=== PATIENT | male | born 1940 | race Caucasian/White ===

== ENCOUNTER 2023-07-28 14:23 | Inpatient (IN) | payer MEDICARE, OTHER, SELFPAY ==
[2023-07-28] VITALS (10 sets, daily range): BP systolic 96–152; BP diastolic 57–90
--- NOTE | 2023-07-28 10:11 | ED.GENMED ---
History of Present Illness
General
Chief Complaint: Bowel Problem
Source: patient and ambulance crew
Exam Limitations: clinical condition
Time Seen by Provider: 07/28/23 09:53
Travel History
Have you had any contact with someone who has COVID-19?: No
Do you have any symptoms of coronavirus? Fever > 100 degrees, chills, cough, shortness of breath, sore throat, loss of taste or smell, muscle aches, or headache?: No
History of Present Illness
History of Present Illness:
See MDM
Past History
Past History
ED Past Medical History: Cancer (Bladder CA), CVA, HTN, Hypercholesterolemia and Other (Expressive Aphasia)
ED Past Surgical History: Other (PEG tube)
Social History
Tobacco: Former smoker
Alcohol: None
Drug: None
Personal:
Living: with family
Family History
Family History: Other (reviewed and noncontributory)
Phy Exam
Physical Exam
Physical Exam:
See MDM
Course
Orders/Labs/Results
Orders:
Orders
07/28/23 10:08
0.9% Sodium Chloride 1000 ml [Nss] 1,000 ml IV BOLUS
CR Chest Portable - 1 View Urgent
Comment:
Reason For Exam: SOB, weak
Reason Study Needs to be Portable: Patient Unstable
07/28/23 10:09
Electrocardiogram (*1) Urgent
Reason for Study: Shortness of Breath
CT Abd/pelvis W Iv Cont Urgent
Comment:
Reason For Exam: constipated, poor po intake, abd pain
EKG- Treatment ONCE
07/28/23 10:32
Complete Blood Count/With Diff Urgent
Comprehensive Metabolic Panel Urgent
Lactic Acid Q4H
Comment: CANCEL 2nd LACTIC ACID IF 1st LACTIC ACID IS LESS THAN 2
NT-proBNP Urgent
Troponin I Urgent
07/28/23 10:38
Urinalysis Reflex To Culture Urgent
Date Specimen was Collected: 07/28/23
Time Specimen was Collected: 10:35
Urine Microscopic Reflex Cult Urgent
Urine Culture Urgent
GUILLERMINA Source: U
Specimen Description:
Date Specimen was Collected: 07/28/23
Time Specimen was Collected: 10:35
07/28/23 11:18
Ipratropium/Albuterol Sulfate [Duoneb] 3 ml INH R NOW ONE
07/28/23 13:08
Meropenem [Merrem] 1,000 mg IV NOW STA
07/28/23 13:17
Sterile Water [Sterile Water For Injection] 20 ml .ROUTE .STK-MED
Abnormal Lab Results
07/28/23 07/28/23
10:32 10:38
RBC 3.98 L 10^6/uL
(4.70-6.10)
MCV 98.7 H fL
(80.0-94.0)
MCH 34.4 H pg
(27.0-31.0)
MPV 11.0 H fL
(7.4-10.4)
Absolute Monos (auto) 0.7 H 10^3/uL
(0.1-0.6)
Lymphocytes % 18.7 L %
(20.5-51.1)
Monocytes % 9.6 H %
(1.7-9.3)
Sodium 134 L mmol/L
(135-145)
Troponin I 0.051 H* ng/ml
Urine Ketones 2+ A
(Negative)
Ur Occult Blood Reflex 4+ A
(Negative)
Urine Nitrite (Reflex) Positive A
(Negative)
Leukocyte Esterase Rfl 2+ A
(Negative)
Urine RBC 11-15 A /HPF
(0-2)
Urine WBC (Reflex) 26-30 A /HPF
(0-5)
Urine Bacteria (Reflex) Many A
(Negative)
Urine Albumin (Reflex) 1+ A
(Neg - Trace)
07/28/23 10:32
07/28/23 10:32
Vital Signs
Initial and Last Documented VS:
Initial Vital Signs
BP
98/73
07/28/23 09:57
Last Documented Vital Signs
Temp Pulse Resp BP Pulse Ox
99.8 F 61 20 107/61 96
07/28/23 09:58 07/28/23 13:00 07/28/23 13:00 07/28/23 13:00 07/28/23 13:00
MDM/Problems Addressed
Differential Diagnosis Includes:
HPI and MDM Narrative:
82-year-old male presenting for evaluation of constipation. Per EMS, patient has not had a bowel movement in 3 weeks. Patient has had a prior stroke and is aphasic. He is able to answer most questions nodding his head yes or no. Patient does
acknowledge that he has not had a bowel movement in many days. Patient has audible wheeze. He is denying shortness of breath. He is on supplemental oxygen but is not sure how much oxygen he is on at baseline. On exam, he has a soft and
nonlocalized abdominal exam. Rectal exam performed showing minimal stool in the rectal vault. Brown stool is guaiac negative.
Given his history, will obtain CT to rule out small bowel obstruction versus stercoral colitis. Given his wheezing, will check chest x-ray.
Physical exam
General: weak, fatigued
HEENT: protecting airway. Dry mucous membranes
Neck: appears supple
CV: No evidence of cyanosis
Resp: No accessory muscle use. Scattered rhonchi
Abd: Non-distended. No tenderness elicited
Extremities: No deformities
Neuro: alert. Nonverbal
Psych: Flat affect
Skin: Intact
Problems Addressed including Acute and Chronic Conditions affecting care:
1. Shortness of breath
Acuity: acute
Prognosis: stable
Details: Will obtain chest x-ray and BNP
2. Constipation
Acuity: acute
Prognosis: stable
Details: Given duration of symptoms, will obtain CT abdomen/pelvis to rule out small bowel obstruction versus stercoral colitis. No significant stool palpated in rectal vault
3. UTI
Acuity: acute
Prognosis: stable
Details: Meropenem given based on prior susceptibilities
Updates
11 AM at bedside. She states she tried a fleets enema with no relief. I questioned his shortness of breath and she states this is somewhat chronic
Patient found to have an elevated troponin. Patient denies chest pain. Patient already took his Eliquis this morning. At this time, the wheezing appears to be persistent. Unsure if this is heart strain from his chronic lung issues. Will give
dose of DuoNeb
CT negative for small bowel obstruction or stercoral colitis. There is large stool bolus by rectum. CT also shows evidence of atelectasis which is likely the cause of his shortness of breath. Regardless, will admit given his elevated troponin and
shortness of breath. Given his urinalysis, patient given dose of meropenem
Differential Diagnosis (but not limited to): Small bowel obstruction, dehydration, stercoral colitis
Testing considered: CT head
Drug therapy (if applicable): OTC meds, please see d/c instruction regarding Rx drugs
Amount and/or Complexity of Data Reviewed
Clinical info obtained from: Patient and EMS
External data reviewed: History of stroke with aphasia
Labs I independently reviewed (but not limited to): Elevated troponin
Radiology: X-ray independently reviewed: Chest x-ray without obvious pneumonia or pulmonary edema the
CT scan was personally and independently reviewed. In addition, official CT report reviewed.
Pulse Ox: not hypoxic
EKG independently reviewed: Sinus rhythm, left axis, no STEMI
[place] Operator: Sinus rhythm
Critical Care: N/A
Risk of Complication:
Social Determinants of health: Good social support
Discussed with other providers: Hospitalist
Escalation of Care includes Admit/Obs: Given the elevated troponin with shortness of breath, will admit for further evaluation.
Occasional wrong word or 'sound a like' substitutions may have occurred due to the inherent limitations of voice recognition software. Read the chart carefully and recognize, using context, where substitutions have occurred.
*Critical Care Note
Total Time (30-74mins, 75-104mins- exclusive of procedures): Not Applicable
ED Attending Note
-
Portions of this chart may have been created with voice recognition software.� Occasional wrong word or��sound alike� substitutions may have occurred due to the inherent limitations of voice recognition software.
Discharge Plan
Departure
Patient Disposition: Admit
Date of Disposition: 07/28/23
Time of Disposition: 13:35
Presentation/result/management discussed w/ accepting MD/DO: Hospitalist
Discharge Problem:
Elevated troponin, Acute UTI, Acute atelectasis, Constipation
Prescriptions:
No Action
multivitamin 1 EACH tablet
1 ea feeding tube NOON
baclofen 5 MG tablet
2.5 mg feeding tube BID
cyanocobalamin (vitamin B-12) 1,000 MCG tablet
500 mcg feeding tube DAILY
gabapentin 600 mg Tablet
300 mg feeding tube HS
Patient Comments:
07/28/2023, pt. filled this med. on 09/03/2022 for 90 tablets.
trazodone 50 mg Tablet
25 mg feeding tube HS
polyethylene glycol 3350 [Miralax] 17 gram Powder In Packet
17 g feeding tube HSPRN PRN (Reason: constipation)
hydralazine 25 mg Tablet
25 mg feeding tube TID PRN (Reason: SBP>150)
Patient Comments:
07/28/2023, [facility] records from 03/22/2022.
bisacodyl [Dulcolax (bisacodyl)] 10 mg Suppository
10 mg HI DAILY PRN (Reason: constipation)
chlorhexidine gluconate 0.12 % Mouthwash
15 ml MUCOUS MEMBRANE QID
Lumigan 0.01 % Drops
1 drp BOTH EYES HS
guaifenesin 400 mg tablet
400 mg feeding tube TID
sennosides-docusate sodium
2.5 tab feeding tube BIDPRN PRN (Reason: constipation)
Patient Comments:
07/28/2023, 8.6-50 mg strength.
Eliquis 5 MG tablet
5 mg feeding tube BID Qty: 30 0RF
Hold Instructions: Resume on 11/07/22. holding anticoagulation for 10 days and resume if all bleeding resolved
Zinc Oxide Diaper Cream 1-10 % Cream
1 applic TOPICAL QPM
Patient Comments:
07/28/2023, used when changing diaper.
acetaminophen [Tylenol Extra Strength] 500 mg Tablet
1,000 mg feeding tube TIDPRN PRN (Reason: mild pain)
fluoxetine 20 mg Tablet
20 mg feeding tube DAILY
Fleet Enema 19-7 gram/118 mL Enema
118 ml HI DAILYPRN PRN (Reason: constipation)
dorzolamide-timolol 22.3-6.8 mg/mL Drops
1 drp BOTH EYES BID
atorvastatin 40 MG tablet
40 mg feeding tube HS
Patient Comments:
07/28/2023, [facility] records from 03/22/2022.
fluticasone propionate 50 mcg/actuation spray,suspension
1 spray intranasal HS PRN (Reason: dry nares)
brimonidine 0.2 % Drops
1 drp BOTH EYES BID
ipratropium-albuterol 0.5 mg-3 mg(2.5 mg base)/3 mL Solution For Nebulization
3 ml INHALATION R TID
ipratropium-albuterol 0.5 mg-3 mg(2.5 mg base)/3 mL Solution For Nebulization
3 ml INHALATION R DAILYPRN PRN (Reason: sob/wheezing)
Referrals:
UNKNOWN,NO INTERVIEW [Family Provider] -
Interventions
Interventions:
*Risk Screen - Suicide Last Done: 07/28/23 09:58
*General Assessment Last Done: 07/28/23 09:58
*Neglect/Abuse Screening Last Done: 07/28/23 09:58
ED- Fall Risk Assessment Last Done: 07/28/23 09:58
*ED COVID-19 Vaccine History Last Done: 07/28/23 09:58
EV-Neqvka-Haxxiptbzx Assessment Last Done: 07/28/23 09:58
[2023-07-28] MEDS: NSS 1000 IV (10:37)
[2023-07-28 10:46] LABS: % Basophils 1.1 % (0-2); % Immature Granulocytes 0.3 % (0-0.5); % Lymphocytes 18.7 % (20.5-51.1); % Monocytes 9.6 % (1.7-9.3); % Neutrophils 65.3 % (42.2-75.2); Absolute Basophils 0.1 10^3/uL (0-0.2); Absolute Eosinophils 0.4 10^3/uL (0-0.7); Absolute Lymphocytes 1.3 10^3/uL (1.2-3.4); Absolute Monocytes 0.7 10^3/uL (0.1-0.6); Absolute Neutrophils 4.6 10^3/uL (1.4-6.5); Hematocrit 39.3 % (39.0-52.0); Hemoglobin 13.7 g/dL (13.0-18.0); Mean Corp Hgb Conc. 34.9 g/dL (33.0-37.0); Mean Corpuscular Hgb 34.4 pg (27.0-31.0); Mean Corpuscular Volume 98.7 fL (80.0-94.0); Nucleated Red Blood Cells % 0 % (-); Platelet Count 171 10^3/uL (130-400); Red Blood Cell Count 3.98 10^6/uL (4.70-6.10); Red Cell Dist. Width 13.8 % (11.5-14.5); White Blood Cell Count 7.1 10^3/uL (4.8-10.8)
[2023-07-28 10:46] LABS: Urine Albumin 1+ (Neg - Trace); Urine Bilirubin Negative (Negative); Urine Character Very Cloudy (Clear); Urine Color Yellow; Urine Glucose Negative (Negative); Urine Ketone 2+ (Negative); Urine Leukocyte 2+ (Negative); Urine Nitrite Positive (Negative); Urine Occult Blood 4+ (Negative); Urine Urobilinogen Negative (Neg - 1+)
[2023-07-28 10:56] LABS: Urine Bacteria Many (Negative); Urine White Cell 26-30 /HPF (0-5)
[2023-07-28 11:11] LABS: Lactic Acid 1.3 mmol/L (0.7-2.0)
[2023-07-28 11:12] LABS: NT-proBNP 1530 pg/ml; Troponin I 0.051 ng/ml
[2023-07-28 11:13] LABS: ALT (SGPT) 36 U/L (0-50); AST (SGOT) 36 U/L (17-59); Albumin 3.5 g/dl (3.5-5.0); Alkaline Phosphatase 61 U/L (38-126); Blood Urea Nitrogen 20 mg/dl (9-20); Carbon Dioxide 27 mmol/L (22-30); Chloride 102 mmol/L (98-107); Glucose 98 mg/dl (70-99); Potassium 4.7 mmol/L (3.5-5.1); Sodium 134 mmol/L (135-145); Total Bilirubin 0.7 mg/dl (0.2-1.3); Total Protein 6.5 g/dl (6.3-8.2); eGFR > 60.00
[2023-07-28] MEDS: DUONEB 3 ML INH ×2 (11:23→19:30)
--- NOTE | 2023-07-28 12:27 | PHANOTE ---
Addendum entered by Teto Garcia 07/28/23 12:36:
07/28/2023, med rec tech, spoke to pt.'s spouse to obtain pt.'s med. history.
Original Note:
07/28/2023, med rec tech, spoke to pt.'s family to obtain pt.'s med. history; used pt.'s pharmacy fill data and [facility] records from 03/22/2022 to confirm pt.'s meds. Pt.'s family states that pt. gets their meds. filled at [facility] ([address],
[place] [address]).
[2023-07-28] MEDS: MERREM 1000 MG IV (13:19)
--- NOTE | 2023-07-28 13:53 | HPS.HSE ---
Family Physician
-
Family Physician: NO INTERVIEW UNKNOWN
Chief Complaint
-
Constipation for several days during
History of Present Illness
82 years old male presented to the emergency room with his . History taken from his . Patient is nonverbal after stroke few years ago. Patient is bedbound and on feeding tube with oxygen all the time. reported that she patient has
not had bowel for 7 days. He was starting to have abdominal discomfort. She tried Fleet enema at home but did not go through. In the emergency room. ER doctor tried manual disimpaction but there was no stool in the rectum. Abdomen is soft but
mildly distended. Scan of the abdomen pelvis showed distention of the rectum with no evidence of stercoral colitis.
Patient did not have leukocytosis or fever. Patient has a chronic shortness of breath and did not report worsening shortness of breath or increasing oxygen requirement. Patient has a chronic Chavez and history of recurrent catheter associated
urinary tract infection.
Medical History
Past Medical History
Past Medical History: Reports Other (Recurrent UTI, chronic Chavez, history of bladder cancer, history of stroke with aphasia and PEG tube placement, chronic pain syndrome, COPD, hypertension, chronic constipation, anxiety/insomnia)
Past Surgical History: Reports Other (No recent major surgery)
Social History
Tobacco: Former Smoker
Alcohol: None
Drug: None
Personal:
Living: With Family
Employment: Retired ([employer])
Family History
Family History: Not pertinent
Allergies / Home Medications
Allergies reflects when Allergies were last updated in [email or web address].
Home Medications with original date entered in [email or web address]
Allergy/Medication List:
Allergies
Allergy/AdvReac Type Severity Reaction Status Date / Time
Cephalosporins Allergy Swelling/tolerates Verified 07/28/23 10:02
meropenem
Penicillins Allergy Swelling/tolerates Verified 07/28/23 10:02
meropenem
vancomycin Allergy Rash Verified 07/28/23 10:02
Home Medications
baclofen 5 mg tablet 2.5 mg feeding tube BID Muscle spasms 08/23/20
cyanocobalamin (vitamin B-12) 1,000 mcg tablet 500 mcg feeding tube DAILY Supplement 08/23/20
multivitamin 1 ea feeding tube NOON Supplement 08/23/20
bimatoprost 0.01 % eye drops (Lumigan) 1 drp BOTH EYES HS Eye condition 02/17/22
bisacodyl 10 mg rectal suppository (Dulcolax (bisacodyl)) 10 mg MD DAILY PRN constipation 02/17/22
chlorhexidine gluconate 0.12 % mouthwash 15 ml mucous membrane QID ORAL CARE 02/17/22
gabapentin 600 mg tablet 300 mg feeding tube HS Pain 02/17/22
guaifenesin 400 mg feeding tube TID Cough 02/17/22
hydralazine 25 mg tablet 25 mg feeding tube TID PRN SBP>150 02/17/22
polyethylene glycol 3350 17 gram oral powder packet (Miralax) 17 g feeding tube HSPRN PRN constipation 02/17/22
sennosides-docusate sodium 2.5 tab feeding tube BIDPRN PRN constipation 02/17/22
trazodone 50 mg tablet 25 mg feeding tube HS Sleep 02/17/22
apixaban 5 mg tablet (Eliquis) 5 mg feeding tube BID Blood clot prevention/tx #30 tabs 02/20/22
dimethicone 1 %-zinc oxide 10 %-vit A and D-aloe vera topical cream (Zinc Oxide Diaper Cream) 1 applic topical QPM Skin Issues 02/01/23
acetaminophen 500 mg tablet (Tylenol Extra Strength) 1,000 mg feeding tube TIDPRN PRN mild pain 07/28/23
atorvastatin 40 mg tablet 40 mg feeding tube HS High Cholesterol 07/28/23
brimonidine 0.2 % eye drops 1 drp BOTH EYES BID Eye Condition 07/28/23
dorzolamide 22.3 mg-timolol 6.8 mg/mL eye drops 1 drp BOTH EYES BID Eye Condition 07/28/23
fluoxetine 20 mg tablet 20 mg feeding tube DAILY Mental Health 07/28/23
fluticasone propionate 50 mcg/actuation nasal spray,suspension 1 spray intranasal HS PRN dry nares 07/28/23
ipratropium 0.5 mg-albuterol 3 mg (2.5 mg base)/3 mL nebulization soln 3 ml inhalation R DAILYPRN PRN sob/wheezing 07/28/23
ipratropium 0.5 mg-albuterol 3 mg (2.5 mg base)/3 mL nebulization soln 3 ml inhalation R TID Lung/Breathing Issues 07/28/23
sodium phosphates 19 gram-7 gram/118 mL enema (Fleet Enema) 118 ml MD DAILYPRN PRN constipation 07/28/23
Review of Systems
-
History Source: Patient
Constitutional: Reports Night Sweats; Denies Fever
EENT: Denies Sore Throat
Respiratory: Denies Cough
Cardiac: Denies Chest Pain
Abdomen/GI: Reports Constipated; Denies Abdominal Pain
: Reports Chavez; Denies Bleeding
Musculoskeletal: Denies Joint Swelling
Skin: Denies Rash
Neurological: Denies Headache
Endocrine: Denies Temp Intolerance
Psych: Denies Panic Disorder
Physical Exam
Vital Signs
Vital Signs
Temp Pulse Resp BP Pulse Ox
99.8 F 61 20 107/61 96
07/28/23 09:58 07/28/23 13:00 07/28/23 13:00 07/28/23 13:00 07/28/23 13:00
Physical Exam
General: No Apparent Distress and Appears Chronically Ill
HEENT: Moist mucous membranes
Respiratory: Rhonchi (chronic )
Cardiac: S1/S2
GI: Soft and Distended
Rectal: No Maroon Stools
Genito-urinary: Chavez
Musculoskeletal: No Cyanosis
Skin: No Jaundice
Neuro: Awake and Facial Droop
Psych: Calm
Laboratory Results
-
07/28/23 10:32
07/28/23 10:32
Laboratory Results
Lactic Acid Cancelled 07/28/23 14:15
Total Bilirubin 0.7 mg/dl (0.2-1.3) 07/28/23 10:32
AST 36 U/L (17-59) 07/28/23 10:32
ALT 36 U/L (0-50) 07/28/23 10:32
Alkaline Phosphatase 61 U/L (38-126) 07/28/23 10:32
Troponin I 0.051 ng/ml H* 07/28/23 10:32
Impression/Plan
-
82 years old male presented with constipation
#Acute on chronic constipation
CAT scan does not show free air or bowel obstruction.
ER tried manual disimpaction at bedside with no success
Continue with gentle IV fluid, hold tube feeding except for medications and flushes
Will give lactulose
Continue with Senokot and MiraLAX
# Mildly positive troponin.
Patient denied chest pain, did not report chest pain or worsening shortness of breath at home.
Mildly positive troponin
Repeat troponin
Order echo
Patient follows with cardiology
#History of CAUTI/ HX chronic bladder outlet obstruction
#History multiple drug-resistant UTIs treated in past with meropenem
Hx MSSA bacteremia, Proteus October 2022
Patient does not have leukocytosis or fever. No worsening confusion.
was concerned about UTI specially after given antibiotic in the ER and concerned about stopping given. We can do short course of 3 days of antibiotic
#History of bladder cancer status post TURBT 15 years ago
#Paroxysmal A-fib
Continue with Eliquis. No tachycardia or palpitation
#CVA with residual aphasia and bedbound and muscle spasms
is taking comfort level of care at this point. Will consult case management and hospice for possible outpatient hospice management
-Continue statin, BP control
#Chronic pain syndrome
-Continue gabapentin 300 mg via G-tube at bedtime
-Continue baclofen
#Chronic dysphagia 2/2 to CVa
#Chronic PEG tube
Holding tube feeding until constipation resolves
#
#HTN�benign
hydralazine via peg derrick
2D echo 10/26/2022�EF 55-60% normal LVS LVSF, trace MR
#HLD
#Insomnia
-cont trazodone
#Anxiety
Continue Prozac 40 mg via G-tube a.m.
#Chronic constipation
-Continue bowel regimen
#Former smoker
#History aspiration PNA
-Continue inhaler as needed
#Glaucoma
cont eye drops
DVT prophylaxis
�cont eliquis
CODE STATUS, DNR/DNI, confirmed with patient and
Total time spent to see the patient, examine the patient on the floor, review data and lab results, discuss treatment plan with patient, , ER doctor and nursing staff around 75 minutes
[2023-07-28 15:23] LABS: Troponin I 0.061 ng/ml
--- NOTE | 2023-07-28 16:40 | PTCARENOTE ---
Pt received from ED around 1600. Pt at bedside to answer admission questions. Oral suction setup at pt bedside.
[2023-07-28] MEDS: ROBITUSSIN 400 MG TUBE ×2 (17:28→22:35)
[2023-07-28] MEDS: BALMEX CREAM 1 APPLIC TOPICAL (17:28)
[2023-07-28] MEDS: DUPHALAC/CHRONULAC 20 GRAMS TUBE ×2 (17:28→22:38)
--- NOTE | 2023-07-28 22:00 | PTCARENOTE ---
Pt has a PEG tube but no orders for med administration or flushes. House VALIDATION ARCHITECT Polina King notified, order for q4h and PRN 30 mL normal saline flush added, order for nursing to use PEG tube for med administration placed.
[2023-07-28] MEDS: COLACE LIQUID 50 MG TUBE (22:30)
[2023-07-28] MEDS: DESYREL 25 MG TUBE (22:31)
[2023-07-28] MEDS: LIPITOR 40 MG TUBE (22:33)
[2023-07-28] MEDS: SENNA SYRUP 8.80000000000000071 MG TUBE (22:34)
[2023-07-28] MEDS: NEURONTIN 300 MG TUBE (22:38)
[2023-07-28] MEDS: LIORESAL 2.5 MG TUBE (22:40)
[2023-07-28] MEDS: ELIQUIS 5 MG TUBE (22:40)
[2023-07-28] MEDS: MIRALAX 17 GRAMS TUBE (22:42)
[2023-07-28] MEDS: LUMIGAN 0.01% 1 DROP BOTH EYES (22:43)
[2023-07-28] MEDS: COSOPT EYE DROPS 1 DROP BOTH EYES (22:44)
[2023-07-28] MEDS: ALPHAGAN 0.2% EYE DROPS 1 DROP BOTH EYES (22:44)
[2023-07-29] VITALS (7 sets, daily range): BP systolic 78–176; BP diastolic 61–100; BMI 23.7
[2023-07-29] MEDS: DUPHALAC/CHRONULAC TUBE ×3 (01:09→04:04)
--- NOTE | 2023-07-29 01:30 | PTCARENOTE ---
This RN was flushing pt's PEG tube with normal saline and heard a 'pop' sound. Upon inspection of PEG tube site this RN noticed that PEG tube and balloon had dislodged from the pt's abdomen. PEG tube site cleansed with normal saline and covered
with silicone border foam. [place] MEDIA SPECIALIST Polina King notified, order placed for GI consult in AM. Will continue to monitor.
--- NOTE | 2023-07-29 04:30 | PTCARENOTE ---
Pt placed on 2L O2 tonight and sating at 96%. BED MACHINE OPERATOR Polina King notified, order for oxygen placed. Will continue to monitor.
--- NOTE | 2023-07-29 05:49 | PTCARENOTE ---
Pt with chronic Costa but no order. House GRIDCAP MACHINE OPERATOR Polina King notified, order placed for costa.
--- NOTE | 2023-07-29 06:30 | W.PN.UPDATE ---
Update Note
Progress Note Update
Patient's G tube fell out overnight. GI consult placed for replacement.
[2023-07-29] MEDS: ELIQUIS TUBE (07:58)
[2023-07-29] MEDS: ROBITUSSIN TUBE (07:59)
[2023-07-29] MEDS: PROZAC TUBE (07:59)
[2023-07-29] MEDS: LIORESAL TUBE (07:59)
[2023-07-29] MEDS: DUONEB INH (08:20)
[2023-07-29] MEDS: APRESOLINE 5 MG IV ×2 (08:35→12:54)
[2023-07-29] MEDS: COSOPT EYE DROPS 1 DROP BOTH EYES ×2 (09:01→21:01)
[2023-07-29] MEDS: ALPHAGAN 0.2% EYE DROPS 1 DROP BOTH EYES ×2 (09:01→21:01)
[2023-07-29] MEDS: D5/0.9% SODIUM CHLORIDE 1000 IV (09:02)
--- NOTE | 2023-07-29 09:03 | W.PN.HOSP.TC ---
Today's Communication/Plan
-
.
Assessment / Plan
Assessment / Plan
Physical Exam
General: No Apparent Distress and Appears Chronically Ill
HEENT: Moist mucous membranes
Respiratory: Rhonchi (chronic )
Cardiac: S1/S2
GI: Soft and not distended.
Rectal: No Maroon Stools
Genito-urinary: Chavez
Musculoskeletal: No Cyanosis
Skin: No Jaundice
Neuro: Awake and Facial Droop
Psych: Calm
82 years old male presented with constipation
# Peg tube dislodgment
Unable to give medications now or feeding
Appreciate GI help
#Acute on chronic constipation
CAT scan does not show free air or bowel obstruction.�
ER tried manual disimpaction at bedside with no success
Continue with gentle IV fluid, held tube feeding except for medications and flushes
to do lactulose
Continue with Senokot and MiraLAX
# Mildly positive troponin. 0.051-0.061
Patient denied chest pain, did not report chest pain or worsening shortness of breath at home.
No chest pain this morning
Order echo
Appreciate cardiology input
# Hyponatremia
mild
Order IVF
#History of CAUTI/ HX chronic bladder outlet obstruction
#History multiple drug-resistant UTIs treated in past with meropenem
Hx MSSA bacteremia, Proteus October 2022
Patient does not have leukocytosis or fever.� No worsening confusion.
was concerned about UTI specially after given antibiotic in the ER and concerned about stopping given.� We can do short course of 3 days of antibiotic
#History of bladder cancer status post TURBT 15 years ago
#Paroxysmal A-fib
Continue with Eliquis.� No tachycardia or palpitation
#CVA with residual aphasia and bedbound and muscle spasms
is taking comfort level of care at this point.� Will consult case management and hospice for possible outpatient hospice management
-Continue statin, BP control
#Chronic pain syndrome
-Continue gabapentin 300 mg via G-tube at bedtime
-Continue baclofen
#Chronic dysphagia 2/2 to CVa
#Chronic PEG tube
Holding tube feeding until constipation resolves
#
#HTN�benign. Uncontrolled this morning
hydralazine via peg derrick, change to IV until peg tube placed back again.
2D echo 10/26/2022�EF 55-60% normal LVS LVSF, trace MR
#HLD
#Insomnia
-cont trazodone
#Anxiety
Continue Prozac 40 mg via G-tube a.m.
#Chronic constipation
-Continue bowel regimen
#Former smoker
#History aspiration PNA
-Continue inhaler as needed
#Glaucoma
cont eye drops
DVT prophylaxis
�cont eliquis
CODE STATUS, DNR/DNI, confirmed with patient and
Total time spent to see the patient, examine the patient on the floor, review data and lab results, discuss treatment plan with patient, , and nursing staff around 57 minutes
Anticipated Discharge: 24 - 48 hours
Subjective/Interval History
-
Date of Service: July 29, 2023
No chest pain
No abd pain
No bowel movements over night
Peg tube is not working.
Objective Data
-
Labs:
Laboratory Results
07/29/23
07:49
Sodium Pending
Potassium Pending
Chloride Pending
Carbon Dioxide Pending
BUN Pending
Creatinine Pending
Glucose Pending
Calcium Pending
Vital Signs:
Vital Signs
Temp Pulse Resp BP Pulse Ox
97.9 F 80 24 156/100 97
07/29/23 07:30 07/29/23 07:30 07/29/23 07:30 07/29/23 07:30 07/29/23 07:30
I&O
07/28/23 07/29/23 07/30/23
06:59 06:59 06:59
Intake Total 60 / 60
Output Total 550 / 550
Balance -490 / -490
--- NOTE | 2023-07-29 10:37 | CON.CAR ---
Addendum entered and electronically signed by Haider Alvarado MD 07/29/23 16:29:
82-year-old man with history of cardioembolic stroke, PEG tube, aphasia admitted with stercoral colitis, found to have troponin of 0.051 and 0.061. Patient offers no cardiac complaints. at bedside. Had previously been on metoprolol in the
past. Last saw Dr. Jonas years ago, remains on [facility], hospital course notable for dislodgment of PEG tube, which has subsequently been replaced
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
PSH: PEG tube
FH: Noncontributory
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
ROS: Not obtainable
144/87, pulse 68, resp rate 20, afebrile, saturations 96%
Head neck exam poor dentition, expressive aphasia on neuro exam with hemiparesis on left, lungs are relatively clear, regular rate and rhythm, no murmur, JVD okay, abdomen with replaced PEG tube, extremities without much edema, distal pulses still
palpable
BUN and creatinine 25 and 0.7, follow-up troponin 0.034, peak was 0.61
Chest x-ray with cardiomegaly atherosclerotic change of the aorta
EKG sinus rhythm, normal ECG
Impression:
Minimally elevated/detectable troponin
Stercoral colitis
History of cardioembolic stroke, with aphasia and left hemiparesis
Paroxysmal atrial fibrillation
Chronic Chavez catheter with recurrent UTIs
Hyperlipidemia
Hypertension
Dislodged PEG tube/replaced
COPD
Bladder cancer
Plan:
He has no acute EKG changes, had a satisfactory echocardiogram about a year ago, is anticoagulated and has no cardiac symptoms.
Is minimally elevated troponin is a non-WI troponin elevation, possibly related to physiologic stress of possible UTI/stercoral colitis
Would not investigate further at this time.
He is relatively bradycardic but a low-dose of carvedilol may be worthwhile, will start metoprolol ER 12.5 mg daily
His proBNP is mildly elevated but there is no evidence of heart failure. Diuretics or other interventions not required. SGLT2 antagonist contraindicated given UTIs
From cardiac standpoint, could be discharged.
Ideally he would be seen in our office in follow-up, and we would be happy to see him, but given his functional status if this is logistically difficult for okay to continue to receive outpatient care as prior.
We will follow telemetry but otherwise sign off. Please call if questions
Original Note:
Consultation
Consultation Request
Date/Time Consultation Requested: 07/28/2023
Date/Time Consultation Performed: 07/29/2023 at 0930
Requesting Provider: Dr. Alvarez
Performing Provider: Dr. DAIJA Alvarado
Reason for Consultation: Elevated troponin
Medical History
-
History of Present Illness:
HPI: Johnnie is an 82-year-old male with past medical history of paroxysmal atrial fibrillation, embolic CVA with residual aphasia, PEG tube, and Chavez catheter, hypertension, hyperlipidemia, recurrent UTIs, and COPD who presents to ER for
evaluation of ongoing constipation. He has chronic constipation, however on arrival he had not had bowel movement for approximately 7 days. In ER, he was noted to have evidence of possible UTI on UA. CT scan of abdomen showed distention of the
rectum with no evidence of stercoral colitis. Manual disimpaction was attempted, however there was no stool in the rectum. He was admitted for further workup and evaluation. Troponin was checked in the ER and was mildly elevated at 0.051 and
trended to 0.061. Cardiology consulted. Patient denies any chest pain or shortness of breath.
PMH:
Paroxysmal atrial fibrillation
Chronic Eliquis anticoagulation
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
w/ residual aphasia, chronic PEG tube, chronic Chavez catheter
Hypertension
Hyperlipidemia
Recurrent UTI
h/o bladder cancer
COPD
Past Medical History
Past Medical History: Other (In HPI)
Social History
Tobacco: Former Smoker
Alcohol: None
Drug: None
Personal:
Living: With Family
Employment: Retired
Family History
Family History: Reviewed & Not Pertinent
Allergies / Home Medications
Allergy/AdvReac Type Severity Reaction Status Date / Time
Cephalosporins Allergy Swelling/tolerates Verified 07/28/23 10:02
meropenem
Penicillins Allergy Swelling/tolerates Verified 07/28/23 10:02
meropenem
vancomycin Allergy Rash Verified 07/28/23 10:02
Medication Instructions Recorded Confirmed Type
baclofen 5 mg tablet 2.5 mg feeding tube BID Muscle 08/23/20 07/28/23 History
spasms
cyanocobalamin (vitamin B-12) 500 mcg feeding tube DAILY 08/23/20 07/28/23 History
1,000 mcg tablet Supplement
multivitamin 1 ea feeding tube NOON Supplement 08/23/20 07/28/23 History
bimatoprost 0.01 % eye drops 1 drp BOTH EYES HS Eye condition 02/17/22 07/28/23 History
(Lumigan)
bisacodyl 10 mg rectal suppository 10 mg [place] DAILY PRN constipation 02/17/22 07/28/23 History
(Dulcolax (bisacodyl))
chlorhexidine gluconate 0.12 % 15 ml mucous membrane QID ORAL CARE 02/17/22 07/28/23 History
mouthwash
gabapentin 600 mg tablet 300 mg feeding tube HS Pain 02/17/22 07/28/23 History
guaifenesin 400 mg feeding tube TID Cough 02/17/22 07/28/23 History
hydralazine 25 mg tablet 25 mg feeding tube TID PRN SBP>150 02/17/22 07/28/23 History
polyethylene glycol 3350 17 gram 17 g feeding tube HSPRN PRN 02/17/22 07/28/23 History
oral powder packet (Miralax) constipation
sennosides-docusate sodium 2.5 tab feeding tube BIDPRN PRN 02/17/22 07/28/23 History
constipation
trazodone 50 mg tablet 25 mg feeding tube HS Sleep 02/17/22 07/28/23 History
apixaban 5 mg tablet (Eliquis) 5 mg feeding tube BID Blood clot 02/20/22 07/28/23 Rx
prevention/tx #30 tabs
dimethicone 1 %-zinc oxide 10 1 applic topical QPM Skin Issues 02/01/23 07/28/23 History
%-vit A and D-aloe vera topical
cream (Zinc Oxide Diaper Cream)
acetaminophen 500 mg tablet 1,000 mg feeding tube TIDPRN PRN 07/28/23 07/28/23 History
(Tylenol Extra Strength) mild pain
atorvastatin 40 mg tablet 40 mg feeding tube HS High 07/28/23 07/28/23 History
Cholesterol
brimonidine 0.2 % eye drops 1 drp BOTH EYES BID Eye Condition 07/28/23 07/28/23 History
dorzolamide 22.3 mg-timolol 6.8 1 drp BOTH EYES BID Eye Condition 07/28/23 07/28/23 History
mg/mL eye drops
fluoxetine 20 mg tablet 20 mg feeding tube DAILY Mental 07/28/23 07/28/23 History
Health
fluticasone propionate 50 1 spray intranasal HS PRN dry nares 07/28/23 07/28/23 History
mcg/actuation nasal
spray,suspension
ipratropium 0.5 mg-albuterol 3 mg 3 ml inhalation R DAILYPRN PRN 07/28/23 07/28/23 History
(2.5 mg base)/3 mL nebulization sob/wheezing
soln
ipratropium 0.5 mg-albuterol 3 mg 3 ml inhalation R TID 07/28/23 07/28/23 History
(2.5 mg base)/3 mL nebulization Lung/Breathing Issues
soln
sodium phosphates 19 gram-7 118 ml W[place] DAILYPRN PRN constipation 07/28/23 07/28/23 History
gram/118 mL enema (Fleet Enema)
Review of Systems
-
History Source: Patient
All other systems: Negative unless noted
Physical Exam
Vital Signs
Temp Pulse Resp BP Pulse Ox
97.9 F 80 24 156/100 97
07/29/23 07:30 07/29/23 07:30 07/29/23 07:30 07/29/23 07:30 07/29/23 07:30
Lab Results
07/28/23 10:32
Troponin I 0.061 ng/ml H* 07/28/23 14:43
Whb-C-Hdzotyidoax Pept 1530 pg/ml 07/28/23 10:32
Physical Exam
General: No Apparent Distress
HEENT: Normocephalic and Moist Mucous Membranes
Respiratory: Clear and Non Labored Respirations
Cardiac: S1/S2 and Regular Rhythm
Musculoskeletal: No Clubbing, No Cyanosis and No Edema
Skin: Warm and Dry
Neuro: AO x 3 and Nonfocal/Grossly Intact
Psych: Calm
Impression / Plan
-
PCP: Jenn Dominguez PA-C
Cardiology: Dr. Jonas, last seen in 03/2021
Impression:
Presented with constipation
Abdominal pain
Elevated troponin
Suspected UTI
PEG tube dislodgment
Paroxysmal atrial fibrillation
Chronic Eliquis anticoagulation
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
w/ residual aphasia, chronic PEG tube, chronic Chavez catheter
Hypertension
Hyperlipidemia
Recurrent UTI
h/o bladder cancer
COPD
Echo 10/26/2022: EF 55 to 60%, posterior MAC, trace MR, trace AR, trace TR, estimated PAP 31 mmHg no evidence of vegetation
Plan:
-Presented with acute on chronic constipation and abdominal pain. Continue management per primary service
-PEG tube dislodged overnight. GI consulted for replacement.
-As PEG tube is dislodged, did not receive any of his a.m. medications. Would resume as able.
-Elevated troponin noted in ER with initial troponin 0.051, trending up to 0.061. Will repeat troponin with blood work this morning. If remains low level/flat, no need to continue trending.
-Suspect non-WI troponin elevation in the setting of UTI. Will continue conservative management.
-Remains in sinus rhythm on review of telemetry. EKG reviewed and reveals sinus rhythm with no acute ischemic changes.
-Echo 10/26/2022 with preserved EF. As patient is asymptomatic, do not know that we need to repeat echo at this time.
-Continue Eliquis 5 mg twice daily for anticoagulation.
-Would consider starting low dose coreg 3.125mg BID. Previously was on lopressor 12.5mg BID, however stopped for unclear reasons.
-Continue Lipitor
HPI: Johnnie is an 82-year-old male with past medical history of paroxysmal atrial fibrillation, embolic CVA with residual aphasia, PEG tube, and Chavez catheter, hypertension, hyperlipidemia, recurrent UTIs, and COPD who presents to ER for
evaluation of ongoing constipation. He has chronic constipation, however on arrival he had not had bowel movement for approximately 7 days. In ER, he was noted to have evidence of possible UTI on UA. CT scan of abdomen showed distention of the
rectum with no evidence of stercoral colitis. Manual disimpaction was attempted, however there was no stool in the rectum. He was admitted for further workup and evaluation. Troponin was checked in the ER and was mildly elevated at 0.051 and
trended to 0.061. Cardiology consulted. Patient denies any chest pain or shortness of breath.
Data Reviewed
-
EKG: Tracing Personally Visualized and interpreted
Radiology: Report Reviewed by me
CT Scan: Report Reviewed by me
Labs: Labs Reviewed by me
Old Records: Reviewed
--- NOTE | 2023-07-29 10:45 | W.PN.UPDATE ---
Update Note
Progress Note Update
Asked to see patient as PEG tube fell out last evening. Patient had original PEG placed in 2019 and was a 20F. He had a 14F balloon PEG replaced by ER in 2021. Area where PEG was is already closing and not amenable to bedside replacement. Consulted
IR for guidewire replacement.Discussed with IR and IM Attending. Please call back if we can be of further assistance.
[2023-07-29 11:10] LABS: Troponin I 0.034 ng/ml
[2023-07-29 11:57] LABS: Blood Urea Nitrogen 25 mg/dl (9-20); Calcium 8.9 mg/dl (8.4-10.2); Carbon Dioxide 26 mmol/L (22-30); Chloride 103 mmol/L (98-107); Glucose 117 mg/dl (70-99); Potassium 4.5 mmol/L (3.5-5.1); Sodium 137 mmol/L (135-145); eGFR > 60.00
[2023-07-29] MEDS: DULCOLAX 10 MG RECTAL (12:55)
[2023-07-29] MEDS: DUONEB 3 ML INH ×2 (13:24→20:30)
[2023-07-29] MEDS: ROBITUSSIN 400 MG TUBE ×2 (16:05→21:02)
[2023-07-29] MEDS: APRESOLINE 25 MG TUBE (16:05)
--- NOTE | 2023-07-29 16:30 | CM ---
visited patient who is non verbal following a stroke in 2019.i spoke with his taqueria who confimred that patient lives at home with and adult son ..there is a ramp in front of house.patient's bedroom is on first level.he is bedbound.
and son care for patient 10/01.patient has [facility] coming into the home once per month to check his costa and peg tube.also montly visits from jimena from [facility].pt is adm with constipation and a dislodged peg tube.peg tube is now
functioning..patient can resume his meds and tube feedings. spouse is asking for a palliative care consult so she can find out some information about the process and see if it helps patient and family.cs placed.patient may discharge as early as
tomorrow.it seems that can use more assistance in the home.
Plan is for patient to discharge home via ambulance
[2023-07-29] MEDS: BALMEX CREAM 1 APPLIC TOPICAL (18:23)
[2023-07-29] MEDS: LUMIGAN 0.01% 1 DROP BOTH EYES (21:01)
[2023-07-29] MEDS: COLACE LIQUID 50 MG TUBE (21:02)
[2023-07-29] MEDS: NEURONTIN 300 MG TUBE (21:03)
[2023-07-29] MEDS: MIRALAX 17 GRAMS TUBE (21:03)
[2023-07-29] MEDS: SENNA SYRUP 8.80000000000000071 MG TUBE (21:04)
[2023-07-29] MEDS: LIPITOR 40 MG TUBE (21:04)
[2023-07-29] MEDS: LIORESAL 2.5 MG TUBE (21:04)
[2023-07-29] MEDS: ELIQUIS 5 MG TUBE (21:05)
[2023-07-29] MEDS: DESYREL 25 MG TUBE (21:05)
[2023-07-29] MEDS: D5/0.9% SODIUM CHLORIDE IV (21:06)
[2023-07-29] MEDS: COREG 3.125 MG TUBE (21:06)
[2023-07-30] MEDS: D5/0.9% SODIUM CHLORIDE 1000 IV (01:43)
[2023-07-30 03:00] VITALS: BP 128/66
[2023-07-30] MEDS: D5/0.9% SODIUM CHLORIDE IV (05:10)
[2023-07-30 07:00] VITALS: BP 125/71
[2023-07-30] MEDS: DUONEB 3 ML INH ×3 (07:33→18:13)
[2023-07-30] MEDS: ROBITUSSIN 400 MG TUBE ×3 (07:37→20:14)
[2023-07-30] MEDS: COREG 3.125 MG TUBE (07:38)
[2023-07-30] MEDS: LIORESAL 2.5 MG TUBE ×2 (07:38→20:16)
[2023-07-30] MEDS: PROZAC 20 MG TUBE (07:38)
[2023-07-30] MEDS: ELIQUIS 5 MG TUBE ×2 (07:38→20:33)
[2023-07-30] MEDS: COSOPT EYE DROPS 1 DROP BOTH EYES ×2 (07:39→20:13)
[2023-07-30] MEDS: ALPHAGAN 0.2% EYE DROPS 1 DROP BOTH EYES ×2 (07:40→20:13)
[2023-07-30] MEDS: DUPHALAC/CHRONULAC 20 GRAMS TUBE ×4 (09:09→20:24)
--- NOTE | 2023-07-30 10:15 | W.PN.HOSP.TC ---
Today's Communication/Plan
-
.
Assessment / Plan
Assessment / Plan
Physical Exam
General: No Apparent Distress and Appears Chronically Ill
HEENT: Moist mucous membranes
Respiratory: Rhonchi (chronic )
Cardiac: S1/S2
GI: Soft and not distended.
Rectal: No Maroon Stools
Genito-urinary: Chavez
Musculoskeletal: No Cyanosis
Skin: No Jaundice
Neuro: Awake and Facial Droop
Psych: Calm
82 years old male presented with constipation
# S/P fluoroscopically guided placement of gastrostomy tube by Ir on 07/29. No complications reported.
d/w IR, ok to resume feeding/ meds.
Appreciate GI & IR help
#Acute on chronic constipation
CAT scan does not show free air or bowel obstruction.�
ER tried manual disimpaction at bedside with no success
s/p IV fluid
Resumed tube feeding. Resume lactulose
Continue with Senokot and MiraLAX
# Non-WI troponin elevation, mildly positive troponin. 0.051-0.061
Patient denied chest pain, did not report chest pain or worsening shortness of breath at home.
per cardiology : no acute EKG changes, had a satisfactory echocardiogram about a year ago, is anticoagulated and has no cardiac symptoms.
No chest pain
No arrhythmias on Tele. Started on Coreg.
Appreciate cardiology input
# Hyponatremia
mild
S/p IVF
#History of CAUTI/ HX chronic bladder outlet obstruction
#History multiple drug-resistant UTIs treated in past with meropenem
Hx MSSA bacteremia, Proteus October 2022
Patient does not have leukocytosis or fever.� No worsening confusion.
was concerned about UTI specially after given antibiotic in the ER and concerned about stopping given.� We can do short course of 3 days of antibiotic
#History of bladder cancer status post TURBT 15 years ago
#Paroxysmal A-fib
Continue with Eliquis.� No tachycardia or palpitation
Starte don low dose Coreg.
#CVA with residual aphasia and bedbound and muscle spasms
is taking comfort level of care at this point.� Will consult case management and hospice for possible outpatient hospice management
-Continue statin, BP control
#Chronic pain syndrome
-Continue gabapentin 300 mg via G-tube at bedtime
-Continue baclofen
#Chronic dysphagia 2/2 to CVa
#Chronic PEG tube
Resumed tube feeding now post NPO > 24 hours and had IVF
#HTN�benign. Uncontrolled this morning
hydralazine via peg derrick, change to IV until peg tube placed back again.
2D echo 10/26/2022�EF 55-60% normal LVS LVSF, trace MR
#HLD
#Insomnia
-cont trazodone
#Anxiety
Continue Prozac 40 mg via G-tube a.m.
#Former smoker
#History aspiration PNA
-Continue inhaler as needed
#Glaucoma
cont eye drops
DVT prophylaxis
�cont eliquis
CODE STATUS, DNR/DNI, confirmed with patient and . was also interested in hospice consult, will d/w business case analyst.
Total time spent to see the patient, examine the patient on the floor, review data and lab results, discuss treatment plan with patient, , and nursing staff around 57 minutes
Anticipated Discharge: Within 24 hours
Subjective/Interval History
-
Date of Service: July 30, 2023
No hypotension
no fevers
tolerating tube feeding
No BM yet
Objective Data
-
Vital Signs:
Vital Signs
Temp Pulse Resp BP Pulse Ox
98.0 F 56 18 125/71 96
07/30/23 07:00 07/30/23 07:36 07/30/23 07:36 07/30/23 07:00 07/30/23 07:40
I&O
07/29/23 07/30/23 07/31/23
06:59 06:59 06:59
Intake Total 60 / 60 1850 / 1850
Output Total 550 / 550 1175 / 1175
Balance -490 / -490 675 / 675
[2023-07-30 11:00] VITALS: BP 117/59
[2023-07-30] MEDS: INVANZ 60 MG IV (12:19)
--- NOTE | 2023-07-30 14:13 | W.PN.CARDCBS ---
Today's Communication / Plan
-
Stable cardiac status, but wheezing and bradycardic on carvedilol
Stop carvedilol
Continue atorvastatin Eliquis and hydralazine
Nurse practitioner continues to see patient at home once a month
We will sign off, please call if questions
Impression / Plan
-
PCP: Jenn Dominguez PA-C
Cardiology: Dr. Jonas, last seen in 03/2021
Impression:
Presented with constipation
Abdominal pain
Elevated troponin
Suspected UTI
PEG tube dislodgment
Paroxysmal atrial fibrillation
Chronic Eliquis anticoagulation
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
w/ residual aphasia, chronic PEG tube, chronic Chavez catheter
Hypertension
Hyperlipidemia
Recurrent UTI
h/o bladder cancer
COPD
Echo 10/26/2022: EF 55 to 60%, posterior MAC, trace MR, trace AR, trace TR, estimated PAP 31 mmHg no evidence of vegetation
Plan:
We had attempted to add carvedilol given detectable troponin and history of paroxysmal A-fib, but he is bradycardic and wheezing. Adverse effects risks of carvedilol outweigh potential benefit, we will stop.
From cardiac standpoint, would continue medical regimen in place at time of admission, atorvastatin, Eliquis, and hydralazine.
Patient is being monitored by nurse practitioner in the home. No need for cardiac follow-up.
We will sign off, please call if questions.
HPI: Johnnie is an 82-year-old male with past medical history of paroxysmal atrial fibrillation, embolic CVA with residual aphasia, PEG tube, and Chavez catheter, hypertension, hyperlipidemia, recurrent UTIs, and COPD who presents to ER for
evaluation of ongoing constipation. He has chronic constipation, however on arrival he had not had bowel movement for approximately 7 days. In ER, he was noted to have evidence of possible UTI on UA. CT scan of abdomen showed distention of the
rectum with no evidence of stercoral colitis. Manual disimpaction was attempted, however there was no stool in the rectum. He was admitted for further workup and evaluation. Troponin was checked in the ER and was mildly elevated at 0.051 and
trended to 0.061. Cardiology consulted. Patient denies any chest pain or shortness of breath.
Progress Note - [employer]
Subjective
Date of Service: July 30, 2023:
Allergies: Cephalosporins, penicillin, Vanco
Meds reviewed
PMH/PSH/SH/FH: Reviewed
Review of systems, unremarkable
No labs
Telemetry bradycardia
Objective
Labs:
07/28/23 10:32
07/29/23 10:35
Labs
Hgb 13.7 g/dL (13.0-18.0) 07/28/23 10:32
Hct 39.3 % (39.0-52.0) 07/28/23 10:32
Plt Count 171 10^3/uL (130-400) 07/28/23 10:32
Sodium 137 mmol/L (135-145) 07/29/23 10:35
Potassium 4.5 mmol/L (3.5-5.1) 07/29/23 10:35
BUN 25 mg/dl (9-20) H 07/29/23 10:35
Creatinine 0.7 mg/dL (0.7-1.3) 07/29/23 10:35
Glucose 117 mg/dl (70-99) H 07/29/23 10:35
Troponins
07/28/23 07/28/23 07/29/23
10:32 14:43 10:35
Troponin I 0.051 H* 0.061 H* 0.034
Vital Signs and I&O:
Vital Signs
Temp Pulse Resp BP Pulse Ox
36.3 C 65 18 117/59 97
07/30/23 11:00 07/30/23 12:59 07/30/23 12:59 07/30/23 11:00 07/30/23 12:39
Vital Signs
Temp Pulse Resp BP Pulse Ox
36.3 C 65 18 117/59 97
07/30/23 11:00 07/30/23 12:59 07/30/23 12:59 07/30/23 11:00 07/30/23 12:39
Intake & Output
07/28/23 07/29/23 07/30/23 07/31/23
07:59 07:59 07:59 07:59
Intake Total 60 / 60 1850 / 1850
Output Total 550 / 550 1175 / 1175
Balance -490 / -490 675 / 675
Physical Exam
Physical Exam
Pleasant, aphasic, at bedside
117/59, pulse 50s, head neck exam, poor dentition, wheezes on lung exam, bradycardic, abdomen PEG tube, extremities without edema, left hemiparesis, aphasia
[2023-07-30 15:00] VITALS: BP 123/71
--- NOTE | 2023-07-30 15:48 | CM ---
Chart reviewed. CM met with at bedside. states that she is not interested in hospice but would like a palliative care referral. Referral placed. confirms plan to return home at discharge. Patient will need BLS transport. CM to follow.
[2023-07-30] MEDS: BALMEX CREAM 1 APPLIC TOPICAL (15:50)
[2023-07-30 19:00] VITALS: BP 127/67
[2023-07-30] MEDS: LUMIGAN 0.01% 1 DROP BOTH EYES (20:13)
[2023-07-30] MEDS: MIRALAX 17 GRAMS TUBE (20:14)
[2023-07-30] MEDS: DESYREL 25 MG TUBE (20:14)
[2023-07-30] MEDS: LIPITOR 40 MG TUBE ×2 (20:16→20:27)
[2023-07-30] MEDS: NEURONTIN 300 MG TUBE (20:20)
[2023-07-30] MEDS: COLACE LIQUID 50 MG TUBE (20:32)
[2023-07-30] MEDS: SENNA SYRUP 17.6000000000000014 MG TUBE (20:33)
[2023-07-30 23:00] VITALS: BP 150/71
[2023-07-31 06:50] LABS: Hematocrit 32.3 % (39.0-52.0); Hemoglobin 11.3 g/dL (13.0-18.0); Mean Corpuscular Hgb 35.4 pg (27.0-31.0); Mean Corpuscular Volume 101.3 fL (80.0-94.0); Mean Platelet Volume 10.8 fL (7.4-10.4); Platelet Count 129 10^3/uL (130-400); Red Blood Cell Count 3.19 10^6/uL (4.70-6.10); White Blood Cell Count 7.1 10^3/uL (4.8-10.8)
[2023-07-31 06:58] LABS: Blood Urea Nitrogen 21 mg/dl (9-20); Calcium 8.4 mg/dl (8.4-10.2); Carbon Dioxide 28 mmol/L (22-30); Chloride 110 mmol/L (98-107); Glucose 109 mg/dl (70-99); Potassium 3.9 mmol/L (3.5-5.1); Sodium 140 mmol/L (135-145); eGFR > 60.00
[2023-07-31 07:00] VITALS: BP 122/65
[2023-07-31] MEDS: DUONEB 3 ML INH ×2 (07:33→12:11)
--- NOTE | 2023-07-31 09:52 | W.PN.HOSP.TC ---
Addendum entered and electronically signed by Livia Alvarez MD 07/31/23 13:20:
Addendum
Patient is looking better. No fever.
I called the , she is ready to take him back home
Discussed with case management, ambulance to to set
Total discharge time spent to see the patient, examine the patient on the floor, review data and lab results, discuss discharge plan with patient, , patient case manager, and nursing staff around 65 minutes.
Original Note:
Today's Communication/Plan
-
dc
Assessment / Plan
Assessment / Plan
Physical Exam
General: No Apparent Distress and Appears Chronically Ill
HEENT: Moist mucous membranes
Respiratory: Rhonchi (chronic )
Cardiac: S1/S2
GI: Soft and not distended.
Rectal: No Maroon Stools
Genito-urinary: Chavez
Musculoskeletal: No Cyanosis
Skin: No Jaundice
Neuro: Awake and Facial Droop
Psych: Calm
82 years old male presented with constipation
# S/P fluoroscopically guided placement of gastrostomy tube by Ir on 07/29. No complications reported.
d/w IR, ok to resume feeding/ meds. He tolerated TF.
Appreciate GI & IR help
#Acute on chronic constipation
Resolved. Per nursing staff: he had multiple large BM, non bloody.
No abd pain. No abdominal distention. Given empiric antibiotics.
CAT scan does not show free air or bowel obstruction.�
ER tried manual disimpaction at bedside with no success
s/p IV fluid
Resumed tube feeding. Given lactulose with Senokot and MiraLAX
# Non-[place] troponin elevation, mildly positive troponin. 0.051-0.061
Patient denied chest pain, did not report chest pain or worsening shortness of breath at home.
per cardiology : no acute EKG changes, had a satisfactory echocardiogram about a year ago, is anticoagulated and has no cardiac symptoms.
No chest pain
No arrhythmias on Tele. Started on Coreg.
Appreciate cardiology input
# Hyponatremia
mild
S/p IVF
#History of CAUTI/ HX chronic bladder outlet obstruction
Urine culture showed MSSA, Proteus mirabilis. Patient has colonization. He did not have fever or leukocytosis. Giving empiric antibiotics to treat his constipation induced colitis. No need for further antibiotics. History multiple drug-resistant
UTIs treated in past with meropenem
Hx MSSA bacteremia, Proteus October 2022
No worsening confusion.
was concerned about UTI specially after given antibiotic in the ER and concerned about stopping given.� We did short course of 3 days of antibiotic
#History of bladder cancer status post TURBT 15 years ago
#Paroxysmal A-fib
Continue with Eliquis.� No tachycardia or palpitation
Started on low dose Coreg. By cardiology
#CVA with residual aphasia and bedbound and muscle spasms
is taking comfort level of care at this point.� Will consult case management and hospice for possible outpatient hospice management
-Continue statin, BP control
#Chronic pain syndrome
-Continue gabapentin 300 mg via G-tube at bedtime
-Continue baclofen
#Chronic dysphagia 2/2 to CVa
#Chronic PEG tube
Resumed tube feeding now post NPO > 24 hours and had IVF
#HTN�benign. Uncontrolled this morning
hydralazine via peg derrick, change to IV until peg tube placed back again.
2D echo 10/26/2022�EF 55-60% normal LVS LVSF, trace MR
#HLD
#Insomnia
-cont trazodone
#Anxiety
Continue Prozac 40 mg via G-tube a.m.
#Former smoker
#History aspiration PNA
-Continue inhaler as needed
#Glaucoma
cont eye drops
DVT prophylaxis
�cont eliquis
CODE STATUS, DNR/DNI, confirmed with patient and . was also interested in hospice consult, will d/w patient case manager.
Total discharge time spent to see the patient, examine the patient on the floor, review data and lab results, discuss discharge plan with patient, , and nursing staff around 67 minutes
Anticipated Discharge: Today
Subjective/Interval History
-
Date of Service: July 31, 2023
Afebrile
no hypotension
Good BM over night
Objective Data
-
Labs:
Laboratory Results
07/31/23
06:08
WBC 7.1
Hgb 11.3 L
Hct 32.3 L
Plt Count 129 L D
Sodium 140
Potassium 3.9
Chloride 110 H
Carbon Dioxide 28
BUN 21 H
Creatinine 0.6 L
Glucose 109 H
Calcium 8.4
Vital Signs:
Vital Signs
Temp Pulse Resp BP Pulse Ox
98.0 F 80 18 122/65 95
07/31/23 07:00 07/31/23 07:00 07/31/23 07:00 07/31/23 07:00 07/31/23 07:00
I&O
07/30/23 07/31/23 08/01/23
06:59 06:59 06:59
Intake Total 1850 / 1850
Output Total 1175 / 1175 500 / 500
Balance 675 / 675 -500 / -500
--- NOTE | 2023-07-31 10:17 | CM ---
Addendum entered by Aliyah Warner 07/31/23 13:05:
Discussed d/c with Talya. Transport at 1530 BLS.
Original Note:
CM following re: d/c planning.
Pt for d/c today. is not interested in hospice at this juncture, but agreed to palliative care.
Ref had been sent to palliative care. CM called palliative care [phone] and left [facility] [place] to reach to discuss services.
for d/c papers.
Pt will need BLS transport home today.
Goal: home with palliative care follow up
[2023-07-31] MEDS: LIORESAL 2.5 MG TUBE (10:18)
[2023-07-31] MEDS: COSOPT EYE DROPS 1 DROP BOTH EYES (10:18)
[2023-07-31] MEDS: ALPHAGAN 0.2% EYE DROPS 1 DROP BOTH EYES (10:18)
[2023-07-31] MEDS: PROZAC 20 MG TUBE (10:18)
[2023-07-31] MEDS: ELIQUIS 5 MG TUBE (10:18)
[2023-07-31] MEDS: ROBITUSSIN 400 MG TUBE (10:19)
[2023-07-31] MEDS: INVANZ 60 MG IV (12:48)
--- NOTE | 2023-07-31 13:02 | W.DCSUMMARY ---
Discharge Summary
Discharge Data
Date of Admission: 07/28/23
Date of Discharge: 07/31/23
-
Pending Results: No
Hospital Course
82 years old male came from home with for constipation. History taken from the . Patient has aphasia secondary to stroke. reported that patient was having abdominal cramps but no significant pain. Patient had not had bowel
movement for several days. Patient used tube feeding through gastrostomy tube. Scan of the abdomen and pelvis did not show acute findings but confirmed constipation. He had distended rectum. Manual examination of rectum did not show stool
impaction. Patient was admitted for bowel regimen. Gastrostomy tube became dislodged. Building Associate was consulted but could not place it back. Interventional radiologist due to fluoroscopic placement of gastrostomy tube. Laxatives were
introduced including MiraLAX, lactulose and Senokot. Patient started to have bowel movement, nonbloody. Abdominal examination remained benign. Patient did not have leukocytosis or fever. Patient had positive troponin. He was seen by
informatics scientist. Recommended to continue current management. expressed her interest in seeking comfort measures/palliative care. She met with case management for palliative care referral. Patient was given empiric antibiotic. He has a chronic
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 Antibiotic thought to help also possibility of stercoral colitis. Patient remained hemodynamically stable but overall poor functional status. Patient was discharged back to home in a
stable condition.
Discharge Plan
-
Patient Disposition: Home with Home Care
Discharge Diagnosis/Procedures: Constipation, resolved, continue bowel regimen at home as shown in medication reconciliation list.
Dislodgment of percutaneous gastrostomy tube status post replacement by interventional radiology.
Empiric treatment of urine tract infection with course of antibiotic, finish the treatment.
Additional Diets: Continue same regimen of home tube feeding
Referrals:
UNKNOWN,NO INTERVIEW [Family Provider] -
Prescriptions:
New
sennosides 8.8 mg/5 mL syrup
17.6 mg PO HS Qty: 236 0RF
Continued
multivitamin 1 EACH tablet
1 ea feeding tube NOON
baclofen 5 MG tablet
2.5 mg feeding tube BID
cyanocobalamin (vitamin B-12) 1,000 MCG tablet
500 mcg feeding tube DAILY
gabapentin 600 mg Tablet
300 mg feeding tube HS
Patient Comments:
07/28/2023, pt. filled this med. on 09/03/2022 for 90 tablets.
trazodone 50 mg Tablet
25 mg feeding tube HS
hydralazine 25 mg Tablet
25 mg feeding tube TID PRN (Reason: SBP>150)
Patient Comments:
07/28/2023, [facility] records from 03/22/2022.
bisacodyl [Dulcolax (bisacodyl)] 10 mg Suppository
10 mg WI DAILY PRN (Reason: constipation)
chlorhexidine gluconate 0.12 % Mouthwash
15 ml MUCOUS MEMBRANE QID
Lumigan 0.01 % Drops
1 drp BOTH EYES HS
guaifenesin 400 mg tablet
400 mg feeding tube TID
Eliquis 5 MG tablet
5 mg feeding tube BID Qty: 30 0RF
Hold Instructions: Resume on 11/07/22. holding anticoagulation for 10 days and resume if all bleeding resolved
Zinc Oxide Diaper Cream 1-10 % Cream
1 applic TOPICAL QPM
Patient Comments:
07/28/2023, used when changing diaper.
acetaminophen [Tylenol Extra Strength] 500 mg Tablet
1,000 mg feeding tube TIDPRN PRN (Reason: mild pain)
fluoxetine 20 mg Tablet
20 mg feeding tube DAILY
Fleet Enema 19-7 gram/118 mL Enema
118 ml WI DAILYPRN PRN (Reason: constipation)
dorzolamide-timolol 22.3-6.8 mg/mL Drops
1 drp BOTH EYES BID
atorvastatin 40 MG tablet
40 mg feeding tube HS
Patient Comments:
07/28/2023, [facility] records from 03/22/2022.
fluticasone propionate 50 mcg/actuation spray,suspension
1 spray intranasal HS PRN (Reason: dry nares)
brimonidine 0.2 % Drops
1 drp BOTH EYES BID
ipratropium-albuterol 0.5 mg-3 mg(2.5 mg base)/3 mL Solution For Nebulization
3 ml INHALATION R TID
ipratropium-albuterol 0.5 mg-3 mg(2.5 mg base)/3 mL Solution For Nebulization
3 ml INHALATION R DAILYPRN PRN (Reason: sob/wheezing)
Changed
polyethylene glycol 3350 [Miralax] 17 gram Powder In Packet
17 g feeding tube HS Qty: 0 0RF
Discontinued
sennosides-docusate sodium
2.5 tab feeding tube BIDPRN PRN (Reason: constipation)
Patient Comments:
07/28/2023, 8.6-50 mg strength.
Discharge Orders:
Discharge Patient (As Directed); Ordered 07/31/23
Ordered By: Livia Alvarez
== END 2023-07-31 17:48 | disposition home health service (06) | DRG 394 ==
LOC: 4 WEST ACU 14:23
PROVIDERS: Physician Assistant; Radiology Vascular & Interventional Radiology; ADMITTING PHYSICIAN Internal Medicine; CONSULT PHYSICIAN Internal Medicine Cardiovascular Disease; EMERGENCY PHYSICIAN Student in an Organized Health Care Education/Training Program
PROC: 0D20XUZ Change Feeding Device in Upper Intestinal Tract, External Approach (ICD-10-PCS; 2023-07-29)
DX: K94.23 Gastrostomy malfunction (principal); E87.1 Hypo-osmolality and hyponatremia; N39.0 Urinary tract infection, site not specified; Z74.01 Bed confinement status; Z87.891 Personal history of nicotine dependence; I69.320 Aphasia following cerebral infarction; G89.4 Chronic pain syndrome; J44.9 Chronic obstructive pulmonary disease, unspecified; I10 Essential (primary) hypertension; K59.09 Other constipation; F41.9 Anxiety disorder, unspecified; Z87.440 Personal history of urinary (tract) infections; Z85.51 Personal history of malignant neoplasm of bladder; I48.0 Paroxysmal atrial fibrillation; Z79.01 Long term (current) use of anticoagulants; Z51.5 Encounter for palliative care; E78.00 Pure hypercholesterolemia, unspecified; H40.9 Unspecified glaucoma
CPT/HCPCS: 49450; 71045; 74177; 80048; 80053; 81003; 81015; 83605; 83880; 84484; 85025; 85027; 87077; 87086; 87147; 87186; 93005; 94640; 96374; 99285; C1769; J1335; J2185; Q9967

== ENCOUNTER 2024-06-17 01:31 | Inpatient (IN) | payer MEDICARE, OTHER, SELFPAY ==
[2024-06-16] VITALS (7 sets, daily range): BP systolic 86–130; BP diastolic 59–80; BMI 26.6
[2024-06-16 19:03] LABS: Urine Albumin 1+ (Neg - Trace); Urine Bilirubin Negative (Negative); Urine Character Very Cloudy (Clear); Urine Color Yellow; Urine Glucose Negative (Negative); Urine Ketone Negative (Negative); Urine Leukocyte 2+ (Negative); Urine Nitrite Positive (Negative); Urine Occult Blood 2+ (Negative); Urine Urobilinogen Negative (Neg - 1+)
[2024-06-16 19:06] LABS: % Basophils 0.3 % (0-2); % Eosinophils 0.4 % (0-6); % Immature Granulocytes 0.4 % (0-0.5); % Monocytes 7.9 % (1.7-9.3); Absolute Lymphocytes 0.6 10^3/uL (1.2-3.4); Absolute Monocytes 0.6 10^3/uL (0.1-0.6); Absolute Neutrophils 6.1 10^3/uL (1.4-6.5); Hematocrit 39.1 % (39.0-52.0); Mean Corp Hgb Conc. 33.2 g/dL (33.0-37.0); Mean Corpuscular Hgb 33.8 pg (27.0-31.0); Mean Corpuscular Volume 101.6 fL (80.0-94.0); Mean Platelet Volume 10.9 fL (7.4-10.4); Nucleated Red Blood Cells % 0 % (-); Platelet Count 132 10^3/uL (130-400); Red Blood Cell Count 3.85 10^6/uL (4.70-6.10); Red Cell Dist. Width 13.4 % (11.5-14.5); White Blood Cell Count 7.4 10^3/uL (4.8-10.8)
[2024-06-16 19:17] LABS: Urine Squamous Cell 0-2 /LPF (Few)
[2024-06-16 19:18] LABS: Urine Bacteria Many (Negative); Urine Triple Phosphate Crystal Present
[2024-06-16 19:31] LABS: ALT (SGPT) 42 U/L (0-50); AST (SGOT) 52 U/L (17-59); Albumin 3.4 g/dl (3.5-5.0); Alkaline Phosphatase 81 U/L (38-126); Blood Urea Nitrogen 21 mg/dl (9-20); Calcium 8.8 mg/dl (8.4-10.2); Carbon Dioxide 27 mmol/L (22-30); Chloride 97 mmol/L (98-107); Estimated Creatinine Clearance 90 ml/min; Glucose 117 mg/dl (70-99); Potassium 4.3 mmol/L (3.5-5.1); Sodium 135 mmol/L (135-145); Total Bilirubin 0.6 mg/dl (0.2-1.3); Total Protein 6.7 g/dl (6.3-8.2); eGFR > 60.00
[2024-06-16] MEDS: ZOFRAN 4 MG IV (19:42)
[2024-06-16] MEDS: NSS 500 IV (19:47)
[2024-06-16 20:55] LABS: Troponin I 0.015 ng/ml
--- NOTE | 2024-06-16 21:12 | ED.GENMED ---
History of Present Illness
General
Chief Complaint: Abdominal Symptoms
Source: patient, family and ambulance crew
Exam Limitations: non verbal-adult
Time Seen by Provider: 06/16/24 18:47
Nursing documentation reviewed up to this point in time: agreed with
History of Present Illness
History of Present Illness:
83-year-old male past medical history of feeding tube, chronic catheter, stroke with expressive aphasia presenting to the emergency department today for concerns of diarrhea over the past week vomiting ongoing today persistently. Seems to be in
distress according to the . On arrival initial vital signs are normal. Does not seem to have discomfort to the abdomen when palpating.
Past History
Past History
ED Past Medical History: Cancer (Bladder CA), CVA, HTN, Hypercholesterolemia and Other (Expressive Aphasia)
ED Past Surgical History: Other (PEG tube)
Social History
Tobacco: Former smoker
Alcohol: None
Drug: None
Personal:
Living: with family
Family History
Family History: Other (reviewed and noncontributory)
Review of Systems
Review of Systems
Allergies reviewed?: Yes
All Other Systems: ROS reviewed and negative except as documented in HPI and ROS
Phy Exam
Physical Exam
Physical Exam:
GENERAL: Alert , actively vomiting during his
EYE: pupils equal and reactive
NECK: Supple, no significant adenopathy.
ENT: o/p clr, mmm.
CARDIAC: Regular rate and rhythm .
LUNGS: Clear breath sounds bilaterally, no acute respiratory distress, no wheezes/rales/rhonchi
ABDOMEN: Soft, without focal tenderness, no r/g, no cvat
NEUROLOGICAL: no focal neuro deficits
SKIN: Warm and dry, skin intact.
MUSCULOSKELETAL: No edema, well perfused.
PSYCH: Nonverbal
Course
Orders/Labs/Results
Orders:
Orders
06/16/24 18:57
Complete Blood Count/With Diff Urgent
Comprehensive Metabolic Panel Urgent
Urinalysis Reflex To Culture Urgent
Date Specimen was Collected: 06/16/24
Time Specimen was Collected: 18:56
Urine Microscopic Reflex Cult Urgent
Urine Culture Urgent
GUILLERMINA Source: U
Specimen Description:
Date Specimen was Collected: 06/16/24
Time Specimen was Collected: 18:56
06/16/24 19:41
Ondansetron Injectable [Zofran] 4 mg IV NOW STA
06/16/24 19:43
0.9% Sodium Chloride 500 ml [Nss] 500 ml IV BOLUS
Chest X-ray Portable [CR Chest Portable - 1 View] Urgent
Comment:
Reason For Exam: vomiting, hx of aspiation
Reason Study Needs to be Portable: Unable to Transport
06/16/24 20:01
Electrocardiogram (*1) Urgent
Reason for Study: Tachycardia
EKG- Treatment ONCE
06/16/24 20:21
CT Abd/Pel (IV only)-DH only Urgent
Comment:
Reason For Exam: abd pain vomiting
06/16/24 20:24
Troponin I Urgent
06/16/24 21:54
Meropenem [Merrem] 1,000 mg IV NOW STA
06/16/24 22:10
Lactic Acid Urgent
Blood Culture Q30M
GUILLERMINA Source: Blood/Venous
Specimen Description:
06/16/24 22:24
Urinalysis Reflex To Culture Urgent
Date Specimen was Collected: 06/16/24
Time Specimen was Collected: 22:12
Comment: repeat after costa was changed
Urine Microscopic Reflex Cult Urgent
Blood Culture Q30M
GUILLERMINA Source: Blood/Venous
Specimen Description:
Urine Culture Urgent
GUILLERMINA Source: U
Specimen Description:
Date Specimen was Collected: 06/16/24
Time Specimen was Collected: 22:12
06/16/24 22:33
Acetaminophen 1000MG/100Ml [Ofirmev] 1,000 mg in 100 ml .ROUTE .STK-MED
06/16/24 22:40
Acetaminophen 1000MG/100Ml [Ofirmev] 1,000 mg IV NOW STA
Abnormal Lab Results
06/16/24 06/16/24
18:57 22:24
RBC 3.85 L 10^6/uL
(4.70-6.10)
MCV 101.6 H fL
(80.0-94.0)
MCH 33.8 H pg
(27.0-31.0)
MPV 10.9 H fL
(7.4-10.4)
Absolute Lymphs (auto) 0.6 L 10^3/uL
(1.2-3.4)
Neutrophils % 83.0 H %
(42.2-75.2)
Lymphocytes % 8.0 L %
(20.5-51.1)
Chloride 97 L mmol/L
(98-107)
BUN 21 H mg/dl
(9-20)
Creatinine 0.6 L mg/dL
(0.7-1.3)
Glucose 117 H mg/dl
(70-99)
Albumin 3.4 L g/dl
(3.5-5.0)
Urine Ketones 1+ A
(Negative)
Ur Occult Blood Reflex 2+ A 3+ A
(Negative) (Negative)
Urine Nitrite (Reflex) Positive A Positive A
(Negative) (Negative)
Leukocyte Esterase Rfl 2+ A 2+ A
(Negative) (Negative)
Urine RBC 3-6 A /HPF
(0-2)
Urine WBC (Reflex) 11-15 A /HPF
(0-5)
Urine Bacteria (Reflex) Many A
(Negative)
Urine Albumin (Reflex) 1+ A
(Neg - Trace)
06/16/24 18:57
06/16/24 18:57
Vital Signs
Initial and Last Documented VS:
Initial Vital Signs
Temp Pulse Resp BP Pulse Ox
99.6 F 83 18 130/80 95
06/16/24 18:46 06/16/24 18:46 06/16/24 18:46 06/16/24 18:46 06/16/24 18:46
Last Documented Vital Signs
Temp Pulse Resp BP Pulse Ox
99.6 F 129 21 101/69 99
06/16/24 18:46 06/16/24 22:30 06/16/24 22:30 06/16/24 22:00 06/16/24 22:30
MDM/Problems Addressed
MDM/Problems Addressed:
83-year-old male presenting to the emergency department today with concerns of diarrhea over the past week vomiting throughout the day today does get tube feeds. Initial vital signs normal however during stay heart rate increasing to the 130s.
Patient was in A-fib. Patient does have a history of intermittent A-fib. Currently not anticoagulated. Here urinalysis appearing consistent with infection. CT scan was obtained concerning the patient did seem to have discomfort to the abdomen.
CT scan showing possible cystitis no other emergent findings. Concerning this patient was started on meropenem due to previous sensitivities as well as allergies. Blood pressure at 1 point dropped to the 80s systolic and was given additional
fluids with improvement to the low 100s. Plan to admit for further assessment pending cultures.
*Critical Care Note
Total Time (30-74mins, 75-104mins- exclusive of procedures): Not Applicable
ED Attending Note
-
Portions of this chart may have been created with voice recognition software.� Occasional wrong word or��sound alike� substitutions may have occurred due to the inherent limitations of voice recognition software.
Discharge Plan
Departure
Patient Disposition: Admit
Date of Disposition: 06/16/24
Time of Disposition: 22:51
Admit to: IMU
Admit to doctor: Jm
Presentation/result/management discussed w/ accepting MD/DO: Hospitalist
Patient with high blood pressure during this ER visit?: No
Condition: Fair
Covid-19: Not Applicable
Discharge Problem:
Acute UTI
Prescriptions:
No Action
multivitamin 1 EACH tablet
1 ea feeding tube NOON
baclofen 5 MG tablet
5 mg feeding tube BID
cyanocobalamin (vitamin B-12) 1,000 MCG tablet
500 mcg feeding tube DAILY
gabapentin 600 mg Tablet
300 mg feeding tube HS
trazodone 50 mg Tablet
25 mg feeding tube HS
hydralazine 25 mg Tablet
25 mg feeding tube TIDPRN PRN (Reason: SBP>150)
bisacodyl [Dulcolax (bisacodyl)] 10 mg Suppository
10 mg [place] DAILYPRN PRN (Reason: constipation)
guaifenesin 400 mg Tablet
400 mg PO BID Qty: 0
chlorhexidine gluconate 0.12 % Mouthwash
15 ml MUCOUS MEMBRANE QID
Lumigan 0.01 % Drops
1 drp BOTH EYES HS
Eliquis 5 MG tablet
5 mg feeding tube BID Qty: 30 0RF
Zinc Oxide Diaper Cream 1-10 % Cream
1 applic TOPICAL QPM
acetaminophen [Tylenol Extra Strength] 500 mg Tablet
1,000 mg feeding tube TIDPRN PRN (Reason: mild pain)
fluoxetine 20 mg Tablet
40 mg feeding tube DAILY
Fleet Enema 19-7 gram/118 mL Enema
118 ml [place] DAILYPRN PRN (Reason: constipation)
dorzolamide-timolol 22.3-6.8 mg/mL Drops
1 drp BOTH EYES BID
atorvastatin 40 MG tablet
40 mg feeding tube HS
fluticasone propionate 50 mcg/actuation spray,suspension
1 spray intranasal HSPRN PRN (Reason: dry nares)
brimonidine 0.2 % Drops
1 drp BOTH EYES BID
ipratropium-albuterol 0.5 mg-3 mg(2.5 mg base)/3 mL Solution For Nebulization
3 ml INHALATION R TID
ipratropium-albuterol 0.5 mg-3 mg(2.5 mg base)/3 mL Solution For Nebulization
3 ml INHALATION R DAILYPRN PRN (Reason: sob/wheezing)
sennosides 8.8 mg/5 mL syrup
17.6 mg PO HS Qty: 236 0RF
polyethylene glycol 3350 [Miralax] 17 gram Powder In Packet
17 g feeding tube HS Qty: 0 0RF
acetaminophen-codeine 300-30 mg Tablet
1 tab feeding tube TIDPRN PRN (Reason: moderate pain)
Referrals:
Jenn Dominguez CRNP [Family Provider] -
Interventions
Interventions:
*Risk Screen - Suicide Last Done: 06/16/24 18:46
*General Assessment Last Done: 06/16/24 18:46
*Neglect/Abuse Screening Last Done: 06/16/24 18:46
*ED COVID-19 Vaccine History Last Done: 06/16/24 18:46
XM-Odpala-Ucxaybgrho Assessment Last Done: 06/16/24 19:00
Discharge Date and Time
Print Language: UKRAINIAN
[2024-06-16] MEDS: MERREM 1000 MG IV (22:24)
[2024-06-16 22:31] LABS: Lactic Acid 1.3 mmol/L (0.7-2.0)
[2024-06-16 22:37] LABS: Urine Albumin Trace (Neg - Trace); Urine Bilirubin Negative (Negative); Urine Character Slightly Cloudy (Clear); Urine Color Yellow; Urine Glucose Negative (Negative); Urine Ketone 1+ (Negative); Urine Leukocyte 2+ (Negative); Urine Nitrite Positive (Negative); Urine Occult Blood 3+ (Negative); Urine Specific Gravity 1.005 (<1.030); Urine Urobilinogen Negative (Neg - 1+)
[2024-06-16] MEDS: OFIRMEV 1000 MG IV (22:43)
[2024-06-16 22:44] LABS: Urine Squamous Cell None seen /LPF (Few)
[2024-06-16 22:51] LABS: Urine Bacteria Many (Negative); Urine Granular Cast 0-2 /LPF (0); Urine Triple Phosphate Crystal Present; Urine White Cell 50-60 /HPF (0-5)
--- NOTE | 2024-06-16 23:26 | HPS.HSE ---
Addendum entered and electronically signed by Jordy Oneal DO 06/17/24 01:02:
Patient seen and examined independently. Agree with findings and plan as set forth by VASU Veliz.
Patient is an 83y M with PMH significant for CVA, expressive aphasia / dysphagia and A-Fib who presents to ED for evaluation of N/V/D. History obtained from at the bedside. Patient has been having frequent loose stools for the past 6 days.
When woke up this AM, patient was covered in emesis. He had several additional episodes of emesis throughout the day. With persistent emesis, they presented to ED for further evaluation.
Ass:
Gastroenteritis - Suspected Norovirus
Suspected Aspiration Pneumonia / Pneumonitis
Possible CAUTI
Sepsis secondary to the above
Chronic Hypoxemic Respiratory Insufficiency
Paroxysmal Atrial Fibrillation with Rapid Ventricular Response
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
Chronic Constipation
Benign Hypertension
Chronic Pain Syndrome
Plan:
Admit for further evaluation and treatment.
Continue IV abx for now to cover for possible aspiration pneumonia +/- CAUTI.
Follow-up culture data.
Aggressive IVF replacement given significant GI losses over the past week.
+/- pressor support if needed to maintain perfusion.
Follow for clinical improvement.
Aspiration precautions. Hold TF acutely.
Contact precautions for GI illness / suspected Norovirus.
Original Note:
Family Physician
-
Family Physician: VASU Paulino
Chief Complaint
-
Diarrhea x 6 days, vomiting x 4 today
History of Present Illness
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
leg tremors. He had history of aspiration pneumonia in 2019 when they used 2 attempt food by mouth which they have not done in years. The states the entire family visited on June 12 and June 13 then her started with watery
brown diarrhea that night 3 times a day for the last 6 days with 1 day more formed stool. She has been giving him MiraLAX and senna despite him having watery brown diarrhea as she was afraid to stop it due to history of constipation. She also
reports today he vomited 4 times green bile. He currently has a wet sounding cough with rhonchi in his right middle right lower lobe on auscultation.. He has a chronic indwelling Chavez with yellow-colored urine. His states color has been
slightly darker but same smell. He denies any fever, diaphoresis, abdominal pain, rash, chest pain. He has history of A-fib was known to be in a rapid rate 138 likely secondary to volume depletion. He is not on any rate control medications
however he is on Eliquis 5 mg twice daily. He did receive his a.m. medications today.
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
status post TURBT 15 years ago, history aspiration pneumonia, HTN, paroxysmal A-fib, chronic constipation, HLD, insomnia, anxiety, former smoker, chronic pain syndrome
Medical History
Past Medical History
Past Medical History: Reports Other
Additional Past Medical History:
Cauti proteus, mssa october 2022
CVA (2019) secondary to A-fib with Residual Aphasia / Dysphagia, bedbound
2 areas right franco, 3 areas scattered
Chronic G-tube
crhonic wheezing with chronic mucus production
Hx aspiration pneumonia
Bladder Cancer
Chronic bladder outlet obstruction/ Chronic Chavez
Paroxysmal Atrial Fibrillation
Hypertension
Glaucoma
GERD
Chronic constipation
Chronic oxygen dependent 2 L
Past Surgical History: Reports Other
Additional Past Surgical History:
PEG
TURBT
Social History
Tobacco: Former Smoker (Quit > 10 years ago.)
Alcohol: None
Drug: None
Personal: ( Talya)
Living: With Family
Employment: Disabled
Family History
Family History: Not pertinent
Allergies / Home Medications
Allergies reflects when Allergies were last updated in [facility].
Home Medications with original date entered in [facility]
Allergy/Medication List:
Allergies
Allergy/AdvReac Type Severity Reaction Status Date / Time
Cephalosporins Allergy Swelling/tolerates Verified 07/28/23 10:02
meropenem
Penicillins Allergy Swelling/tolerates Verified 07/28/23 10:02
meropenem
vancomycin Allergy Rash Verified 07/28/23 10:02
Home Medications
baclofen 5 mg tablet 5 mg feeding tube BID Muscle spasms 08/23/20
multivitamin 1 ea feeding tube NOON Supplement 08/23/20
bimatoprost 0.01 % eye drops (Lumigan) 1 drp BOTH EYES HS Eye condition 02/17/22
bisacodyl 10 mg rectal suppository (Dulcolax (bisacodyl)) 10 mg IN DAILYPRN PRN constipation 02/17/22
chlorhexidine gluconate 0.12 % mouthwash 15 ml mucous membrane QID ORAL CARE 02/17/22
gabapentin 600 mg tablet 300 mg feeding tube HS Pain 02/17/22
guaifenesin 400 mg tablet 400 mg PO BID Cough ##0 02/17/22
hydralazine 25 mg tablet 25 mg feeding tube TIDPRN PRN SBP>150 02/17/22
trazodone 50 mg tablet 25 mg feeding tube HS Sleep 02/17/22
apixaban 5 mg tablet (Eliquis) 5 mg feeding tube BID Blood clot prevention/tx #30 tabs 02/20/22
dimethicone 1 %-zinc oxide 10 %-vit A and D-aloe vera topical cream (Zinc Oxide Diaper Cream) 1 applic topical QPM diaper changes 02/01/23
acetaminophen 500 mg tablet (Tylenol Extra Strength) 1,000 mg feeding tube TIDPRN PRN mild pain 07/28/23
atorvastatin 40 mg tablet 40 mg feeding tube HS High Cholesterol 07/28/23
brimonidine 0.2 % eye drops 1 drp BOTH EYES BID Eye Condition 07/28/23
dorzolamide 22.3 mg-timolol 6.8 mg/mL eye drops 1 drp BOTH EYES BID Eye Condition 07/28/23
fluoxetine 20 mg tablet 40 mg feeding tube DAILY Mental Health 07/28/23
fluticasone propionate 50 mcg/actuation nasal spray,suspension 1 spray intranasal HSPRN PRN dry nares 07/28/23
ipratropium 0.5 mg-albuterol 3 mg (2.5 mg base)/3 mL nebulization soln 3 ml inhalation R DAILYPRN PRN sob/wheezing 07/28/23
ipratropium 0.5 mg-albuterol 3 mg (2.5 mg base)/3 mL nebulization soln 3 ml inhalation R TID Lung/Breathing Issues 07/28/23
sodium phosphates 19 gram-7 gram/118 mL enema (Fleet Enema) 118 ml IN DAILYPRN PRN constipation 07/28/23
polyethylene glycol 3350 17 gram oral powder packet (Miralax) 17 g feeding tube HS #0 ea 07/31/23
sennosides 8.8 mg/5 mL oral syrup 17.6 mg (10 mL) PO HS #236 mL 07/31/23
acetaminophen 300 mg-codeine 30 mg tablet 1 tab feeding tube TIDPRN PRN moderate pain 06/16/24
Review of Systems
-
History Source: Patient and Family ( Talya)
A 12 point ROS was completed and negative except as noted: Yes
Constitutional: Denies Fever
EENT: Denies Sore Throat or Runny Nose
Respiratory: Reports Cough (Wet sounding nonproductive); Denies Trouble Breathing
Cardiac: Reports Other (A-fib with RVR 130 bpm); Denies Chest Pain or Diaphoresis
Abdomen/GI: Reports Nausea, Vomiting (X 4 today) and Diarrhea (Watery brown x 4 daily over the past 6 days); Denies Abdominal Pain or Constipated
: Reports Chavez (Chronic present on admission yellow in color)
Musculoskeletal: Reports Other (Chronic bedbound nonambulatory); Denies Joint Pain or Edema
Skin: Denies Itching or Rash
Neurological: Denies Dizzy, Headache or Weakness
Endocrine: Reports No Symptoms
Hematologic/Lymphatic: Reports No Symptoms
Psych: Reports Calm
Physical Exam
Vital Signs
Vital Signs
Temp Pulse Resp BP Pulse Ox
99.6 F 129 24 103/74 99
06/16/24 18:46 06/16/24 23:00 06/16/24 23:00 06/16/24 23:00 06/16/24 23:00
Physical Exam
General: Comfortable and Other (Patient awake alert tracks with eyes shakes head up and down for yes or no is nonverbal due to prior stroke 2019); No Fever or Chills
HEENT: NormoCephalic, Anicteric, Thrush, PERRLA and Other (Sits upright with mouth open, dry oral mucosa, chronic thrush to tongue)
Respiratory: Rhonchi (Throughout right lung field)
Cardiac: S1/S2 and Irregular Rhythm (A-fib with RVR 130 bpm); No Murmur, Rub, Gallop or Peripheral Edema
Breast: Deferred by me
GI: Soft, Non Tender, Non Distended, Normal Bowel Sounds and Peg Tube
Rectal: Deferred by Provider
Genito-urinary: Chavez (Present on admission scant urine obtained)
Musculoskeletal: No Clubbing, No Cyanosis, No Edema and Other (Patient bedbound does not move lower legs has Multi-Podus boots in place)
Skin: Warm and Dry; No Rash
Neuro: Awake and Alert (Is able to follow commands and shake head yes or no is chronically nonverbal due to CVA); No Facial Droop or Tremors
Psych: Calm
Laboratory Results
-
06/16/24 18:57
06/16/24 18:57
Laboratory Results
Lactic Acid 1.3 mmol/L (0.7-2.0) 06/16/24 22:10
Total Bilirubin 0.6 mg/dl (0.2-1.3) 06/16/24 18:57
AST 52 U/L (17-59) 06/16/24 18:57
ALT 42 U/L (0-50) 06/16/24 18:57
Alkaline Phosphatase 81 U/L (38-126) 06/16/24 18:57
Troponin I 0.015 ng/ml 06/16/24 20:24
Impression/Plan
-
Impression/plan:
Admit to IMU
#Sepsis likely secondary right sided Aspiration pneumonia secondary to vomiting x 4
#History aspiration pneumonia
Vomiting x 4 this a.m. current wet cough
-Patient is G-tube fed Jevity 1.5 351 mL 08, 1330, 1800 with 180 mL flushes 11 AM, 3:30 PM, 9 PM
-Will continue IV Levaquin 500 mg did receive before in January 2023 no issues has history of rash to PCN/cephalosporins unsure if tolerated meropenem in the past
-Consult speech
-Consult dietary for tube feeds when patient stops vomiting
-Given 1 L IV NSS will give additional 1 L NSS to meet sepsis bolus criteria then 80 cc/h maintenance
#Acute gastroenteritis strong concern for norovirus
6 days of watery brown diarrhea 4 times a day, vomiting 4 times today(recent all family members present at their house 6 days ago unsure of sick)
-Will check stool WBC, stool culture, unable to check norovirus secondary to lack of tests
-Would place patient on Contact precautions
-Advised to stop MiraLAX and senna when patient has any kind of diarrhea she has been giving for the past 6 days
, IV Zofran as needed
-IV NSS 80 cc/h
-Follow CBC, CMP
#Acute hypotension secondary to sepsis/volume depletion
BP 86/59> 103/74 post 1 L NSS
-Continue IV NSS 80 cc/h
-May require pressors
#Chronic oxygen dependent 2 L
# A-fib with RVR secondary to volume depletion from gastroenteritis/paroxysmal A-fib
-Continue with Eliquis 5 mg twice daily
-Will give IV fluids for fluid resuscitation monitor heart rate
-Would hold on any rate control meds as he has compensatory elevated heart rate due to acute gastroenteritis
2D echo 10/26/2022 EF 55-60% normal LVS LVSF, trace MR
#History of CAUTI/ HX chronic bladder outlet obstruction
#Hx MSSA bacteremia, Proteus October 2022
#History multiple drug-resistant UTIs treated in past with meropenem
-Follow urine culture
-Tylenol via G-tube every 4 hours as needed fever, pain
#History of bladder cancer status post TURBT 15 years ago
#CVA with residual aphasia and bedbound and muscle spasms
Continue baclofen via G-tube for leg spasms
#Gastrostomy tube Hx secondary to CVA/dysphagia/aphasia
S/P fluoroscopically guided placement of gastrostomy tube by Ir on 07/29. No complications reported.
-Is on tube feeds
-Hold tube feeds, consult dietary when not vomiting
#Chronic constipation
Monitor bowel movements
-Hold senna 10 mL nightly via G-tube, fleets enema as needed, Dulcolax 10 mg per rectum as needed
#Chronic pain syndrome
-Continue gabapentin 300 mg via G-tube at bedtime
-Continue baclofen via G-tube
#HTN�benign. Uncontrolled this morning
hydralazine via peg derrick, change to IV until peg tube placed back again.
#HLD
cont liptior
#Insomnia
-cont trazodone
#Anxiety
-Continue Prozac 40 mg via G-tube a.m.
#Former smoker
#Glaucoma
cont eye drops
# Non-NM troponin elevation hx July 2023
mildly positive troponin. 0.051-0.061
DVT prophylaxis
cont eliquis
CODE STATUS, DNR/DNI
[2024-06-17] VITALS (24 sets, daily range): BP systolic 84–146; BP diastolic 52–98
[2024-06-17] MEDS: NSS 1000 IV ×3 (00:34→11:26)
[2024-06-17] MEDS: XOPENEX 1.25 MG INHALANT SOLUTION INH ×2 (02:07→15:00)
[2024-06-17] MEDS: LEVAQUIN 100 IV (02:58)
[2024-06-17] MEDS: NSS 500 IV (05:00)
[2024-06-17 05:56] LABS: % Basophils 0.2 % (0-2); % Eosinophils 0.1 % (0-6); % Immature Granulocytes 0.6 % (0-0.5); % Monocytes 10.2 % (1.7-9.3); % Neutrophils 82.9 % (42.2-75.2); Absolute Immature Granulocytes 0.1 10^3/uL (0-0.05); Absolute Lymphocytes 0.5 10^3/uL (1.2-3.4); Absolute Monocytes 0.9 10^3/uL (0.1-0.6); Absolute Neutrophils 7.3 10^3/uL (1.4-6.5); Hematocrit 34.3 % (39.0-52.0); Hemoglobin 11.4 g/dL (13.0-18.0); Mean Corp Hgb Conc. 33.2 g/dL (33.0-37.0); Mean Corpuscular Hgb 33.9 pg (27.0-31.0); Mean Corpuscular Volume 102.1 fL (80.0-94.0); Mean Platelet Volume 11.2 fL (7.4-10.4); Nucleated Red Blood Cells % 0 % (-); Platelet Count 115 10^3/uL (130-400); Red Blood Cell Count 3.36 10^6/uL (4.70-6.10); Red Cell Dist. Width 13.4 % (11.5-14.5); White Blood Cell Count 8.8 10^3/uL (4.8-10.8)
[2024-06-17 06:04] LABS: Lactic Acid 1.3 mmol/L (0.7-2.0)
[2024-06-17 06:06] LABS: ALT (SGPT) 30 U/L (0-50); AST (SGOT) 33 U/L (17-59); Albumin 2.6 g/dl (3.5-5.0); Alkaline Phosphatase 65 U/L (38-126); Blood Urea Nitrogen 18 mg/dl (9-20); Calcium 7.6 mg/dl (8.4-10.2); Carbon Dioxide 25 mmol/L (22-30); Chloride 104 mmol/L (98-107); Estimated Creatinine Clearance 90 ml/min; Glucose 111 mg/dl (70-99); Sodium 137 mmol/L (135-145); Total Bilirubin 0.3 mg/dl (0.2-1.3); Total Protein 5.5 g/dl (6.3-8.2); eGFR > 60.00
--- NOTE | 2024-06-17 07:30 | PTCARENOTE ---
report recieved. pt nonverbal but responds appropriately to verbal stimuli. julissa major. nss @ 80cc/hr. call cunningham in reach. will monitor.
[2024-06-17] MEDS: PROZAC 40 MG TUBE (08:36)
[2024-06-17] MEDS: ROBITUSSIN 400 MG PO ×2 (08:37→19:38)
[2024-06-17] MEDS: ELIQUIS 5 MG TUBE ×2 (08:37→19:38)
[2024-06-17] MEDS: LIORESAL 5 MG TUBE ×2 (08:37→19:38)
--- NOTE | 2024-06-17 08:55 | W.PN.HOSP.TC ---
Today's Communication/Plan
-
monitor symptoms today, holding TF
continue IVF
increase dosing of Levaquin
Assessment / Plan
Assessment / Plan
Patient is an 83y M with PMH significant for CVA, expressive aphasia / dysphagia and A-Fib who presents to ED for evaluation of N/V/D. History obtained from at the bedside. Patient has been having frequent loose stools for the past 6 days.
When woke up this AM, patient was covered in emesis. He had several additional episodes of emesis throughout the day. With persistent emesis, they presented to ED for further evaluation.
Abdomen/Pelvis CT
IMPRESSION:
1. Mild L1 compression fracture is new from 07/28/2023 and appears acute/subacute. Moderate to severe L4 compression deformity is new from 07/28/2023 and age indeterminate.
2. Questionable mild proctocolitis.
3. Numerous bladder calculi.
CXR
IMPRESSION:
Right basilar atelectasis or pneumonia.
#Sepsis secondary to Aspiration Pneumonia
Hx Dysphagia
-Patient is G-tube fed Jevity 1.5 351 mL 08, 1330, 1800 with 180 mL flushes 11 AM, 3:30 PM, 9 PM
-will increase Levaquin dosing to 750
-Consult speech
-Consult dietary for tube feeds when patient stops vomiting
-Given 1 L IV NSS will give additional 1 L NSS to meet sepsis bolus criteria then 80 cc/h maintenance
#Acute gastroenteritis strong concern for norovirus
6 days of watery brown diarrhea 4 times a day, vomiting 4 times today(recent all family members present at their house 6 days ago unsure of sick)
-Will check stool WBC, stool culture, unable to check norovirus secondary to lack of tests
-Would place patient on Contact precautions
- hold bowel regimen
, IV Zofran as needed
-IV NSS 80 cc/h
-Follow CBC, CMP
#Acute hypotension secondary to sepsis/volume depletion
BP 86/59> 103/74 post 1 L NSS
-Continue IV NSS 80 cc/h
-May require pressors
#Chronic oxygen dependent 2 L
# A-fib with RVR secondary to volume depletion from gastroenteritis/paroxysmal A-fib
-Continue with Eliquis 5 mg twice daily
-Will give IV fluids for fluid resuscitation monitor heart rate -sinus rhythm in 60's this morning
#History of CAUTI/ HX chronic bladder outlet obstruction
#Hx MSSA bacteremia, Proteus October 2022
#History multiple drug-resistant UTIs treated in past with meropenem
#History of bladder cancer status post TURBT 15 years ago
#CVA with residual aphasia and bedbound and muscle spasms
Continue baclofen via G-tube for leg spasms
#Gastrostomy tube Hx secondary to CVA/dysphagia/aphasia
S/P fluoroscopically guided placement of gastrostomy tube by Ir on 07/29. No complications reported.
-Is on tube feeds
-Hold tube feeds, consult dietary when not vomiting
#Chronic constipation
Monitor bowel movements
-hold bowel regimen
#Chronic pain syndrome
-Continue gabapentin 300 mg via G-tube at bedtime
-Continue baclofen via G-tube
#HTN
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
#HLD
cont liptior
#Insomnia
-cont trazodone
#Anxiety
-Continue Prozac 40 mg via G-tube a.m.
#Former smoker
#Glaucoma
cont eye drops
# Non-NM troponin elevation hx July 2023
mildly positive troponin. 0.051-0.061
DVT prophylaxis
cont eliquis
CODE STATUS, DNR/DNI
Anticipated Discharge: 24 - 48 hours
Subjective/Interval History
-
Date of Service: June 17, 2024
Objective Data
-
Labs:
Laboratory Results
06/17/24
05:21
WBC 8.8
Hgb 11.4 L
Hct 34.3 L
Plt Count 115 L
Sodium 137
Potassium 4.0
Chloride 104
Carbon Dioxide 25
BUN 18
Creatinine 0.6 L
Glucose 111 H
Calcium 7.6 L
Total Bilirubin 0.3
AST 33
ALT 30
Alkaline Phosphatase 65
Vital Signs:
Vital Signs
Temp Pulse Resp BP Pulse Ox
99.6 F 113 24 105/71 97
06/17/24 07:00 06/17/24 06:15 06/17/24 06:15 06/17/24 06:00 06/17/24 06:15
[2024-06-17] MEDS: ALPHAGAN 0.2% EYE DROPS 1 DROP BOTH EYES ×2 (10:11→19:38)
[2024-06-17] MEDS: LEVAQUIN 50 IV (10:11)
[2024-06-17] MEDS: PERIDEX 0.12% ORAL RINSE PO ×3 (10:28→18:17)
[2024-06-17] MEDS: COSOPT EYE DROPS 1 DROP BOTH EYES ×2 (11:35→19:38)
--- NOTE | 2024-06-17 13:09 | CM ---
CM following re: discharge planning.
Reviewed pt's chart, met with pt and pt's spouse Talya at bedside.
pt is an 83 year old male admitted with primary dx of Sepsis secondary to Aspiration Pneumonia.
Pt is well known to this CM from previous admission, lives with spouse and a son in a 2SH, no steps, there is a ramp, has 3 supportive children. Pt is bedbound, has peg tube, [employer] provides feeding supplies. Both pt's spouse and their son provide
24/7 carte to pt at home. Pt is known to [facility]. Per spouse, a plan is for pt to return back home with resumptions of [facility] and 24/7 care at home provide by spouse and son.
PCP: Jenn Dominguez
Pharmacy: [facility]
D/c plan: home with resumptions of [facility] and family support. Ambulance transport at discharge.
CM will follow with discharge plan updates as hospitalization progresses
[2024-06-17] MEDS: TYLENOL 1000 MG TUBE (13:22)
[2024-06-17] MEDS: DESENEX/MITRAZOL/ZEASORB 1 APPLIC TOPICAL (18:16)
[2024-06-17] MEDS: DESITIN MAXIMUM STRENGTH PASTE 1 APPLIC TOPICAL (18:16)
[2024-06-17] MEDS: DESYREL 25 MG TUBE (22:20)
[2024-06-17] MEDS: LIPITOR 40 MG TUBE (22:21)
[2024-06-17] MEDS: NEURONTIN 300 MG TUBE (22:21)
[2024-06-17] MEDS: PERIDEX 0.12% ORAL RINSE 15 ML PO (22:22)
[2024-06-17] MEDS: XALATAN OPHTHALMIC SOLUTION 1 DROP BOTH EYES (22:23)
[2024-06-18] VITALS (15 sets, daily range): BP systolic 122–152; BP diastolic 58–81; BMI 27.0; BMI 27.1
[2024-06-18] MEDS: NSS 1000 IV ×2 (00:26→13:15)
[2024-06-18] MEDS: LEVAQUIN 150 IV (04:37)
[2024-06-18] MEDS: XOPENEX 1.25 MG INHALANT SOLUTION INH ×3 (04:49→20:52)
[2024-06-18 05:21] LABS: % Basophils 0.3 % (0-2); % Eosinophils 0.2 % (0-6); % Immature Granulocytes 0.4 % (0-0.5); % Lymphocytes 10.4 % (20.5-51.1); % Monocytes 8.9 % (1.7-9.3); % Neutrophils 79.8 % (42.2-75.2); Absolute Immature Granulocytes 0.1 10^3/uL (0-0.05); Absolute Lymphocytes 1.2 10^3/uL (1.2-3.4); Absolute Neutrophils 9.2 10^3/uL (1.4-6.5); Hematocrit 30.4 % (39.0-52.0); Hemoglobin 10.2 g/dL (13.0-18.0); Mean Corp Hgb Conc. 33.6 g/dL (33.0-37.0); Mean Corpuscular Hgb 34.5 pg (27.0-31.0); Mean Corpuscular Volume 102.7 fL (80.0-94.0); Mean Platelet Volume 11.5 fL (7.4-10.4); Nucleated Red Blood Cells % 0 % (-); Platelet Count 116 10^3/uL (130-400); Red Blood Cell Count 2.96 10^6/uL (4.70-6.10); Red Cell Dist. Width 13.6 % (11.5-14.5); White Blood Cell Count 11.5 10^3/uL (4.8-10.8)
[2024-06-18 05:44] LABS: ALT (SGPT) 25 U/L (0-50); AST (SGOT) 26 U/L (17-59); Albumin 2.4 g/dl (3.5-5.0); Alkaline Phosphatase 63 U/L (38-126); Blood Urea Nitrogen 24 mg/dl (9-20); Calcium 8.1 mg/dl (8.4-10.2); Carbon Dioxide 25 mmol/L (22-30); Chloride 107 mmol/L (98-107); Estimated Creatinine Clearance 77 ml/min; Glucose 90 mg/dl (70-99); Sodium 138 mmol/L (135-145); Total Bilirubin 0.3 mg/dl (0.2-1.3); Total Protein 5.1 g/dl (6.3-8.2); eGFR > 60.00
--- NOTE | 2024-06-18 08:40 | VNURNOTE ---
Chart reviewed. Patient is current with [facility] nursing, OVERNIGHT CASHIER. Will continue to follow hospital course and DC plans.
[2024-06-18] MEDS: PERIDEX 0.12% ORAL RINSE 15 ML PO ×4 (08:51→22:58)
[2024-06-18] MEDS: COSOPT EYE DROPS 1 DROP BOTH EYES ×2 (08:51→21:03)
[2024-06-18] MEDS: ROBITUSSIN 400 MG PO ×2 (08:51→21:02)
[2024-06-18] MEDS: ELIQUIS 5 MG TUBE ×2 (08:51→21:02)
[2024-06-18] MEDS: PROZAC 40 MG TUBE (08:51)
[2024-06-18] MEDS: LIORESAL 5 MG TUBE ×2 (08:51→21:02)
[2024-06-18] MEDS: ALPHAGAN 0.2% EYE DROPS 1 DROP BOTH EYES ×2 (08:51→21:02)
--- NOTE | 2024-06-18 09:00 | PTCARENOTE ---
Received patient from overnight cashier RN; Responds spontaneously to RN and follows commands; Nonverbal with occasional garbled speech - Able to nod/shake head appropriately to simple questions; VSS; SB on monitor; +1 Radial and DP pulses; Rhonchi and
inspiratory wheeze TO and coarse crackles at right base; SpO2 96-100% on 2L NC; Normoactive BS; PEG Tube flushing appropriately for medications - still no BM at this time; Chavez catheter draining clear, yellow urine; Foam covering ulcer on left
great toe intact; Generalized weakness and unable to turn himself in bed; PIVx1 #20 right wrist intact; Normal saline infusing - see nursing flowsheets for further details; Patient denies any pain at this time; EKG ordered and completed; See nursing
documentation for further details.
--- NOTE | 2024-06-18 12:30 | PTCARENOTE ---
MD Zunigamed at bedside discussing plan of care with spouse; VSS; Patient still with no BM this shift
--- NOTE | 2024-06-18 15:17 | W.PN.HOSP.TC ---
Today's Communication/Plan
-
resume TFs and assess tolerance
continue IV abx
transfer to tele; keep precautions for presumed norovirus
Assessment / Plan
Assessment / Plan
Assessment:
Sepsis - POA (tachycardia, tachypnea, aspiration pneumonia)
Hx of dysphagia given hx of CVA
- s/p sepsis protocol IVF with improvement in hypotension
- continue Levaquin 750mg daily, day 06/26
- ST evaluations
Acute gastroenteritis
- high suspicion for norovirus but unable to test due to shortage
- noted recent visits from family during holiday
- continue empiric contact precautions
- supportive care, prn Zofran
- trial tube feeds per dietary and assess response
Dilutional thrombocytopenia
- monitor CBC
Chronic hypoxemic respiratory failure on 2 L
Parox A.fib with RVR in setting of volume depletion
- HRs improved with fluids
- continue Eliquis
History of CAUTI/ HX chronic bladder outlet obstruction
Hx MSSA bacteremia, Proteus October 2022
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
History of bladder cancer status post TURBT 15 years ago
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
- Continue baclofen via G-tube for leg spasms
Gastrostomy tube Hx secondary to CVA/dysphagia/aphasia
- resume TFs
Chronic constipation
- Monitor bowel movements
- hold bowel regimen
Chronic pain syndrome
- Continue gabapentin 300 mg via G-tube at bedtime
- Continue baclofen via G-tube
Essential HTN
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
HLD
- cont Lipitor
Insomnia
- cont trazodone
Anxiety
- Continue Prozac 40 mg
Former smoker
Glaucoma
- cont eye drops
DVT ppx: Eliquis
Code: DNR/DNI
Anticipated Discharge: > 48 hours
Subjective/Interval History
-
Date of Service: June 18, 2024
no further vomiting/diarrhea per nursing
Objective Data
-
Labs:
Laboratory Results
06/18/24
04:33
WBC 11.5 H
Hgb 10.2 L
Hct 30.4 L
Plt Count 116 L
Sodium 138
Potassium 4.0
Chloride 107
Carbon Dioxide 25
BUN 24 H
Creatinine 0.7
Glucose 90
Calcium 8.1 L
Total Bilirubin 0.3
AST 26
ALT 25
Alkaline Phosphatase 63
Vital Signs:
Vital Signs
Temp Pulse Resp BP Pulse Ox
98.7 F 43 18 144/62 98
06/18/24 11:23 06/18/24 14:00 06/18/24 14:00 06/18/24 14:00 06/18/24 14:00
I&O
06/17/24 06/18/24 06/19/24
06:59 06:59 06:59
Intake Total 2110 / 2110 290 / 290
Output Total 920 / 920 100 / 100
Balance 1190 / 1190 190 / 190
Physical Exam
-
General: No Apparent Distress
HEENT: Normocephalic and Atraumatic
Respiratory: Clear to Auscultation; Negative Wheezes
Cardiac: Regular Rhythm and S1/S2
GI: Soft, Nontender and Peg Tube
Genito-urinary: No Costovertebral Tender
Neuro: Other (lethargic)
Psych: Calm
Data Reviewed
-
Total Time Spent with Patient (in minutes): 44
Labs: Labs Reviewed by me
--- NOTE | 2024-06-18 15:33 | CM ---
Reviewed the chart notes. Patient being transferred to telemetry. CM continues to be available to patient/family and is monitoring medical plan for needs at discharge.
Plan: Discharge to home with resumption [facility] services and caregivers.
--- NOTE | 2024-06-18 15:57 | PTCARENOTE ---
Patient sleeping comfortably in bed at this time; HR 40's while sleeping - SB on monitor; HR has gone down to 39 two times while patient sleeping but BP remains stable and remains SB on monitor - MD Hylton notified and aware; Tube feeding ordered for
patient but unfortunately no kangaroo pumps available at this time - MD Hylton notified and aware; Will start tube feedings when equipment available.
[2024-06-18] MEDS: DESITIN MAXIMUM STRENGTH PASTE 1 APPLIC TOPICAL (17:06)
--- NOTE | 2024-06-18 20:51 | PTCARENOTE ---
PT with Tele orders. Report called to 2 Santana Gaxiola to resume care. All belongings with pt. at bedside.
[2024-06-18] MEDS: NEURONTIN 300 MG TUBE (22:57)
[2024-06-18] MEDS: DESYREL 25 MG TUBE (22:57)
[2024-06-18] MEDS: LIPITOR 40 MG TUBE (22:57)
[2024-06-18] MEDS: XALATAN OPHTHALMIC SOLUTION 1 DROP BOTH EYES (22:58)
--- NOTE | 2024-06-19 | PTCARENOTE ---
Received report from LELA Wright. Received pt into room 2124 around 21:45, pulled over to bed with assist x3. 2L O2. HOB above 30 degrees. Medications administered, see AUG. Mouth care and Chavez care done. Tube feeds initiated @ 20ml/hr. Pt resting
comfortably in bed, no complaints at this time.
[2024-06-19 03:37] VITALS: BP 111/81
[2024-06-19] MEDS: TYLENOL 1000 MG TUBE (04:00)
[2024-06-19] MEDS: LEVAQUIN 150 IV (04:03)
[2024-06-19 05:09] VITALS: BMI 27.6
[2024-06-19] MEDS: NSS 500 IV (06:00)
--- NOTE | 2024-06-19 06:03 | PTCARENOTE ---
Pt HR afib sustaining 110s-120s, occasionally 130-140s. Pt asleep and asymptomatic. BP 112/63, temp 99.9. Tylenol administered. Notified VASU King. Ordered 500ml NSS bolus @ 125ml/hr. Bolus initiated. Tube feeds continued at 20ml/hr. No
residual. Pt with no complaints at this time, resting comfortably in bed.
[2024-06-19 07:44] LABS: % Basophils 0.2 % (0-2); % Eosinophils 0.8 % (0-6); % Immature Granulocytes 0.4 % (0-0.5); % Lymphocytes 11.2 % (20.5-51.1); % Monocytes 11.6 % (1.7-9.3); % Neutrophils 75.8 % (42.2-75.2); Absolute Eosinophils 0.1 10^3/uL (0-0.7); Absolute Lymphocytes 1.1 10^3/uL (1.2-3.4); Absolute Monocytes 1.2 10^3/uL (0.1-0.6); Absolute Neutrophils 7.6 10^3/uL (1.4-6.5); Hematocrit 31.2 % (39.0-52.0); Hemoglobin 10.6 g/dL (13.0-18.0); Mean Corpuscular Hgb 34.4 pg (27.0-31.0); Mean Corpuscular Volume 101.3 fL (80.0-94.0); Mean Platelet Volume 11.1 fL (7.4-10.4); Nucleated Red Blood Cells % 0 % (-); Platelet Count 113 10^3/uL (130-400); Red Blood Cell Count 3.08 10^6/uL (4.70-6.10); Red Cell Dist. Width 13.4 % (11.5-14.5); White Blood Cell Count 10.1 10^3/uL (4.8-10.8)
[2024-06-19 08:32] VITALS: BP 98/66
[2024-06-19] MEDS: ROBITUSSIN 400 MG PO (08:42)
[2024-06-19] MEDS: PROZAC 40 MG TUBE (08:43)
[2024-06-19] MEDS: FLAGYL 500 MG PO (08:43)
[2024-06-19] MEDS: ELIQUIS 5 MG TUBE ×2 (08:43→20:37)
[2024-06-19] MEDS: LIORESAL 5 MG TUBE ×2 (08:43→20:36)
[2024-06-19] MEDS: PERIDEX 0.12% ORAL RINSE 15 ML PO ×4 (08:52→21:48)
[2024-06-19] MEDS: COSOPT EYE DROPS 1 DROP BOTH EYES ×2 (08:53→20:38)
[2024-06-19] MEDS: ALPHAGAN 0.2% EYE DROPS 1 DROP BOTH EYES ×2 (08:54→20:43)
[2024-06-19] MEDS: XOPENEX 1.25 MG INHALANT SOLUTION INH ×3 (09:11→19:26)
[2024-06-19] MEDS: LOPRESSOR 12.5 MG PO (09:49)
--- NOTE | 2024-06-19 10:19 | CM ---
CM reviewed chart, reviewed with Hospitalist, patient being treated for pneumonia and presumed Norovirus, not stable for discharge at this time. Patient current with [facility], and son provide 24/hr care to patient. Patient bedbound, tube feed
supplies provided by [employer]. CM will continue to follow for all discharge planning needs.
Plan; home with [facility], /son (provide 24 hr care) when stable, will require ambulance transport.
--- NOTE | 2024-06-19 10:47 | PN.CDI ---
CDI
- -
CDI:
Physician Documentation Request
Admit Date: 06/17/24 01:31
Dear Doctor Concetta,
Please review the following and provide your response in the progress notes.
Clinical Indicators:
Pt admitted with Sepsis 2/2 aspiration Pneumonia/ Norovirus
Documented throughout the record, ' CVA with residual aphasia and bedbound and muscle spasms Continue baclofen via G-tube for leg spasms Gastrostomy tube Hx secondary to CVA/dysphagia/aphasia...'
Documented per rehab panel , ' Previous functional ability dependent .... Pt is baseline dependent for ADLs, mosty bedbound...Pt will need to be hoyered OOB for transfers...'
Case management note 06/17, ' Pt is bedbound, has peg tube, [employer] provides feeding supplies. Both pt's spouse and their son provide / carte to pt at home....10/01 care at home provide by spouse and son. ...'
Please provide in your notes a diagnosis associated with the the functional status:
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
Weakness only
Other ( please specify)
Use of terms such as suspected, likely, concern for, or probable (associated with a specific diagnosis that is being evaluated, monitored, or treated as if it exists) are acceptable and can be coded in the inpatient setting, when documented at the
time of discharge.
Thank you,
Zuly Parikh RN
CDI Specialist
[facility]
Please use your independent medical judgment in providing your response.
--- NOTE | 2024-06-19 11:28 | W.PN.HOSP.TC ---
Today's Communication/Plan
-
add Lopressor BID for Rapid Afib
continue IV Abx
continue tube feeds
Assessment / Plan
Assessment / Plan
Assessment:
Sepsis - POA (tachycardia, tachypnea, aspiration pneumonia)
Hx of dysphagia given hx of CVA
- s/p sepsis protocol IVF with improvement in hypotension
- continue Levaquin 750mg daily, day 07/27
- add Flagyl day 06/26
- ST evaluations
Acute gastroenteritis
- high suspicion for norovirus but unable to test due to shortage
- noted recent visits from family during holiday
- continue empiric contact precautions
- supportive care, prn Zofran
- continue tube feeds per dietary and assess tolerance
Dilutional thrombocytopenia
- monitor CBC
Chronic hypoxemic respiratory failure on 2 L
Parox A.fib with RVR in setting of volume depletion
- HRs improved with fluids but now back in RVR
- add lopressor BID and follow tele
- continue Eliquis
History of CAUTI/ HX chronic bladder outlet obstruction
Hx MSSA bacteremia, Proteus October 2022
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
History of bladder cancer status post TURBT 15 years ago
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
- Continue baclofen via G-tube for leg spasms
Gastrostomy tube Hx secondary to CVA/dysphagia/aphasia
- resume TFs
Chronic constipation
- Monitor bowel movements
- hold bowel regimen
Chronic pain syndrome
- Continue gabapentin 300 mg via G-tube at bedtime
- Continue baclofen via G-tube
Essential HTN
- hold LEAD REC[employer] Hydralazine
HLD
- cont Lipitor
Insomnia
- cont trazodone
Anxiety
- Continue Prozac 40 mg
Former smoker
Glaucoma
- cont eye drops
DVT ppx: Eliquis
Code: DNR/DNI
Anticipated Discharge: > 48 hours
Subjective/Interval History
-
Date of Service: June 19, 2024
resting comfortably, no complaints
Objective Data
-
Labs:
Laboratory Results
06/19/24 06/19/24
07:31 11:14
WBC 10.1
Hgb 10.6 L
Hct 31.2 L
Plt Count 113 L
Sodium Cancelled Pending
Potassium Cancelled Pending
Chloride Cancelled Pending
Carbon Dioxide Cancelled Pending
BUN Cancelled Pending
Creatinine Cancelled Pending
Glucose Cancelled Pending
Calcium Cancelled Pending
Total Bilirubin Cancelled Pending
AST Cancelled Pending
ALT Cancelled Pending
Alkaline Phosphatase Cancelled Pending
Vital Signs:
Vital Signs
Temp Pulse Resp BP Pulse Ox
98 F 136 18 121/76 95
06/19/24 08:32 06/19/24 09:49 06/19/24 09:13 06/19/24 09:49 06/19/24 08:32
I&O
06/18/24 06/19/24 06/20/24
06:59 06:59 06:59
Intake Total 2110 / 2110 1365 / 1365
Output Total 920 / 920 325 / 325
Balance 1190 / 1190 1040 / 1040
Physical Exam
-
General: No Apparent Distress
HEENT: Normocephalic and Atraumatic
Cardiac: Irregular Rhythm and Tachycardic
GI: Soft and Nontender
Neuro: AO x 3
Hematologic / Lymphatic: No Lymphadenopathy
Psych: Calm
Data Reviewed
-
Total Time Spent with Patient (in minutes): 44
Labs: Labs Reviewed by me
[2024-06-19 11:54] VITALS: BP 110/73
[2024-06-19 12:02] LABS: ALT (SGPT) 20 U/L (0-50); AST (SGOT) 21 U/L (17-59); Albumin 2.5 g/dl (3.5-5.0); Alkaline Phosphatase 61 U/L (38-126); Blood Urea Nitrogen 24 mg/dl (9-20); Calcium 7.9 mg/dl (8.4-10.2); Carbon Dioxide 26 mmol/L (22-30); Chloride 106 mmol/L (98-107); Estimated Creatinine Clearance 77 ml/min; Glucose 107 mg/dl (70-99); Potassium 3.6 mmol/L (3.5-5.1); Sodium 137 mmol/L (135-145); Total Bilirubin 0.5 mg/dl (0.2-1.3); Total Protein 5.3 g/dl (6.3-8.2); eGFR > 60.00
[2024-06-19] MEDS: LOPRESSOR 12.5 MG TUBE (12:20)
[2024-06-19 15:20] VITALS: BP 131/82
--- NOTE | 2024-06-19 16:14 | CON.CAR ---
Addendum entered and electronically signed by Joe Aldrich MD 06/19/24 17:00:
Reviewed telemetry. He has had paroxysmal atrial fibrillation sometimes with modestly rapid heart rate of up to 120, asymptomatic as far as we can tell. No hemodynamic compromise. On telemetry today he had a conversion pause which was
asymptomatic. Sinus rhythm lasted for just a couple of beats and he was back into atrial fibrillation.
He has a known history of paroxysmal atrial fibrillation and has maintained uninterrupted oral anticoagulation.
Reviewed blood work, normal LFTs. We will initiate amiodarone for an attempt to maintain rhythm control. Will initiate amiodarone 200 mg twice daily for 30 days and then reduce to 200 mg once daily. Atrial fibrillation has been paroxysmal and the
goal would be to use amiodarone as a means to maintain sinus rhythm once he self converted back to sinus rhythm. While there may be a conversion pause, I do not expect there to be a significant worsening in the conversion pause and given that he is
bedbound, I do not expect the conversion pause to be significantly symptomatic. Stop metoprolol. Would also continue oral anticoagulation (apixaban).
Original Note:
Consultation
Consultation Request
Date/Time Consultation Requested: 06/19/2024, 1600
Date/Time Consultation Performed: 06/19/2024, 1615
Requesting Provider: Dr. Hylton
Performing Provider: Gladys Pappas PA-C for Dr. Geiger
Reason for Consultation: A-fib with pauses
Medical History
-
Chief Complaint: A-fib
History of Present Illness:
Patient came to [facility] Tuesday with N/V/D and cardiology is now consulted for pauses and rapid Afib. Patient has a history of AF diagnosis back in 2019 at the time of his embolic CVA which is left him with residual aphasia along with chronic PEG
tube and Chavez catheter. Patient used to follow with the other group, but then switched to Dr. Jonas with the last office visit being in 2020. We had the opportunity to see the patient when he was admitted in July of this year with
constipation and cardiology was consulted due to elevated troponin. At that time we attempted to add Coreg, but patient started with bradycardia and wheezing and Coreg was stopped. Patient was in SR at that time. Patient has been maintained on
Eliquis 5 mg twice daily throughout. Patient is coming in now with suspected norovirus and was noted to be in AF from the time of admission. Tube feeds were held initially due to ongoing vomiting, but have been restarted today. Patient was given
a total of Lopressor 25 mg divided between 2 doses all given before 1230 today and then was noted to have a 7-second conversion pause on monitoring specialist at about 1550 today. Patient is nonverbal, with no reported LOC. His is sitting bedside
there have been no complaints of palpitations or dizziness.
Past medical history:
Paroxysmal atrial fibrillation
Chronic Eliquis anticoagulation
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
-Residual aphasia, chronic PEG tube, chronic Chavez catheter
Hypertension
Hyperlipidemia
Recurrent UTIs
Bladder cancer
COPD
Past Medical History
Past Medical History: Other (In HPI)
Past Surgical History: Other (PEg tube)
Social History
Tobacco: Former Smoker
Alcohol: None
Drug: None
Personal:
Living: With Family
Employment: Retired
Family History
Family History: Reviewed & Not Pertinent
Allergies / Home Medications
Allergy/AdvReac Type Severity Reaction Status Date / Time
Cephalosporins Allergy Swelling/tolerates Verified 07/28/23 10:02
meropenem
Penicillins Allergy Swelling/tolerates Verified 07/28/23 10:02
meropenem
vancomycin Allergy Rash Verified 07/28/23 10:02
�Medication �Instructions �Recorded �Confirmed �Type
baclofen 5 mg tablet 5 mg feeding tube BID Muscle spasms 08/23/20 06/16/24 History
multivitamin 1 ea feeding tube NOON Supplement 08/23/20 06/16/24 History
bimatoprost 0.01 % eye drops 1 drp BOTH EYES HS Eye condition 02/17/22 06/16/24 History
(Lumigan)
bisacodyl 10 mg rectal suppository 10 mg MT DAILYPRN PRN constipation 02/17/22 06/16/24 History
(Dulcolax (bisacodyl))
chlorhexidine gluconate 0.12 % 15 ml mucous membrane QID ORAL CARE 02/17/22 06/16/24 History
mouthwash
gabapentin 600 mg tablet 300 mg feeding tube HS Pain 02/17/22 06/16/24 History
guaifenesin 400 mg tablet 400 mg PO BID Cough ##0 02/17/22 06/16/24 History
hydralazine 25 mg tablet 25 mg feeding tube TIDPRN PRN 02/17/22 06/16/24 History
SBP>150
trazodone 50 mg tablet 25 mg feeding tube HS Sleep 02/17/22 06/16/24 History
apixaban 5 mg tablet (Eliquis) 5 mg feeding tube BID Blood clot 02/20/22 06/16/24 Rx
prevention/tx #30 tabs
dimethicone 1 %-zinc oxide 10 1 applic topical QPM diaper changes 02/01/23 06/16/24 History
%-vit A and D-aloe vera topical
cream (Zinc Oxide Diaper Cream)
acetaminophen 500 mg tablet 1,000 mg feeding tube TIDPRN PRN 07/28/23 06/16/24 History
(Tylenol Extra Strength) mild pain
atorvastatin 40 mg tablet 40 mg feeding tube HS High 07/28/23 06/16/24 History
Cholesterol
brimonidine 0.2 % eye drops 1 drp BOTH EYES BID Eye Condition 07/28/23 06/16/24 History
dorzolamide 22.3 mg-timolol 6.8 1 drp BOTH EYES BID Eye Condition 07/28/23 06/16/24 History
mg/mL eye drops
fluoxetine 20 mg tablet 40 mg feeding tube DAILY Mental 07/28/23 06/16/24 History
Health
fluticasone propionate 50 1 spray intranasal HSPRN PRN dry 07/28/23 06/16/24 History
mcg/actuation nasal nares
spray,suspension
ipratropium 0.5 mg-albuterol 3 mg 3 ml inhalation R DAILYPRN PRN 07/28/23 06/16/24 History
(2.5 mg base)/3 mL nebulization sob/wheezing
soln
ipratropium 0.5 mg-albuterol 3 mg 3 ml inhalation R TID 07/28/23 06/16/24 History
(2.5 mg base)/3 mL nebulization Lung/Breathing Issues
soln
sodium phosphates 19 gram-7 118 ml MT DAILYPRN PRN constipation 07/28/23 06/16/24 History
gram/118 mL enema (Fleet Enema)
polyethylene glycol 3350 17 gram 17 g feeding tube HS #0 ea 07/31/23 06/16/24 Rx
oral powder packet (Miralax)
sennosides 8.8 mg/5 mL oral syrup 17.6 mg (10 mL) PO HS #236 mL 07/31/23 06/16/24 Rx
acetaminophen 300 mg-codeine 30 mg 1 tab feeding tube TIDPRN PRN 06/16/24 06/16/24 History
tablet moderate pain
Physical Exam
Vital Signs
Temp Pulse Resp BP Pulse Ox
99.4 F 130 20 131/82 95
06/19/24 15:20 06/19/24 15:20 06/19/24 15:20 06/19/24 15:20 06/19/24 15:20
Lab Results
06/19/24 07:31
06/19/24 11:14
Troponin I 0.015 ng/ml 06/16/24 20:24
Impression / Plan
-
PCP: Jenn Dominguez PA-C
Cardiology: Dr. Jonas,
Impression:
Presented with nausea, vomiting, diarrhea, suspicious for norovirus 06/16/24
Sepsis
Afib with RVR
Pause, possible conversion pause
Paroxysmal Afib
diagnosed at time of acute CVA in 2019
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
w/ residual aphasia, chronic PEG tube, chronic Chavez catheter
Chronic Eliquis anticoagulation
Chronic hypoxemic respiratory failure on O2 2 L
Hypertension
Hyperlipidemia
Recurrent UTI
h/o bladder cancer
COPD
Echo 10/26/2022: EF 55 to 60%, posterior MAC, trace MR, trace AR, trace TR, estimated PAP 31 mmHg no evidence of vegetation
Plan:
-Patient came to [facility] Tuesday with N/V/D and cardiology is now consulted for pauses and rapid Afib. Patient has a history of AF diagnosis back in 2019 at the time of his embolic CVA which is left him with residual aphasia along with chronic PEG
tube and Chavez catheter. Patient used to follow with the other group, but then switched to Dr. Jonas with the last office visit being in 2020. We had the opportunity to see the patient when he was admitted in July of this year with
constipation and cardiology was consulted due to elevated troponin. At that time we attempted to add Coreg, but patient started with bradycardia and wheezing and Coreg was stopped. Patient was in SR at that time. Patient has been maintained on
Eliquis 5 mg twice daily throughout. Patient is coming in now with suspected norovirus and was noted to be in AF from the time of admission. Tube feeds were held initially due to ongoing vomiting, but have been restarted today. Patient was given
a total of Lopressor 25 mg divided between 2 doses all given before 1230 today and then was noted to have a 7-second conversion pause on monitoring specialist at about 1550 today. Patient is nonverbal, with no reported LOC. His is sitting bedside
there have been no complaints of palpitations or dizziness.
-Tele reviewed by me and it appears that patient is having conversion pauses, Afib then pause then SR for a few beats. Currently in Afib with HRs 110-120.
-Will stop Lopressor
-Will try to maintain SR by starting amiodarone 200 mg BID vis tube.
-Follow tele and recheck ECG in AM
-Cont Eliquis 5 mg BID
-Of note, patient had wheezing with Coreg during 07/2023 admission
[2024-06-19] MEDS: ZOFRAN 4 MG IV (17:05)
[2024-06-19] MEDS: FLAGYL 500 MG TUBE ×2 (18:29→23:54)
[2024-06-19] MEDS: DESITIN MAXIMUM STRENGTH PASTE 1 APPLIC TOPICAL (18:32)
[2024-06-19 19:56] VITALS: BP 114/69
[2024-06-19] MEDS: PACERONE 200 MG TUBE (20:35)
[2024-06-19] MEDS: ROBITUSSIN 400 MG TUBE (20:36)
[2024-06-19] MEDS: NEURONTIN 300 MG TUBE (21:48)
[2024-06-19] MEDS: LIPITOR 40 MG TUBE (21:51)
[2024-06-19] MEDS: DESYREL TUBE (21:51)
[2024-06-19] MEDS: XALATAN OPHTHALMIC SOLUTION 1 DROP BOTH EYES (22:53)
[2024-06-19 23:19] VITALS: BP 111/58
[2024-06-20] MEDS: NSS 1000 IV ×2 (00:50→21:35)
[2024-06-20] MEDS: XOPENEX 1.25 MG INHALANT SOLUTION INH ×4 (03:02→19:10)
[2024-06-20 03:54] VITALS: BP 102/49
[2024-06-20] MEDS: LEVAQUIN 150 IV (04:08)
[2024-06-20 05:09] VITALS: BMI 27.1
--- NOTE | 2024-06-20 06:25 | PTCARENOTE ---
EKG results were reported to covering provider.
[2024-06-20 07:20] VITALS: BP 109/59
[2024-06-20 07:42] LABS: % Basophils 0.2 % (0-2); % Eosinophils 1.1 % (0-6); % Immature Granulocytes 0.6 % (0-0.5); % Lymphocytes 12.2 % (20.5-51.1); % Neutrophils 75.9 % (42.2-75.2); Absolute Eosinophils 0.1 10^3/uL (0-0.7); Absolute Immature Granulocytes 0.1 10^3/uL (0-0.05); Absolute Monocytes 0.8 10^3/uL (0.1-0.6); Absolute Neutrophils 6.4 10^3/uL (1.4-6.5); Hematocrit 30.3 % (39.0-52.0); Hemoglobin 10.3 g/dL (13.0-18.0); Mean Platelet Volume 10.8 fL (7.4-10.4); Nucleated Red Blood Cells % 0 % (-); Platelet Count 113 10^3/uL (130-400); Red Blood Cell Count 3.03 10^6/uL (4.70-6.10); Red Cell Dist. Width 13.3 % (11.5-14.5); White Blood Cell Count 8.4 10^3/uL (4.8-10.8)
[2024-06-20 08:04] LABS: ALT (SGPT) 19 U/L (0-50); AST (SGOT) 22 U/L (17-59); Albumin 2.4 g/dl (3.5-5.0); Blood Urea Nitrogen 24 mg/dl (9-20); Carbon Dioxide 24 mmol/L (22-30); Chloride 107 mmol/L (98-107); Estimated Creatinine Clearance 77 ml/min; Glucose 100 mg/dl (70-99); Potassium 3.6 mmol/L (3.5-5.1); Sodium 136 mmol/L (135-145); Total Bilirubin 0.4 mg/dl (0.2-1.3); Total Protein 5.1 g/dl (6.3-8.2); eGFR > 60.00
[2024-06-20] MEDS: PROZAC 40 MG TUBE (08:23)
[2024-06-20] MEDS: COSOPT EYE DROPS 1 DROP BOTH EYES ×2 (08:23→20:17)
[2024-06-20] MEDS: PERIDEX 0.12% ORAL RINSE 15 ML PO ×4 (08:23→21:06)
[2024-06-20] MEDS: PACERONE 200 MG TUBE ×2 (08:24→20:17)
[2024-06-20] MEDS: ELIQUIS 5 MG TUBE ×2 (08:24→20:17)
[2024-06-20] MEDS: ROBITUSSIN 400 MG TUBE ×2 (08:24→20:16)
[2024-06-20] MEDS: LIORESAL 5 MG TUBE ×2 (08:24→20:17)
[2024-06-20] MEDS: FLAGYL 500 MG TUBE ×3 (08:25→23:58)
[2024-06-20 08:35] LABS: Alkaline Phosphatase 66 U/L (38-126)
[2024-06-20] MEDS: ALPHAGAN 0.2% EYE DROPS 1 DROP BOTH EYES ×2 (08:39→20:17)
--- NOTE | 2024-06-20 08:43 | W.PN.HOSP.TC ---
Today's Communication/Plan
-
check CT A/P w PO/IV contrast
continue IVF while TF held
continue Abx
Assessment / Plan
Assessment / Plan
Assessment:
Sepsis - POA (tachycardia, tachypnea, aspiration pneumonia)
Hx of dysphagia given hx of CVA
- s/p sepsis protocol IVF with improvement in hypotension
- continue Levaquin 750mg daily, day 08/24
- continue Flagyl day 07/27
Acute gastroenteritis
- high suspicion for norovirus but unable to test due to shortage
- noted recent visits from family during holiday
- continue empiric contact precautions
- supportive care, prn Zofran
- did not tolerated TF 06/19 with vomiting; TF on hold
- will CT with PO and IV contrast to evaluate
Dilutional thrombocytopenia
- monitor CBC
Chronic hypoxemic respiratory failure on 2 L
Parox A.fib with RVR in setting of volume depletion
- HRs improved with fluids initially but RVR returned 06/19
- appreciate DCA cards; Amiodarone started. patient in NSR
- continue Eliquis
History of CAUTI/ HX chronic bladder outlet obstruction
Hx MSSA bacteremia, Proteus October 2022
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
History of bladder cancer status post TURBT 15 years ago
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
- Continue baclofen via G-tube for leg spasms
Gastrostomy tube Hx secondary to CVA/dysphagia/aphasia
- TF held (see above)
Chronic constipation
- Monitor bowel movements
- hold bowel regimen
Chronic pain syndrome
- Continue gabapentin 300 mg via G-tube at bedtime
- Continue baclofen via G-tube
Essential HTN
- hold [employer] Hydralazine
HLD
- cont Lipitor
Insomnia
- cont trazodone
Anxiety
- Continue Prozac 40 mg
Former smoker
Glaucoma
- cont eye drops
DVT ppx: Eliquis
Code: DNR/DNI
Anticipated Discharge: > 48 hours
Subjective/Interval History
-
Date of Service: June 20, 2024
yesterday afternoon went into bradycardia with pauses; cardiology evaluated and started Amiodarone, stopped BB
Also yesterday afternoon, vomited tube feeds and TF were subsequently held with IVF started
no vomiting this AM, but noted to have diarrhea
Objective Data
-
Labs:
Laboratory Results
06/20/24
07:26
WBC 8.4
Hgb 10.3 L
Hct 30.3 L
Plt Count 113 L
Sodium 136
Potassium 3.6
Chloride 107
Carbon Dioxide 24
BUN 24 H
Creatinine 0.7
Glucose 100 H
Calcium 8.0 L
Total Bilirubin 0.4
AST 22
ALT 19
Alkaline Phosphatase 66
Vital Signs:
Vital Signs
Temp Pulse Resp BP Pulse Ox
98.5 F 58 16 109/59 98
06/20/24 07:20 06/20/24 08:24 06/20/24 07:55 06/20/24 08:24 06/20/24 07:20
I&O
06/19/24 06/20/24 06/21/24
06:59 06:59 06:59
Intake Total 1365 / 1365 1170 / 1170
Output Total 325 / 325 200 / 200
Balance 1040 / 1040 970 / 970
Physical Exam
-
General: No Apparent Distress and Appears Chronically Ill
HEENT: Normocephalic and Atraumatic
Respiratory: Negative Wheezes
Cardiac: Regular Rhythm and S1/S2
GI: Soft, Nontender and Peg Tube
Genito-urinary: No Costovertebral Tender
Musculoskeletal: No Edema
Neuro: AO x 3
Hematologic / Lymphatic: No Lymphadenopathy
Psych: Calm
Data Reviewed
-
Total Time Spent with Patient (in minutes): 45
Labs: Labs Reviewed by me
[2024-06-20] MEDS: OMNIPAQUE 50 ML PO (10:25)
[2024-06-20 11:20] VITALS: BP 139/68
[2024-06-20 15:25] VITALS: BP 138/68
[2024-06-20] MEDS: DESITIN MAXIMUM STRENGTH PASTE 1 APPLIC TOPICAL (17:04)
[2024-06-20 19:29] VITALS: BP 146/74
[2024-06-20] MEDS: NEURONTIN 300 MG TUBE (21:06)
[2024-06-20] MEDS: DESYREL 25 MG TUBE (21:07)
[2024-06-20] MEDS: LIPITOR 40 MG TUBE (21:08)
[2024-06-20] MEDS: XALATAN OPHTHALMIC SOLUTION 1 DROP BOTH EYES (21:09)
[2024-06-20 23:54] VITALS: BP 146/67
[2024-06-21 02:43] VITALS: BP 113/57
[2024-06-21] MEDS: LEVAQUIN 150 IV (03:40)
[2024-06-21] MEDS: XOPENEX 1.25 MG INHALANT SOLUTION INH ×5 (03:55→22:32)
[2024-06-21 05:42] VITALS: BMI 27.3
[2024-06-21 07:01] LABS: % Basophils 0.1 % (0-2); % Eosinophils 1.3 % (0-6); % Immature Granulocytes 0.4 % (0-0.5); % Lymphocytes 12.7 % (20.5-51.1); % Monocytes 9.9 % (1.7-9.3); % Neutrophils 75.6 % (42.2-75.2); Absolute Eosinophils 0.1 10^3/uL (0-0.7); Absolute Monocytes 0.8 10^3/uL (0.1-0.6); Absolute Neutrophils 5.7 10^3/uL (1.4-6.5); Hematocrit 29.3 % (39.0-52.0); Hemoglobin 10.2 g/dL (13.0-18.0); Mean Corp Hgb Conc. 34.8 g/dL (33.0-37.0); Mean Corpuscular Hgb 34.2 pg (27.0-31.0); Mean Corpuscular Volume 98.3 fL (80.0-94.0); Nucleated Red Blood Cells % 0 % (-); Platelet Count 104 10^3/uL (130-400); Red Blood Cell Count 2.98 10^6/uL (4.70-6.10); Red Cell Dist. Width 13.1 % (11.5-14.5); White Blood Cell Count 7.6 10^3/uL (4.8-10.8)
[2024-06-21 07:25] LABS: ALT (SGPT) 15 U/L (0-50); AST (SGOT) 19 U/L (17-59); Albumin 2.2 g/dl (3.5-5.0); Alkaline Phosphatase 63 U/L (38-126); Blood Urea Nitrogen 19 mg/dl (9-20); Calcium 7.8 mg/dl (8.4-10.2); Carbon Dioxide 24 mmol/L (22-30); Chloride 106 mmol/L (98-107); Estimated Creatinine Clearance 90 ml/min; Glucose 90 mg/dl (70-99); Potassium 3.6 mmol/L (3.5-5.1); Sodium 137 mmol/L (135-145); Total Bilirubin 0.5 mg/dl (0.2-1.3); eGFR > 60.00
[2024-06-21 07:33] LABS: Glucose - Point of Care 93 mg/dl (70-99)
[2024-06-21] MEDS: PERIDEX 0.12% ORAL RINSE 15 ML PO ×4 (07:42→22:07)
[2024-06-21] MEDS: LIORESAL 5 MG TUBE ×2 (07:42→20:05)
[2024-06-21] MEDS: ROBITUSSIN 400 MG TUBE ×2 (07:42→20:05)
[2024-06-21] MEDS: PROZAC 40 MG TUBE (07:42)
[2024-06-21] MEDS: PACERONE 200 MG TUBE ×2 (07:43→20:05)
[2024-06-21] MEDS: FLAGYL 500 MG TUBE ×3 (07:43→23:51)
[2024-06-21] MEDS: ELIQUIS 5 MG TUBE ×2 (07:43→20:05)
[2024-06-21] MEDS: COSOPT EYE DROPS 1 DROP BOTH EYES ×2 (07:47→20:05)
[2024-06-21] MEDS: ALPHAGAN 0.2% EYE DROPS 1 DROP BOTH EYES ×2 (07:47→20:05)
[2024-06-21 08:00] VITALS: BP 126/59
--- NOTE | 2024-06-21 08:00 | PTCARENOTE ---
Patient increased to 4L O2 overnight, 90% on 4L this AM, very gurgly, thick white sputum suctioned orally by this RN, lungs sounds coarse with expiratory wheeze. Patient's TF continue to remain on hold. Respiratory made aware to come to bedside for
PRN treatment. made aware of above. Patient maintained on q6hr accuchecks while NPO.
--- NOTE | 2024-06-21 11:18 | W.PN.CARDCBS ---
Today's Communication / Plan
-
Remains in sinus rhythm with no significant bradycardia/pauses
Impression / Plan
-
PCP: Jenn Dominguez PA-C
Cardiology: Dr. Jonas,
Impression:
Presented with nausea, vomiting, diarrhea, suspicious for norovirus 06/16/24
Sepsis
Afib with RVR
Pause, possible conversion pause
Paroxysmal Afib
diagnosed at time of acute CVA in 2019
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
w/ residual aphasia, chronic PEG tube, chronic Chavez catheter
Chronic Eliquis anticoagulation
Chronic hypoxemic respiratory failure on O2 2 L
Hypertension
Hyperlipidemia
Recurrent UTI
h/o bladder cancer
COPD
Echo 10/26/2022: EF 55 to 60%, posterior MAC, trace MR, trace AR, trace TR, estimated PAP 31 mmHg no evidence of vegetation
Plan:
Remains in sinus rhythm with no significant pauses.
Continue amiodarone and Lopressor has been held with conversion pause. Of note, patient had wheezing with Coreg during 07/2023 admission
Cont Eliquis 5 mg BID
PREADMIT DATA
-Patient came to [facility] Tuesday with N/V/D and cardiology is now consulted for pauses and rapid Afib. Patient has a history of AF diagnosis back in 2019 at the time of his embolic CVA which is left him with residual aphasia along with chronic PEG
tube and Chavez catheter. Patient used to follow with the other group, but then switched to Dr. Jonas with the last office visit being in 2020. We had the opportunity to see the patient when he was admitted in July of this year with
constipation and cardiology was consulted due to elevated troponin. At that time we attempted to add Coreg, but patient started with bradycardia and wheezing and Coreg was stopped. Patient was in SR at that time. Patient has been maintained on
Eliquis 5 mg twice daily throughout. Patient is coming in now with suspected norovirus and was noted to be in AF from the time of admission. Tube feeds were held initially due to ongoing vomiting, but have been restarted today. Patient was given
a total of Lopressor 25 mg divided between 2 doses all given before 1230 today and then was noted to have a 7-second conversion pause on marble cleaner at about 1550 today. Patient is nonverbal, with no reported LOC. His is sitting bedside
there have been no complaints of palpitations or dizziness.
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
Subjective
Date of Service: June 21, 2024
No complaints
Objective
Labs:
06/21/24 06:46
06/21/24 06:46
Labs
Hgb 10.2 g/dL (13.0-18.0) L 06/21/24 06:46
Hct 29.3 % (39.0-52.0) L 06/21/24 06:46
Plt Count 104 10^3/uL (130-400) L 06/21/24 06:46
Sodium 137 mmol/L (135-145) 06/21/24 06:46
Potassium 3.6 mmol/L (3.5-5.1) 06/21/24 06:46
BUN 19 mg/dl (9-20) 06/21/24 06:46
Creatinine 0.6 mg/dL (0.7-1.3) L 06/21/24 06:46
Glucose 90 mg/dl (70-99) 06/21/24 06:46
Vital Signs and I&O:
Vital Signs
Temp Pulse Resp BP Pulse Ox
98.6 F 62 20 126/59 93
06/21/24 08:00 06/21/24 08:15 06/21/24 08:15 06/21/24 08:00 06/21/24 08:15
Vital Signs
Temp Pulse Resp BP Pulse Ox
98.6 F 62 20 126/59 93
06/21/24 08:00 06/21/24 08:15 06/21/24 08:15 06/21/24 08:00 06/21/24 08:15
Intake & Output
06/19/24 06/20/24 06/21/24 06/22/24
06:59 06:59 06:59 06:59
Intake Total 1365 / 1365 1170 / 1170 2310 / 2310
Output Total 325 / 325 200 / 200 725 / 725
Balance 1040 / 1040 970 / 970 1585 / 1585
Physical Exam
Physical Exam
General: Sedate
Neck: Supple, no JVD, HJR, carotids +2 B/L, no bruits bilaterally.
Heart: Non displaced PMI, RRR, no murmurs, No S3, S4, no rubs.
Lungs: Poor effort
Extremities: No clubbing, cyanosis or edema bilaterally.
Neuro: Sedate
[2024-06-21 11:30] VITALS: BP 154/73
--- NOTE | 2024-06-21 12:20 | W.PN.HOSP.TC ---
Today's Communication/Plan
-
hospice consult
AXR, tube check to evaluate PEG/constipation as reasons for TF intolerance (aspiration most likely)
RUE US
Assessment / Plan
Assessment / Plan
Assessment:
Sepsis - POA (tachycardia, tachypnea, aspiration pneumonia)
Hx of dysphagia given hx of CVA
- s/p sepsis protocol IVF with improvement in hypotension
- continue Levaquin 750mg daily, day 09/24
- continue Flagyl day 08/24
- repeat CXR 06/20: MODERATE RIGHT UPPER and LOWER LOBE PNEUMONIA which has increased since 06/16/2024. New moderate-sized airspace opacity in the right upper lobe. Moderate-sized right lower lobe and small left lower lobe airspace consolidations
which appear unchanged.
Acute gastroenteritis
- high suspicion for norovirus but unable to test due to shortage
- noted recent visits from family during holiday
- continue empiric contact precautions
- supportive care, prn Zofran
- did not tolerated TF 06/19 with vomiting; TF on hold
- could not tolerate contrast for CT on 06/20
- check tube check xray and Abdominal Xray
Dilutional thrombocytopenia
- monitor CBC
Chronic hypoxemic respiratory failure on 2 L
Parox A.fib with RVR in setting of volume depletion
- HRs improved with fluids initially but RVR returned 06/19
- appreciate DCA cards; Amiodarone continuse. patient in NSR
- continue Eliquis
History of CAUTI/ HX chronic bladder outlet obstruction
Hx MSSA bacteremia, Proteus October 2022
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
History of bladder cancer status post TURBT 15 years ago
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
- Continue baclofen via G-tube for leg spasms
Gastrostomy tube Hx secondary to CVA/dysphagia/aphasia
- TF held (see above)
Chronic constipation
- check AXR
Chronic pain syndrome
- Continue gabapentin 300 mg via G-tube at bedtime
- Continue baclofen via G-tube
Essential HTN
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
HLD
- cont Lipitor
Insomnia
- cont trazodone
Anxiety
- Continue Prozac 40 mg
Former smoker
Glaucoma
- cont eye drops
Right upper arm swelling
- DVT study ordered
DVT ppx: Eliquis
Code: DNR/DNI
Dispo: long discussion with about chronic aspiration, recurrent ER/hospital visits (14 total visits since stroke in 2019), chronic respiratory failure, repeat infections. poor QOL. 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
Anticipated Discharge: > 48 hours
Subjective/Interval History
-
Date of Service: June 21, 2024
did not tolerate contrast yesterday with concern for aspiration and decrease in O2 sats
remains on IVF
Objective Data
-
Labs:
Laboratory Results
06/21/24
06:46
WBC 7.6
Hgb 10.2 L
Hct 29.3 L
Plt Count 104 L
Sodium 137
Potassium 3.6
Chloride 106
Carbon Dioxide 24
BUN 19
Creatinine 0.6 L
Glucose 90
Calcium 7.8 L
Total Bilirubin 0.5
AST 19
ALT 15
Alkaline Phosphatase 63
Vital Signs:
Vital Signs
Temp Pulse Resp BP Pulse Ox
98.6 F 62 20 126/59 93
06/21/24 08:00 06/21/24 08:15 06/21/24 08:15 06/21/24 08:00 06/21/24 08:15
I&O
06/20/24 06/21/24 06/22/24
06:59 06:59 06:59
Intake Total 1170 / 1170 2310 / 2310
Output Total 200 / 200 725 / 725
Balance 970 / 970 1585 / 1585
Physical Exam
-
General: No Apparent Distress
HEENT: Normocephalic and Atraumatic
Respiratory: Rhonchi and Decreased Breath Sounds
Cardiac: Regular Rhythm and S1/S2
GI: Soft and Peg Tube
Musculoskeletal: Edema, Right Upper Extrem and Other
Neuro: Awake and Alert
Hematologic / Lymphatic: No Lymphadenopathy
Psych: Calm
Data Reviewed
-
Total Time Spent with Patient (in minutes): 45
Labs: Labs Reviewed by me
[2024-06-21 12:54] LABS: Glucose - Point of Care 97 mg/dl (70-99)
--- NOTE | 2024-06-21 13:26 | CM ---
Met with patient and Talya at bedside.
tt from hospitalist - cm consult completed for hospice.
hospice preferred - referral entered in [facility].
hospice nurse to speak with patient Talya today.
PLAN: Hospice consult, dispo plan to be determined
[2024-06-21] MEDS: NSS 1000 IV (14:00)
--- NOTE | 2024-06-21 14:01 | HOSPNOTE ---
Addendum entered by Lisa Baumann RN 06/21/24 14:42:
Attempted to call the to discuss hospice while she was at home, voicemail left with return phone call. Awaiting return call. CM and Attending updated.
Original Note:
Hospice referral received. Called and spoke to who reported she was leaving to go home and if could call her back in an hour or so. Called at 2 pm to speak to and left a voicemail. Awaiting her return call. More information to follow.
[2024-06-21 16:43] VITALS: BP 162/77
[2024-06-21] MEDS: DESITIN MAXIMUM STRENGTH PASTE 1 APPLIC TOPICAL (17:11)
[2024-06-21 17:19] LABS: Glucose - Point of Care 90 mg/dl (70-99)
[2024-06-21 19:40] VITALS: BP 118/80
[2024-06-21] MEDS: NEURONTIN 300 MG TUBE (22:06)
[2024-06-21] MEDS: XALATAN OPHTHALMIC SOLUTION 1 DROP BOTH EYES (22:06)
[2024-06-21] MEDS: LIPITOR 40 MG TUBE (22:07)
[2024-06-21] MEDS: DESYREL 25 MG TUBE (22:07)
[2024-06-21 23:20] VITALS: BP 152/72
[2024-06-21 23:57] LABS: Glucose - Point of Care 85 mg/dl (70-99)
[2024-06-22 03:16] VITALS: BP 124/70
[2024-06-22] MEDS: LEVAQUIN 150 IV (03:37)
[2024-06-22] MEDS: TYLENOL 1000 MG TUBE (04:18)
[2024-06-22] MEDS: PULMICORT 0.25 MG INH ×2 (05:58→19:24)
[2024-06-22] MEDS: XOPENEX 1.25 MG INHALANT SOLUTION INH ×3 (05:58→19:23)
[2024-06-22 06:00] VITALS: BMI 27.4
--- NOTE | 2024-06-22 06:25 | PTCARENOTE ---
At 0200 patients heart rate in the 100-110s. Patient was in NSR and AFIB at times, also having some small pauses. Patient had a slight temperature and was dealing with some pain. Administered Tylenol. Patients heart rate now in the 50-60s.
Temperature now 99.5. Messaged [facility]. EKG ordered
[2024-06-22 06:28] LABS: Glucose - Point of Care 87 mg/dl (70-99)
[2024-06-22 07:43] VITALS: BP 123/63
[2024-06-22 07:49] LABS: Hematocrit 29.7 % (39.0-52.0); Hemoglobin 10.3 g/dL (13.0-18.0); Mean Corp Hgb Conc. 34.7 g/dL (33.0-37.0); Mean Corpuscular Hgb 34.1 pg (27.0-31.0); Mean Corpuscular Volume 98.3 fL (80.0-94.0); Mean Platelet Volume 11.1 fL (7.4-10.4); Platelet Count 120 10^3/uL (130-400); Red Blood Cell Count 3.02 10^6/uL (4.70-6.10); Red Cell Dist. Width 13.1 % (11.5-14.5); White Blood Cell Count 7.2 10^3/uL (4.8-10.8)
[2024-06-22] MEDS: PROZAC 40 MG TUBE (08:04)
[2024-06-22] MEDS: FLAGYL 500 MG TUBE ×3 (08:04→23:14)
[2024-06-22] MEDS: LIORESAL 5 MG TUBE ×2 (08:04→20:18)
[2024-06-22] MEDS: PERIDEX 0.12% ORAL RINSE 15 ML PO ×4 (08:04→23:10)
[2024-06-22] MEDS: ELIQUIS 5 MG TUBE ×2 (08:04→20:19)
[2024-06-22] MEDS: ROBITUSSIN 400 MG TUBE ×2 (08:04→20:18)
[2024-06-22] MEDS: ALPHAGAN 0.2% EYE DROPS 1 DROP BOTH EYES ×2 (08:05→20:20)
[2024-06-22] MEDS: COSOPT EYE DROPS 1 DROP BOTH EYES ×2 (08:05→20:20)
[2024-06-22] MEDS: NSS 1000 IV (08:06)
[2024-06-22] MEDS: PACERONE TUBE (08:08)
[2024-06-22 08:35] LABS: Blood Urea Nitrogen 15 mg/dl (9-20); Calcium 7.7 mg/dl (8.4-10.2); Carbon Dioxide 23 mmol/L (22-30); Chloride 105 mmol/L (98-107); Estimated Creatinine Clearance 90 ml/min; Glucose 84 mg/dl (70-99); Potassium 3.3 mmol/L (3.5-5.1); Sodium 136 mmol/L (135-145); eGFR > 60.00
--- NOTE | 2024-06-22 09:09 | W.PN.UPDATE ---
Update Note
Progress Note Update
tele with brief afib, no pauses. cont current meds
will sign off, call with questions
[2024-06-22 11:20] VITALS: BP 147/71
--- NOTE | 2024-06-22 11:24 | HOSPNOTE ---
Called at 9am and left a message regarding a meeting to discuss hospice Stated hospice nurse is available until 1pm to meet with her. did not return phone call. Looking in patient room every 30-60 minutes and has not arrived.
Floor nurse Darlene states she mentioned to yesterday that we are trying to met with her, she stated she knows. Questioning if she is avoiding the hospice discussion.
[2024-06-22 11:28] LABS: Glucose - Point of Care 99 mg/dl (70-99)
--- NOTE | 2024-06-22 11:45 | HOSPNOTE ---
Talya arrived and hospice nurse introduced myself. she stated she was not interested. I offered an explanation of benefits so she would understand hospice services. She agreed to speak to me. Explained services. She stated she did not
think he was ready for hospice but may be in denial. I mentioned the difficulty with tube feedings as an indication that it would be appropriate. She thanked me for information and is not interested in hospice at this time.
--- NOTE | 2024-06-22 13:57 | W.PN.HOSP.TC ---
Today's Communication/Plan
-
resume low rate TFs and monitor for aspiration, respiratory distress
increase Mucinex
continue IV Abx
repeat CXR Tuesday
Assessment / Plan
Assessment / Plan
Assessment:
Sepsis - POA (tachycardia, tachypnea, aspiration pneumonia)
Hx of dysphagia given hx of CVA
- s/p sepsis protocol IVF with improvement in hypotension
- continue Levaquin 750mg daily, day 10/24
- continue Flagyl day 09/24
- repeat CXR 06/20: MODERATE RIGHT UPPER and LOWER LOBE PNEUMONIA which has increased since 06/16/2024. New moderate-sized airspace opacity in the right upper lobe. Moderate-sized right lower lobe and small left lower lobe airspace consolidations
which appear unchanged.
Acute gastroenteritis
- Norovirus negative
- continue empiric contact precautions
- supportive care, prn Zofran
- did not tolerated TF 06/19 with vomiting; TF on hold
- tube check confirms peg in ok position
- AXR without constipation
- resume TFs at low rate today; monitor for aspiration which explained to is high likelihood
Dilutional thrombocytopenia
- monitor CBC
Chronic hypoxemic respiratory failure on 2 L
Parox A.fib with RVR in setting of volume depletion
- HRs improved with fluids initially but RVR returned 06/19
- Amiodarone continue. patient in NSR
- continue Eliquis
- DCA cards signed off
History of CAUTI/ HX chronic bladder outlet obstruction
Hx MSSA bacteremia, Proteus October 2022
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
History of bladder cancer status post TURBT 15 years ago
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
- Continue baclofen via G-tube for leg spasms
Gastrostomy tube Hx secondary to CVA/dysphagia/aphasia
- TF resumed slow rate
Chronic constipation
- AXR without constipation
Chronic pain syndrome
- Continue gabapentin 300 mg via G-tube at bedtime
- Continue baclofen via G-tube
Essential HTN
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
HLD
- cont Lipitor
Insomnia
- cont trazodone
Anxiety
- Continue Prozac 40 mg
Former smoker
Glaucoma
- cont eye drops
Right upper arm swelling
- DVT study ordered
DVT ppx: Eliquis
Code: DNR/DNI
Dispo: long discussion with about chronic aspiration, recurrent ER/hospital visits (14 total visits since stroke in 2019), chronic respiratory failure, repeat infections. poor QOL. 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
Anticipated Discharge: > 48 hours
Subjective/Interval History
-
Date of Service: June 22, 2024
remains on 3L NC
still deciding on hospice, requesting TFs be started back
Objective Data
-
Labs:
Laboratory Results
06/22/24
06:37
WBC 7.2
Hgb 10.3 L
Hct 29.7 L
Plt Count 120 L
Sodium 136
Potassium 3.3 L
Chloride 105
Carbon Dioxide 23
BUN 15
Creatinine 0.6 L
Glucose 84
Calcium 7.7 L
Vital Signs:
Vital Signs
Temp Pulse Resp BP Pulse Ox
98.0 F 45 16 147/71 98
06/22/24 11:20 06/22/24 13:49 06/22/24 13:49 06/22/24 11:20 06/22/24 13:49
I&O
06/21/24 06/22/24 06/23/24
06:59 06:59 06:59
Intake Total 2310 / 2310 720 / 720
Output Total 725 / 725 400 / 400 650 / 650
Balance 1585 / 1585 320 / 320 -650 / -650
Physical Exam
-
General: No Apparent Distress and Appears Chronically Ill
HEENT: Normocephalic and Atraumatic
Respiratory: Rhonchi; Negative Wheezes
Cardiac: Regular Rhythm and S1/S2
GI: Soft and Nontender
Genito-urinary: No Costovertebral Tender
Musculoskeletal: No Edema
Hematologic / Lymphatic: No Lymphadenopathy
Psych: Calm
Data Reviewed
-
Total Time Spent with Patient (in minutes): 41
Labs: Labs Reviewed by me
[2024-06-22] MEDS: KCL ELIXIR 40 MEQ TUBE (14:31)
--- NOTE | 2024-06-22 14:45 | CM ---
Hospice eval completed.
declining hospice at this time.
Patient is current with [facility]
updated [place] [facility] liaison
PLAN: RET[facility], declines hospice. CM to continue to follow
--- NOTE | 2024-06-22 15:30 | PTCARENOTE ---
TF resumed per MD order; Jevity 1.5 at 20 ml/hr with goal rate of 40 ml/hr, 25 ml/hr flush. Patient HOB elevated at 30 degrees, patient with coarse lung sounds, exp wheeze and occasional thick, white/curry oral secretions throughout shift prior to
resuming TF. MD aware, patient orally suctioned PRN. Cont POX applied - patient 98% on 3L. Patient with large loose BM prior to starting TF; patient maintained on enhanced precautions, stool sample negative for norovirus, cdiff antigen positive
toxin negative. MD made aware of loose BM and patient allergy to vancomycin in chart, PO dificid through PEG tube ordered per MD.
[2024-06-22 15:44] VITALS: BP 158/72
[2024-06-22] MEDS: DESITIN MAXIMUM STRENGTH PASTE 1 APPLIC TOPICAL (17:09)
[2024-06-22 18:16] LABS: Glucose - Point of Care 104 mg/dl (70-99)
[2024-06-22 19:30] VITALS: BP 110/79
[2024-06-22] MEDS: PACERONE 200 MG TUBE (20:19)
[2024-06-22] MEDS: DIFICID 200 MG PO (20:20)
[2024-06-22 22:07] LABS: Glucose - Point of Care 134 mg/dl (70-99)
[2024-06-22] MEDS: DESYREL 25 MG TUBE (23:08)
[2024-06-22] MEDS: LIPITOR 40 MG TUBE (23:08)
[2024-06-22] MEDS: NEURONTIN 300 MG TUBE (23:09)
[2024-06-22] MEDS: XALATAN OPHTHALMIC SOLUTION 1 DROP BOTH EYES (23:12)
[2024-06-22 23:24] VITALS: BP 132/69
[2024-06-23] VITALS (7 sets, daily range): BP systolic 122–141; BP diastolic 67–86; BMI 27.9
[2024-06-23 03:09] LABS: Glucose - Point of Care 135 mg/dl (70-99)
[2024-06-23] MEDS: LEVAQUIN 150 IV (03:50)
[2024-06-23] MEDS: FLUSH (NSS) 2 FLUSH IV ×2 (03:51→14:05)
[2024-06-23 06:01] LABS: Glucose - Point of Care 146 mg/dl (70-99)
[2024-06-23] MEDS: XOPENEX 1.25 MG INHALANT SOLUTION INH ×4 (06:05→17:54)
[2024-06-23] MEDS: PULMICORT 0.25 MG INH ×2 (06:06→17:54)
[2024-06-23 07:30] LABS: Hematocrit 30.8 % (39.0-52.0); Hemoglobin 10.6 g/dL (13.0-18.0); Mean Corp Hgb Conc. 34.4 g/dL (33.0-37.0); Mean Corpuscular Hgb 34.1 pg (27.0-31.0); Mean Platelet Volume 10.9 fL (7.4-10.4); Platelet Count 150 10^3/uL (130-400); Red Blood Cell Count 3.11 10^6/uL (4.70-6.10); Red Cell Dist. Width 13.2 % (11.5-14.5); White Blood Cell Count 8.6 10^3/uL (4.8-10.8)
[2024-06-23 07:52] LABS: Blood Urea Nitrogen 15 mg/dl (9-20); Carbon Dioxide 27 mmol/L (22-30); Chloride 104 mmol/L (98-107); Estimated Creatinine Clearance 90 ml/min; Glucose 133 mg/dl (70-99); Potassium 3.6 mmol/L (3.5-5.1); Sodium 138 mmol/L (135-145); eGFR > 60.00
--- NOTE | 2024-06-23 09:30 | PTCARENOTE ---
Came into room this am and pt had vomit on chest and continued to do so. Tube feed stopped. made aware and ordered to stop Tube feed. BS now are coarse with audible wheezes. Pt cleaned up and changed. Robitussen given via peg and pt then
again vomited. No po meds given. Pt siting at 90 degress with resp neb infusing. Will cont to monitor.
[2024-06-23] MEDS: PROZAC 40 MG TUBE (09:35)
[2024-06-23] MEDS: COSOPT EYE DROPS 1 DROP BOTH EYES ×2 (09:35→19:51)
[2024-06-23] MEDS: FLAGYL TUBE ×3 (09:35→16:27)
[2024-06-23] MEDS: LIORESAL TUBE ×2 (09:35→10:36)
[2024-06-23] MEDS: DIFICID PO ×2 (09:35→10:36)
[2024-06-23] MEDS: PERIDEX 0.12% ORAL RINSE 15 ML PO ×3 (09:36→22:54)
[2024-06-23] MEDS: PACERONE TUBE (09:36)
[2024-06-23] MEDS: ROBITUSSIN 400 MG TUBE ×2 (09:36→19:46)
[2024-06-23] MEDS: ELIQUIS TUBE ×2 (09:36→10:36)
[2024-06-23] MEDS: ALPHAGAN 0.2% EYE DROPS 1 DROP BOTH EYES ×2 (09:40→19:51)
--- NOTE | 2024-06-23 11:05 | W.PN.HOSP.TC ---
Today's Communication/Plan
-
continue pneumonia and C. Diff tx with antibiotics
IVF, holding TF
CXR Tuesday
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 Hospice remains appropriate.
Assessment / Plan
Assessment / Plan
Assessment:
Sepsis - POA (tachycardia, tachypnea, aspiration pneumonia)
Hx of dysphagia given hx of CVA
- s/p sepsis protocol IVF with improvement in hypotension
- continue Levaquin 750mg daily, day 11/24
- continue Flagyl day 10/24
- repeat CXR 06/20: MODERATE RIGHT UPPER and LOWER LOBE PNEUMONIA which has increased since 06/16/2024. New moderate-sized airspace opacity in the right upper lobe. Moderate-sized right lower lobe and small left lower lobe airspace consolidations
which appear unchanged.
- repeat CXR Tuesday
Acute gastroenteritis
Possible C. Diff colitis (Ag+)
- Norovirus negative
- continue contact precautions
- continue Fidaxomicin, day 2
Dilutional thrombocytopenia
- monitor CBC
Chronic hypoxemic respiratory failure on 3 L
Parox A.fib with RVR in setting of volume depletion
- HRs improved with fluids initially but RVR returned 06/19
- Amiodarone continue. patient in NSR
- continue Eliquis
- DCA cards signed off
History of CAUTI/ HX chronic bladder outlet obstruction
Hx MSSA bacteremia, Proteus October 2022
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
History of bladder cancer status post TURBT 15 years ago
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
- Continue baclofen via G-tube for leg spasms
Gastrostomy tube Hx secondary to CVA/dysphagia/aphasia
- repetitively vomiting on TFs despite less than goal TF rate; placed on hold
- tube check confirms peg in ok position
- AXR without constipation
Chronic constipation
- AXR without constipation
Chronic pain syndrome
- Continue gabapentin 300 mg via G-tube at bedtime
- Continue baclofen via G-tube
Essential HTN
- hold DERRICK HAND Hydralazine
HLD
- cont Lipitor
Insomnia
- cont trazodone
Anxiety
- Continue Prozac 40 mg
Former smoker
Glaucoma
- cont eye drops
Right upper arm swelling
- DVT study ordered
DVT ppx: Eliquis
Code: DNR/DNI
Dispo: long discussion with about chronic aspiration, recurrent ER/hospital visits (14 total visits since stroke in 2019), chronic respiratory failure, repeat infections. poor QOL. 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
Anticipated Discharge: > 48 hours
Subjective/Interval History
-
Date of Service: June 23, 2024
vomited tube feeds this AM, copious per RN
Objective Data
-
Labs:
Laboratory Results
06/23/24
06:39
WBC 8.6
Hgb 10.6 L
Hct 30.8 L
Plt Count 150 D
Sodium 138
Potassium 3.6
Chloride 104
Carbon Dioxide 27
BUN 15
Creatinine 0.6 L
Glucose 133 H
Calcium 8.0 L
Vital Signs:
Vital Signs
Temp Pulse Resp BP Pulse Ox
98.6 F 59 16 141/68 97
06/23/24 07:20 06/23/24 09:36 06/23/24 07:20 06/23/24 07:20 06/23/24 07:20
I&O
06/22/24 06/23/24 06/24/24
06:59 06:59 06:59
Intake Total 720 / 720 540 / 540
Output Total 400 / 400 1150 / 1150
Balance 320 / 320 -610 / -610
Physical Exam
-
General: Respiratory Distress (mild) and Appears Chronically Ill
HEENT: Normocephalic and Atraumatic
Respiratory: Wheezes, Rhonchi and Crackles
Cardiac: Regular Rhythm and S1/S2
GI: Soft and Peg Tube
Neuro: Awake
Data Reviewed
-
Total Time Spent with Patient (in minutes): 45
Labs: Labs Reviewed by me
[2024-06-23] MEDS: NSS 1000 IV (11:31)
[2024-06-23] MEDS: FLUSH (NSS) 1 FLUSH IV (11:32)
--- NOTE | 2024-06-23 12:05 | PTCARENOTE ---
Pt cont with vomiting curry secretions. Pt sitting 90 degrees. Mouth suctioned. BS are coarse. O2 at 3L. Will cont to monitor
[2024-06-23] MEDS: PERIDEX 0.12% ORAL RINSE PO (12:42)
[2024-06-23] MEDS: ZOFRAN 4 MG IV (14:10)
[2024-06-23] MEDS: DESITIN MAXIMUM STRENGTH PASTE 1 APPLIC TOPICAL (17:03)
[2024-06-23 18:17] LABS: Glucose - Point of Care 117 mg/dl (70-99)
[2024-06-23] MEDS: PREVACID 30 MG TUBE (18:19)
[2024-06-23] MEDS: PACERONE 200 MG TUBE (19:41)
[2024-06-23] MEDS: ELIQUIS 5 MG TUBE (19:41)
[2024-06-23] MEDS: LIORESAL 5 MG TUBE (19:41)
[2024-06-23] MEDS: DIFICID 200 MG PO (19:45)
--- NOTE | 2024-06-23 22:00 | PTCARENOTE ---
2200 Patient had a 3.8 sec pause. He is bradicardic or in afib to the 120s. Advised covering provider. Posted rhythm strip.
[2024-06-23] MEDS: DESYREL 25 MG TUBE (22:47)
[2024-06-23] MEDS: NEURONTIN 300 MG TUBE (22:53)
[2024-06-23] MEDS: LIPITOR 40 MG TUBE (22:53)
[2024-06-23] MEDS: FLAGYL 500 MG TUBE (23:01)
[2024-06-23] MEDS: XALATAN OPHTHALMIC SOLUTION 1 DROP BOTH EYES (23:01)
[2024-06-24] VITALS (7 sets, daily range): BP systolic 111–153; BP diastolic 63–83; BMI 26.8
[2024-06-24 00:15] LABS: Glucose - Point of Care 95 mg/dl (70-99)
[2024-06-24] MEDS: LEVAQUIN 150 IV (03:38)
[2024-06-24 05:59] LABS: Blood Urea Nitrogen 14 mg/dl (9-20); Calcium 7.8 mg/dl (8.4-10.2); Carbon Dioxide 26 mmol/L (22-30); Chloride 106 mmol/L (98-107); Estimated Creatinine Clearance 90 ml/min; Glucose 106 mg/dl (70-99); Potassium 3.5 mmol/L (3.5-5.1); Sodium 136 mmol/L (135-145); eGFR > 60.00
[2024-06-24 06:10] LABS: Hematocrit 28.5 % (39.0-52.0); Hemoglobin 9.9 g/dL (13.0-18.0); Mean Corp Hgb Conc. 34.7 g/dL (33.0-37.0); Mean Corpuscular Volume 97.9 fL (80.0-94.0); Mean Platelet Volume 11.2 fL (7.4-10.4); Platelet Count 150 10^3/uL (130-400); Red Blood Cell Count 2.91 10^6/uL (4.70-6.10); Red Cell Dist. Width 13.2 % (11.5-14.5); White Blood Cell Count 8.6 10^3/uL (4.8-10.8)
[2024-06-24 06:38] LABS: Glucose - Point of Care 96 mg/dl (70-99)
[2024-06-24] MEDS: XOPENEX 1.25 MG INHALANT SOLUTION INH ×3 (08:15→19:42)
[2024-06-24] MEDS: PULMICORT 0.25 MG INH ×2 (08:15→19:42)
[2024-06-24] MEDS: ROBITUSSIN 400 MG TUBE ×2 (08:18→20:59)
[2024-06-24] MEDS: LIORESAL 5 MG TUBE ×2 (08:18→20:59)
[2024-06-24] MEDS: PREVACID 30 MG TUBE (08:18)
[2024-06-24] MEDS: PROZAC 40 MG TUBE (08:18)
[2024-06-24] MEDS: ELIQUIS 5 MG TUBE ×2 (08:18→20:59)
[2024-06-24] MEDS: ALPHAGAN 0.2% EYE DROPS 1 DROP BOTH EYES ×2 (08:18→21:02)
[2024-06-24] MEDS: DIFICID 200 MG PO ×2 (08:18→20:59)
[2024-06-24] MEDS: COSOPT EYE DROPS 1 DROP BOTH EYES ×2 (08:18→21:02)
[2024-06-24] MEDS: PERIDEX 0.12% ORAL RINSE 15 ML PO ×3 (08:19→21:06)
[2024-06-24] MEDS: FLAGYL 500 MG TUBE ×3 (08:19→23:24)
[2024-06-24] MEDS: PACERONE 200 MG TUBE (08:19)
[2024-06-24] MEDS: PERIDEX 0.12% ORAL RINSE PO (11:45)
--- NOTE | 2024-06-24 12:02 | W.PN.HOSP.TC ---
Today's Communication/Plan
-
hold TF, continue PPI
continue IV Abx and give more time
CXR in AM to assess pneumonia
poor overall prognosis and hospice remains appropriate
Assessment / Plan
Assessment / Plan
Assessment:
Sepsis - POA (tachycardia, tachypnea, aspiration pneumonia)
Hx of dysphagia given hx of CVA
- s/p sepsis protocol IVF with improvement in hypotension
- continue Levaquin 750mg daily, day 12/27
- continue Flagyl day 11/27
- repeat CXR 06/20: MODERATE RIGHT UPPER and LOWER LOBE PNEUMONIA which has increased since 06/16/2024. New moderate-sized airspace opacity in the right upper lobe. Moderate-sized right lower lobe and small left lower lobe airspace consolidations
which appear unchanged.
- repeat CXR Tuesday
Acute gastroenteritis
Possible C. Diff colitis (Ag+)
- Norovirus negative
- continue contact precautions
- continue Fidaxomicin, day 08/27
Dilutional thrombocytopenia
- monitor CBC
Chronic hypoxemic respiratory failure on 3 L
Parox A.fib with RVR in setting of volume depletion
- HRs improved with fluids initially but RVR returned 06/19
- Amiodarone continue. patient in NSR
- continue Eliquis
- DCA cards signed off
History of CAUTI/ HX chronic bladder outlet obstruction
Hx MSSA bacteremia, Proteus October 2022
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
History of bladder cancer status post TURBT 15 years ago
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
- Continue baclofen via G-tube for leg spasms
Gastrostomy tube Hx secondary to CVA/dysphagia/aphasia
- repetitively vomiting on TFs despite less than goal TF rate; placed on hold
- tube check confirms peg in ok position
- AXR without constipation
- continue PPI
Chronic constipation
- AXR without constipation
Chronic pain syndrome
- Continue gabapentin 300 mg via G-tube at bedtime
- Continue baclofen via G-tube
Essential HTN
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
HLD
- cont Lipitor
Insomnia
- cont trazodone
Anxiety
- Continue Prozac 40 mg
Former smoker
Glaucoma
- cont eye drops
Right upper arm swelling
- DVT study ordered
DVT ppx: Eliquis
Code: DNR/DNI
Dispo: long discussion with about chronic aspiration, recurrent ER/hospital visits (14 total visits since stroke in 2019), chronic respiratory failure, repeat infections. poor QOL. Hospice consulted as usp prognosis is poor.
Anticipated Discharge: > 48 hours
Subjective/Interval History
-
Date of Service: June 24, 2024
tolerating meds
no overnight events including no vomiting
Objective Data
-
Labs:
Laboratory Results
06/24/24
05:04
WBC 8.6
Hgb 9.9 L
Hct 28.5 L
Plt Count 150
Sodium 136
Potassium 3.5
Chloride 106
Carbon Dioxide 26
BUN 14
Creatinine 0.6 L
Glucose 106 H
Calcium 7.8 L
Vital Signs:
Vital Signs
Temp Pulse Resp BP Pulse Ox
98 F 66 28 111/63 99
06/24/24 07:30 06/24/24 07:30 06/24/24 07:30 06/24/24 07:30 06/24/24 07:30
I&O
06/23/24 06/24/24 06/25/24
06:59 06:59 06:59
Intake Total 540 / 540 830 / 830
Output Total 1150 / 1150 600 / 600
Balance -610 / -610 230 / 230
Physical Exam
-
General: No Apparent Distress
HEENT: Normocephalic and Atraumatic
Respiratory: Negative Wheezes
Cardiac: Regular Rhythm and S1/S2
GI: Soft and Nontender
Musculoskeletal: No Edema
Neuro: AO x 3
Hematologic / Lymphatic: No Lymphadenopathy
Psych: Calm
Data Reviewed
-
Total Time Spent with Patient (in minutes): 45
Labs: Labs Reviewed by me
[2024-06-24] MEDS: NSS 1000 IV (12:48)
[2024-06-24] MEDS: DESITIN MAXIMUM STRENGTH PASTE 1 APPLIC TOPICAL (17:35)
[2024-06-24] MEDS: PACERONE TUBE (21:05)
[2024-06-24] MEDS: LIPITOR 40 MG TUBE (21:06)
[2024-06-24] MEDS: DESYREL 25 MG TUBE (21:06)
[2024-06-24] MEDS: NEURONTIN 300 MG TUBE (21:09)
[2024-06-24] MEDS: XALATAN OPHTHALMIC SOLUTION 1 DROP BOTH EYES (21:10)
[2024-06-25 00:25] LABS: Glucose - Point of Care 72 mg/dl (70-99)
[2024-06-25 03:17] LABS: Glucose - Point of Care 83 mg/dl (70-99)
[2024-06-25 03:40] VITALS: BP 138/64
[2024-06-25] MEDS: LEVAQUIN 150 IV (03:51)
[2024-06-25 06:00] VITALS: BMI 26.9
[2024-06-25 07:11] LABS: Glucose - Point of Care 95 mg/dl (70-99)
[2024-06-25 07:25] LABS: Blood Urea Nitrogen 14 mg/dl (9-20); Calcium 7.7 mg/dl (8.4-10.2); Carbon Dioxide 27 mmol/L (22-30); Chloride 105 mmol/L (98-107); Estimated Creatinine Clearance 90 ml/min; Glucose 93 mg/dl (70-99); Potassium 3.6 mmol/L (3.5-5.1); Sodium 138 mmol/L (135-145); eGFR > 60.00
[2024-06-25 07:26] LABS: Hematocrit 28.7 % (39.0-52.0); Hemoglobin 10.1 g/dL (13.0-18.0); Mean Corp Hgb Conc. 35.2 g/dL (33.0-37.0); Mean Corpuscular Hgb 34.7 pg (27.0-31.0); Mean Corpuscular Volume 98.6 fL (80.0-94.0); Platelet Count 137 10^3/uL (130-400); Red Blood Cell Count 2.91 10^6/uL (4.70-6.10); Red Cell Dist. Width 13.2 % (11.5-14.5); White Blood Cell Count 7.1 10^3/uL (4.8-10.8)
[2024-06-25 07:30] VITALS: BP 127/65
[2024-06-25] MEDS: XOPENEX 1.25 MG INHALANT SOLUTION INH ×3 (07:38→19:50)
[2024-06-25] MEDS: PULMICORT 0.25 MG INH ×2 (07:38→19:50)
[2024-06-25] MEDS: PERIDEX 0.12% ORAL RINSE 15 ML PO ×4 (08:50→21:22)
[2024-06-25] MEDS: ROBITUSSIN 400 MG TUBE ×2 (08:50→21:22)
[2024-06-25] MEDS: LIORESAL 5 MG TUBE ×2 (08:50→21:23)
[2024-06-25] MEDS: PREVACID 30 MG TUBE (08:50)
[2024-06-25] MEDS: DIFICID 200 MG PO ×2 (08:50→21:24)
[2024-06-25] MEDS: ELIQUIS 5 MG TUBE ×2 (08:51→21:29)
[2024-06-25] MEDS: PACERONE 200 MG TUBE (08:51)
[2024-06-25] MEDS: FLAGYL 500 MG TUBE ×2 (08:51→16:43)
[2024-06-25] MEDS: ALPHAGAN 0.2% EYE DROPS 1 DROP BOTH EYES ×2 (08:55→21:25)
[2024-06-25] MEDS: COSOPT EYE DROPS 1 DROP BOTH EYES ×2 (08:55→21:25)
[2024-06-25] MEDS: PROZAC 40 MG TUBE (09:10)
[2024-06-25 10:57] VITALS: BP 145/75
[2024-06-25 11:47] LABS: Glucose - Point of Care 92 mg/dl (70-99)
[2024-06-25] MEDS: NSS 1000 IV (13:00)
--- NOTE | 2024-06-25 14:02 | W.PN.HOSP.TC ---
Today's Communication/Plan
-
TF remain on hold
OBS series
Assessment / Plan
Assessment / Plan
Assessment:
Sepsis - POA (tachycardia, tachypnea, aspiration pneumonia)
Hx of dysphagia given hx of CVA
- s/p sepsis protocol IVF with improvement in hypotension
- continue Levaquin 750mg daily, day 01/27
- continue Flagyl day 12/27
- repeat CXR 06/20: MODERATE RIGHT UPPER and LOWER LOBE PNEUMONIA which has increased since 06/16/2024. New moderate-sized airspace opacity in the right upper lobe. Moderate-sized right lower lobe and small left lower lobe airspace consolidations
which appear unchanged.
- CXR Sunday 06/25: unchanged
Acute gastroenteritis
Possible C. Diff colitis (Ag+)
- Norovirus negative
- continue contact precautions
- continue Fidaxomicin, day 09/27
Dilutional thrombocytopenia
- monitor CBC
Chronic hypoxemic respiratory failure on 3 L
Parox A.fib with RVR in setting of volume depletion
- HRs improved with fluids initially but RVR returned 06/19
- Amiodarone continue. patient in NSR
- continue Eliquis
- DCA cards signed off
History of CAUTI/ HX chronic bladder outlet obstruction
Hx MSSA bacteremia, Proteus October 2022
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
History of bladder cancer status post TURBT 15 years ago
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
- Continue baclofen via G-tube for leg spasms
Gastrostomy tube Hx secondary to CVA/dysphagia/aphasia
- repetitively vomiting on TFs despite less than goal TF rate; placed on hold
- tube check confirms peg in ok position
- AXR without constipation; check OBS series
- continue PPI
Chronic constipation
- AXR without constipation
Chronic pain syndrome
- Continue gabapentin 300 mg via G-tube at bedtime
- Continue baclofen via G-tube
Essential HTN
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
HLD
- cont Lipitor
Insomnia
- cont trazodone
Anxiety
- Continue Prozac 40 mg
Former smoker
Glaucoma
- cont eye drops
Right upper arm swelling
- DVT study ordered
DVT ppx: Eliquis
Code: DNR/DNI
Dispo: long discussion with about chronic aspiration, recurrent ER/hospital visits (14 total visits since stroke in 2019), chronic respiratory failure, repeat infections. poor QOL. Hospice consulted as residential prognosis is poor.
Anticipated Discharge: > 48 hours
Subjective/Interval History
-
Date of Service: June 25, 2024
no overnight events
Objective Data
-
Labs:
Laboratory Results
06/25/24
05:50
WBC 7.1
Hgb 10.1 L
Hct 28.7 L
Plt Count 137
Sodium 138
Potassium 3.6
Chloride 105
Carbon Dioxide 27
BUN 14
Creatinine 0.6 L
Glucose 93
Calcium 7.7 L
Vital Signs:
Vital Signs
Temp Pulse Resp BP Pulse Ox
98.3 F 64 16 145/75 95
06/25/24 10:57 06/25/24 13:30 06/25/24 13:30 06/25/24 10:57 06/25/24 13:35
I&O
06/24/24 06/25/24 06/26/24
06:59 06:59 06:59
Intake Total 830 / 830 480 / 480
Output Total 600 / 600 450 / 450
Balance 230 / 230 30 / 30
Physical Exam
-
General: No Apparent Distress and Appears Chronically Ill
HEENT: Normocephalic and Atraumatic
Respiratory: Rhonchi; Negative Wheezes
Cardiac: Regular Rhythm and S1/S2
GI: Soft and Nontender
Genito-urinary: No Costovertebral Tender
Neuro: Awake
Psych: Calm
Data Reviewed
-
Total Time Spent with Patient (in minutes): 41
Labs: Labs Reviewed by me
[2024-06-25] MEDS: REGLAN 5 MG IV (14:30)
[2024-06-25] MEDS: OMNIPAQUE 50 ML PO (14:36)
--- NOTE | 2024-06-25 15:19 | CM ---
Chart reviewed
tube feeds on hold
CT Abd/pelvis ordered
Hospice previously was discussed with , declined
current with [facility]
PLAN: Discharge when medically stable, home, [facility]
[2024-06-25 15:20] VITALS: BP 144/72
[2024-06-25] MEDS: DESITIN MAXIMUM STRENGTH PASTE 1 APPLIC TOPICAL (16:43)
[2024-06-25 17:08] LABS: Glucose - Point of Care 78 mg/dl (70-99)
[2024-06-25 19:17] VITALS: BP 157/72
[2024-06-25] MEDS: NEURONTIN 300 MG TUBE (21:22)
[2024-06-25] MEDS: DESYREL 25 MG TUBE (21:23)
[2024-06-25] MEDS: PACERONE TUBE (21:24)
[2024-06-25] MEDS: XALATAN OPHTHALMIC SOLUTION 1 DROP BOTH EYES (21:26)
[2024-06-25] MEDS: LIPITOR 40 MG TUBE (21:28)
[2024-06-25 23:21] VITALS: BP 143/69
[2024-06-26 00:24] LABS: Glucose - Point of Care 77 mg/dl (70-99)
[2024-06-26] MEDS: FLAGYL 500 MG TUBE ×3 (01:00→17:26)
[2024-06-26 03:23] VITALS: BP 134/66
[2024-06-26] MEDS: LEVAQUIN 150 IV (05:00)
[2024-06-26 05:33] VITALS: BMI 26.8
[2024-06-26 06:00] VITALS: BMI 26.8
[2024-06-26 06:22] LABS: Glucose - Point of Care 91 mg/dl (70-99)
[2024-06-26] MEDS: ZOFRAN 4 MG IV ×2 (06:25→15:03)
[2024-06-26 07:20] VITALS: BP 144/70
[2024-06-26] MEDS: PULMICORT 0.25 MG INH ×2 (07:32→19:15)
[2024-06-26] MEDS: XOPENEX 1.25 MG INHALANT SOLUTION INH ×3 (07:33→19:15)
[2024-06-26 08:22] LABS: Hematocrit 29.6 % (39.0-52.0); Hemoglobin 10.2 g/dL (13.0-18.0); Mean Corp Hgb Conc. 34.5 g/dL (33.0-37.0); Mean Corpuscular Hgb 33.7 pg (27.0-31.0); Mean Corpuscular Volume 97.7 fL (80.0-94.0); Mean Platelet Volume 10.9 fL (7.4-10.4); Platelet Count 126 10^3/uL (130-400); Red Blood Cell Count 3.03 10^6/uL (4.70-6.10); White Blood Cell Count 7.1 10^3/uL (4.8-10.8)
[2024-06-26 08:40] LABS: Blood Urea Nitrogen 10 mg/dl (9-20); Calcium 7.6 mg/dl (8.4-10.2); Carbon Dioxide 26 mmol/L (22-30); Chloride 101 mmol/L (98-107); Estimated Creatinine Clearance 90 ml/min; Glucose 82 mg/dl (70-99); Potassium 3.3 mmol/L (3.5-5.1); Sodium 134 mmol/L (135-145); eGFR > 60.00
[2024-06-26] MEDS: ROBITUSSIN 400 MG TUBE ×2 (09:21→21:36)
[2024-06-26] MEDS: COSOPT EYE DROPS 1 DROP BOTH EYES ×2 (09:21→21:35)
[2024-06-26] MEDS: ALPHAGAN 0.2% EYE DROPS 1 DROP BOTH EYES ×2 (09:21→21:35)
[2024-06-26] MEDS: DIFICID 200 MG PO ×2 (09:22→21:36)
[2024-06-26] MEDS: PERIDEX 0.12% ORAL RINSE 15 ML PO ×3 (09:22→21:43)
[2024-06-26] MEDS: PROZAC 40 MG TUBE (09:22)
[2024-06-26] MEDS: LIORESAL 5 MG TUBE ×2 (09:22→21:36)
[2024-06-26] MEDS: PACERONE TUBE ×2 (09:26→21:38)
[2024-06-26] MEDS: PREVACID 30 MG TUBE (09:27)
[2024-06-26] MEDS: ELIQUIS 5 MG TUBE ×2 (09:27→21:37)
[2024-06-26 11:20] VITALS: BP 149/68
--- NOTE | 2024-06-26 11:34 | W.PN.HOSP.TC ---
Today's Communication/Plan
-
resume TFs at lowest starting point and slow advancement 10 mL q12h
monitor tolerance
continue Abx for PNA, C. Diff
ongoing GOC discussions for recommended hospice given overall poor QOL
Assessment / Plan
Assessment / Plan
Assessment:
Sepsis - POA (tachycardia, tachypnea, aspiration pneumonia)
Hx of dysphagia given hx of CVA
- s/p sepsis protocol IVF with improvement in hypotension
- continue Levaquin 750mg daily, day 02/27
- continue Flagyl day 01/27
- repeat CXR 06/20: MODERATE RIGHT UPPER and LOWER LOBE PNEUMONIA which has increased since 06/16/2024. New moderate-sized airspace opacity in the right upper lobe. Moderate-sized right lower lobe and small left lower lobe airspace consolidations
which appear unchanged.
- CXR Sunday 06/25: unchanged
Acute gastroenteritis
Possible C. Diff colitis (Ag+)
- Norovirus negative
- continue contact precautions
- continue Fidaxomicin, day 10/27
Dilutional thrombocytopenia
- monitor CBC
Chronic hypoxemic respiratory failure on 3 L
Parox A.fib with RVR in setting of volume depletion
- HRs improved with fluids initially but RVR returned 06/19
- Amiodarone continue. patient in NSR
- continue Eliquis
- DCA cards signed off
History of CAUTI/ HX chronic bladder outlet obstruction
Hx MSSA bacteremia, Proteus October 2022
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
History of bladder cancer status post TURBT 15 years ago
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
- Continue baclofen via G-tube for leg spasms
Gastrostomy tube Hx secondary to CVA/dysphagia/aphasia
- repetitively vomiting on TFs despite goal rate and subsequent goal rate reductions which lead to following diagnostics
- tube check confirms peg in ok position
- AXR without constipation
- CT without obstruction, impaction (contrast reached colon)
- continue PPI
- resume TFs 06/26 and even lower rate of 10 ml/hour and very slow advancement of 10 mL [id number]
Chronic constipation
- AXR without constipation
Chronic pain syndrome
- Continue gabapentin 300 mg via G-tube at bedtime
- Continue baclofen via G-tube
Essential HTN
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
HLD
- cont Lipitor
Insomnia
- cont trazodone
Anxiety
- Continue Prozac 40 mg
Former smoker
Glaucoma
- cont eye drops
Right upper arm swelling
- DVT study ordered
DVT ppx: Eliquis
Code: DNR/DNI
Dispo: long discussion with about chronic aspiration, recurrent ER/hospital visits (14 total visits since stroke in 2019), chronic respiratory failure, repeat infections. poor QOL. Hospice consulted as nursing home prognosis is poor.
Anticipated Discharge: > 48 hours
Subjective/Interval History
-
Date of Service: June 26, 2024
CT without evidence of constipation, obstruction
TF resumed at lower rates and slower advancing rates
Objective Data
-
Labs:
Laboratory Results
06/26/24
06:24
WBC 7.1
Hgb 10.2 L
Hct 29.6 L
Plt Count 126 L
Sodium 134 L
Potassium 3.3 L
Chloride 101
Carbon Dioxide 26
BUN 10
Creatinine 0.6 L
Glucose 82
Calcium 7.6 L
Vital Signs:
Vital Signs
Temp Pulse Resp BP Pulse Ox
98.1 F 56 20 149/68 98
06/26/24 11:20 06/26/24 11:20 06/26/24 11:20 06/26/24 11:20 06/26/24 11:20
I&O
06/25/24 06/26/24 06/27/24
06:59 06:59 06:59
Intake Total 480 / 480 630 / 630
Output Total 450 / 450 1800 / 1800
Balance 30 / 30 -1170 / -1170
Physical Exam
-
General: No Apparent Distress and Appears Chronically Ill
HEENT: Normocephalic and Atraumatic
Respiratory: Rhonchi; Negative Wheezes
Cardiac: Regular Rhythm and S1/S2
GI: Soft
Neuro: AO x 3
Psych: Calm
Data Reviewed
-
Total Time Spent with Patient (in minutes): 42
Labs: Labs Reviewed by me
[2024-06-26 12:11] LABS: Magnesium 1.8 mg/dl (1.6-2.3)
[2024-06-26] MEDS: KCL ELIXIR 40 MEQ TUBE (12:12)
[2024-06-26] MEDS: PERIDEX 0.12% ORAL RINSE PO (12:14)
[2024-06-26 12:15] LABS: Glucose - Point of Care 87 mg/dl (70-99)
[2024-06-26 15:15] VITALS: BP 151/77
--- NOTE | 2024-06-26 16:17 | CM ---
Met with patient .
tube feeds restarted
declines hospice.
PLAN: home with [facility]
[2024-06-26 17:06] LABS: Glucose - Point of Care 88 mg/dl (70-99)
[2024-06-26] MEDS: DESITIN MAXIMUM STRENGTH PASTE 1 APPLIC TOPICAL (18:14)
[2024-06-26 19:19] VITALS: BP 162/79
[2024-06-26] MEDS: PACERONE 200 MG TUBE (21:36)
[2024-06-26] MEDS: LIPITOR 40 MG TUBE (21:38)
[2024-06-26] MEDS: DESYREL 25 MG TUBE (21:40)
[2024-06-26] MEDS: XALATAN OPHTHALMIC SOLUTION 1 DROP BOTH EYES (21:41)
[2024-06-26] MEDS: NEURONTIN 300 MG TUBE (21:44)
[2024-06-26 23:31] VITALS: BP 132/71
[2024-06-27] MEDS: FLAGYL 500 MG TUBE ×2 (00:12→08:25)
[2024-06-27 00:24] LABS: Glucose - Point of Care 92 mg/dl (70-99)
[2024-06-27 03:38] VITALS: BP 135/68
[2024-06-27] MEDS: LEVAQUIN 150 IV (04:30)
[2024-06-27 05:55] VITALS: BMI 26.7
[2024-06-27 06:00] VITALS: BMI 26.5
[2024-06-27 06:52] LABS: Glucose - Point of Care 146 mg/dl (70-99)
[2024-06-27 07:00] VITALS: BP 99/64
[2024-06-27] MEDS: PULMICORT 0.25 MG INH ×2 (07:26→19:15)
[2024-06-27] MEDS: XOPENEX 1.25 MG INHALANT SOLUTION INH ×3 (07:28→19:16)
[2024-06-27] MEDS: PREVACID 30 MG TUBE (08:25)
[2024-06-27] MEDS: DIFICID 200 MG PO ×2 (08:25→21:12)
[2024-06-27] MEDS: COSOPT EYE DROPS 1 DROP BOTH EYES ×2 (08:25→21:13)
[2024-06-27] MEDS: PERIDEX 0.12% ORAL RINSE 15 ML PO ×4 (08:25→21:11)
[2024-06-27] MEDS: PROZAC 40 MG TUBE (08:25)
[2024-06-27] MEDS: LIORESAL 5 MG TUBE ×2 (08:25→21:11)
[2024-06-27] MEDS: ALPHAGAN 0.2% EYE DROPS 1 DROP BOTH EYES ×2 (08:25→21:13)
[2024-06-27] MEDS: ELIQUIS 5 MG TUBE ×2 (08:26→21:12)
[2024-06-27] MEDS: ROBITUSSIN 400 MG TUBE ×2 (08:26→21:11)
[2024-06-27] MEDS: PACERONE TUBE (08:26)
[2024-06-27 08:30] LABS: Platelet Count 154 10^3/uL (130-400)
[2024-06-27 08:31] LABS: Hematocrit 31.4 % (39.0-52.0); Hemoglobin 10.7 g/dL (13.0-18.0); Mean Corp Hgb Conc. 34.1 g/dL (33.0-37.0); Mean Corpuscular Hgb 33.5 pg (27.0-31.0); Mean Corpuscular Volume 98.4 fL (80.0-94.0); Mean Platelet Volume 10.8 fL (7.4-10.4); Red Blood Cell Count 3.19 10^6/uL (4.70-6.10); Red Cell Dist. Width 13.1 % (11.5-14.5); White Blood Cell Count 8.9 10^3/uL (4.8-10.8)
[2024-06-27 08:47] LABS: Blood Urea Nitrogen 8 mg/dl (9-20); Calcium 7.8 mg/dl (8.4-10.2); Carbon Dioxide 25 mmol/L (22-30); Chloride 99 mmol/L (98-107); Estimated Creatinine Clearance 77 ml/min; Glucose 134 mg/dl (70-99); Magnesium 1.8 mg/dl (1.6-2.3); Potassium 3.5 mmol/L (3.5-5.1); Sodium 133 mmol/L (135-145); eGFR > 60.00
--- NOTE | 2024-06-27 09:13 | W.PN.HOSP.TC ---
Addendum entered and electronically signed by Jeromy Sauceda DO 06/27/24 13:46:
Updated on the phone. I informed her that I also recommend hospice given Johnnie's very poor prognosis. She still wants to take him home and give him a chance before enlisting him in hospice. Informed that if he goes home without hospice
is guaranteed he will be back very soon.
She prefers to take him home tomorrow. VN ordered.
Original Note:
Today's Communication/Plan
-
Cardiology reconsult.
Assessment / Plan
Assessment / Plan
Gen-awake, nonverbal, NAD
HEENT-NC, AT, anicteric, clear oral mm
Neck-supple
CV-reg, no M, +S1/S2
Lungs-clear B/L
Abd-soft, NT, ND, PEG
Ext-no edema
Musculoskeletal-no cyanosis, clubbing
Skin-warm and dry
Sepsis - POA (tachycardia, tachypnea, aspiration pneumonia) due to aspiration pneumonia. Aspiration pneumonia felt to be due to aspiration from tube feeds. Has had difficulty tolerating even slow feeds.
Hx of dysphagia given hx of CVA
- s/p sepsis protocol IVF with improvement in hypotension
At this point he has had an adequate trial of antibiotics and can discontinue further antibiotics.
- repeat CXR 06/20: MODERATE RIGHT UPPER and LOWER LOBE PNEUMONIA which has increased since 06/16/2024. New moderate-sized airspace opacity in the right upper lobe. Moderate-sized right lower lobe and small left lower lobe airspace consolidations
which appear unchanged.
- CXR Sunday 06/25: unchanged
Acute gastroenteritis
Possible C. Diff colitis (Ag+)
- Norovirus negative
- continue contact precautions
- continue Fidaxomicin, day 10/27, last day will be July 02.
Dilutional thrombocytopenia -resolved.
Chronic hypoxemic respiratory failure on 3 L
Parox A.fib with RVR in setting of volume depletion
- HRs improved with fluids initially but RVR returned 06/19
- Amiodarone continue. patient in NSR
- continue Eliquis
-Sinus pauses noted on monitor and cardiology to reevaluate today. Not ideal pacemaker candidate given his significant comorbidities.
History of CAUTI/ HX chronic bladder outlet obstruction
Hx MSSA bacteremia, Proteus October 2022
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
History of bladder cancer status post TURBT 15 years ago
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
- Continue baclofen via G-tube for leg spasms
Gastrostomy tube Hx secondary to CVA/dysphagia/aphasia
- repetitively vomiting on TFs despite goal rate and subsequent goal rate reductions which lead to following diagnostics
- tube check confirms peg in ok position
- AXR without constipation
- CT without obstruction, impaction (contrast reached colon)
- continue PPI
- resume TFs 06/26 and even lower rate of 10 ml/hour and very slow advancement of 10 mL [id number]
Hyponatremia -133.
Chronic constipation
- AXR without constipation
Chronic pain syndrome
- Continue gabapentin 300 mg via G-tube at bedtime
- Continue baclofen via G-tube
Essential HTN
- hold GREEN BELT Hydralazine
Hyperlipidemia
- cont Lipitor
Insomnia
- cont trazodone
Anxiety
- Continue Prozac 40 mg
Former smoker
Glaucoma
- cont eye drops
Right upper arm swelling -Doppler study negative for DVT, 06/21/2024.
DVT ppx: Eliquis
Code: DNR/DNI
Dispo: Dr. Hylton had a long discussion with about chronic aspiration, recurrent ER/hospital visits (14 total visits since stroke in 2019), chronic respiratory failure, repeat infections. poor QOL. 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
Anticipated Discharge: > 48 hours
Subjective/Interval History
-
Date of Service: June 27, 2024
Patient seen and examined. Nonverbal. Looks comfortable.
Objective Data
-
Labs:
Laboratory Results
06/27/24
06:57
WBC 8.9
Hgb 10.7 L
Hct 31.4 L
Plt Count 154 D
Sodium 133 L
Potassium 3.5
Chloride 99
Carbon Dioxide 25
BUN 8 L
Creatinine 0.7
Glucose 134 H
Calcium 7.8 L
Vital Signs:
Vital Signs
Temp Pulse Resp BP Pulse Ox
98.4 F 63 18 99/64 95
06/27/24 07:00 06/27/24 07:29 06/27/24 07:29 06/27/24 08:26 06/27/24 07:29
I&O
06/26/24 06/27/24 06/28/24
06:59 06:59 06:59
Intake Total 630 / 630 630 / 630
Output Total 1800 / 1800 2250 / 2250
Balance -1170 / -1170 -1620 / -1620
Review of Systems
-
Unable to obtain full review of systems at this time due to: Acuity and Patient Non-verbal
[2024-06-27 10:58] LABS: Glucose - Point of Care 139 mg/dl (70-99)
[2024-06-27 11:00] VITALS: BP 106/75
--- NOTE | 2024-06-27 11:28 | W.PN.CARDCBS ---
Addendum entered and electronically signed by Carlos Eduardo Ness MD 06/27/24 12:01:
I saw and examined the patient.
The Stereo Operator's note was reviewed and I agree with the note.
Comment: Briefly, 83-year-old man past medical history of atrial fibrillation with prior CVA c/b residual aphasia who was initially admitted with nausea vomiting and diarrhea concerning for norovirus
Has had episodes of atrial fibrillation here and conversion pauses seen on telemetry
We risk to reevaluate the patient for further pauses and atrial fibrillation
By my review of these pauses are around 3 seconds, he seems to be asymptomatic with this shaking his head no when I ask if he has been lightheaded or dizzy
Was previously receiving a higher dose of amiodarone and then this was held, would plan to resume amiodarone at 200 mg daily and continue to monitor on telemetry
No clear indication for pacemaker at this time
If pauses become symptomatic or are longer in duration would need goals of care discussion regarding possible pacemaker as patient is currently on palliative care
Original Note:
Today's Communication / Plan
-
Change amiodarone 200 mg daily to try and maintain SR
Impression / Plan
-
PCP: Jenn Dominguez PA-C
Cardiology: Dr. Jonas,
Impression:
Presented with nausea, vomiting, diarrhea, suspicious for norovirus 06/16/24
Sepsis
Afib with RVR
Pause, possible conversion pause
Paroxysmal Afib
diagnosed at time of acute CVA in 2019
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
w/ residual aphasia, chronic PEG tube, chronic Chavez catheter
Chronic Eliquis anticoagulation
Chronic hypoxemic respiratory failure on O2 2 L
Hypertension
Hyperlipidemia
Recurrent UTI
h/o bladder cancer
COPD
Echo 10/26/2022: EF 55 to 60%, posterior MAC, trace MR, trace AR, trace TR, estimated PAP 31 mmHg no evidence of vegetation
Plan:
-Patient reported to have pauses and cardiology asked to see. Tele reviewed by me and patient with recurrent conversion pauses. Amiodarone has been held for HR less than 65. Will start amiodarone 200 mg daily and hold for HR less than 50. Goal is to
maintain SR and avoid conversion pauses.
-Would BB and CCB as goal is rhythm control.
-No indication for PPM as patient says he is asymptomatic and pauses are 3-4 seconds now, but conversion pause was up to 7 seconds earlier this admission. Will talk with patient's in room 06/27/24 about possibility of PPM. Patient is a DNR and
had palliative care services at home, but cancelled these services because he felt he did not need their care and that it was too many visitors in the home.
-Cont Eliquis 5 mg BID
HPI: [facility] with N/V/D and cardiology is now consulted for pauses and rapid Afib. Patient has a history of AF diagnosis back in 2019 at the time of his embolic CVA which is left him with residual aphasia along with chronic
PEG tube and Chavez catheter. Patient used to follow with the other group, but then switched to Dr. Jonas with the last office visit being in 2020. We had the opportunity to see the patient when he was admitted in July of this year with
constipation and cardiology was consulted due to elevated troponin. At that time we attempted to add Coreg, but patient started with bradycardia and wheezing and Coreg was stopped. Patient was in SR at that time. Patient has been maintained on
Eliquis 5 mg twice daily throughout. Patient is coming in now with suspected norovirus and was noted to be in AF from the time of admission. Tube feeds were held initially due to ongoing vomiting, but have been restarted today. Patient was given
a total of Lopressor 25 mg divided between 2 doses all given before 1230 today and then was noted to have a 7-second conversion pause on monitor tech at about 1550 today. Patient is nonverbal, with no reported LOC. His is sitting bedside
there have been no complaints of palpitations or dizziness.
Progress Note - Angular Developer
Subjective
Date of Service: June 27, 2024
Denies feeling lightheaded or dizzy
Objective
Labs:
06/27/24 06:57
06/27/24 06:57
Labs
Hgb 10.7 g/dL (13.0-18.0) L 06/27/24 06:57
Hct 31.4 % (39.0-52.0) L 06/27/24 06:57
Plt Count 154 10^3/uL (130-400) D 06/27/24 06:57
Sodium 133 mmol/L (135-145) L 06/27/24 06:57
Potassium 3.5 mmol/L (3.5-5.1) 06/27/24 06:57
BUN 8 mg/dl (9-20) L 06/27/24 06:57
Creatinine 0.7 mg/dL (0.7-1.3) 06/27/24 06:57
Glucose 134 mg/dl (70-99) H 06/27/24 06:57
Vital Signs and I&O:
Vital Signs
Temp Pulse Resp BP Pulse Ox
98.4 F 63 18 99/64 95
06/27/24 07:00 06/27/24 07:29 06/27/24 07:29 06/27/24 08:26 06/27/24 07:29
Vital Signs
Temp Pulse Resp BP Pulse Ox
98.4 F 63 18 99/64 95
06/27/24 07:00 06/27/24 07:29 06/27/24 07:29 06/27/24 08:26 06/27/24 07:29
Intake & Output
06/25/24 06/26/24 06/27/24 06/28/24
06:59 06:59 06:59 06:59
Intake Total 480 / 480 630 / 630 630 / 630
Output Total 450 / 450 1800 / 1800 2250 / 2250
Balance 30 / 30 -1170 / -1170 -1620 / -1620
Physical Exam
Physical Exam
GEN: NAD
HEENT: EOMI
LUNGS: 2 L NC. No audible wheeze
CV: Afib on tele.
ABD: ND
EXT: No edema
NEURO: Gross non-focal
SKIN: No rash
[2024-06-27] MEDS: PACERONE 200 MG TUBE (12:00)
--- NOTE | 2024-06-27 13:15 | CM ---
Patient current with [facility]
Patient declined hospice.
PLAN: Discharge when stable, [facility]
[2024-06-27 15:25] VITALS: BP 127/78
[2024-06-27 16:46] LABS: Glucose - Point of Care 147 mg/dl (70-99)
[2024-06-27] MEDS: DESITIN MAXIMUM STRENGTH PASTE 1 APPLIC TOPICAL (17:49)
[2024-06-27 19:25] VITALS: BP 119/60
[2024-06-27] MEDS: DESYREL 25 MG TUBE (21:12)
[2024-06-27] MEDS: LIPITOR 40 MG TUBE (21:12)
[2024-06-27] MEDS: XALATAN OPHTHALMIC SOLUTION 1 DROP BOTH EYES (21:13)
[2024-06-27] MEDS: NEURONTIN 300 MG TUBE (21:14)
[2024-06-27 23:26] VITALS: BP 120/60
[2024-06-28 03:13] VITALS: BP 117/59
--- NOTE | 2024-06-28 03:43 | PTCARENOTE ---
Updated that we would increase pt's tube feedings by 10ml overnight, refused and requested to only increase it by 5ml instead. stated he does not tolerate fast feedings and aspirates. Now running at 35ml/hr.
[2024-06-28 06:00] VITALS: BMI 26.5
[2024-06-28] MEDS: XOPENEX 1.25 MG INHALANT SOLUTION INH (07:21)
[2024-06-28] MEDS: PULMICORT 0.25 MG INH (07:21)
[2024-06-28 07:38] LABS: Glucose - Point of Care 139 mg/dl (70-99)
[2024-06-28 08:23] VITALS: BP 121/61
--- NOTE | 2024-06-28 09:13 | W.PN.HOSP.TC ---
Addendum entered and electronically signed by Jeromy Sauceda DO 06/28/24 13:57:
Septic shock -present on admission. Resolved.
Hypokalemia -resolved.
Original Note:
Today's Communication/Plan
-
Possible discharge
Assessment / Plan
Assessment / Plan
Gen-sedated, nonverbal
HEENT-NC, AT, anicteric, clear oral mm
Neck-supple
CV-reg, no M, +S1/S2
Lungs-clear B/L
Abd-soft, NT, ND, PEG
Ext-no edema
Musculoskeletal-no cyanosis, clubbing
Skin-warm and dry
Sepsis - POA (tachycardia, tachypnea, aspiration pneumonia) due to aspiration pneumonia. Aspiration pneumonia felt to be due to aspiration from tube feeds. Has had difficulty tolerating even slow feeds.
Hx of dysphagia given hx of CVA
- s/p sepsis protocol IVF with improvement in hypotension
At this point he has had an adequate trial of antibiotics and can discontinue further antibiotics.
- repeat CXR 06/20: MODERATE RIGHT UPPER and LOWER LOBE PNEUMONIA which has increased since 06/16/2024. New moderate-sized airspace opacity in the right upper lobe. Moderate-sized right lower lobe and small left lower lobe airspace consolidations
which appear unchanged.
- CXR Sunday 06/25: unchanged
Acute gastroenteritis
Possible C. Diff colitis (Ag+)
- Norovirus negative
- continue contact precautions
- continue Fidaxomicin, day 11/27, last day will be July 02.
Dilutional thrombocytopenia -resolved.
Chronic hypoxemic respiratory failure on 3 L
Parox A.fib with RVR in setting of volume depletion
- HRs improved with fluids initially but RVR returned 06/19
- Amiodarone continue. patient in NSR
- continue Eliquis
-Sinus pauses noted on monitor and cardiology to reevaluate today. Not ideal pacemaker candidate given his significant comorbidities.
History of CAUTI/ HX chronic bladder outlet obstruction
Hx MSSA bacteremia, Proteus October 2022
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
History of bladder cancer status post TURBT 15 years ago
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
- Continue baclofen via G-tube for leg spasms
Gastrostomy tube Hx secondary to CVA/dysphagia/aphasia
- repetitively vomiting on TFs despite goal rate and subsequent goal rate reductions which lead to following diagnostics
- tube check confirms peg in ok position
- AXR without constipation
- CT without obstruction, impaction (contrast reached colon)
- continue PPI
- resume TFs 06/26 and even lower rate of 10 ml/hour and very slow advancement of 10 mL [id number]
Hyponatremia -133.
Chronic constipation
- AXR without constipation
Chronic pain syndrome
- Continue gabapentin 300 mg via G-tube at bedtime
- Continue baclofen via G-tube
Essential HTN
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
Hyperlipidemia
- cont Lipitor
Insomnia
- cont trazodone
Anxiety
- Continue Prozac 40 mg
Former smoker
Glaucoma
- cont eye drops
Right upper arm swelling -Doppler study negative for DVT, 06/21/2024.
DVT ppx: Eliquis
Code: DNR/DNI
Dispo -hospice recommended by multiple physicians but resistance and wants to take him home. I explained to that he is a high risk for readmission if we do not do hospice but she is not interested and would like to take him home with home
care. I called patient's again today and left a voicemail to discuss discharge plans as I believe he is a high risk for readmission.
35 minutes spent in discharge process.
Anticipated Discharge: Today
Subjective/Interval History
-
Date of Service: June 28, 2024
Patient seen and examined. Nonverbal. Sedated.
Objective Data
-
Vital Signs:
Vital Signs
Temp Pulse Resp BP Pulse Ox
98.1 F 62 18 121/61 100
06/28/24 08:23 06/28/24 08:23 06/28/24 08:23 06/28/24 08:23 06/28/24 08:23
I&O
06/27/24 06/28/24 06/29/24
06:59 06:59 06:59
Intake Total 630 / 630
Output Total 2250 / 2250 1175 / 1175
Balance -1620 / -1620 -1175 / -1175
Review of Systems
-
Unable to obtain full review of systems at this time due to: Dementia and Acuity
--- NOTE | 2024-06-28 09:24 | W.DS.TRANS ---
DC Summary - Program Development Specialist
-
Discharge Instructions:
Discharge Diagnosis/Procedures Sepsis, aspiration pneumonia, acute
gastroenteritis, dysphagia
Diet Tube feeding
Activity With assistance
Driving Restrictions No driving
Bathing Restrictions None
Other Services VN
Instructions:
Stand-Alone Forms:
Changes to Home Medications: No
Discharge Medications:
DC Medications w/original date entered in [facility]
baclofen 5 mg tablet 5 mg feeding tube BID Muscle spasms 08/23/20
multivitamin 1 ea feeding tube NOON Supplement 08/23/20
bimatoprost 0.01 % eye drops (Lumigan) 1 drp BOTH EYES HS Eye condition 02/17/22
bisacodyl 10 mg rectal suppository (Dulcolax (bisacodyl)) 10 mg AL DAILYPRN PRN constipation 02/17/22
chlorhexidine gluconate 0.12 % mouthwash 15 ml mucous membrane QID ORAL CARE 02/17/22
gabapentin 600 mg tablet 300 mg feeding tube HS Pain 02/17/22
guaifenesin 400 mg tablet 400 mg PO BID Cough ##0 02/17/22
trazodone 50 mg tablet 25 mg feeding tube HS Sleep 02/17/22
apixaban 5 mg tablet (Eliquis) 5 mg feeding tube BID Blood clot prevention/tx #30 tabs 02/20/22
dimethicone 1 %-zinc oxide 10 %-vit A and D-aloe vera topical cream (Zinc Oxide Diaper Cream) 1 applic topical QPM diaper changes 02/01/23
atorvastatin 40 mg tablet 40 mg feeding tube HS High Cholesterol 07/28/23
brimonidine 0.2 % eye drops 1 drp BOTH EYES BID Eye Condition 07/28/23
dorzolamide 22.3 mg-timolol 6.8 mg/mL eye drops 1 drp BOTH EYES BID Eye Condition 07/28/23
fluoxetine 20 mg tablet 40 mg feeding tube DAILY Mental Health 07/28/23
fluticasone propionate 50 mcg/actuation nasal spray,suspension 1 spray intranasal HSPRN PRN dry nares 07/28/23
ipratropium 0.5 mg-albuterol 3 mg (2.5 mg base)/3 mL nebulization soln 3 ml inhalation R DAILYPRN PRN sob/wheezing 07/28/23
ipratropium 0.5 mg-albuterol 3 mg (2.5 mg base)/3 mL nebulization soln 3 ml inhalation R TID Lung/Breathing Issues 07/28/23
sodium phosphates 19 gram-7 gram/118 mL enema (Fleet Enema) 118 ml AL DAILYPRN PRN constipation 07/28/23
polyethylene glycol 3350 17 gram oral powder packet (Miralax) 17 g feeding tube HS #0 ea 07/31/23
sennosides 8.8 mg/5 mL oral syrup 17.6 mg (10 mL) PO HS #236 mL 07/31/23
acetaminophen 300 mg-codeine 30 mg tablet 1 tab feeding tube TIDPRN PRN moderate pain 06/16/24
lansoprazole 30 mg delayed release,disintegrating tablet 30 mg PO DAILY 06/23/24
amiodarone 200 mg tablet 200 mg feeding tube DAILY #30 tabs 06/28/24
budesonide 0.25 mg/2 mL suspension for nebulization 0.25 mg (2 mL) inhalation R BID #60 mL 06/28/24
fidaxomicin 200 mg tablet (Dificid) 200 mg PO BID #9 tabs 06/28/24
Home Medication Changes
Pending Results: No
[2024-06-28] MEDS: ROBITUSSIN 400 MG TUBE (10:12)
[2024-06-28] MEDS: PROZAC 40 MG TUBE (10:12)
[2024-06-28] MEDS: DIFICID 200 MG PO ×2 (10:13→17:11)
[2024-06-28] MEDS: LIORESAL 5 MG TUBE (10:13)
[2024-06-28] MEDS: ELIQUIS 5 MG TUBE (10:14)
[2024-06-28] MEDS: PREVACID 30 MG TUBE (10:14)
[2024-06-28] MEDS: PERIDEX 0.12% ORAL RINSE 15 ML PO ×2 (10:14→12:26)
[2024-06-28] MEDS: PACERONE 200 MG TUBE (10:14)
[2024-06-28] MEDS: COSOPT EYE DROPS 1 DROP BOTH EYES (10:16)
[2024-06-28] MEDS: ALPHAGAN 0.2% EYE DROPS 1 DROP BOTH EYES (10:16)
--- NOTE | 2024-06-28 10:48 | PN.CDI ---
CDI
- -
CDI:
Physician Documentation Request
Admit Date: 06/17/24 01:31
Dear Doctor Sohail,
Please review the following and provide your response in the progress notes.
Clinical Indicators:
Pt admitted with Sepsis 2/2 aspiration Pneumonia/ gastroenteritis
Potassium levels are as below / Per MAR pt did get 40 MEQ elixir via Tube on 06/22 and 06/26
06/22/24 06/26/24
06:37 06:24
Potassium 3.3 L 3.3 L
Based on the above, could you clarify in the progress notes, the appropriate diagnosis, if significant, that supports the above abnormalities and additional evaluation, monitoring and/or treatment rendered:
Hypokalemia
Abnormal lab value only
Other ( please specify)
Use of terms such as suspected, likely, concern for, or probable (associated with a specific diagnosis that is being evaluated, monitored, or treated as if it exists) are acceptable and can be coded in the inpatient setting, when documented at the
time of discharge.
Thank you,
Zuly Parikh RN
CDI Specialist
[place] [facility]
Please use your independent medical judgment in providing your response.
--- NOTE | 2024-06-28 10:54 | PN.CDI ---
CDI
- -
CDI:
Physician Documentation Request
Admit Date: 06/17/24 01:31
Dear Doctor Sohail ,
Please review the following and provide your response in the progress notes.
Current documentation includes a diagnosis of hypotension.
Clinical Indicators:
Pt admitted with Sepsis 2/2 aspiration Pneumonia/gastroenteritis
Progress notes 06/18- 06/28, ' s/p sepsis protocol IVF with improvement in hypotension...'
Per MAR 7.5 Liters of IVFs
06/16/24
21:44 06/17/24
00:01 06/17/24
00:30
Blood pressure 86/59 84/62 89/61
06/17/24
02:00 06/17/24
04:00 06/27/24
07:00
Blood pressure 86/66 85/63 99/64
Please clarify which of the following is the most likely etiology of the above symptoms and treatment rendered:
Septic shock
Hypotension -Only
Other ( please specify)
Use of terms such as suspected, likely, concern for, or probable (associated with a specific diagnosis that is being evaluated, monitored, or treated as if it exists) are acceptable and can be coded in the inpatient setting, when documented at the
time of discharge.
Thank you,
Zuly Parikh RN
CDI Specialist
[place] [facility]
Please use your independent medical judgment in providing your response.
[2024-06-28 11:22] VITALS: BP 119/60
--- NOTE | 2024-06-28 12:54 | CM ---
Patient and seen at bedside.
Patient for discharge
Called pharmacy & spoke with Eugene at the [facility] (scripts sent to [place])- wants it transferred to [facility] - Eugene will have scripts sent from [place] to [facility]- aware
Dificid and Amiodarone covered/no copay-Dificid will be available tomorrow. aware & will hot die picker tomorrow.
IMM explained & signed by . In chart
[facility] notified of D/C & will do [facility]
PLAN: home, with [facility]
transport forms on chart. Time TBD
--- NOTE | 2024-06-28 12:54 | W.PN.CARDCBS ---
Addendum entered and electronically signed by Haider Alvarado MD 06/28/24 13:56:
Patient sleeping, at bedside, no complaints per .
PMH/PSH/SH/FH: Reviewed
Allergies, outpatient meds reviewed. He is back on Eliquis now at 5 mg twice daily and on amiodarone 200 mg daily. Still on atorvastatin.
119/60, pulse 60, comfortably resting, chin on chest with pillow, examination of lungs limited, no significant murmurs, relatively bradycardic JVD probably okay, abdomen with feeding tube, not much edema, does not respond when examined
No labs today
Telemetry: Still with paroxysmal A-fib. Rate in A-fib is reasonably controlled, slightly rapid, still with postconversion pauses but none are prolonged
Impression:
See below
Plan:
Okay for discharge from cardiac standpoint. We have arranged for follow-up.
Continue apixaban 5 mg twice daily and amiodarone 200 mg daily. Atorvastatin probably not important and could be stopped from my standpoint.
Prognosis remains very limited.
Original Note:
Today's Communication / Plan
-
Cont amiodarone 200 mg daily
Cardiology f/u arranged
Impression / Plan
-
PCP: Jenn Dominguez PA-C
Cardiology: Dr. Jonas
Impression:
Presented with nausea, vomiting, diarrhea, suspicious for norovirus 06/16/24
Sepsis
Afib with RVR
Pause, possible conversion pause
Paroxysmal Afib
diagnosed at time of acute CVA in 2019
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
w/ residual aphasia, chronic PEG tube, chronic Chavez catheter
Chronic Eliquis anticoagulation
Chronic hypoxemic respiratory failure on O2 2 L
Hypertension
Hyperlipidemia
Recurrent UTI
h/o bladder cancer
COPD
Echo 10/26/2022: EF 55 to 60%, posterior MAC, trace MR, trace AR, trace TR, estimated PAP 31 mmHg no evidence of vegetation
Plan:
-Tele reviewed by me and patient with largely SR and no pauses or conversion pauses.
-Cont amiodarone 200 mg daily, goal is to maintain SR and reduce risk of Afib and recurrent conversion pauses.
-Would BB and CCB as goal is rhythm control.
-No indication for PPM as patient says he is asymptomatic and pauses are 3-4 seconds. Conversion pause was up to 7 seconds earlier this admission, but has not recurred since amiodarone was added.
-Cont Eliquis 5 mg BID
-Patient is a DNR and had palliative care services at home, but cancelled these services because he felt he did not need their care and that it was too many visitors in the home.
HPI: Patient came to [facility] Tuesday with N/V/D and cardiology is now consulted for pauses and rapid Afib. Patient has a history of AF diagnosis back in 2019 at the time of his embolic CVA which is left him with residual aphasia along with chronic
PEG tube and Chavez catheter. Patient used to follow with the other group, but then switched to Dr. Jonas with the last office visit being in 2020. We had the opportunity to see the patient when he was admitted in July of this year with
constipation and cardiology was consulted due to elevated troponin. At that time we attempted to add Coreg, but patient started with bradycardia and wheezing and Coreg was stopped. Patient was in SR at that time. Patient has been maintained on
Eliquis 5 mg twice daily throughout. Patient is coming in now with suspected norovirus and was noted to be in AF from the time of admission. Tube feeds were held initially due to ongoing vomiting, but have been restarted today. Patient was given
a total of Lopressor 25 mg divided between 2 doses all given before 1230 today and then was noted to have a 7-second conversion pause on playground monitor at about 1550 today. Patient is nonverbal, with no reported LOC. His is sitting bedside
there have been no complaints of palpitations or dizziness.
Progress Note - Script Worker
Subjective
Date of Service: June 28, 2024
He says he feels well
Objective
Labs:
06/27/24 06:57
06/27/24 06:57
Labs
Hgb 10.7 g/dL (13.0-18.0) L 06/27/24 06:57
Hct 31.4 % (39.0-52.0) L 06/27/24 06:57
Plt Count 154 10^3/uL (130-400) D 06/27/24 06:57
Sodium 133 mmol/L (135-145) L 06/27/24 06:57
Potassium 3.5 mmol/L (3.5-5.1) 06/27/24 06:57
BUN 8 mg/dl (9-20) L 06/27/24 06:57
Creatinine 0.7 mg/dL (0.7-1.3) 06/27/24 06:57
Glucose 134 mg/dl (70-99) H 06/27/24 06:57
Vital Signs and I&O:
Vital Signs
Temp Pulse Resp BP Pulse Ox
97.6 F 60 16 119/60 97
06/28/24 11:22 06/28/24 11:22 06/28/24 11:22 06/28/24 11:22 06/28/24 12:10
Vital Signs
Temp Pulse Resp BP Pulse Ox
97.6 F 60 16 119/60 97
06/28/24 11:22 06/28/24 11:22 06/28/24 11:22 06/28/24 11:22 06/28/24 12:10
Intake & Output
06/26/24 06/27/24 06/28/24 06/29/24
06:59 06:59 06:59 06:59
Intake Total 630 / 630 630 / 630
Output Total 1800 / 1800 2250 / 2250 1175 / 1175
Balance -1170 / -1170 -1620 / -1620 -1175 / -1175
Physical Exam
Physical Exam
GEN: NAD
HEENT: EOMI
LUNGS: 2 L NC. No audible wheeze
CV: SR on tele, no pauses
ABD: ND
EXT: No edema
NEURO: Gross non-focal
SKIN: No rash
[2024-06-28 15:50] VITALS: BP 136/68
--- NOTE | 2024-06-28 18:37 | PTCARENOTE ---
Patient discharged home with VN, transported by [facility]. This RN removed patient's IV and tele pack, vitals taken by tech prior to discharge, patient changed and tube feeds unhooked prior to discharge. One time dose of dificid through PEG
tube administered by this RN. This RN reviewed discharge instructions/medications with patient's at bedside who verbalized understanding.
== END 2024-06-28 18:44 | disposition home health service (06) | DRG 871 ==
LOC: 2 NORTH 01:31
PROVIDERS: Clinical Nurse Specialist Family Health; Internal Medicine; Physician Assistant; ADMITTING PHYSICIAN Hospitalist; ATTENDING PHYSICIAN Hospitalist; CONSULT PHYSICIAN Nuclear Medicine Nuclear Cardiology; EMERGENCY PHYSICIAN Emergency Medicine; FAMILY PHYSICIAN Nurse Practitioner Adult Health
DX: A41.9 Sepsis, unspecified organism (principal); J69.0 Pneumonitis due to inhalation of food and vomit; R53.2 Functional quadriplegia; R65.21 Severe sepsis with septic shock; J96.11 Chronic respiratory failure with hypoxia; E87.1 Hypo-osmolality and hyponatremia; K52.9 Noninfective gastroenteritis and colitis, unspecified; I69.320 Aphasia following cerebral infarction; I48.0 Paroxysmal atrial fibrillation; I10 Essential (primary) hypertension; Z79.01 Long term (current) use of anticoagulants; J44.9 Chronic obstructive pulmonary disease, unspecified
CPT/HCPCS: 49465; 71045; 74018; 74177; 80048; 80053; 81003; 81015; 82962; 83605; 83735; 84484; 85025; 85027; 87040; 87045; 87046; 87077; 87086; 87324; 87427; 87449; 87798; 93005; 93971; 94640; 94667; 94668; 96361; 96365; 96375; 99285; J2185; Q9967

== ENCOUNTER 2024-07-10 09:24 | Inpatient (IN) | payer MEDICARE, OTHER, SELFPAY ==
[2024-07-09] VITALS (7 sets, daily range): BP systolic 98–140; BP diastolic 53–71; BMI 21.9
[2024-07-09 03:18] LABS: % Basophils 0.5 % (0-2); % Eosinophils 3.6 % (0-6); % Immature Granulocytes 0.2 % (0-0.5); % Lymphocytes 18.6 % (20.5-51.1); % Monocytes 14.1 % (1.7-9.3); Absolute Eosinophils 0.2 10^3/uL (0-0.7); Absolute Lymphocytes 1.2 10^3/uL (1.2-3.4); Absolute Monocytes 0.9 10^3/uL (0.1-0.6); Absolute Neutrophils 3.9 10^3/uL (1.4-6.5); Hematocrit 32.4 % (39.0-52.0); Mean Corpuscular Hgb 34.2 pg (27.0-31.0); Mean Corpuscular Volume 100.6 fL (80.0-94.0); Mean Platelet Volume 11.5 fL (7.4-10.4); Nucleated Red Blood Cells % 0 % (-); Platelet Count 150 10^3/uL (130-400); Red Blood Cell Count 3.22 10^6/uL (4.70-6.10); Red Cell Dist. Width 14.3 % (11.5-14.5); White Blood Cell Count 6.2 10^3/uL (4.8-10.8)
[2024-07-09 03:23] LABS: Urine Albumin 3+ (Neg - Trace); Urine Bilirubin Negative (Negative); Urine Character Bloody (Clear); Urine Color Red; Urine Glucose Negative (Negative); Urine Ketone Negative (Negative); Urine Leukocyte 2+ (Negative); Urine Nitrite Negative (Negative); Urine Occult Blood 4+ (Negative); Urine Urobilinogen Negative (Neg - 1+)
[2024-07-09 03:26] LABS: APTT 34.8 Sec (23.4-35.0); INR 1.34; PT 16.8 Sec (11.4-14.6)
[2024-07-09 03:27] LABS: ALT (SGPT) 17 U/L (0-50); AST (SGOT) 23 U/L (17-59); Albumin 2.6 g/dl (3.5-5.0); Alkaline Phosphatase 63 U/L (38-126); Blood Urea Nitrogen 17 mg/dl (9-20); Calcium 8.1 mg/dl (8.4-10.2); Carbon Dioxide 31 mmol/L (22-30); Chloride 101 mmol/L (98-107); Estimated Creatinine Clearance 86 ml/min; Glucose 152 mg/dl (70-99); Potassium 4.2 mmol/L (3.5-5.1); Sodium 135 mmol/L (135-145); Total Bilirubin 0.2 mg/dl (0.2-1.3); Total Protein 5.6 g/dl (6.3-8.2); eGFR > 60.00
[2024-07-09 03:29] LABS: Urine Red Blood Cell >100 /HPF (0-2)
--- NOTE | 2024-07-09 04:27 | ED.GENMED ---
History of Present Illness
General
Chief Complaint: Catheter/Tube Problem
Source: patient and spouse
Exam Limitations: clinical condition (Stroke)
Time Seen by Provider: 07/09/24 02:41
Nursing documentation reviewed up to this point in time: agreed with
History of Present Illness
History of Present Illness:
Pleasant 83-year-old male presents with hematuria. Patient had his chronic Chavez catheter changed by visiting nurse susan at 6 PM. Since then he has had bright red blood. Patient is on Eliquis. He sees Dr. Chapman. History is limited due to
patient's clinical condition having a stroke 4 years ago. He lives at home with his who is his primary caregiver and historian.
Past History
Past History
ED Past Medical History: Cancer (Bladder CA), CVA, HTN, Hypercholesterolemia and Other (Expressive Aphasia)
ED Past Surgical History: Other (PEG tube)
Social History
Tobacco: Former smoker
Alcohol: None
Drug: None
Personal:
Living: with family
Family History
Family History: Other (reviewed and noncontributory)
Review of Systems
Review of Systems
Allergies reviewed?: Yes
Unable to obtain full review of systems at this time due to: due to acuity
Other source history: family
All Other Systems: Not applicable
Psychiatric: Reports anxiety
Phy Exam
General Physical Exam
General Presentation: moderate distress
General age: appears older than age
General Skin: warm and dry
General Habitus: debilitated and frail
General Mental: usual mental status
General Hydration: appears well hydrated
Cardiovascular Exam
Cardiovascular Exam: regular rate/rhythm
Pulmonary Exam
Pulmonary Exam: lungs clear and no respiratory distress
Musculoskeletal Exam
Musculoskeletal Exam: neuro vasc intact
Skin Exam
Skin Exam: normal color and warm/dry
Psychiatric Exam
Psychiatric Exam: labile
Course
Orders/Labs/Results
Orders:
Orders
07/09/24 02:50
Complete Blood Count/With Diff Urgent
Comprehensive Metabolic Panel Urgent
PTT Urgent
Prothrombin Time Urgent
Urinalysis Reflex To Culture Urgent
Date Specimen was Collected: 07/09/24
Time Specimen was Collected: 02:36
Urine Microscopic Reflex Cult Urgent
Urine Culture Urgent
GUILLERMINA Source: U
Specimen Description:
Date Specimen was Collected: 07/09/24
Time Specimen was Collected: 02:36
Abnormal Lab Results
07/09/24
02:50
RBC 3.22 L 10^6/uL
(4.70-6.10)
Hgb 11.0 L g/dL
(13.0-18.0)
Hct 32.4 L %
(39.0-52.0)
MCV 100.6 H fL
(80.0-94.0)
MCH 34.2 H pg
(27.0-31.0)
MPV 11.5 H fL
(7.4-10.4)
Absolute Monos (auto) 0.9 H 10^3/uL
(0.1-0.6)
Lymphocytes % 18.6 L %
(20.5-51.1)
Monocytes % 14.1 H %
(1.7-9.3)
PT 16.8 H Sec
(11.4-14.6)
Carbon Dioxide 31 H mmol/L
(22-30)
Glucose 152 H mg/dl
(70-99)
Calcium 8.1 L mg/dl
(8.4-10.2)
Total Protein 5.6 L g/dl
(6.3-8.2)
Albumin 2.6 L g/dl
(3.5-5.0)
Ur Occult Blood Reflex 4+ A
(Negative)
Leukocyte Esterase Rfl 2+ A
(Negative)
Urine RBC >100 A /HPF
(0-2)
Urine Albumin (Reflex) 3+ A
(Neg - Trace)
07/09/24 02:50
07/09/24 02:50
Vital Signs
Initial and Last Documented VS:
Initial Vital Signs
Temp Pulse Resp BP Pulse Ox
98.2 F 65 20 98/53 98
07/09/24 02:08 07/09/24 02:08 07/09/24 02:08 07/09/24 02:08 07/09/24 02:08
Last Documented Vital Signs
Temp Pulse Resp BP Pulse Ox
98.2 F 62 20 109/54 99
07/09/24 02:08 07/09/24 03:20 07/09/24 03:20 07/09/24 03:20 07/09/24 03:21
*Critical Care Note
Total Time (30-74mins, 75-104mins- exclusive of procedures): Not Applicable
Update Note
Update Note:
Initial flushing of the indwelling Chavez catheter was unsuccessful. At this point a three-way Chavez will be placed. Patient to be brought into the hospital for further evaluation and treatment.
ED Attending Note
-
Portions of this chart may have been created with voice recognition software.� Occasional wrong word or��sound alike� substitutions may have occurred due to the inherent limitations of voice recognition software.
Discharge Plan
Departure
Patient Disposition: Admit
Date of Disposition: 07/09/24
Time of Disposition: 04:31
Admit to: Med/Surg
Presentation/result/management discussed w/ accepting MD/DO: Hospitalist
Discharge Problem:
Hematuria
Prescriptions:
No Action
multivitamin 1 EACH tablet
1 ea feeding tube NOON
baclofen 5 MG tablet
5 mg feeding tube BID
gabapentin 600 mg Tablet
300 mg feeding tube HS
trazodone 50 mg Tablet
25 mg feeding tube HS
bisacodyl [Dulcolax (bisacodyl)] 10 mg Suppository
10 mg WV DAILYPRN PRN (Reason: constipation)
guaifenesin 400 mg Tablet
400 mg PO BID Qty: 0
chlorhexidine gluconate 0.12 % Mouthwash
15 ml MUCOUS MEMBRANE QID
Lumigan 0.01 % Drops
1 drp BOTH EYES HS
Eliquis 5 MG tablet
5 mg feeding tube BID Qty: 30 0RF
Zinc Oxide Diaper Cream 1-10 % Cream
1 applic TOPICAL QPM
fluoxetine 20 mg Tablet
40 mg feeding tube DAILY
Fleet Enema 19-7 gram/118 mL Enema
118 ml WV DAILYPRN PRN (Reason: constipation)
dorzolamide-timolol 22.3-6.8 mg/mL Drops
1 drp BOTH EYES BID
atorvastatin 40 MG tablet
40 mg feeding tube HS
fluticasone propionate 50 mcg/actuation spray,suspension
1 spray intranasal HSPRN PRN (Reason: dry nares)
brimonidine 0.2 % Drops
1 drp BOTH EYES BID
ipratropium-albuterol 0.5 mg-3 mg(2.5 mg base)/3 mL Solution For Nebulization
3 ml INHALATION R TID
ipratropium-albuterol 0.5 mg-3 mg(2.5 mg base)/3 mL Solution For Nebulization
3 ml INHALATION R DAILYPRN PRN (Reason: sob/wheezing)
sennosides 8.8 mg/5 mL syrup
17.6 mg PO HS Qty: 236 0RF
polyethylene glycol 3350 [Miralax] 17 gram Powder In Packet
17 g feeding tube HS Qty: 0 0RF
acetaminophen-codeine 300-30 mg Tablet
1 tab feeding tube TIDPRN PRN (Reason: moderate pain)
lansoprazole 30 mg Tablet,Disintegrat, Delay Rel
30 mg PO DAILY
amiodarone 200 mg Tablet
200 mg feeding tube DAILY Qty: 30 0RF
budesonide 0.25 mg/2 mL Suspension For Nebulization
0.25 mg inhalation R BID Qty: 60 0RF
Dificid 200 mg tablet
200 mg PO Q12H Qty: 20 0RF
Referrals:
Jenn Dominguez CRNP [Family Provider] -
Interventions
Interventions:
*Risk Screen - Suicide Last Done: 07/09/24 02:08
*General Assessment Last Done: 07/09/24 02:08
*Neglect/Abuse Screening Last Done: 07/09/24 02:08
ED- Fall Risk Assessment Last Done: 07/09/24 02:08
*ED COVID-19 Vaccine History Last Done: 07/09/24 02:08
HE-Gcegfz-Inrxwnzleu Assessment Last Done: 07/09/24 04:04
ED-Male Genitourinary Assessment Last Done: 07/09/24 03:21
Discharge Date and Time
Print Language: MONGOLIAN
--- NOTE | 2024-07-09 05:07 | HPS.HSE ---
Family Physician
-
Family Physician: VASU Paulino
Chief Complaint
-
Gross hematuria from urinary cath
History of Present Illness
This a 83-year-old with complex past medical history including paroxysmal atrial fibrillation on anticoagulation, history of multi embolic strokes from atrial fibrillation for which she is bedbound with aphasia, dysphagia status post PEG, history of
bladder cancer status post tar-based, chronic UTIs and urinary retention status post chronic indwelling urinary catheter, hypertension, chronic constipation who was recently admitted here with delayed gastric emptying, vomiting and aspiration
pneumonia as well as possible C. difficile colitis now presents to the emergency department with a 1 day history of hematuria.
History obtained by spouse. She stated that hematuria started after patient had a catheter exchange. Similar episode has happened at least once in the past. The patient did not been having any urinary symptoms prior to that. Has been no fevers
or chills. Has been no abdominal distention. He has been compliant with his medications including the Eliquis.
In the emergency department he was afebrile, blood pressure was 110/50 with a pulse of 62 satting 99% on room air. CBC was unremarkable with hemoglobin of 11, INR was 1.3, electrolytes BUN/creatinine were unremarkable and in the normal range.
Due to ongoing bloody output via urinary catheter, CBI was initiated in the emergency department.
Medical History
Past Medical History
Past Medical History: Reports Arrhythmia (Paroxysmal atrial fibrillation), Cancer (Bladder cancer status post TURBT), CVA (Multiple embolic strokes with aphasia, dysphagia, ambulatory dysfunction and bedbound with flaccid paresis), GERD,
Hypercholesterolemia and Other (Urinary retention status post chronic indwelling catheter)
Past Surgical History: Reports Urological (TURBT) and Other (Status post PEG)
Social History
Tobacco: Non-smoker
Alcohol: None
Drug: None
Personal:
Living: With Family
Employment: Not Employed
Family History
Family History: Not pertinent
Allergies / Home Medications
Allergies reflects when Allergies were last updated in [employer].
Home Medications with original date entered in [employer]
Allergy/Medication List:
Allergies
Allergy/AdvReac Type Severity Reaction Status Date / Time
Cephalosporins Allergy Swelling/tolerates Verified 07/28/23 10:02
meropenem
Penicillins Allergy Swelling/tolerates Verified 07/28/23 10:02
meropenem
vancomycin Allergy Rash Verified 07/28/23 10:02
Home Medications
baclofen 5 mg tablet 5 mg feeding tube BID Muscle spasms 08/23/20
multivitamin 1 ea feeding tube NOON Supplement 08/23/20
bimatoprost 0.01 % eye drops (Lumigan) 1 drp BOTH EYES HS Eye condition 02/17/22
bisacodyl 10 mg rectal suppository (Dulcolax (bisacodyl)) 10 mg [place] DAILYPRN PRN constipation 02/17/22
chlorhexidine gluconate 0.12 % mouthwash 15 ml mucous membrane QID ORAL CARE 02/17/22
gabapentin 600 mg tablet 300 mg feeding tube HS Pain 02/17/22
guaifenesin 400 mg tablet 400 mg PO BID Cough ##0 02/17/22
trazodone 50 mg tablet 25 mg feeding tube HS Sleep 02/17/22
apixaban 5 mg tablet (Eliquis) 5 mg feeding tube BID Blood clot prevention/tx #30 tabs 02/20/22
dimethicone 1 %-zinc oxide 10 %-vit A and D-aloe vera topical cream (Zinc Oxide Diaper Cream) 1 applic topical QPM diaper changes 02/01/23
atorvastatin 40 mg tablet 40 mg feeding tube HS High Cholesterol 07/28/23
brimonidine 0.2 % eye drops 1 drp BOTH EYES BID Eye Condition 07/28/23
dorzolamide 22.3 mg-timolol 6.8 mg/mL eye drops 1 drp BOTH EYES BID Eye Condition 07/28/23
fluoxetine 20 mg tablet 40 mg feeding tube DAILY Mental Health 07/28/23
fluticasone propionate 50 mcg/actuation nasal spray,suspension 1 spray intranasal HSPRN PRN dry nares 07/28/23
ipratropium 0.5 mg-albuterol 3 mg (2.5 mg base)/3 mL nebulization soln 3 ml inhalation R DAILYPRN PRN sob/wheezing 07/28/23
ipratropium 0.5 mg-albuterol 3 mg (2.5 mg base)/3 mL nebulization soln 3 ml inhalation R TID Lung/Breathing Issues 07/28/23
sodium phosphates 19 gram-7 gram/118 mL enema (Fleet Enema) 118 ml [place] DAILYPRN PRN constipation 07/28/23
polyethylene glycol 3350 17 gram oral powder packet (Miralax) 17 g feeding tube HS #0 ea 07/31/23
sennosides 8.8 mg/5 mL oral syrup 17.6 mg (10 mL) PO HS #236 mL 07/31/23
acetaminophen 300 mg-codeine 30 mg tablet 1 tab feeding tube TIDPRN PRN moderate pain 06/16/24
lansoprazole 30 mg delayed release,disintegrating tablet 30 mg PO DAILY 06/23/24
amiodarone 200 mg tablet 200 mg feeding tube DAILY #30 tabs 06/28/24
budesonide 0.25 mg/2 mL suspension for nebulization 0.25 mg (2 mL) inhalation R BID #60 mL 06/28/24
fidaxomicin 200 mg tablet (Dificid) 200 mg PO Q12H #20 tabs 06/28/24
Review of Systems
-
Unable to obtain full review of systems at this time due to: Patient Non-verbal
History Source: Family
Constitutional: Reports No Symptoms
EENT: Reports No Symptoms
Respiratory: Reports No Symptoms
Cardiac: Reports No Symptoms
Abdomen/GI: Reports No Symptoms
: Reports Bleeding and Chavez
Musculoskeletal: Reports No Symptoms
Skin: Reports No Symptoms
Neurological: Reports No Symptoms
Endocrine: Reports No Symptoms
Hematologic/Lymphatic: Reports No Symptoms
Psych: Reports No Symptoms
Physical Exam
Vital Signs
Vital Signs
Temp Pulse Resp BP Pulse Ox
98.2 F 55 14 119/63 99
07/09/24 02:08 07/09/24 04:59 07/09/24 04:59 07/09/24 04:59 07/09/24 04:59
Physical Exam
General: No Apparent Distress and Appears Chronically Ill
HEENT: NormoCephalic, Anicteric, Atraumatic, PERRLA, Bowers Conjunctivae and No Ptosis
Respiratory: Non Labored Respirations and Decreased Breath Sounds
Cardiac: S1/S2 and Regular Rhythm
Breast: Deferred by me
GI: Soft, Non Tender, Non Distended, Normal Bowel Sounds and Peg Tube
Rectal: Deferred by Provider
Genito-urinary: Bloody Urine and Continuous Bladder Irrigation
Musculoskeletal: No Clubbing and No Cyanosis
Skin: Warm and Dry
Neuro: Awake, Cranial Nerves Intact and Other (flaccid paresis of upper and lower extremity)
Hematologic/Lymphatic: No Lymphadenopathy
Psych: Calm
Laboratory Results
-
07/09/24 02:50
07/09/24 02:50
Laboratory Results
PT 16.8 Sec (11.4-14.6) H 07/09/24 02:50
INR 1.34 07/09/24 02:50
APTT 34.8 Sec (23.4-35.0) 07/09/24 02:50
Total Bilirubin 0.2 mg/dl (0.2-1.3) 07/09/24 02:50
AST 23 U/L (17-59) 07/09/24 02:50
ALT 17 U/L (0-50) 07/09/24 02:50
Alkaline Phosphatase 63 U/L (38-126) 07/09/24 02:50
Data Reviewed
-
Lab Data: Labs Reviewed by me
Old Records: Reviewed
Impression/Plan
-
IMPRESSION:
83 y.o wth h/o afib and embolic CVA with residual dysphagia/aphasia, paresis, s/p PEG on anticoagulation with eliquis who has a chronic indwelling catheter presents to ED after catheter exchange with gross hematuria requiring CBI in the ED. Renal
function is stable and without signs of acute retention. Not seeing any clots in the irrigant output. Urine appears clearing within the first few 100 CC of CBI so suspect likely urethral trauma.
PLAN:
1. Gross Hematuria - Suspect 2/2 traumatic catheter exchange in patient on AC. No signs of acute infection and urine clearing rapidly on CBI. Normal renal function and no signs of obstruction.
- admit to med/surg observation
- hold eliquis
- continue CBI
- patient with h/o bladder ca tx by Dr. Chapman, consult urology
2. AFIB
- holding eliquis
- continue amiodarone
3. Feeding/Nutrition/Fluids
- Jevity 1.5, 12 oz TID
- water flushes total of 1800/day, 150 before and after meals then 150 6x through the day
- slow feeding speed per spouse
- continue lansoprazole
DVT PPX - SCDs for now
Code status - DNR
--- NOTE | 2024-07-09 06:59 | CON.MD ---
Consultation - Medical
-
see dictated note
pt [facility] resident- chronc cath
hx of 'bladder cancer'- no know recent cysto's
has been followed by dr luna sporadically
cath dependent- on eliquis
periodic admits for hematuria- UTI
recent admit for aspiration pneumonia
ct scans have shown large volume bladder stone
now admitted with gross hematuria
on cbi- urine pink
eliquis on hold
plan
continue cbi
check ucx
cover with antibx
hold eliquis
will discuss with family their dispo on any intervention
[2024-07-09] MEDS: DUONEB 3 ML INH ×2 (08:08→19:26)
[2024-07-09] MEDS: PULMICORT 0.25 MG INH ×2 (08:09→19:26)
[2024-07-09] MEDS: PACERONE 200 MG TUBE (08:51)
[2024-07-09] MEDS: PROZAC 40 MG TUBE (08:51)
[2024-07-09] MEDS: PREVACID 30 MG TUBE (08:52)
[2024-07-09] MEDS: PERIDEX 0.12% ORAL RINSE 15 ML PO ×3 (08:52→17:32)
[2024-07-09] MEDS: ROBITUSSIN 400 MG PO ×2 (08:52→20:35)
[2024-07-09] MEDS: ALPHAGAN 0.2% EYE DROPS 1 DROP BOTH EYES ×2 (08:53→20:35)
[2024-07-09] MEDS: LEVAQUIN 100 IV (08:53)
[2024-07-09] MEDS: LIORESAL 5 MG TUBE ×2 (08:53→20:35)
[2024-07-09] MEDS: COSOPT EYE DROPS 1 DROP BOTH EYES ×2 (08:53→20:34)
--- NOTE | 2024-07-09 10:23 | W.PN.HOSP.TC ---
Addendum entered and electronically signed by Brad Russo MD 07/09/24 23:19:
Attending Addendum-
I saw and evaluated the patient. I reviewed the resident�s note and agree with findings and plan as documented in the resident�s note. Sub: easily arousable. seems like he understands and follows basic commands. Full 12 point ROS reviewed and
negative except as documented Exam: Vitals reviewed in chart GEN-NAD heart RRR lungs clear abd soft PEG in place LE no edema CBI in place pink urine in bad Neuro aphasia, follows commands minimally and smiles, contracted extremities
Plan:
# Gross Hematuria - Suspect 2/2 traumatic catheter exchange in patient on AC and stones. No signs of acute infection and urine clearing rapidly on CBI. Normal renal function and no signs of obstruction.
- cont med surg
- hold eliquis
- continue CBI
- for stone removal on 07/12
- trend H and H
- would favor switch of abx due to previous sensitivities await cx results
- cont levaquin for now
# AFIB
- holding eliquis
- continue amiodarone
# Dysphagia
- NPO
- cont TF Jevity 1.5, 12 oz TID
- water flushes total of 1800/day, 150 before and after meals then 150 6x through the day
- slow feeding speed per spouse
- continue lansoprazole
# Urinary Retention s/p bladder ca
- cont chronic Chavez
# H/O CVA
- completely bedbound
- poor QOL
- verified DNR
# H/O c diff- hold Dificid
# Depression cont trazodone/fluoxetine
# Muscle contracture- cont baclofen/zabrina
DVT PPX - SCDs for now
Code status - DNR
ACP
Patient unable to consent to discuss, d/w POA/verified, time spent explanation of advance directives, changes in health status, patient�s health care wishes if the patient becomes unable to make health decisions, goals of care, code status, and
prognosis not ready to discuss pall care/hospice- 16 minutes
Time spent coordinating care, review of plan of care with resident, personally reviewed previous records in EMR, med rec, labs, radiology, d/w nursing, family total time documented is exclusive of any additional time listed that was spent in advance
care planning discussion
Original Note:
Today's Communication/Plan
-
Continue CBI
Assessment / Plan
Assessment / Plan
#Gross hematuria
Likely secondary to traumatic catheter exchange
Continue CBI
Continue to hold Eliquis
History of bladder cancer treated by Dr. Chapman
Urology consulted, appreciate input
#Bladder stones
Patient to go to the operating room on for bladder stone removal
N.p.o. Tuesday
Hold Eliquis
Hold DVT prophylaxis Tuesday
#A-fib
Hold Eliquis
Continue amiodarone
#Chronic PEG tube
Currently on Jevity 1.5, 12 ounces 3 times daily
Water flushes 1800/day, 150 before and after meals then 156 times through the day
Slow feeding speed per spouse
Continue lansoprazole
Hold feeds Tuesday night for surgery
DVT prophylaxis�SCDs
CODE STATUS DNR
Anticipated Discharge: > 48 hours
Subjective/Interval History
-
Date of Service: July 09, 2024
Patient is resting comfortably in bed, looks up to name and during conversation, but is unable to communicate. Chavez continues to drain blood tinged fluid.
Objective Data
-
Labs:
Laboratory Results
07/09/24
02:50
WBC 6.2
Hgb 11.0 L
Hct 32.4 L
Plt Count 150
PT 16.8 H
INR 1.34
APTT 34.8
Sodium 135
Potassium 4.2
Chloride 101
Carbon Dioxide 31 H
BUN 17
Creatinine 0.7
Glucose 152 H
Calcium 8.1 L
Total Bilirubin 0.2
AST 23
ALT 17
Alkaline Phosphatase 63
Vital Signs:
Vital Signs
Temp Pulse Resp BP Pulse Ox
98.3 F 95 18 119/67 96
07/09/24 07:00 07/09/24 08:14 07/09/24 08:14 07/09/24 07:00 07/09/24 08:14
I&O
07/08/24 07/09/24 07/10/24
06:59 06:59 06:59
Intake Total 500 / 500
Output Total -1350 / -1350
Balance 1850 / 185
Review of Systems
-
Unable to obtain full review of systems at this time due to: Patient Non-verbal
History Source: Patient
Physical Exam
-
General: Comfortable and Appears Chronically Ill
HEENT: Normocephalic and Atraumatic
Respiratory: Decreased Breath Sounds
Cardiac: S1/S2 and Irregular Rhythm
GI: Soft, Nontender and Nondistended
Musculoskeletal: No Clubbing, No Cyanosis and No Edema
Neuro: Awake
Psych: Calm
Data Reviewed
-
Labs: Labs Reviewed by me and Discussed with Physician
Old Records: Reviewed
[2024-07-09] MEDS: DUONEB INH (15:57)
[2024-07-09] MEDS: XALATAN OPHTHALMIC SOLUTION 1 DROP BOTH EYES (20:34)
[2024-07-09] MEDS: SENNA SYRUP 17.6 MG PO (20:38)
[2024-07-09] MEDS: MIRALAX 17 GRAMS TUBE (20:38)
[2024-07-09] MEDS: DESYREL 25 MG TUBE (20:38)
--- NOTE | 2024-07-09 21:00 | PTCARENOTE ---
After reviewing patients care notes, RD documented TF recommendations to DR. Martinez. No orders were placed for TF and covering DISTRIBUTION COLLECTION OPERATOR Jarod notified. Will report to oncoming RN RD documented TR recommendations.
[2024-07-10] MEDS: NEURONTIN 300 MG TUBE ×2 (00:10→22:17)
[2024-07-10] MEDS: PERIDEX 0.12% ORAL RINSE 15 ML PO ×4 (00:12→22:39)
[2024-07-10] MEDS: DUONEB 3 ML INH ×3 (07:12→20:10)
[2024-07-10] MEDS: PULMICORT 0.25 MG INH ×2 (07:12→20:09)
[2024-07-10 07:17] LABS: % Basophils 0.3 % (0-2); % Eosinophils 3.9 % (0-6); % Immature Granulocytes 0.3 % (0-0.5); % Lymphocytes 19.7 % (20.5-51.1); % Monocytes 12.6 % (1.7-9.3); % Neutrophils 63.2 % (42.2-75.2); Absolute Eosinophils 0.2 10^3/uL (0-0.7); Absolute Lymphocytes 1.2 10^3/uL (1.2-3.4); Absolute Monocytes 0.8 10^3/uL (0.1-0.6); Absolute Neutrophils 3.7 10^3/uL (1.4-6.5); Hematocrit 31.7 % (39.0-52.0); Hemoglobin 10.7 g/dL (13.0-18.0); Mean Corp Hgb Conc. 33.8 g/dL (33.0-37.0); Mean Corpuscular Hgb 33.5 pg (27.0-31.0); Mean Corpuscular Volume 99.4 fL (80.0-94.0); Mean Platelet Volume 10.9 fL (7.4-10.4); Nucleated Red Blood Cells % 0 % (-); Platelet Count 133 10^3/uL (130-400); Red Blood Cell Count 3.19 10^6/uL (4.70-6.10); Red Cell Dist. Width 14.1 % (11.5-14.5); White Blood Cell Count 5.9 10^3/uL (4.8-10.8)
[2024-07-10 07:37] LABS: ALT (SGPT) 15 U/L (0-50); AST (SGOT) 19 U/L (17-59); Albumin 2.6 g/dl (3.5-5.0); Alkaline Phosphatase 69 U/L (38-126); Blood Urea Nitrogen 15 mg/dl (9-20); Calcium 8.4 mg/dl (8.4-10.2); Carbon Dioxide 29 mmol/L (22-30); Chloride 101 mmol/L (98-107); Estimated Creatinine Clearance 83 ml/min; Glucose 89 mg/dl (70-99); Potassium 4.5 mmol/L (3.5-5.1); Sodium 135 mmol/L (135-145); Total Bilirubin 0.3 mg/dl (0.2-1.3); Total Protein 5.5 g/dl (6.3-8.2); eGFR > 60.00
--- NOTE | 2024-07-10 08:01 | W.PN.HOSP.TC ---
Addendum entered and electronically signed by Brad Russo MD 07/10/24 22:29:
Attending Addendum-
I saw and evaluated the patient. I reviewed the resident�s note and agree with findings and plan as documented in the resident�s note. Sub: seems like he understands and follows basic commands. aphasic. appears comfortable. NAEON Full 12 point ROS
reviewed and negative except as documented Exam: Vitals reviewed in chart GEN-NAD heart RRR lungs clear abd soft PEG in place LE no edema CBI in place pink urine in bad Neuro aphasia, follows commands minimally and smiles, contracted extremities
Plan:
# Gross Hematuria - Suspect 2/2 traumatic catheter exchange in patient on AC and stones.
- cont care in med surg
- hold eliquis
- continue CBI
- for stone removal on 07/12
- trend H and H
- urine cx-prelim
- cont levaquin for now
# AFIB
- holding eliquis
- continue amiodarone
# Dysphagia
- NPO
- cont TF Jevity 1.5, 12 oz TID
- water flushes total of 1800/day, 150 before and after meals then 150 6x through the day
- slow feeding speed per spouse
- continue lansoprazole
# Urinary Retention s/p bladder ca
- cont chronic Chavez
# H/O CVA
- completely bedbound
- poor QOL
- verified DNR
# H/O c diff- hold Dificid
# Depression cont trazodone/fluoxetine
# Muscle contracture- cont baclofen/zabrina
DVT PPX - SCDs for now
Code status - DNR
Time spent coordinating care, review of plan of care with resident, personally reviewed records in EMR, med rec, consults, notes, labs, radiology, d/w nursing � 53 mins
Original Note:
Today's Communication/Plan
-
;/
Assessment / Plan
Assessment / Plan
Assessment/Plan
#Gross hematuria Likely secondary to traumatic catheter exchange
-Patient on anticoag and presence of stones.
-Continue CBI
-Continue to hold Eliquis
-History of bladder cancer treated by Dr. Chapman
-Urology following
-Follow H&H
-Continue Abx with Levaquin (D2)
-Urine culture pending
#Bladder stones
-cystoscopy with attempted clearing of bladder stone on 07/12.
-N.p.o. Tuesday
-Hold Eliquis
#A-fib
-Holding Eliquis
-Continue amiodarone for rate control.
#Chronic PEG tube
-Currently on Jevity 1.5, 12 ounces 3 times daily
-Water flushes 1800/day, 150 before and after meals then 150, 6 times through the day
-Slow feeding speed per spouse
-Continue lansoprazole
-Hold feeds Tuesday for surgery
#Urinary Retention s/p bladder ca
- cont chronic Chavez
# H/O CVA
- completely bedbound
#H/O c diff- hold Dificid
#Depression cont trazodone/fluoxetine
#Muscle contracture- cont baclofen/zabrina
DVT prophylaxis�SCDs
CODE STATUS DNR
Anticipated Discharge: > 48 hours
Subjective/Interval History
-
Patient seen and examined at bedside. Non verbal. Resting comfortably. Chavez with yellow urine (non bloody)
Objective Data
-
Labs:
Laboratory Results
07/10/24
06:29
WBC 5.9
Hgb 10.7 L
Hct 31.7 L
Plt Count 133
Sodium 135
Potassium 4.5
Chloride 101
Carbon Dioxide 29
BUN 15
Creatinine 0.7
Glucose 89
Calcium 8.4
Total Bilirubin 0.3
AST 19
ALT 15
Alkaline Phosphatase 69
Vital Signs:
Vital Signs
Temp Pulse Resp BP Pulse Ox
97.7 F 76 16 122/66 93
07/09/24 23:30 07/10/24 07:15 07/10/24 07:15 07/09/24 23:30 07/10/24 07:15
I&O
07/09/24 07/10/24 07/11/24
06:59 06:59 06:59
Intake Total 500 / 500
Output Total -1350 / -1350 5950 / 5950
Balance 1850 / 1850 -5950 / -5950
Review of Systems
-
All other systems: Reviewed and negative (except as documented)
Physical Exam
-
General: No Apparent Distress
Respiratory: Clear to Auscultation
Cardiac: S1/S2
GI: Soft, Nontender, Nondistended and Other (PEG in place)
Genito-urinary: Continuous Bladder Irrigation (yellow urine in bag)
Musculoskeletal: No Edema
Neuro: Awake
[2024-07-10 08:22] VITALS: BP 122/65
--- NOTE | 2024-07-10 08:41 | VNURNOTE ---
Chart reviewed. 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 Will continue to follow hospital course and DC plans.
[2024-07-10] MEDS: PACERONE 200 MG TUBE (09:03)
[2024-07-10] MEDS: LEVAQUIN 100 IV (09:03)
[2024-07-10] MEDS: PROZAC 40 MG TUBE (09:03)
[2024-07-10] MEDS: LIORESAL 5 MG TUBE ×2 (09:03→21:05)
[2024-07-10] MEDS: ALPHAGAN 0.2% EYE DROPS 1 DROP BOTH EYES ×2 (09:03→20:46)
[2024-07-10] MEDS: PREVACID 30 MG TUBE (09:03)
[2024-07-10] MEDS: ROBITUSSIN 400 MG PO ×2 (09:04→21:06)
[2024-07-10] MEDS: COSOPT EYE DROPS 1 DROP BOTH EYES ×2 (09:04→21:01)
[2024-07-10] MEDS: PERIDEX 0.12% ORAL RINSE PO (09:04)
--- NOTE | 2024-07-10 12:10 | CM ---
Initial assessment completed. Admitted for gross hematuria from urinary cath
Pt lives w/ spouse and son in a 2STH- no steps. Ramp access
Pt is bedbound, has peg tube, [employer] provides feeding supplies. Both pt's spouse and their son provide 24/7 care to pt at home. Pt is known to [facility].
PCP: Dr. Dominguez
Pharmacy: [facility]
Pt LOC changed to IP
Will need ambulance transport at d/c
Plan: Home with resumptions of [facility] and family support. Ambulance transport at discharge.
CM will follow with discharge plan updates as hospitalization progresses
--- NOTE | 2024-07-10 12:58 | W.PN.URO.CBU ---
Today's Communication / Plan
-
npo turn off feeding tube wed pm at hs have hospitalui give iv ioreders ty
Assessment / Plan
-
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
cystolitalop[axy on
Diagnosis
-
Date of Service: July 10, 2024
-
Patient Diagnosis:
retntion neurogenic bladder with bladder stones
Post Op Day:
Subjective
-
non verbal
Objective
-
Vital Signs
Temp Pulse Resp BP Pulse Ox
97.9 F 63 20 122/65 97
07/10/24 08:22 07/10/24 08:22 07/10/24 08:22 07/10/24 08:22 07/10/24 08:22
Intake and Output
07/09/24 07/10/24 07/11/24
06:59 06:59 06:59
Intake Total 500 / 500
Output Total -1350 / -1350 5950 / 5950
Balance 1850 / 1850 -5950 / -5950
Intake:
Chavez intermittent irrigation 500 / 500
Output:
Urine, Chavez 1000 / 1000
True Urine Output from CBI -2350 / -2350 5950 / 5950
Laboratory Results
07/10/24 06:29
07/10/24 06:29
Review of Systems
-
Unable to obtain full review of systems at this time due to: Patient Non-verbal
Physical Exam
-
General - well developed, well nourished, no acute distress
Chest - clear bilaterally
Abdomen - soft, non-tender, positive bowel sounds, no CVAT, no incisional pain or distention
Genitalia - normal
Rectal - normal
Skin - warm & dry with no rash
Neuro - AOx3, no motor deficits
Extremities - no clubbing, no cyanosis, no edema
Incision - clean, dry
Dressing - clean, dry, intact
Care Review
Data Reviewed
Discussed with: Hospitalist, Nursing and Family
CT Scan: Image Pers Reviewed
[2024-07-10 16:14] VITALS: BP 137/76
[2024-07-10] MEDS: TRIPLE PASTE 1 APPLIC TOPICAL (17:43)
[2024-07-10] MEDS: DESYREL 25 MG TUBE (22:15)
[2024-07-10] MEDS: XALATAN OPHTHALMIC SOLUTION 1 DROP BOTH EYES (22:18)
[2024-07-10] MEDS: SENNA SYRUP 17.6 MG PO (22:24)
[2024-07-10] MEDS: MIRALAX 17 GRAMS TUBE (22:27)
[2024-07-10 23:00] VITALS: BP 107/65
--- NOTE | 2024-07-11 02:17 | DOWNTIME ---
There was a [employer] Client Finance Manager Downtime on 07/11/2024 from 0100 to 07/11/2023 at 0205 . Downtime documentation of patient's care, including medication administrations, has been reconciled in the electronic record per guidelines. Refer to the
patient's paper chart under the miscellaneous tab to see printed paper medication records and downtime forms.
[2024-07-11 05:20] VITALS: BP 128/69
[2024-07-11] MEDS: PULMICORT 0.25 MG INH ×2 (07:23→19:26)
[2024-07-11] MEDS: DUONEB 3 ML INH ×3 (07:23→19:26)
--- NOTE | 2024-07-11 07:46 | W.PN.HOSP.TC ---
Addendum entered and electronically signed by Brad Russo MD 07/11/24 23:05:
Attending Addendum-
I saw and evaluated the patient. I reviewed the resident�s note and agree with findings and plan as documented in the resident�s note. Sub: follows basic commands. aphasic. appears comfortable and smiles.Seen with present. 'Hes constipated'
NAEON Full 12 point ROS reviewed and negative except as documented Exam: Vitals reviewed in chart GEN-NAD heart RRR lungs clear abd soft PEG in place LE no edema CBI in place pink urine in bag Neuro aphasia, follows commands minimally and
smiles, contracted extremities
Plan:
# Gross Hematuria - Suspect 2/2 traumatic catheter exchange in patient on AC and stones.
- cont care in med surg
- hold eliquis
- continue CBI
- for stone removal on 07/12
- trend H and H
- urine cx-prelim GNB
- cont levaquin for now
# AFIB
- holding eliquis
- continue amiodarone
# Constipation
- bowel regimin
# Dysphagia
- NPO
- HOLD TF Jevity 1.5, 12 oz TID
- water flushes total of 1800/day, 150 before and after meals then 150 6x through the day
- slow feeding speed per spouse
- continue lansoprazole
- start IVF hold TF pMN
# Urinary Retention s/p bladder ca
- cont chronic Chavez
# H/O CVA
- completely bedbound
- poor QOL
- verified DNR with
# H/O c diff- hold Dificid
# Depression cont trazodone/fluoxetine
# Muscle contracture- cont baclofen/zabrina
DVT PPX - SCDs for now
Code status - DNR
Time spent coordinating care, review of plan of care with resident, personally reviewed records in EMR, med rec, consults, notes, labs, radiology, d/w nursing uro and � 51 mins
Original Note:
Today's Communication/Plan
-
NPO at midnight for procedure tomorrow.
Assessment / Plan
Assessment / Plan
Assessment/Plan
#Gross hematuria Likely secondary to traumatic catheter exchange
-Continue CBI
-Continue to hold Eliquis
-History of bladder cancer treated by Dr. Chapman
-Urology following
-Follow H&H
-Continue Abx with Levaquin (D3)
-Urine culture gram negative bacilli, sensitivities pending
#Bladder stones
-cystoscopy with attempted clearing of bladder stone on 07/12.
-N.p.o. tonight
-Hold Eliquis
#A-fib
-Holding Eliquis
-Continue amiodarone for rate control.
#Chronic PEG tube
-Currently on Jevity 1.5, 12 ounces 3 times daily
-Water flushes 1800/day, 150 before and after meals then 150, 6 times through the day
-Slow feeding speed per spouse
-Continue lansoprazole
-Hold feeds Tuesday night for surgery 07/12
#Urinary Retention s/p bladder ca
- cont chronic Chavez
# H/O CVA
- completely bedbound
#H/O c diff- hold Dificid
#Depression cont trazodone/fluoxetine
#Muscle contracture- cont baclofen/zabrina
DVT prophylaxis�SCDs
CODE STATUS DNR
Anticipated Discharge: > 48 hours
Subjective/Interval History
-
Date of Service: July 11, 2024
Objective Data
-
Labs:
Laboratory Results
07/11/24
06:52
WBC Pending
Hgb Pending
Hct Pending
Plt Count Pending
Sodium Pending
Potassium Pending
Chloride Pending
Carbon Dioxide Pending
BUN Pending
Creatinine Pending
Glucose Pending
Calcium Pending
Vital Signs:
Vital Signs
Temp Pulse Resp BP Pulse Ox
97.8 F 80 15 128/69 93
07/10/24 23:00 07/11/24 07:25 07/11/24 07:25 07/11/24 05:20 07/11/24 07:25
I&O
07/10/24 07/11/24 07/12/24
06:59 06:59 06:59
Intake Total 0 / 0
Output Total 5950 / 5950 400 / 400
Balance -5950 / -5950 -400 / -400
Review of Systems
-
All other systems: Reviewed and negative (except as documented)
Physical Exam
-
General: No Apparent Distress
Respiratory: Clear to Auscultation
Cardiac: S1/S2
GI: Soft, Nontender, Nondistended and Other (PEG in place)
Genito-urinary: Continuous Bladder Irrigation (red-tinged urine in bag)
Musculoskeletal: No Edema
Neuro: Awake
[2024-07-11 07:57] VITALS: BP 126/62
[2024-07-11 07:58] LABS: Hemoglobin 10.9 g/dL (13.0-18.0); Mean Corp Hgb Conc. 34.1 g/dL (33.0-37.0); Mean Corpuscular Hgb 33.9 pg (27.0-31.0); Mean Corpuscular Volume 99.4 fL (80.0-94.0); Mean Platelet Volume 11.3 fL (7.4-10.4); Platelet Count 141 10^3/uL (130-400); Red Blood Cell Count 3.22 10^6/uL (4.70-6.10); Red Cell Dist. Width 14.3 % (11.5-14.5)
[2024-07-11 08:16] LABS: Blood Urea Nitrogen 17 mg/dl (9-20); Calcium 8.4 mg/dl (8.4-10.2); Carbon Dioxide 29 mmol/L (22-30); Chloride 99 mmol/L (98-107); Estimated Creatinine Clearance 73 ml/min; Glucose 103 mg/dl (70-99); Potassium 4.2 mmol/L (3.5-5.1); Sodium 133 mmol/L (135-145); eGFR > 60.00
[2024-07-11] MEDS: ALPHAGAN 0.2% EYE DROPS 1 DROP BOTH EYES ×2 (09:19→20:05)
[2024-07-11] MEDS: PREVACID 30 MG TUBE (09:20)
[2024-07-11] MEDS: LIORESAL 5 MG TUBE ×2 (09:20→20:05)
[2024-07-11] MEDS: PERIDEX 0.12% ORAL RINSE 15 ML PO ×4 (09:20→20:06)
[2024-07-11] MEDS: COSOPT EYE DROPS 1 DROP BOTH EYES ×2 (09:20→20:05)
[2024-07-11] MEDS: PROZAC 40 MG TUBE (09:20)
[2024-07-11] MEDS: PACERONE 200 MG TUBE (09:20)
[2024-07-11] MEDS: ROBITUSSIN 400 MG PO ×2 (09:21→20:06)
--- NOTE | 2024-07-11 09:37 | W.PN.URO.CBU ---
Today's Communication / Plan
-
npo at hs ie hold peg ask hospitalist for iv ordersd for tonoght
Assessment / Plan
-
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
cystolitalop[axy on
Diagnosis
-
Date of Service: July 11, 2024
-
Patient Diagnosis:
Post Op Day:
Patient Diagnosis:
retntion neurogenic bladder with bladder stones hematiuria
Post Op Day:
Subjective
-
hematuria painless costa drained
Objective
-
Vital Signs
Temp Pulse Resp BP Pulse Ox
98.2 F 64 20 126/62 100
07/11/24 07:57 07/11/24 07:57 07/11/24 07:57 07/11/24 07:57 07/11/24 07:57
Intake and Output
07/10/24 07/11/24 07/12/24
06:59 06:59 06:59
Intake Total 0 / 0
Output Total 5950 / 5950 400 / 400
Balance -5950 / -5950 -400 / -400
Intake:
Oral fluids 0 / 0
Output:
True Urine Output from CBI 5950 / 5950 400 / 400
Laboratory Results
07/11/24 06:52
07/11/24 06:52
Review of Systems
-
: Difficulty Voiding
Physical Exam
-
General - well developed, well nourished, no acute distress
Chest - clear bilaterally
Abdomen - soft, non-tender, positive bowel sounds, no CVAT, no incisional pain or distention
Genitalia - normal
Rectal - normal
Skin - warm & dry with no rash
Neuro - AOx3, no motor deficits
Extremities - no clubbing, no cyanosis, no edema
Incision - clean, dry
Dressing - clean, dry, intact
Care Review
Data Reviewed
Discussed with: Nursing and Family
[2024-07-11] MEDS: LEVAQUIN 100 IV (10:45)
[2024-07-11] MEDS: DULCOLAX 10 MG RECTAL (13:28)
[2024-07-11 16:08] VITALS: BP 116/60
[2024-07-11] MEDS: TRIPLE PASTE 1 APPLIC TOPICAL (17:28)
[2024-07-11] MEDS: SENNA SYRUP 17.6 MG PO (20:05)
[2024-07-11] MEDS: XALATAN OPHTHALMIC SOLUTION 1 DROP BOTH EYES (20:05)
[2024-07-11] MEDS: NEURONTIN 300 MG TUBE (20:06)
[2024-07-11] MEDS: MIRALAX 17 GRAMS TUBE (20:06)
[2024-07-11] MEDS: DESYREL 25 MG TUBE (22:03)
[2024-07-11] MEDS: NSS 1000 IV (23:48)
[2024-07-11 23:55] VITALS: BP 124/66
[2024-07-12] VITALS (12 sets, daily range): BP systolic 109–150; BP diastolic 57–77
--- NOTE | 2024-07-12 | PTCARENOTE ---
PEG tube feedings held at 0000 per provider order for surgery in AM. IV NSS initiated at 120 ml/hr per hospitalist in R AC. pt CBI draining clear pink urine with occasional small clots passing easily through tubing. VSS. will continue to monitor pt
status closely.
[2024-07-12] MEDS: PULMICORT 0.25 MG INH ×2 (07:19→19:49)
[2024-07-12] MEDS: DUONEB 3 ML INH ×3 (07:19→19:49)
[2024-07-12 08:15] LABS: % Basophils 0.5 % (0-2); % Eosinophils 4.3 % (0-6); % Immature Granulocytes 0.3 % (0-0.5); % Lymphocytes 22.9 % (20.5-51.1); % Monocytes 12.4 % (1.7-9.3); % Neutrophils 59.6 % (42.2-75.2); Absolute Eosinophils 0.3 10^3/uL (0-0.7); Absolute Lymphocytes 1.4 10^3/uL (1.2-3.4); Absolute Monocytes 0.7 10^3/uL (0.1-0.6); Absolute Neutrophils 3.6 10^3/uL (1.4-6.5); Hematocrit 35.7 % (39.0-52.0); Hemoglobin 12.2 g/dL (13.0-18.0); Mean Corp Hgb Conc. 34.2 g/dL (33.0-37.0); Mean Corpuscular Hgb 33.8 pg (27.0-31.0); Mean Corpuscular Volume 98.9 fL (80.0-94.0); Mean Platelet Volume 11.5 fL (7.4-10.4); Nucleated Red Blood Cells % 0 % (-); Platelet Count 131 10^3/uL (130-400); Red Blood Cell Count 3.61 10^6/uL (4.70-6.10); Red Cell Dist. Width 13.8 % (11.5-14.5)
[2024-07-12 08:19] LABS: Glucose - Point of Care 98 mg/dl (70-99)
[2024-07-12 08:23] LABS: Blood Urea Nitrogen 14 mg/dl (9-20); Calcium 8.7 mg/dl (8.4-10.2); Carbon Dioxide 27 mmol/L (22-30); Chloride 102 mmol/L (98-107); Estimated Creatinine Clearance 83 ml/min; Glucose 93 mg/dl (70-99); Potassium 4.2 mmol/L (3.5-5.1); Sodium 135 mmol/L (135-145); eGFR > 60.00
--- NOTE | 2024-07-12 08:32 | W.PN.HOSP.TC ---
Addendum entered and electronically signed by Brad Russo MD 07/12/24 21:50:
Attending Addendum-
I saw and evaluated the patient. I reviewed the resident�s note and agree with findings and plan as documented in the resident�s note. Sub: seen post procedure. Sleepig from anesthesia. baseline aphasic. Seen with present. NAEON Full 12 point
ROS reviewed and negative except as documented- able to nod head. Exam: Vitals reviewed in chart GEN-NAD heart RRR lungs clear abd soft PEG in place LE no edema CBI in place clear urine in bag Neuro aphasia, follows commands minimally and
smiles, contracted extremities
Plan:
# Gross Hematuria
- multifactorial-Suspect 2/2 traumatic catheter exchange,associated with eliquis use, and stones.
- cont care in med surg
- cont to hold eliquis per uro
- DC CBI
- 07/12-Cystoscopy, complex laser cystolitholapaxy with extraction of stones, evacuation of clot with Dr. Chapman
- trend H and H
- urine cx-still not resulted, prelim GNB
- cont levaquin for now
# AFIB
- holding eliquis
- continue amiodarone
# Constipation
- bowel regimin
# Acute Hypoxemic Resp failure
- wean for o2 > 92%
# Dysphagia
- restart TF Jevity 1.5, 12 oz TID
- water flushes total of 1800/day, 150 before and after meals then 150 6x through the day
- slow feeding speed per spouse
- continue lansoprazole
- DC IVF
# Urinary Retention s/p bladder ca
- cont chronic Chavez
# H/O CVA
- functional quadreplegia
- completely bedbound
- poor QOL
- verified DNR with
# H/O c diff- hold Dificid
# Depression cont trazodone/fluoxetine
# Muscle contracture- cont baclofen/zabrina
DVT PPX - SCDs for now
Code status - DNR
Dispo DC home in am
Time spent coordinating care, review of plan of care with resident, personally reviewed records in EMR, med rec, consults, notes, labs, radiology, d/w nursing uro and � 53 mins
Original Note:
Today's Communication/Plan
-
;/
Assessment / Plan
Assessment / Plan
Assessment/Plan
#Gross hematuria Likely secondary to traumatic catheter exchange
-Continue CBI
-Continue to hold Eliquis
-History of bladder cancer treated by Dr. Chapman
-Urology following
-Follow H&H
-Continue Abx with Levaquin (D4)
-Urine culture gram negative bacilli, sensitivities pending
#Bladder stones
-s/p Cystolitholapaxy with clearing of bladder stone 07/12.
-Urology following
#A-fib
-Holding Eliquis
-Continue amiodarone for rate control.
#Chronic PEG tube
-Currently on Jevity 1.5, 12 ounces 3 times daily
-Water flushes 1800/day, 150 before and after meals then 150, 6 times through the day
-Slow feeding speed per spouse
-Continue lansoprazole
#Urinary Retention s/p bladder ca
- cont chronic Chavez
# H/O CVA
#Functional quadriplegia
- completely bedbound
#H/O c diff- hold Dificid
#Depression cont trazodone/fluoxetine
#Muscle contracture- cont baclofen/zabrina
DVT prophylaxis�SCDs
CODE STATUS DNR
Anticipated Discharge: 24 - 48 hours
Subjective/Interval History
-
Date of Service: July 12, 2024
Objective Data
-
Labs:
Laboratory Results
07/12/24
06:58
WBC 6.0
Hgb 12.2 L
Hct 35.7 L
Plt Count 131
Sodium 135
Potassium 4.2
Chloride 102
Carbon Dioxide 27
BUN 14
Creatinine 0.7
Glucose 93
Calcium 8.7
Vital Signs:
Vital Signs
Temp Pulse Resp BP Pulse Ox
97.7 F 56 18 150/70 94
07/12/24 08:18 07/12/24 08:18 07/12/24 08:18 07/12/24 08:18 07/12/24 08:18
I&O
07/11/24 07/12/24 07/13/24
06:59 06:59 06:59
Intake Total 0 / 0 915 / 915
Output Total 400 / 400 3150 / 3150
Balance -400 / -400 -2235 / -2235
Review of Systems
-
All other systems: Reviewed and negative (except as documented)
Physical Exam
-
General: No Apparent Distress
Respiratory: Clear to Auscultation
Cardiac: S1/S2
GI: Soft, Nontender, Nondistended and Other (PEG in place)
Genito-urinary: Continuous Bladder Irrigation (red-tinged urine in bag)
Musculoskeletal: No Edema
Neuro: Awake
--- NOTE | 2024-07-12 08:51 | PN.CDI ---
CDI
- -
CDI:
Physician Documentation Request
Admit Date: 07/10/24 09:24
Dear Doctor,
Please review the following and provide your response in the progress notes.
Clinical Indicators:
- Patient admit for hematuria
- 07/09 H&P 'history of multi embolic strokes from atrial fibrillation for which she is bedbound'
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
- Complete care for all Hygiene, activity, and feeding
Please provide further specificity as noted below:
Functional quadriplegia -complete immobility due to severe physical disability or frailty
Other (please specify)
Use of terms such as suspected, likely, concern for, or probable (associated with a specific diagnosis that is being evaluated, monitored, or treated as if it exists) are acceptable and can be coded in the inpatient setting, when documented at the
time of discharge.
Thank you,
Kolby Du RN
CDI Specialist
Please use your independent medical judgment in providing your response.
--- NOTE | 2024-07-12 09:02 | PN.CDI ---
CDI
- -
CDI:
Physician Documentation Request
Admit Date: 07/10/24 09:24
Dear Doctor,
Please review the following and provide your response in the progress notes.
Clinical Indicators:
- Patient admit for hematuria
- 07/11 PN 'Gross Hematuria - Suspect 2/2 traumatic catheter exchange in patient on AC and stones'
- 'hold eliquis'
Please clarify the relationship between these conditions:
Yes, _hematuria__ is related to/associated with/due to __Eliquis_.
No, _hematuria__ is not related to/associated with/due to _Eliquis__ but it is due to . (Please specify)
Unable to determine
Use of terms such as suspected, likely, concern for, or probable (associated with a specific diagnosis that is being evaluated, monitored, or treated as if it exists) are acceptable and can be coded in the inpatient setting, when documented at the
time of discharge.
Thank you,
Kolby Du RN
CDI Specialist
Please use your independent medical judgment in providing your response.
[2024-07-12] MEDS: LEVAQUIN IV (09:45)
--- NOTE | 2024-07-12 10:11 | W.SUR.POST ---
Surgical Immediate Post Op
Note
Pre Op Diagnosis: neurogencvic bladder with hematuria and bladder stones h/o bladder cancer
Post Op Diagnosis: lg bld]adder stones over 6 cm in aggregate lg clots no tumor
Procedure Performed:
comoplex laser cystolithalopaxy with extraction of stones and evacuatiomn clots
Primary Surgeon: gerardo
Secondary Surgeons:
Anesthesia: geovanna general
Estimated Blood Loss: 2cc
Fluids: nss
Drains/Shunts: 24 fr 3 wau costa
Specimens/Cultures:
stones
Doppler/Duplex/Angio (Y/N):
Complications: 0
Operative Findings: lg stones clots no cancer
[2024-07-12] MEDS: NSS 1000 IV (11:22)
[2024-07-12] MEDS: ROBITUSSIN 400 MG PO ×2 (11:23→19:53)
[2024-07-12] MEDS: PERIDEX 0.12% ORAL RINSE 15 ML PO ×4 (11:23→19:55)
[2024-07-12] MEDS: PREVACID 30 MG TUBE (11:23)
[2024-07-12] MEDS: ALPHAGAN 0.2% EYE DROPS 1 DROP BOTH EYES ×2 (11:27→19:55)
[2024-07-12] MEDS: PROZAC 40 MG TUBE (11:27)
[2024-07-12] MEDS: LIORESAL 5 MG TUBE ×2 (11:28→19:55)
[2024-07-12] MEDS: COSOPT EYE DROPS 1 DROP BOTH EYES ×2 (11:28→19:55)
[2024-07-12 11:49] LABS: Glucose - Point of Care 117 mg/dl (70-99)
--- NOTE | 2024-07-12 13:45 | CM ---
Chart reviewed. Care ongoing.
Post op.
Pt current w/ [facility] and has 24/ support at home from spouse and son
CM will cont to follow hospital course
Plan: Home, RETA w/ [facility] and family support
[2024-07-12] MEDS: PACERONE TUBE (14:26)
[2024-07-12] MEDS: TRIPLE PASTE 1 APPLIC TOPICAL (17:50)
[2024-07-12] MEDS: NEURONTIN 300 MG TUBE (19:52)
[2024-07-12] MEDS: SENNA SYRUP 17.6 MG PO (19:54)
[2024-07-12] MEDS: XALATAN OPHTHALMIC SOLUTION 1 DROP BOTH EYES (19:55)
[2024-07-12] MEDS: MIRALAX 17 GRAMS TUBE (19:55)
[2024-07-12] MEDS: DESYREL 25 MG TUBE (21:43)
[2024-07-13 03:35] VITALS: BP 121/59
[2024-07-13 06:43] LABS: % Basophils 0.1 % (0-2); % Eosinophils 0.1 % (0-6); % Immature Granulocytes 0.3 % (0-0.5); % Lymphocytes 14.5 % (20.5-51.1); % Monocytes 9.2 % (1.7-9.3); % Neutrophils 75.8 % (42.2-75.2); Absolute Monocytes 0.7 10^3/uL (0.1-0.6); Absolute Neutrophils 5.4 10^3/uL (1.4-6.5); Hematocrit 31.5 % (39.0-52.0); Hemoglobin 10.8 g/dL (13.0-18.0); Mean Corp Hgb Conc. 34.3 g/dL (33.0-37.0); Mean Corpuscular Hgb 33.5 pg (27.0-31.0); Mean Corpuscular Volume 97.8 fL (80.0-94.0); Mean Platelet Volume 10.8 fL (7.4-10.4); Nucleated Red Blood Cells % 0 % (-); Platelet Count 149 10^3/uL (130-400); Red Blood Cell Count 3.22 10^6/uL (4.70-6.10); Red Cell Dist. Width 13.6 % (11.5-14.5); White Blood Cell Count 7.1 10^3/uL (4.8-10.8)
[2024-07-13 07:08] LABS: Blood Urea Nitrogen 16 mg/dl (9-20); Calcium 8.4 mg/dl (8.4-10.2); Carbon Dioxide 26 mmol/L (22-30); Chloride 102 mmol/L (98-107); Estimated Creatinine Clearance 83 ml/min; Glucose 133 mg/dl (70-99); Magnesium 2.1 mg/dl (1.6-2.3); Potassium 4.3 mmol/L (3.5-5.1); Sodium 134 mmol/L (135-145); eGFR > 60.00
--- NOTE | 2024-07-13 07:26 | W.PN.HOSP.TC ---
Addendum entered and electronically signed by Brad Russo MD 07/13/24 23:17:
Attending Addendum-
I saw and evaluated the patient. I reviewed the resident�s note and agree with findings and plan as documented in the resident�s note. Sub: back to baseline per 'hes got swelling in his arms but i want to take him home' baseline aphasic. NAEON
Full 12 point ROS reviewed and negative except as documented- able to nod head. Exam: Vitals reviewed in chart GEN-NAD heart RRR lungs clear abd soft PEG in place LE trace edema UE +1 pitting edeam b/l costa with clear urine in bag Neuro
aphasia, follows commands minimally and smiles, contracted extremities
Plan:
# Gross Hematuria
- resolved
- multifactorial-Suspect 2/2 traumatic catheter exchange,associated with eliquis use, and stones.
- restart eliquis per uro
- 07/12-Cystoscopy, complex laser cystolitholapaxy with extraction of stones, evacuation of clot with Dr. Chapman
- urine cx-still not resulted, prelim GNB
- complete levaquin as OP
- asymptomatic
# AFIB
- restart eliquis
- continue amiodarone
# Constipation
- bowel regimin
# Edema
- volume overloaded
- lasix IV x 1
# Chronic Hypoxemic Resp failure
- DC on home o2
# Dysphagia
- cont TF Jevity 1.5, 12 oz TID
- water flushes total of 1800/day, 150 before and after meals then 150 6x through the day
- slow feeding speed per spouse
- continue lansoprazole
# Urinary Retention s/p bladder ca
- cont chronic Costa
# H/O CVA
- functional quadreplegia
- completely bedbound
- poor QOL
- verified DNR with
# H/O c diff- hold Dificid
# Depression cont trazodone/fluoxetine
# Muscle contracture- cont baclofen/zabrina
DVT PPX - SCDs for now
Code status - DNR
Dispo DC home with
Time spent coordinating care, DC planning, review of DC plan of care with resident, transition of care, review of records, med rec/scripts sent electronically, consults, notes, d/w consultants, nursing, family/, and CM� 32 mins
Original Note:
Today's Communication/Plan
-
;/
Assessment / Plan
Assessment / Plan
Assessment/Plan
#Gross hematuria Likely secondary to traumatic catheter exchange vs stones vs Eliquis use
-History of bladder cancer treated by Dr. Chapman in the past
-Urology following
-Follow H&H
-Continue Abx with Levaquin (D5)
-Will d/c home on Levaquin to complete 7 days total use
-07/12-Cystoscopy, complex laser cystolitholapaxy with extraction of stones, evacuation of clot with Dr. Chapman
-Urine culture gram negative bacilli, sensitivities pending
#Bladder stones
-s/p Cystolitholapaxy with clearing of bladder stone 07/12
-Urology following
#A-fib
-Anticoagulation with Eliquis
-Continue amiodarone for rate control.
#Chronic PEG tube
-Currently on Jevity 1.5, 12 ounces 3 times daily
-Water flushes 1800/day, 150 before and after meals then 150, 6 times through the day
-Slow feeding speed per spouse
-Continue lansoprazole
#Urinary Retention s/p bladder ca
- cont chronic Cosat
# H/O CVA
#Functional quadriplegia
- completely bedbound
#H/O c diff- hold Dificid
#Depression cont trazodone/fluoxetine
#Muscle contracture- cont baclofen/zabrina
DVT prophylaxis�SCDs
CODE STATUS DNR
Anticipated Discharge: Today
Subjective/Interval History
-
Date of Service: July 13, 2024
Objective Data
-
Labs:
Laboratory Results
07/13/24
06:23
WBC 7.1
Hgb 10.8 L
Hct 31.5 L
Plt Count 149
Sodium 134 L
Potassium 4.3
Chloride 102
Carbon Dioxide 26
BUN 16
Creatinine 0.7
Glucose 133 H
Calcium 8.4
Vital Signs:
Vital Signs
Temp Pulse Resp BP Pulse Ox
98.3 F 60 18 121/59 95
07/13/24 03:35 07/13/24 03:35 07/13/24 03:35 07/13/24 03:35 07/13/24 03:35
I&O
07/12/24 07/13/24 07/14/24
06:59 06:59 06:59
Intake Total 915 / 915 170 / 170
Output Total 3150 / 3150 700 / 700
Balance -2235 / -2235 -530 / -530
Review of Systems
-
All other systems: Reviewed and negative (except as documented)
Physical Exam
-
General: No Apparent Distress
Respiratory: Clear to Auscultation
Cardiac: S1/S2
GI: Soft, Nontender, Nondistended and Other (PEG in place)
Genito-urinary: Costa (yellow urine in bag)
Musculoskeletal: No Edema
Neuro: Awake
[2024-07-13 08:00] VITALS: BP 119/63
[2024-07-13] MEDS: COSOPT EYE DROPS 1 DROP BOTH EYES (10:01)
[2024-07-13] MEDS: ALPHAGAN 0.2% EYE DROPS 1 DROP BOTH EYES (10:02)
[2024-07-13] MEDS: PROZAC 40 MG TUBE (10:02)
[2024-07-13] MEDS: PERIDEX 0.12% ORAL RINSE 15 ML PO ×2 (10:05→14:33)
[2024-07-13] MEDS: PACERONE TUBE (10:05)
[2024-07-13] MEDS: LIORESAL 5 MG TUBE (10:05)
[2024-07-13] MEDS: PREVACID 30 MG TUBE (10:06)
[2024-07-13] MEDS: ROBITUSSIN 400 MG PO (10:06)
[2024-07-13] MEDS: LEVAQUIN 100 IV (10:08)
--- NOTE | 2024-07-13 13:49 | W.PN.URO.CBU ---
Today's Communication / Plan
-
no gu plan dischargeplanning per hospitalist
Assessment / Plan
-
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
Diagnosis
-
Date of Service: July 13, 2024
-
Patient Diagnosis:
Post Op Day:
Patient Diagnosis:
Post Op Day:
Patient Diagnosis:
retntion neurogenic bladder with bladder stones hematiuria
Post Op Day:
Subjective
-
s/plaser extractoiom bladde stones and remval clots
Objective
-
Vital Signs
Temp Pulse Resp BP Pulse Ox
98.2 F 51 16 119/63 94
07/13/24 08:00 07/13/24 08:00 07/13/24 08:00 07/13/24 08:00 07/13/24 08:00
Intake and Output
07/12/24 07/13/24 07/14/24
06:59 06:59 06:59
Intake Total 915 / 915 170 / 170
Output Total 3150 / 3150 700 / 700
Balance -2235 / -2235 -530 / -530
Intake:
IV fluids (Total) 740 / 740 50 / 50
normosol 50 / 50
Tube feeding 50 / 50 120 / 120
Feeding tube flush amount 125 / 125
Output:
Urine, Chavez 700 / 700
True Urine Output from CBI 3150 / 3150 0 / 0
True urine output from hand 0 / 0
irrigation
Laboratory Results
07/13/24 06:23
07/13/24 06:23
Review of Systems
-
: Difficulty Voiding
Physical Exam
-
General - well developed, well nourished, no acute distress
Chest - clear bilaterally
Abdomen - soft, non-tender, positive bowel sounds, no CVAT, no incisional pain or distention
Genitalia - normal
Rectal - normal
Skin - warm & dry with no rash
Neuro - AOx3, no motor deficits
Extremities - no clubbing, no cyanosis, no edema
Incision - clean, dry
Dressing - clean, dry, intact
Care Review
Data Reviewed
Discussed with: Nursing
--- NOTE | 2024-07-13 14:07 | CM ---
Per physician resident, pt is medically stable for d/c today
CM spoke w/ spouse to inform, agreeable for pt to d/c.
IMM reviewed, copy on chart
Pt will need ambulance transport, forms on chart. Pt spouse will be home to retrieve pt
Pt is current w/ [facility]. TT [facility] liaison to make aware of d/c today
Pt has 24/7 support from family
Plan: Home, RETA w/ [facility] and family support
[2024-07-13] MEDS: LASIX 40 MG IV (14:33)
[2024-07-13 14:42] VITALS: BP 124/64
[2024-07-13 16:29] VITALS: BP 108/59
--- NOTE | 2024-07-13 17:10 | W.DCSUMMARY ---
Addendum entered and electronically signed by Brad Russo MD 07/13/24 23:19:
Read, reviewed, and agree. See same day progress note for additional details. DC with - adamant about taking patient home. Lasix IV x 1 given. Diuresed nicely prior to DC.
Barrett Russo MD
Original Note:
Documented by User: Filiberto Fung MD, Resident 07/13/24 17:34
Discharge Summary
Discharge Data
Date of Admission: 07/10/24
Date of Discharge: 07/13/24
-
Pending Results: Yes
Additional Pending Results:
Bladder Stone analysis
Urine culture sensitivities
Hospital Course
Brief hospital course; This is an 83-year-old man with past medical history of multiple strokes, paroxysmal atrial fibrillation on anticoagulation, dysphagia status post PEG, history of bladder cancer status post tar-based, chronic UTIs, urinary
retention s/p chronic indwelling urinary catheter who presents to ED 07/09/2024 due to 1 day history of hematuria. Patient is already a chronic Chavez catheter for a number of years and is followed Dr. Chapman. Patient and his chronic Chavez
catheter changed by visiting nurse and afterwards he began to have hematuria. On presentation to ED, patient was afebrile with blood pressure was 110/50 with a pulse of 62 satting 99% on room air. CBI was initiated in the emergency department.
His Eliquis was held. Patient was eventually started on antibiotics with Levaquin. His previous CT scan from 06/25/2024 showed a thickened bladder contracted around the urinary catheter with large volume stone disease. Urology was consulted to
evaluate patient. Plan was to get a cystoscopy and complex laser cystolitholapaxy with extraction of stones and evacuation of clot with Dr. Chapman. This procedure was done 07/12 under the guidance of Dr. Chapman. His CBI was discontinued
afterwards. And Eliquis was resumed. Throughout the course of his hospital stay, hemoglobin remained at an appropriate level. He was continued on Levaquin postprocedure and will be discharged home on Levaquin antibiotics for an extra 2 days to
complete a 7-day total course. As at the time of discharge, urine culture had not fully resulted resulted, with preliminary result gram-negative bacilli and sensitivities pending. On the day of discharge, vitals blood pressure 108/59, pulse 50,
respiratory 20, afebrile, O2 sat 98% on 2 L of oxygen. Chavez present with yellow urine in bag.
Immediate postoperative report from urologist Dr. Chapman
OPERATIVE NOTE: The patient had broad-spectrum antibiotics. His
urine was still bloody. He was afebrile. He was taken to the
operating room and administered further antibiotics and given
adequate anesthesia. He was then prepped and draped in a sterile
field after the Chavez catheter from his penis was removed.
Cystoscopy with 30 and 70 degree lenses first showed a large amount
of clots in the bladder such that we could not see any of the
normal urothelial content. With this in mind, I used an Ellik
evacuator and evacuated all visible clots. After this was done
several large stones with an aggregate volume of 7, 8 or 9 cm were
seen in total. There was no evidence of any bladder cancer. There
was no evidence of any bleeding from the prostate. There was
multiple diverticula in the bladder, but no cancer. At this time, I
used a 1000 micron laser fiber using the Quantum 60 laser machine.
I was able to fragment all the stones. Evacuation was with an Ellik
evacuator and periodic review in the bladder with the cystoscope
revealed that he had no evidence of retained chips or injuries to
the bladder. There was no bleeding. A 24-[place] three-way Chavez
catheter was easily inserted into the bladder and was draining
clear urine irrigation at the end the procedure. CBI was kept on
and the patient is being transferred to the recovery room at the
time of this dictation, looking for sepsis. I did speak to the
Talya and explained that the procedure went well, but we have to
keep an eye on him for a possibility of complications including
sepsis, bleeding, etc.
Discharge Plan
-
Patient Disposition: Home with Home Care
Discharge Diagnosis/Procedures: Bladder stones
Gross hematuria likely secondary to traumatic catheter exchange
Atrial fibrillation
Chronic PEG tube
Urinary retention s/p bladder cancer
Condition: Fair
Referrals:
Jenn Dominguez CRNP [Family Provider] - in less than 1 week
Additional Discharge Medication Instructions: Levaquin 500mg for 2 more days to complete 7 days of abx
Prescriptions:
New
levofloxacin 500 mg tablet
500 mg feeding tube DAILY Qty: 2 0RF
Continued
multivitamin 1 EACH tablet
1 ea feeding tube NOON
baclofen 5 MG tablet
5 mg feeding tube BID
gabapentin 600 mg Tablet
300 mg feeding tube HS
trazodone 50 mg Tablet
25 mg feeding tube HS
bisacodyl [Dulcolax (bisacodyl)] 10 mg Suppository
10 mg IN DAILYPRN PRN (Reason: constipation)
guaifenesin 400 mg Tablet
400 mg PO BID Qty: 0
chlorhexidine gluconate 0.12 % Mouthwash
15 ml MUCOUS MEMBRANE QID
Lumigan 0.01 % Drops
1 drp BOTH EYES HS
Eliquis 5 MG tablet
5 mg feeding tube BID Qty: 30 0RF
Zinc Oxide Diaper Cream 1-10 % Cream
1 applic TOPICAL QPM
fluoxetine 20 mg Tablet
40 mg feeding tube DAILY
Fleet Enema 19-7 gram/118 mL Enema
118 ml IN DAILYPRN PRN (Reason: constipation)
dorzolamide-timolol 22.3-6.8 mg/mL Drops
1 drp BOTH EYES BID
atorvastatin 40 MG tablet
40 mg feeding tube HS
fluticasone propionate 50 mcg/actuation spray,suspension
1 spray intranasal HSPRN PRN (Reason: dry nares)
brimonidine 0.2 % Drops
1 drp BOTH EYES BID
ipratropium-albuterol 0.5 mg-3 mg(2.5 mg base)/3 mL Solution For Nebulization
3 ml INHALATION R TID
ipratropium-albuterol 0.5 mg-3 mg(2.5 mg base)/3 mL Solution For Nebulization
3 ml INHALATION R DAILYPRN PRN (Reason: sob/wheezing)
sennosides 8.8 mg/5 mL syrup
17.6 mg PO HS Qty: 236 0RF
polyethylene glycol 3350 [Miralax] 17 gram Powder In Packet
17 g feeding tube HS Qty: 0 0RF
acetaminophen-codeine 300-30 mg Tablet
1 tab feeding tube TIDPRN PRN (Reason: moderate pain)
lansoprazole 30 mg Tablet,Disintegrat, Delay Rel
30 mg PO DAILY
amiodarone 200 mg Tablet
200 mg feeding tube DAILY Qty: 30 0RF
budesonide 0.25 mg/2 mL Suspension For Nebulization
0.25 mg inhalation R BID Qty: 60 0RF
Dificid 200 mg tablet
200 mg PO Q12H Qty: 20 0RF
Discharge Orders:
Discharge Patient (As Directed); Ordered 07/13/24
Ordered By: Filiberto Fung
Discharge Date and Time
Discharge Date/Time: 07/13/24 17:06
Print Language: POLISH

Documented by User: Brad Russo MD 07/13/24 23:11
Discharge Summary
Discharge Data
Date of Admission: 07/10/24
Date of Discharge: 07/13/24
Discharge Plan
-
Patient Disposition: Home with Home Care
Discharge Diagnosis/Procedures: Bladder stones
Gross hematuria likely secondary to traumatic catheter exchange
Atrial fibrillation
Chronic PEG tube
Urinary retention s/p bladder cancer
Condition: Fair
Referrals:
Jenn Dominguez CRNP [Family Provider] - in less than 1 week
Additional Discharge Medication Instructions: Levaquin 500mg for 2 more days to complete 7 days of abx
Prescriptions:
New
levofloxacin 500 mg tablet
500 mg feeding tube DAILY Qty: 2 0RF
Continued
multivitamin 1 EACH tablet
1 ea feeding tube NOON
baclofen 5 MG tablet
5 mg feeding tube BID
gabapentin 600 mg Tablet
300 mg feeding tube HS
trazodone 50 mg Tablet
25 mg feeding tube HS
bisacodyl [Dulcolax (bisacodyl)] 10 mg Suppository
10 mg IN DAILYPRN PRN (Reason: constipation)
guaifenesin 400 mg Tablet
400 mg PO BID Qty: 0
chlorhexidine gluconate 0.12 % Mouthwash
15 ml MUCOUS MEMBRANE QID
Lumigan 0.01 % Drops
1 drp BOTH EYES HS
Eliquis 5 MG tablet
5 mg feeding tube BID Qty: 30 0RF
Zinc Oxide Diaper Cream 1-10 % Cream
1 applic TOPICAL QPM
fluoxetine 20 mg Tablet
40 mg feeding tube DAILY
Fleet Enema 19-7 gram/118 mL Enema
118 ml IN DAILYPRN PRN (Reason: constipation)
dorzolamide-timolol 22.3-6.8 mg/mL Drops
1 drp BOTH EYES BID
atorvastatin 40 MG tablet
40 mg feeding tube HS
fluticasone propionate 50 mcg/actuation spray,suspension
1 spray intranasal HSPRN PRN (Reason: dry nares)
brimonidine 0.2 % Drops
1 drp BOTH EYES BID
ipratropium-albuterol 0.5 mg-3 mg(2.5 mg base)/3 mL Solution For Nebulization
3 ml INHALATION R TID
ipratropium-albuterol 0.5 mg-3 mg(2.5 mg base)/3 mL Solution For Nebulization
3 ml INHALATION R DAILYPRN PRN (Reason: sob/wheezing)
sennosides 8.8 mg/5 mL syrup
17.6 mg PO HS Qty: 236 0RF
polyethylene glycol 3350 [Miralax] 17 gram Powder In Packet
17 g feeding tube HS Qty: 0 0RF
acetaminophen-codeine 300-30 mg Tablet
1 tab feeding tube TIDPRN PRN (Reason: moderate pain)
lansoprazole 30 mg Tablet,Disintegrat, Delay Rel
30 mg PO DAILY
amiodarone 200 mg Tablet
200 mg feeding tube DAILY Qty: 30 0RF
budesonide 0.25 mg/2 mL Suspension For Nebulization
0.25 mg inhalation R BID Qty: 60 0RF
Dificid 200 mg tablet
200 mg PO Q12H Qty: 20 0RF
Discharge Orders:
Discharge Patient (As Directed); Ordered 07/13/24
Ordered By: Filiberto Fung
Discharge Date and Time
Discharge Date/Time: 07/13/24 17:06
Print Language: POLISH
== END 2024-07-13 17:06 | disposition home health service (06) | DRG 693 ==
LOC: 4 EAST ACU 09:24
PROVIDERS: Specialist; Student in an Organized Health Care Education/Training Program; ADMITTING PHYSICIAN Internal Medicine; ATTENDING PHYSICIAN Family Medicine; CONSULT PHYSICIAN Specialist; EMERGENCY PHYSICIAN Student in an Organized Health Care Education/Training Program; FAMILY PHYSICIAN Nurse Practitioner Adult Health
PROC: 0TCB8ZZ Extirpation of Matter from Bladder, Via Natural or Artificial Opening Endoscopic (ICD-10-PCS; 2024-07-12)
DX: N21.0 Calculus in bladder (principal); R53.2 Functional quadriplegia; J96.11 Chronic respiratory failure with hypoxia; D68.32 Hemorrhagic disorder due to extrinsic circulating anticoagulants; R31.0 Gross hematuria; I48.0 Paroxysmal atrial fibrillation; Z93.1 Gastrostomy status; Z85.51 Personal history of malignant neoplasm of bladder; N31.9 Neuromuscular dysfunction of bladder, unspecified; Z66 Do not resuscitate; Z74.01 Bed confinement status; I69.391 Dysphagia following cerebral infarction; N32.3 Diverticulum of bladder; Z79.01 Long term (current) use of anticoagulants; E78.00 Pure hypercholesterolemia, unspecified; I10 Essential (primary) hypertension; Z87.891 Personal history of nicotine dependence; K59.00 Constipation, unspecified; K21.9 Gastro-esophageal reflux disease without esophagitis; Z88.0 Allergy status to penicillin; Z88.1 Allergy status to other antibiotic agents; Z87.440 Personal history of urinary (tract) infections; R60.9 Edema, unspecified; F32.A Depression, unspecified
CPT/HCPCS: 51702; 80048; 80053; 81003; 81015; 82365; 82962; 83735; 85025; 85027; 85610; 85730; 87077; 87086; 87186; 94640; 99285

== ENCOUNTER → 2024-08-01 13:15 | Outpatient (REF) | payer MEDICARE, OTHER, SELFPAY ==
[2024-08-01 13:45] LABS: Urine Albumin 2+ (Neg - Trace); Urine Bilirubin Negative (Negative); Urine Character Slightly Cloudy (Clear); Urine Color Yellow; Urine Glucose Negative (Negative); Urine Ketone Negative (Negative); Urine Leukocyte 3+ (Negative); Urine Nitrite Positive (Negative); Urine Occult Blood 4+ (Negative); Urine Urobilinogen Negative (Neg - 1+)
[2024-08-01 14:05] LABS: Urine Bacteria Few (Negative); Urine Squamous Cell 0-2 /LPF (Few); Urine Triple Phosphate Crystal Present
== END ==
LOC: REG 13:15
PROVIDERS: ATTENDING PHYSICIAN Nurse Practitioner Adult Health
DX: N39.0 Urinary tract infection, site not specified (principal)
CPT/HCPCS: 81003; 81015

== ENCOUNTER 2024-11-15 11:21 | Emergency (ER) | payer MEDICARE, OTHER, SELFPAY ==
[2024-11-15 11:28] VITALS: BP 146/79
[2024-11-15 11:29] VITALS: BMI 26.5
[2024-11-15 11:30] VITALS: BP 146/79
--- NOTE | 2024-11-15 11:43 | ED.GENMED ---
History of Present Illness
General
Chief Complaint: Catheter/Tube Problem
Source: patient
Exam Limitations: none
Time Seen by Provider: 11/15/24 11:26
History of Present Illness
History of Present Illness:
84-year-old male presents from nursing facility. Report from nursing facility states that his G-tube was removed at some point last night. Patient is nonverbal history of stroke.
Past History
Past History
ED Past Medical History: Cancer (Bladder CA), CVA, HTN, Hypercholesterolemia and Other (Expressive Aphasia)
ED Past Surgical History: Other (PEG tube)
Social History
Tobacco: Former smoker
Alcohol: None
Drug: None
Personal:
Living: with family
Family History
Family History: Other (reviewed and noncontributory)
Phy Exam
Physical Exam
Physical Exam:
General: Well-appearing male no acute distress
HEENT normocephalic atraumatic
Abdomen soft gastrostomy site noticed no tube present no surrounding erythema
Course
Orders/Labs/Results
Orders:
Orders
11/15/24 11:42
Tube Check [CR Cont Inj Eval Tube(by Rad)] Urgent
Comment:
Reason For Exam: tube replacement
11/15/24 12:37
Chavez Placement- Treatment ONCE
Reason for insertion: Chronic Chavez on Admit
Vital Signs
Initial and Last Documented VS:
Initial Vital Signs
BP
146/79
11/15/24 11:28
Last Documented Vital Signs
Temp Pulse Resp BP Pulse Ox
98.0 F 52 19 146/79 100
11/15/24 11:30 11/15/24 11:30 11/15/24 11:30 11/15/24 11:30 11/15/24 11:30
MDM/Problems Addressed
Differential Diagnosis Includes:
G-tube was dislodged. Told it was an 18 [place] G-tube. IV placed the dislodged G-tube with a new 18 [place] G-tube. Tube check pending.
*Critical Care Note
Total Time (30-74mins, 75-104mins- exclusive of procedures): Not Applicable
Update Note
Update Note:
Tube check demonstrates tube is in the correct position. Upon reentry into the room the is now in the room. She states he has been leaking around his Chavez catheter for the last 2 days as well. She states he is due for an exchange. Will
exchange it today as it is malfunctioning. He will be stable for discharge back to the facility
ED Attending Note
-
Portions of this chart may have been created with voice recognition software.� Occasional wrong word or��sound alike� substitutions may have occurred due to the inherent limitations of voice recognition software.
Discharge Plan
Departure
Patient Disposition: Home (Routine Discharge)
Date of Disposition: 11/15/24
Time of Disposition: 12:40
Patient with high blood pressure during this ER visit?: No
Discharge Problem:
Dislodged gastrostomy tube
Prescriptions:
No Action
multivitamin 1 EACH tablet
1 ea feeding tube NOON
baclofen 5 MG tablet
5 mg feeding tube BID
gabapentin 600 mg Tablet
300 mg feeding tube HS
trazodone 50 mg Tablet
25 mg feeding tube HS
bisacodyl [Dulcolax (bisacodyl)] 10 mg Suppository
10 mg [place] DAILYPRN PRN (Reason: constipation)
guaifenesin 400 mg Tablet
400 mg PO BID Qty: 0
chlorhexidine gluconate 0.12 % Mouthwash
15 ml MUCOUS MEMBRANE QID
Lumigan 0.01 % Drops
1 drp BOTH EYES HS
Eliquis 5 MG tablet
5 mg feeding tube BID Qty: 30 0RF
Zinc Oxide Diaper Cream 1-10 % Cream
1 applic TOPICAL QPM
fluoxetine 20 mg Tablet
40 mg feeding tube DAILY
Fleet Enema 19-7 gram/118 mL Enema
118 ml [place] DAILYPRN PRN (Reason: constipation)
dorzolamide-timolol 22.3-6.8 mg/mL Drops
1 drp BOTH EYES BID
atorvastatin 40 MG tablet
40 mg feeding tube HS
fluticasone propionate 50 mcg/actuation spray,suspension
1 spray intranasal HSPRN PRN (Reason: dry nares)
brimonidine 0.2 % Drops
1 drp BOTH EYES BID
ipratropium-albuterol 0.5 mg-3 mg(2.5 mg base)/3 mL Solution For Nebulization
3 ml INHALATION R TID
ipratropium-albuterol 0.5 mg-3 mg(2.5 mg base)/3 mL Solution For Nebulization
3 ml INHALATION R DAILYPRN PRN (Reason: sob/wheezing)
sennosides 8.8 mg/5 mL syrup
17.6 mg PO HS Qty: 236 0RF
polyethylene glycol 3350 [Miralax] 17 gram Powder In Packet
17 g feeding tube HS Qty: 0 0RF
acetaminophen-codeine 300-30 mg Tablet
1 tab feeding tube TIDPRN PRN (Reason: moderate pain)
lansoprazole 30 mg Tablet,Disintegrat, Delay Rel
30 mg PO DAILY
amiodarone 200 mg Tablet
200 mg feeding tube DAILY Qty: 30 0RF
budesonide 0.25 mg/2 mL Suspension For Nebulization
0.25 mg inhalation R BID Qty: 60 0RF
Dificid 200 mg tablet
200 mg PO Q12H Qty: 20 0RF
levofloxacin 500 mg tablet
500 mg feeding tube DAILY Qty: 2 0RF
Activity Restrictions/Additional Instructions:
Return if needed
Interventions
Interventions:
*Risk Screen - Suicide Last Done: 11/15/24 11:27
*Neglect/Abuse Screening Last Done: 11/15/24 11:27
RG-[id number]-Yegnhzyjah Assessment Last Done: 11/15/24 12:33
ED-Male Genitourinary Assessment Last Done: 11/15/24 12:33
Discharge Date and Time
Print Language: [place]
[2024-11-15 12:19] VITALS: BP 141/79
[2024-11-15 13:00] VITALS: BP 154/80
== END 2024-11-15 13:49 | disposition home or self-care (01) ==
LOC: EMR 11:21
PROVIDERS: EMERGENCY PHYSICIAN Emergency Medicine; FAMILY PHYSICIAN Nurse Practitioner Adult Health
DX: Z46.59 Encounter for fitting and adjustment of other gastrointestinal appliance and device (principal); I10 Essential (primary) hypertension; E78.00 Pure hypercholesterolemia, unspecified; Z85.51 Personal history of malignant neoplasm of bladder; Z86.73 Personal history of transient ischemic attack (TIA), and cerebral infarction without residual deficits; Z87.891 Personal history of nicotine dependence
CPT/HCPCS: 99283; 43762; 49465

== ENCOUNTER → 2025-01-21 16:00 | Outpatient (REF) | payer MEDICARE, OTHER, SELFPAY ==
[2025-01-21 18:07] LABS: Urine Character Clear (Clear)
[2025-01-21 18:13] LABS: Urine Squamous Cell 0-2 /LPF (Few)
[2025-01-21 18:14] LABS: Urine Red Blood Cell 70-80 /HPF (0-2); Urine White Cell 30-40 /HPF (0-5)
== END ==
LOC: CLAB 16:00
PROVIDERS: ATTENDING PHYSICIAN Nurse Practitioner Adult Health
DX: R33.9 Retention of urine, unspecified (principal); Z87.442 Personal history of urinary calculi; R39.9 Unspecified symptoms and signs involving the genitourinary system
CPT/HCPCS: 81003; 81015; 87077; 87086; 87186

== ENCOUNTER 2025-04-25 06:06 | Inpatient (IN) | payer MEDICARE, OTHER, SELFPAY ==
[2025-04-25] VITALS (15 sets, daily range): BP systolic 107–137; BP diastolic 54–77; BMI 26.3; BMI 24.4
[2025-04-25] MEDS: TYLENOL/FEVERALL 650 MG RECTAL (02:59)
[2025-04-25 03:01] LABS: Hematocrit 38.4 % (39.0-52.0); Hemoglobin 12.8 g/dL (13.0-18.0); Mean Corp Hgb Conc. 33.3 g/dL (33.0-37.0); Mean Corpuscular Volume 101.3 fL (80.0-94.0); Nucleated Red Blood Cells % 0 % (-); Platelet Count 157 10^3/uL (130-400); Red Cell Dist. Width 14.1 % (11.5-14.5)
[2025-04-25] MEDS: NSS 2000 IV (03:07)
[2025-04-25 03:14] LABS: ALT (SGPT) 17 U/L (0-50); AST (SGOT) 19 U/L (17-59); Albumin 3.5 g/dl (3.5-5.0); Alkaline Phosphatase 71 U/L (38-126); Blood Urea Nitrogen 17 mg/dl (9-20); Calcium 8.8 mg/dl (8.4-10.2); Carbon Dioxide 30 mmol/L (22-30); Chloride 96 mmol/L (98-107); Estimated Creatinine Clearance 89 ml/min; Glucose 99 mg/dl (70-99); Potassium 4.4 mmol/L (3.5-5.1); Sodium 129 mmol/L (135-145); Total Protein 7.0 g/dl (6.3-8.2); eGFR > 60.00
[2025-04-25] MEDS: LIDOCAINE URO-JET 2% 1 SYRINGE TOPICAL (03:16)
[2025-04-25] MEDS: DUONEB 3 ML INH ×3 (03:52→19:42)
[2025-04-25 03:53] LABS: Urine Character Cloudy (Clear)
[2025-04-25 04:28] LABS: Urine Red Blood Cell >100 /HPF (0-2)
--- NOTE | 2025-04-25 04:39 | ED.GENMED ---
History of Present Illness
General
Chief Complaint: Male Genito-Urinary Symptoms
Source: patient, spouse and previous hospital records (Previous hospitalization June of this year for similar event, gross hematuria with chronic indwelling Chavez catheter. )
Exam Limitations: clinical condition and dementia
Time Seen by Provider: 04/25/25 02:49
Nursing documentation reviewed up to this point in time: agreed with
History of Present Illness
History of Present Illness:
This is an 84-year-old gentleman with complex past medical history including PAF, chronically maintained on Eliquis, history of multiple embolic strokes, chronically bedbound, aphasia, dysphagia status post PEG, history of bladder cancer, chronic
UTIs and chronic urinary retention with chronic indwelling Chavez catheter. He also has history of hypertension, aspiration pneumonia, COPD, chronically O2 dependent at 2 L nasal cannula..
He resides at home with his . has help with his daily care with their adult son who resides with him as well as home health aides and nursing care.
According to , Chavez catheter was changed yesterday by home health care nurse. Sometime after this he developed hematuria that persisted and worsened tonight. called the home health care nurse who came out this evening and attempted to
flush the catheter without success, remove the catheter and attempted to insert another Chavez catheter without success. As such was sent to the ED for further evaluation.
Upon arrival to the ED patient found to be febrile. was unaware that patient was running a fever.
He does have history of COPD, chronic oxygen dependence at 2 L nasal cannula, chronic 'congestion' which states is stable and unchanged. She has not noticed an increased cough. He has had no vomiting. No complaints of abdominal pain. She
does note somewhat chronic intermittent loose stools. She states he passed 2 small loose stools yesterday. There has been no hematochezia.
Upon review of records, similar episode of hematuria during hospitalization June 2024. He was noted to have neurogenic bladder, stones in the bladder, underwent cystoscopy for clot removal and laser extraction of bladder stones.
Urine culture was positive for procidentia, he was treated with IV antibiotics at that time.
There was reported allergy to cephalosporins as well as penicillin and vancomycin. Reportedly tolerates meropenem without difficulty.
Past History
Past History
ED Past Medical History: Arrthythmia (Atrial fibrillation), Cancer (Bladder CA), CVA (Multiple embolic CVAs. Bedbound, expressive aphasia), HTN, Hypercholesterolemia and Other (Expressive Aphasia, neurogenic bladder-chronic indwelling Chavez
catheter, bladder stones)
ED Past Surgical History: Other (PEG tube)
Social History
Tobacco: Former smoker
Alcohol: None
Drug: None
Personal:
Living: with family
Employment: Disabled
Family History
Family History: Other (reviewed and noncontributory)
Phy Exam
Physical Exam
Physical Exam:
GENERAL: 84-year-old gentleman appears chronically debilitated, bedbound, nasal cannula oxygen in place. He is awake and alert, answers simple yes/no questions appropriately. Overall appears in no acute distress. is accompanying.
EYE: pupils equal and reactive. anicteric
NECK: Supple, nontender, no meningismus, no significant adenopathy.
ENT: posterior pharynx is clear, oral mucosa is mildly dry. No rhinorrhea.
CARDIAC: Regular rate and rhythm. no murmur.
LUNGS: Very mild resting tachypnea, scattered expiratory wheezing bilaterally with mildly decreased breath sounds at bases. No rhonchi nor rales.
ABDOMEN: Soft, nondistended, without focal tenderness, no r/g, no cvat. normoactive BS.
NEUROLOGICAL: Awake and alert, answers simple yes/no questions appropriately otherwise nonverbal, bedbound.
SKIN: Warm and dry, normal color, skin intact. No rash.
MUSCULOSKELETAL: No C/C/E. peripheral pulses are full and equal b/l. No palpable tenderness.
PSYCH: Normal and appropriate interaction.
Sepsis
Sepsis Screening
Sepsis Assessment: Sepsis
Sepsis Screen
Sepsis Screen: Sepsis
Date: 04/25/25
Time: 05:30
Course
Orders/Labs/Results
Orders:
Orders
04/25/25 02:36
Cardiac Monitoring- Treatment ONCE
IV Insert/Care/Rem.- Treatment PRN
O2 Therapy [RESP] Urgent
Titrate/Wean O2 to maintain O2 sat greater than (%): 93
Special Instructions: TO MAINTAIN CONTINUOUS O2 SATS > OR = 93%
04/25/25 02:40
Complete Blood Count/With Diff Urgent
Comprehensive Metabolic Panel Urgent
Lactic Acid Q4H
Comment: ON ICE, CANCEL 2ND ORDER IF FIRST LACTIC ACID LEVEL <2
Blood Culture Q20M
GUILLERMINA Source: Blood/Venous
Specimen Description:
Comment: Urgent from separate sites. If patient screens positive for possible sepsis
04/25/25 02:51
Chavez Placement- Treatment ONCE
Reason for insertion: Chronic Chavez on Admit
0.9% Sodium Chloride 1000 ml [Nss] 2,000 ml IV BOLUS
Acetaminophen [Tylenol/Feverall] 650 mg RECTAL NOW STA
04/25/25 02:53
Lidocaine 2% [Lidocaine Uro-Jet 2%] 1 syringe .ROUTE .[facility] ONE
04/25/25 03:15
Lidocaine 2% [Lidocaine Uro-Jet 2%] 1 syringe TOPICAL NOW STA
04/25/25 03:27
Urinalysis Reflex To Culture Urgent
Date Specimen was Collected: 04/25/25
Time Specimen was Collected: 02:36
Urine Microscopic Reflex Cult Urgent
Blood Culture Q20M
GUILLERMINA Source: Blood/Venous
Specimen Description:
Comment: Urgent from separate sites. If patient screens positive for possible sepsis
Urine Culture Urgent
GUILLERMINA Source: U
Specimen Description:
Date Specimen was Collected: 04/25/25
Time Specimen was Collected: 02:36
04/25/25 03:45
Ipratropium/Albuterol Sulfate [Duoneb] 3 ml INH R NOW STA
CR Chest Portable - 1 View Urgent
Comment:
Reason For Exam: fever, cough
Reason Study Needs to be Portable: Unable to Transport
04/25/25 03:53
COVID-19 Antigen Urgent
Source: Nasal Swab
Influenza A+B Rapid Molecular Urgent
GUILLERMINA Source: Nasal Swab
Specimen Description:
04/25/25 04:55
CT Abd/pelvis W Iv Cont Urgent
Comment:
Reason For Exam: ACUTE HEMATURIA. HX BLADDER STONES, BLADDER CA
04/25/25 05:35
Aztreonam [Azactam] 2,000 mg IV NOW STA
04/25/25 05:58
Admit/Transfer Patient As Directed
Co-Sign Provider:
Level of Care: Inpatient admission
Assign to:: Medical/Surgical
Physician / Group: Jm
Diagnosis: Hematuria, CAUTI
Reason for Hospitalization: Hematuria, CAUTI
Expected length of stay greater than two midnights?: Yes
ELOS- Estimated Length of Stay in days: 3
I certify the patient meets the requirements for IP care: Yes
04/25/25 05:59
PRN Pain Medication Management As Directed
May give lesser potent ordered pain med per pt: Yes
preference::
Protocol:: Medication orders for pain may be administered in a
manner that supports deferring to patient preference
when the pt is:
- Requesting an ordered lesser potent pain medication.
Least to most potent pain medications are defined
as: acetaminophen < NSAID < tramadol < opioids
(morphine, oxycodone, hydromorphone).
- Requesting a lesser dose of the same medication IF
ORDERED.
- Requesting a less intrusive route of administration
if both routes are prescribed by the provider (PO <
IV).
04/25/25 06:00
Code Status As Directed
Resuscitation Status: Do not resuscitate
Reached after discussion with pt or family/Healthcare POA: Yes
DNR Bracelet Application ONCE
Abnormal Lab Results
04/25/25 04/25/25
02:40 03:27
WBC 14.7 H 10^3/uL
(4.8-10.8)
RBC 3.79 L 10^6/uL
(4.70-6.10)
Hgb 12.8 L g/dL
(13.0-18.0)
Hct 38.4 L %
(39.0-52.0)
MCV 101.3 H fL
(80.0-94.0)
MCH 33.8 H pg
(27.0-31.0)
Abs Immat Gran (auto) 0.1 H 10^3/uL
(0-0.05)
Absolute Neuts (auto) 12.3 H 10^3/uL
(1.4-6.5)
Absolute Lymphs (auto) 0.9 L 10^3/uL
(1.2-3.4)
Absolute Monos (auto) 1.2 H 10^3/uL
(0.1-0.6)
Neutrophils % 83.3 H %
(42.2-75.2)
Lymphocytes % 6.2 L %
(20.5-51.1)
Sodium 129 L mmol/L
(135-145)
Chloride 96 L mmol/L
(98-107)
Ur Occult Blood Reflex 4+ A
(Negative)
Leukocyte Esterase Rfl 2+ A
(Negative)
Urine RBC >100 A /HPF
(0-2)
Urine Albumin (Reflex) 3+ A
(Neg - Trace)
04/25/25 02:40
04/25/25 02:40
Vital Signs
Initial and Last Documented VS:
Initial Vital Signs
Temp Pulse Resp BP Pulse Ox
101.1 F H 78 26 126/59 100
04/25/25 02:24 04/25/25 02:24 04/25/25 02:24 04/25/25 02:24 04/25/25 02:24
Last Documented Vital Signs
Temp Pulse Resp BP Pulse Ox
101.1 F H 67 19 123/59 98
04/25/25 02:24 04/25/25 06:45 04/25/25 06:45 04/25/25 04:00 04/25/25 06:45
MDM/Problems Addressed
Differential Diagnosis Includes:
The Differential Diagnosis includes, in no particular order and is not limited to:
1. Urinary tract infection
2. Urethral or bladder trauma
3. Anticoagulation-related bleeding
4. Catheter-associated urinary tract infection
5. Bladder cancer
6. Prostatitis
7. Pyelonephritis
8. Urolithiasis
9. Acute kidney injury
10. Cystitis
MDM/Problems Addressed:
Acute hematuria
Acute febrile illness
Concern for recurrent UTI, sepsis, coagulopathy
Pneumonia is another consideration especially as patient is chronically bedbound, prior history of aspiration pneumonia
COVID-19, influenza are less likely.
Upon review of records, concern for recurrent bladder stones, recurrent bladder cancer are also a consideration.
Chronically maintained on Eliquis, this increases risk of bleeding.
Patient arrived to the ED via EMS. There is no Chavez catheter in place. now states home health nurse removed the catheter and was unable to reinsert a new catheter.
Bladder scan reveals at least 300 mL in the bladder thus Chavez catheter inserted by nursing staff, three-way Chavez catheter inserted in preparation for potential CBI if needed.
Initial output approximately 300 mL darkly bloody urine in catheter continues to drain darkly bloody urine.
Labs are pending as is urinalysis.
Will plan for portable chest x-ray assess for potential pneumonia and due to prior history of bladder stones will check CT abdomen pelvis as well.
Will plan for IV antibiotics for potential UTI and patient will require acute hospitalization for potential sepsis, potential need for CBI. Will hold Eliquis.
Chronic conditions affecting care: HTN, Arrhythmia, Neurological disorder, Cancer and Other (Bladder stones, neurogenic bladder)
*Radiology
Radiology exam reviewed: preliminary read by ED provider (Portable chest x-ray shows clear lung prieto.)
*Pulse Oximetry
SaO2: 100
Nasal Cannula flow liters per minute: 96
Patient hypoxic: no
*Charger Operator Helper Interpretation
Rate: normal
Interpretation: normal
Rhythm: sinus
*Critical Care Note
Total Time (30-74mins, 75-104mins- exclusive of procedures): Not Applicable
Update Note
Update Note:
04:45
Chavez catheter continues to drain grossly bloody urine but no evidence of recurrent obstruction.
Labs remarkable for elevated white blood cell count of 14.7. Trending up from previous normal results in June.
Mild but stable anemia.
Mild hyponatremia is a new, with normal renal function.
Urinalysis shows gross hematuria. Urine culture is pending.
Lactic acid is normal at 1.0.
Patient remains hemodynamically stable.
IV fluids infusing.
[facility] a.m. initiated for coverage of potential complex UTI.
CT abdomen pelvis results are pending but upon my review there is note of thickened bladder wall, calcifications posterior bladder wall which may be chronic bladder stones in nature. No evidence of hydronephrosis. Stool within the rectal vault.
No obstruction.
Will admit to hospitalist service.
ED Attending Note
-
Portions of this chart may have been created with voice recognition software.� Occasional wrong word or��sound alike� substitutions may have occurred due to the inherent limitations of voice recognition software.
Discharge Plan
Departure
Patient Disposition: Admit
Date of Disposition: 04/25/25
Time of Disposition: 05:42
Admit to: Med/Surg
Admit to doctor: Jm
Presentation/result/management discussed w/ accepting MD/DO: Hospitalist
Condition: Serious
Discharge Problem:
acute recurrent hematuria, Chronic indwelling Chavez catheter, PEG (percutaneous endoscopic gastrostomy) status, Aphasia, History of bladder cancer, History of CVA with residual deficit, COPD (chronic obstructive pulmonary disease), Chronic
respiratory failure with hypoxia, Paroxysmal A-fib, Hemorrhagic disorder due to extrinsic circulating anticoagulants, fever r/o sepsis
Interventions
Interventions:
*Risk Screen - Suicide Last Done: 04/25/25 02:33
*General Assessment Last Done: 04/25/25 02:33
*Neglect/Abuse Screening Last Done: 04/25/25 02:33
*ED- Fall Risk Assessment Last Done: 04/25/25 02:33
*ED COVID-19 Vaccine History Last Done: 04/25/25 02:33
*ED Influenza Vaccine History Last Done: 04/25/25 02:33
ED-Male Genitourinary Assessment Last Done: 04/25/25 02:29
[2025-04-25 04:49] LABS: COVID-19 Antigen Negative (Negative)
--- NOTE | 2025-04-25 06:03 | HPS.HSE ---
Family Physician
-
Family Physician: Jenn Dominguez PA-C
Chief Complaint
-
Hematuria
History of Present Illness
Patient is an 84y M with PMH significant for chronic Chavez and PEG-dependence s/p prior CVA who presents to ED for evaluation of gross hematuria following Chavez exchange today. History obtained from at the bedside. Patient had his Chavez
changed on Tuesday. notes that urine seemed 'slow' following the exchange. Later in the evening, urine became grossly bloody with visible clots. called VN around 1 AM and they came and attempted to irrigate the catheter without
success. Patient was brought to the ED for further evaluation.
In the ED catheter was exchanged again and has been draining grossly bloody urine.
Patient is also noted to have temp in the ED of 101.1.
He is on Eliquis for A-Fib / prior stroke. His last dose was this evening.
He is non-verbal at baseline and unable to contribute to this history.
Patient has had similar episodes in the past - most recently in June 2024 when he was treated for bladder stones.
Medical History
Past Medical History
Past Medical History: Reports Other
Additional Past Medical History:
CVA (2019) with Residual Aphasia / Dysphagia
Bladder Cancer
Chronic HAIDER / Chronic Chavez
Paroxysmal Atrial Fibrillation
Hypertension
Glaucoma
GERD
COPD / Chronic Hypoxemia on Home O2
Past Surgical History: Reports Other
Additional Past Surgical History:
PEG
TURBT
Social History
Tobacco: Former Smoker (Quit > 10 years ago.)
Alcohol: None
Drug: None
Living: With Family
Family History
Family History: Not pertinent
Allergies / Home Medications
Allergies reflects when Allergies were last updated in [facility].
Home Medications with original date entered in [facility]
Allergy/Medication List:
Allergies
Allergy/AdvReac Type Severity Reaction Status Date / Time
Cephalosporins Allergy Swelling/tolerates Verified 07/28/23 10:02
meropenem
Penicillins Allergy Swelling/tolerates Verified 07/28/23 10:02
meropenem
vancomycin Allergy Rash Verified 07/28/23 10:02
Home Medications
baclofen 5 mg tablet 5 mg feeding tube BID Muscle spasms 08/23/20
multivitamin 1 ea feeding tube NOON Supplement 08/23/20
bimatoprost 0.01 % eye drops (Lumigan) 1 drp BOTH EYES HS Eye condition 02/17/22
bisacodyl 10 mg rectal suppository (Dulcolax (bisacodyl)) 10 mg NH DAILYPRN PRN constipation 02/17/22
chlorhexidine gluconate 0.12 % mouthwash 15 ml mucous membrane QID ORAL CARE 02/17/22
gabapentin 600 mg tablet 300 mg feeding tube BID Pain 02/17/22
guaifenesin 400 mg tablet 400 mg PO TID Cough ##0 02/17/22
trazodone 50 mg tablet 25 mg feeding tube HS Sleep 02/17/22
apixaban 5 mg tablet (Eliquis) 5 mg feeding tube BID Blood clot prevention/tx #30 tabs 02/20/22
dimethicone 1 %-zinc oxide 10 %-vit A and D-aloe vera topical cream (Zinc Oxide Diaper Cream) 1 applic topical QPM diaper changes 02/01/23
atorvastatin 40 mg tablet 40 mg feeding tube HS High Cholesterol 07/28/23
brimonidine 0.2 % eye drops 1 drp BOTH EYES BID Eye Condition 07/28/23
dorzolamide 22.3 mg-timolol 6.8 mg/mL eye drops 1 drp BOTH EYES BID Eye Condition 07/28/23
fluoxetine 20 mg tablet 40 mg feeding tube DAILY Mental Health 07/28/23
fluticasone propionate 50 mcg/actuation nasal spray,suspension 1 spray intranasal HSPRN PRN dry nares 07/28/23
ipratropium 0.5 mg-albuterol 3 mg (2.5 mg base)/3 mL nebulization soln 3 ml inhalation R TID Lung/Breathing Issues 07/28/23
ipratropium 0.5 mg-albuterol 3 mg (2.5 mg base)/3 mL nebulization soln 3 ml inhalation TID 07/28/23
sodium phosphates 19 gram-7 gram/118 mL enema (Fleet Enema) 118 ml NH DAILYPRN PRN constipation 07/28/23
sennosides 8.8 mg/5 mL oral syrup 17.6 mg (10 mL) PO HS #236 mL 07/31/23
acetaminophen 300 mg-codeine 30 mg tablet 1 tab feeding tube TIDPRN PRN moderate pain 06/16/24
lansoprazole 30 mg delayed release,disintegrating tablet 30 mg PO DAILY GERD, VIA PEG TUBE 06/23/24
amiodarone 200 mg tablet 200 mg feeding tube DAILY #30 tabs 06/28/24
budesonide 0.25 mg/2 mL suspension for nebulization 0.25 mg (2 mL) inhalation R BID #60 mL 06/28/24
cyanocobalamin (vitamin B-12) 1,000 mcg tablet 1,000 mcg PO DAILY VIA PEG 04/25/25
hydralazine 25 mg tablet 25 mg PO TID PRN systolic bp greater than 150via peg 04/25/25
nystatin 100,000 unit/mL oral suspension 5 ml PO QID 04/25/25
polyethylene glycol 3350 17 gram oral powder packet (Miralax) 17 g feeding tube HS PRN constipation 04/25/25
Review of Systems
-
Unable to obtain full review of systems at this time due to: Patient Non-verbal
History Source: Family
Respiratory: Denies Cough or Trouble Breathing
Abdomen/GI: Denies Abdominal Pain, Nausea, Vomiting or Diarrhea
: Reports Bleeding
Physical Exam
Vital Signs
Vital Signs
Temp Pulse Resp BP Pulse Ox
101.1 F H 65 20 123/59 99
04/25/25 02:24 04/25/25 05:00 04/25/25 05:00 04/25/25 04:00 04/25/25 05:00
Physical Exam
General: Other (84y M in no apparent distress. Awake and alert with good eye contact. Non-verbal at baseline.)
HEENT: Other (Dry MM. Neck supple.)
Respiratory: Clear; No Wheezes, Rales or Rhonchi
Cardiac: S1/S2 and Regular Rhythm; No Murmur
GI: Soft, Non Tender, Non Distended, Normal Bowel Sounds and Other (PEG in place without erythema, discharge.)
Genito-urinary: Other (Chavez in place without evident bleeding at meatus at present. Grossly bloody urine in device.)
Musculoskeletal: No Clubbing, No Cyanosis and No Edema
Neuro: Awake and Alert
Laboratory Results
-
04/25/25 02:40
04/25/25 02:40
Laboratory Results
Lactic Acid Cancelled 04/25/25 02:45
Total Bilirubin 0.4 mg/dl (0.2-1.3) 04/25/25 02:40
AST 19 U/L (17-59) 04/25/25 02:40
ALT 17 U/L (0-50) 04/25/25 02:40
Alkaline Phosphatase 71 U/L (38-126) 04/25/25 02:40
Impression/Plan
-
A/P: Patient is an 84y M with PMH significant for expressive aphasia / bed-bound / debilitation s/p CVA who presents to ED for evaluation of gross hematuria following Chavez exchange earlier today.
Gross Hematuria
Fever / Suspected CAUTI
- Admit for further evaluation and treatment.
- Chavez exchanged in the ED. CBI for now until free of clots / draining well.
- Hold Eliquis.
- Empiric abx (meropenem given multiple med allergies / prior sensitivities).
- Follow fever curve. IVFs / supportive care.
- Follow-up culture data and adjust abx as appropriate.
- CT done in the ED shows bladder inflammation with dependent stones again seen.
- Urology evaluation for additional recommendations.
- Underwent cystolitholapaxy June 2024 for similar presentation.
Hyponatremia
- Mild / acute on chronic.
- IVF support as noted above. Follow for changes.
Paroxysmal Atrial Fibrillation
History of CVA
Expressive Aphasia
Bed-Bound
PEG / Chavez Dependent
- Stable. Holding Eliquis acutely as noted above given urethral trauma / bleeding.
- Resume as soon as reasonable to do so for stroke risk reduction.
- Continue amiodarone.
- Continue supportive care, PEG care, repositioning, etc.
- Hold TF acutely pending Urology eval / any potential intervention for hematuria.
COPD
Chronic Hypoxemia on Home O2
- Stable. No noted dyspnea or increased hypoxemia.
- Continue inhaled medications.
- Continue OO2 support.
Depression
- Stable. Continue outpatient med regimen.
Glaucoma
- Stable. Continue outpatient eye gtt regimen.
DVT Prophylaxis: SCDs
Code Status: DNR
[2025-04-25] MEDS: AZACTAM 2000 MG IV (06:08)
--- NOTE | 2025-04-25 08:21 | CONS.URO ---
Consultation
-
Date/Time Consultation Performed: 04/25/25, 6:45AM
Requesting Provider: Jordy Oneal
Performing Provider: Gaviota
Reason for Consultation: hematuria, chronic costa
Medical History
History of Present Illness
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 Followed by Dr. Chapman
History obtained from at the bedside. notes that urine seemed 'slow' following the exchange. Later in the evening, urine became grossly bloody with visible clots. called [facility] around 1 AM and they came and attempted to irrigate the
catheter without success. Patient was brought to the ED for further evaluation.
In the ED catheter was exchanged again to 22 3-way and has been draining grossly bloody urine.
Patient is also noted to have temp in the ED of 101.1.
He is on Eliquis for A-Fib / prior stroke. His last dose was yesterday
He is non-verbal at baseline and unable to contribute to this history.
Patient has had similar episodes in the past - most recently in June 2024 when he was treated for bladder stones, followed by Dr. Chapman. No bladder tumors visible during that cysto.
Past Medical History
Past Medical History: Other (Afib)
Family History
Family History: Reviewed & Not Pertinent
Allergies/Home Medications
Allergies
Allergy/AdvReac Type Severity Reaction Status Date / Time
Cephalosporins Allergy Swelling/tolerates Verified 07/28/23 10:02
meropenem
Penicillins Allergy Swelling/tolerates Verified 07/28/23 10:02
meropenem
vancomycin Allergy Rash Verified 07/28/23 10:02
Home Medications
�Medication �Instructions �Recorded �Confirmed �Type
baclofen 5 mg tablet 7.5 mg feeding tube BID Muscle 08/23/20 04/25/25 History
spasms
bimatoprost 0.01 % eye drops 1 drp BOTH EYES HS Eye condition 02/17/22 04/25/25 History
(Lumigan)
chlorhexidine gluconate 0.12 % 1 ml mucous membrane QID ORAL CARE 02/17/22 04/25/25 History
mouthwash
gabapentin 600 mg tablet 300 mg feeding tube BID 02/17/22 04/25/25 History
Neurological Condition
guaifenesin 400 mg tablet 400 mg PO TID via feeding tube ##0 02/17/22 04/25/25 History
trazodone 50 mg tablet 25 mg feeding tube HS Sleep 02/17/22 04/25/25 History
apixaban 5 mg tablet (Eliquis) 5 mg feeding tube BID Blood clot 02/20/22 04/25/25 Rx
prevention/tx #30 tabs
atorvastatin 40 mg tablet 40 mg feeding tube HS High 07/28/23 04/25/25 History
Cholesterol
brimonidine 0.2 % eye drops 1 drp BOTH EYES BID Eye Condition 07/28/23 04/25/25 History
dorzolamide 22.3 mg-timolol 6.8 1 drp BOTH EYES BID Eye Condition 07/28/23 04/25/25 History
mg/mL eye drops
fluoxetine 20 mg tablet 40 mg feeding tube DAILY Mental 07/28/23 04/25/25 History
Health
fluticasone propionate 50 1 spray intranasal HSPRN PRN dry 07/28/23 04/25/25 History
mcg/actuation nasal nares
spray,suspension
acetaminophen 300 mg-codeine 30 mg 1 tab feeding tube TIDPRN PRN 06/16/24 04/25/25 History
tablet moderate pain
lansoprazole 30 mg delayed 30 mg feeding tube DAILY 06/23/24 04/25/25 History
release,disintegrating tablet Gastrointestinal Issue
albuterol sulfate 2.5 mg/3 mL 2.5 mg inhalation R Q4HPRN PRN sob 04/25/25 04/25/25 History
(0.083 %) solution for nebulization
amiodarone 100 mg tablet 50 mg feeding tube DAILY Heart 04/25/25 04/25/25 History
Disease/Condition
budesonide 0.5 mg/2 mL suspension 0.5 mg inhalation R BID sob 04/25/25 04/25/25 History
for nebulization
hydralazine 25 mg tablet 25 mg feeding tube TIDPRN PRN 04/25/25 04/25/25 History
systolic bp greater than 150
nystatin 100,000 unit/mL oral 5 ml mucous membrane QID 04/25/25 04/25/25 History
suspension
polyethylene glycol 3350 17 gram 17 g feeding tube HS PRN 04/25/25 04/25/25 History
oral powder packet (Miralax) constipation
sennosides 8.6 mg tablet (senna) 17.2 mg feeding tube HS 04/25/25 04/25/25 History
Constipation
Physical Exam
Vital Signs
Vital Signs
Temp Pulse Resp BP Pulse Ox
101.1 F H 71 17 114/60 97
04/25/25 02:24 04/25/25 08:02 04/25/25 08:02 04/25/25 08:02 04/25/25 08:02
Lab / Testing Results
Laboratory Results
04/25/25 02:40
04/25/25 02:40
Physical Exam
General: Comfortable
HEENT: Normocephalic
Respiratory: Clear
GI: Soft and Non Tender
Genito-urinary: Costa Catheter (- draining red see through urine, no clots. )
Skin: Warm
Neuro: Awake
Assessment / Plan
-
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
3-way costa placed by ED staff. Urine light red, see-through, no clots. Eliquis being held.
CT reviewed, no hydronephrosis. Bladder and prostate with stranding, dependent layering bladder calculi - improved from prior.
Plan:
- Continue costa catheter - will manually irrigate today, possibly start CBI pending urine color/output/clots
- Hold anticoagulation
- Trend WBC and fever curve -- likely SIRS response to catheter placement/manipulation
- F/u UCx, BCx
- Continue abx
Data Reviewed
-
CT Scan: Image personally visualized and interpreted
Lab Data: Labs Reviewed
Old Records: Reviewed
--- NOTE | 2025-04-25 08:56 | W.PN.HOSP.TC ---
Today's Communication/Plan
-
Urology evaluation pending
Monitor for clot retention, may require CBI
Empiric antibiotics pending urine and blood cultures
N.p.o. for possible urologic intervention
Hold Eliquis
IV fluids
Follow hemoglobin
Assessment / Plan
Assessment / Plan
Impression
Gross hematuria secondary to possible Chavez trauma, bladder stones and anticoagulation with Eliquis
Fever upon presentation with concern for complicated UTI
Hyponatremia
Conditions prior to admission
Paroxysmal A-fib diagnosed at the time of acute CVA
Echo 10/26/2022: EF 55 to 60%, posterior MAC, trace MR, trace AR, trace TR, estimated PAP 31 mmHg no evidence of vegetation
Anticoagulation with Eliquis
Acute CVA 12/07.
� Neurologic sequela with residual aphasia, dysphagia, chronic PEG tube, neurogenic bladder with chronic Chavez catheter
Essential hypertension
Dyslipidemia
Recurrent UTI
Chronic hypoxemic respiratory failure on home O2 at 2 L
COPD
Glaucoma
Plan
Gross Hematuria
Fever / Suspected CAUTI
- Admit for further evaluation and treatment.
- Chavez exchanged in the ED. CBI for now until free of clots / draining well.
- Hold Eliquis.
- Empiric abx (meropenem given multiple med allergies / prior sensitivities).
- Follow fever curve. IVFs / supportive care.
- Follow-up culture data and adjust abx as appropriate.
- CT done in the ED shows bladder inflammation with dependent stones again seen.
- Urology evaluation for additional recommendations.
- Underwent cystolitholapaxy June 2024 for similar presentation.
Hyponatremia
- Mild / acute on chronic.
- IVF support as noted above. Follow for changes.
Paroxysmal Atrial Fibrillation
History of CVA
Expressive Aphasia
Bed-Bound
PEG / Chavez Dependent
- Stable. Holding Eliquis acutely as noted above given urethral trauma / bleeding.
- Resume as soon as reasonable to do so for stroke risk reduction.
- Continue amiodarone.
- Continue supportive care, PEG care, repositioning, etc.
- Hold TF acutely pending Urology eval / any potential intervention for hematuria.
COPD
Chronic Hypoxemia on Home O2
- Stable. No noted dyspnea or increased hypoxemia.
- Continue inhaled medications.
- Continue OO2 support.
Depression
- Stable. Continue outpatient med regimen.
Glaucoma
- Stable. Continue outpatient eye gtt regimen.
DVT Prophylaxis: SCDs
Code Status: DNR
Anticipated Discharge: 24 - 48 hours
Subjective/Interval History
-
Date of Service: April 25, 2025
Objective Data
-
Labs:
Laboratory Results
04/25/25
02:40
WBC 14.7 H
Hgb 12.8 L
Hct 38.4 L
Plt Count 157
Sodium 129 L
Potassium 4.4
Chloride 96 L
Carbon Dioxide 30
BUN 17
Creatinine 0.7
Glucose 99
Calcium 8.8
Total Bilirubin 0.4
AST 19
ALT 17
Alkaline Phosphatase 71
Vital Signs:
Vital Signs
Temp Pulse Resp BP Pulse Ox
101.1 F H 63 18 114/60 98
04/25/25 02:24 04/25/25 08:30 04/25/25 08:30 04/25/25 08:02 04/25/25 08:30
I&O
04/24/25 04/25/25 04/26/25
06:59 06:59 06:59
Output Total 850 / 850
Balance -850 / -850
Physical Exam
-
General: Well Developed and No Apparent Distress
HEENT: Normocephalic, Atraumatic and Moist Mucous Membranes
Respiratory: Clear to Auscultation
Cardiac: Regular Rhythm and S1/S2; Negative Murmur, Rub or Gallop
GI: Soft, Nontender, Nondistended, Normal Bowel Sounds and Peg Tube; Negative Organomegaly
Rectal: Deferred by Provider
Genito-urinary: Other (Chavez catheter in place with hemorrhagic urine)
Musculoskeletal: No Clubbing, No Cyanosis and No Edema
Skin: Negative Rash
Neuro: Awake, Alert and Other (Noncommunicative. Left hemiparesis.)
[2025-04-25] MEDS: NSS 1000 IV ×2 (09:37→18:13)
[2025-04-25] MEDS: PULMICORT 0.25 MG INH ×2 (11:55→19:48)
[2025-04-25] MEDS: MERREM 500 MG IV ×3 (12:17→23:53)
--- NOTE | 2025-04-25 12:34 | CM ---
Chart reviewed. Attempted to talk with patient at ED bedside
LVM with to complete IA
[2025-04-25] MEDS: DUONEB INH (14:05)
[2025-04-25] MEDS: PACERONE 200 MG TUBE (15:23)
[2025-04-25] MEDS: LIORESAL TUBE (15:23)
[2025-04-25] MEDS: STERILE WATER FOR INJECTION 10 ML IV ×2 (18:13→23:53)
[2025-04-25] MEDS: LIORESAL 5 MG TUBE (20:49)
[2025-04-25] MEDS: DESYREL 25 MG TUBE (20:49)
[2025-04-25] MEDS: TRUSOPT 2% OPHTHALMIC SOLUTION 1 DROP BOTH EYES (20:52)
[2025-04-25] MEDS: TIMOPTIC 0.5% OPHTHALMIC SOLUTION 1 DROP BOTH EYES (20:52)
[2025-04-25] MEDS: ALPHAGAN 0.2% EYE DROPS 1 DROP BOTH EYES (20:52)
[2025-04-25] MEDS: XALATAN OPHTHALMIC SOLUTION 1 DROP BOTH EYES (21:01)
[2025-04-26] MEDS: VENTOLIN NEBULES 2.5 MG INH (04:15)
[2025-04-26] MEDS: NSS 1000 IV (05:00)
[2025-04-26] MEDS: STERILE WATER FOR INJECTION 10 ML IV ×3 (05:01→17:31)
[2025-04-26] MEDS: MERREM 500 MG IV ×3 (05:01→17:32)
[2025-04-26] MEDS: PULMICORT 0.25 MG INH ×2 (07:13→19:33)
[2025-04-26] MEDS: DUONEB 3 ML INH ×3 (07:13→19:33)
[2025-04-26 07:33] VITALS: BP 155/68
[2025-04-26 07:36] LABS: Hematocrit 31.8 % (39.0-52.0); Hemoglobin 10.7 g/dL (13.0-18.0); Mean Corp Hgb Conc. 33.6 g/dL (33.0-37.0); Mean Corpuscular Volume 100.0 fL (80.0-94.0); Nucleated Red Blood Cells % 0 % (-); Platelet Count 120 10^3/uL (130-400); Red Cell Dist. Width 14.3 % (11.5-14.5)
[2025-04-26 07:37] LABS: INR 1.23; PT 16.0 Sec (11.4-14.6)
[2025-04-26 07:38] LABS: APTT 35.8 Sec (23.4-35.0)
[2025-04-26 08:05] LABS: Blood Urea Nitrogen 15 mg/dl (9-20); Calcium 8.3 mg/dl (8.4-10.2); Carbon Dioxide 27 mmol/L (22-30); Chloride 105 mmol/L (98-107); Estimated Creatinine Clearance 89 ml/min; Glucose 84 mg/dl (70-99); Potassium 4.5 mmol/L (3.5-5.1); Sodium 136 mmol/L (135-145); eGFR > 60.00
--- NOTE | 2025-04-26 08:28 | VNURNOTE ---
Addendum entered by Jessica Ambrosio RN 04/26/25 11:28:
[facility] Resumption referral placed in [facility]. Per [facility] records, pt has a hospital bed at home.
Original Note:
Chart reviewed. Patient is current with [facility]. Will continue to follow hospital course and DC plans.
--- NOTE | 2025-04-26 08:53 | WOUNDNOTE ---
WO RN note: Patient admitted with CAUTI. Patient lives with and is current with [facility]N.
See H&P for complete history.
PMH: Chavez, Peg, CVA with aphasia and dysphagia, a fib (Eliquis), non verbal, COPD (o2), TURBT, former smoker.
Wound Location and type/assessment: Patient admitted with: sacral/buttocks stage 2 pressure injury/chafed skin. L upper back scabbed lesion. L lower back skin tag. Abominal/groin mild MASD.
Appetite: NPO. Has feeding tube.
Pressure redistribution devices in place: [employer] Accumax. Patient immobile. Quilted heel pads.
Plan: Silicone border foam applied to sacral/buttocks. Waffle air overlay mattress applied and patient turned to L semi side lying position with help from PCT Joe and nurse student Staci. Heels off bed with pillow and quilted heel pads. Air chair
cushion given.
Will confirm orders with Dr. Donovan and update nurse.
Care plan to be updated. Will sign off. Call if needed.
Note to case management of equipment requested for discharge: Hospital bed with air or gel overlay or air mattress.
Recommend follow up at wound care center upon discharge if needed.
--- NOTE | 2025-04-26 09:07 | CM ---
Addendum entered by Isamar Green 04/26/25 15:25:
[employer]
[facility] [phone]
Original Note:
IA completed with assistance of dtr. Will connect with today for additional details.
.Lives at home with and son. Son is paid caregiver with waiver program. Two story home, with full bathroom on 1st floor. No insecurities identified. Current with [facility]N. Hx of acute rehab at [facility] after his CVA. Confirmed PCP, Rx,
insurance and drug coverage
Pt is bedbound. Has electric wheelchair. Is total care, Has tube feed (jevity) 350 cc 3x/day. Permanent costa. Continuous O2 via n/c. Pt has concentrator , portable tank and nebulizer (3x/day)
On IV ABX and IVF
PCP: Jenn Dominguez
RX: Ele/ Marry
Plan: DC to home with [facility] and family caregiver when medically stable
--- NOTE | 2025-04-26 09:08 | WOUNDNOTE ---
BACK (UPPER LEFT)
[2025-04-26] MEDS: LIORESAL 5 MG TUBE ×2 (09:36→21:14)
[2025-04-26] MEDS: ALPHAGAN 0.2% EYE DROPS 1 DROP BOTH EYES ×2 (09:36→21:14)
[2025-04-26] MEDS: PACERONE 200 MG TUBE (09:36)
[2025-04-26] MEDS: TIMOPTIC 0.5% OPHTHALMIC SOLUTION 1 DROP BOTH EYES ×2 (09:37→21:15)
[2025-04-26] MEDS: TRUSOPT 2% OPHTHALMIC SOLUTION 1 DROP BOTH EYES ×2 (09:38→21:14)
--- NOTE | 2025-04-26 09:45 | WOUNDNOTE ---
WO RN note: Kirill BURGOS nurse liaison Carolina Ambrosio asking if [facility] has a hospital bed with air or gel overlay or air mattress. If not, recommend patient have one. Carolina responded she will inquire.
[2025-04-26 10:21] VITALS: BMI 24.4
--- NOTE | 2025-04-26 10:22 | PN.CDI ---
CDI
- -
CDI:
Physician Documentation Request
Admit Date: 04/25/25 06:06
Dear Doctor Zion,
Clinical Indicators:
04/26 WO RN skin/wound assessment: Right Buttock Stage 2 Pressure Injury, POA
Treatment: Silicone border foam dressing, air overlay mattress, chair cushion
Physician documentation of the type and location of wounds is required for compliant documentation. Based on the above clinical findings and your assessment, please provide the following in your progress note:
1. Location of the ulcer/wound, including laterality.
2. Type (etiology) of ulcer/wound:
- Pressure (decubitus) ulcer
- Other
- Unable to determine
3. If a pressure ulcer, please also include the stage* of the ulcer:
- Stage 1 - Skin intact, non-blanchable redness
- Stage 2 - Partial thickness loss of dermis, includes intact or open blister
- Stage 3 - Full thickness tissue not including bone, tendon or muscle
- Stage 4 - Full thickness tissue loss, including exposed bone, tendon or muscle
- Unstageable - Full thickness loss in which the base of the ulcer is covered by slough (yellow, curry, valle, green or brown) and/or eschar (curry, brown or black) in the wound bed.
- Unable to determine
Use of terms such as suspected, likely, concern for, or probable (associated with a specific diagnosis that is being evaluated, monitored, or treated as if it exists) are acceptable and can be coded in the inpatient setting, when documented at the
time of discharge.
Thank you,
BETTINA Cutler RN
CDI Specialist
available via tiger text
Please use your independent medical judgment in providing your response.
*Source: National Pressure Ulcer Advisory Panel (NPUAP)
--- NOTE | 2025-04-26 11:17 | W.PN.URO.CBU ---
Today's Communication / Plan
-
try and stop cbi by am sat igf no major clots
Assessment / Plan
-
min bleding will try and stop cbi by sat ontinue present cars
Diagnosis
-
Date of Service: April 26, 2025
-
Patient Diagnoshematuria in pt wu with neurogenic bladder comlpex uti after irrigation of costa
Post Op Day:
Subjective
-
much less bleedingno fver chills
Objective
-
Vital Signs
Temp Pulse Resp BP Pulse Ox
97.6 F 60 18 155/68 97
04/26/25 07:33 04/26/25 09:36 04/26/25 08:38 04/26/25 09:36 04/26/25 09:35
Intake and Output
04/25/25 04/26/25 04/27/25
06:59 06:59 06:59
Intake Total 3600 / 3600
Output Total 5300 / 5300
Balance -1700 / -1700
Intake:
IV fluids (Total) 600 / 600
Costa intermittent irrigation 3000 / 3000
Output:
Urine, Costa 3300 / 3300
True Urine Output from CBI 1999 / 1999
Laboratory Results
04/26/25 07:09
04/26/25 07:10
Review of Systems
-
: Difficulty Voiding and Bleeding
Physical Exam
-
General - well developed, well nourished, no acute distress
Chest - clear bilaterally
Abdomen - soft, non-tender, positive bowel sounds, no CVAT, no incisional pain or distention
Genitalia - normal
Rectal - normal
Skin - warm & dry with no rash
Neuro - AOx3, no motor deficits
Extremities - no clubbing, no cyanosis, no edema
Incision - clean, dry
Dressing - clean, dry, intact
[2025-04-26] MEDS: FLUSH (NSS) 1 FLUSH IV ×2 (12:16→17:32)
[2025-04-26 15:00] VITALS: BP 159/78
--- NOTE | 2025-04-26 15:55 | PTCARENOTE ---
Pt awake and alert, oriented to name; pt non-verbal, nods head in response to questions. Moves all extremities; LUE/LLE very weak. Attempts to assist with positioning. Follows simple commands. VSS. On room air- pulse ox 93%, no SOB noted. Abd
soft, rounded, NPO maintained. Started on Jevity PEG feedings @ 55 ml/hr with 25 ml/hr H2O flush; currently merrick well. PEG site sl reddened; dsg over site D/I. Chavez P/I large amts punch- colored urine with occ small blood clots; CBI's infusing as
ordered. Resting in bed at present; at bedside. Will continue to monitor.
--- NOTE | 2025-04-26 16:04 | W.PN.HOSP.TC ---
Addendum entered and electronically signed by Ronny Donovan MD 05/03/25 15:28:
Right buttock stage II pressure injury present on admission
Original Note:
Today's Communication/Plan
-
Meropenem pending final blood cultures and sensitivities
CBI
Wean off IV fluids
Resume tube feeding
Assessment / Plan
Assessment / Plan
Impression
Gross hematuria secondary to possible Chavez trauma, bladder stones and anticoagulation with Eliquis
Fever upon presentation with concern for complicated UTI
Hyponatremia
Conditions prior to admission
Paroxysmal A-fib diagnosed at the time of acute CVA
Echo 10/26/2022: EF 55 to 60%, posterior MAC, trace MR, trace AR, trace TR, estimated PAP 31 mmHg no evidence of vegetation
Anticoagulation with Eliquis
Acute CVA 12/07.
� Neurologic sequela with residual aphasia, dysphagia, chronic PEG tube, neurogenic bladder with chronic Chavez catheter
Essential hypertension
Dyslipidemia
Recurrent UTI
Chronic hypoxemic respiratory failure on home O2 at 2 L
COPD
Glaucoma
Plan
Gross Hematuria
Catheter associated UTI
Gram-negative/Proteus bacteremia without sepsis
CT done in the ED shows bladder inflammation with dependent stones again seen.
- Chavez exchanged in the ED. urology following and initiated on CBI
- Hold Eliquis.
- Continue meropenem following final cultures and sensitivities
- Underwent cystolitholapaxy June 2024 for similar presentation.
Hyponatremia
- Mild / acute on chronic.
- Improving with IV fluid bolus
Paroxysmal Atrial Fibrillation
History of CVA
Expressive Aphasia
Bed-Bound
PEG / Chavez Dependent
- Stable. Holding Eliquis acutely as noted above given urethral trauma / bleeding.
- Resume as soon as reasonable to do so for stroke risk reduction.
- Continue amiodarone.
- Continue supportive care, PEG care, repositioning, etc.
- Resume tube feeding. Nutrition consult
COPD
Chronic Hypoxemia on Home O2
- Stable. No noted dyspnea or increased hypoxemia.
- Continue inhaled medications.
- Continue OO2 support.
Depression
- Stable. Continue outpatient med regimen.
Glaucoma
- Stable. Continue outpatient eye gtt regimen.
DVT Prophylaxis: SCDs
Code Status: DNR
Anticipated Discharge: 24 - 48 hours
Subjective/Interval History
-
Date of Service: April 26, 2025
Objective Data
-
Labs:
Laboratory Results
04/26/25 04/26/25
07:09 07:10
WBC 9.1
Hgb 10.7 L
Hct 31.8 L
Plt Count 120 L D
PT 16.0 H
INR 1.23
APTT 35.8 H
Sodium 136
Potassium 4.5
Chloride 105
Carbon Dioxide 27
BUN 15
Creatinine 0.7
Glucose 84
Calcium 8.3 L
Vital Signs:
Vital Signs
Temp Pulse Resp BP Pulse Ox
97.9 F 67 18 159/78 93
04/26/25 15:00 04/26/25 15:00 04/26/25 15:00 04/26/25 15:00 04/26/25 15:52
I&O
04/25/25 04/26/25 04/27/25
06:59 06:59 06:59
Intake Total 3600 / 3600
Output Total 5300 / 5300
Balance -1700 / -1700
Physical Exam
-
General: Well Developed and No Apparent Distress
HEENT: Normocephalic, Atraumatic and Moist Mucous Membranes
Respiratory: Clear to Auscultation
Cardiac: Regular Rhythm and S1/S2; Negative Murmur, Rub or Gallop
GI: Soft, Nontender, Nondistended, Normal Bowel Sounds and Peg Tube; Negative Organomegaly
Rectal: Deferred by Provider
Genito-urinary: Other (Chavez catheter in place with hemorrhagic urine)
Musculoskeletal: No Clubbing, No Cyanosis and No Edema
Skin: Negative Rash
Neuro: Awake, Alert and Other (Noncommunicative. Left hemiparesis.)
[2025-04-26] MEDS: NSS IV (16:14)
[2025-04-26] MEDS: XALATAN OPHTHALMIC SOLUTION 1 DROP BOTH EYES (21:14)
[2025-04-26] MEDS: DESYREL 25 MG TUBE (21:14)
[2025-04-26] MEDS: DESENEX/MITRAZOL/ZEASORB 1 APPLIC TOPICAL (21:15)
[2025-04-26 23:57] VITALS: BP 137/75
[2025-04-27] MEDS: STERILE WATER FOR INJECTION 10 ML IV ×5 (01:00→23:16)
[2025-04-27] MEDS: MERREM 500 MG IV ×5 (01:00→23:16)
[2025-04-27 07:30] VITALS: BP 145/71
[2025-04-27] MEDS: DUONEB 3 ML INH ×3 (08:32→19:23)
[2025-04-27] MEDS: PULMICORT 0.25 MG INH ×2 (08:32→15:41)
[2025-04-27] MEDS: PACERONE 200 MG TUBE (08:44)
[2025-04-27] MEDS: LIORESAL 5 MG TUBE ×2 (08:44→21:00)
[2025-04-27] MEDS: ALPHAGAN 0.2% EYE DROPS 1 DROP BOTH EYES ×2 (08:45→21:00)
[2025-04-27] MEDS: DESENEX/MITRAZOL/ZEASORB 1 APPLIC TOPICAL ×2 (08:45→21:27)
[2025-04-27] MEDS: TRUSOPT 2% OPHTHALMIC SOLUTION 1 DROP BOTH EYES ×2 (08:46→21:00)
[2025-04-27] MEDS: TIMOPTIC 0.5% OPHTHALMIC SOLUTION 1 DROP BOTH EYES ×2 (08:46→21:00)
[2025-04-27 08:48] LABS: Hematocrit 29.4 % (39.0-52.0); Hemoglobin 10.0 g/dL (13.0-18.0); Mean Corp Hgb Conc. 34.0 g/dL (33.0-37.0); Mean Corpuscular Volume 98.0 fL (80.0-94.0); Nucleated Red Blood Cells % 0 % (-); Platelet Count 133 10^3/uL (130-400); Red Cell Dist. Width 14.2 % (11.5-14.5)
[2025-04-27 09:27] LABS: Blood Urea Nitrogen 16 mg/dl (9-20); Calcium 8.6 mg/dl (8.4-10.2); Carbon Dioxide 27 mmol/L (22-30); Chloride 103 mmol/L (98-107); Estimated Creatinine Clearance 89 ml/min; Glucose 119 mg/dl (70-99); Potassium 4.1 mmol/L (3.5-5.1); Sodium 135 mmol/L (135-145); eGFR > 60.00
--- NOTE | 2025-04-27 11:31 | W.PN.URO.CBU ---
Today's Communication / Plan
-
- Clamp/cap CBI
- Abx course for proteus bacteremia
- Discharge with chronic costa catheter in place
Assessment / Plan
-
84M with recurrent bladder stones
Complex UTI with gross hematuria managed on CBI
Proteus bacteremia
- Hematuria resolved on slow drip CBI
- Clamp/cap CBI
- Abx course for proteus bacteremia
- Discharge with chronic costa catheter in place
Diagnosis
-
Date of Service: April 27, 2025
-
Patient Diagnosis:
hematuria in pt with with neurogenic bladder complex uti
recurrent bladder stones
Post Op Day:
Subjective
-
somnolent - no subj
Objective
-
Vital Signs
Temp Pulse Resp BP Pulse Ox
98.2 F 75 20 145/71 96
04/27/25 07:30 04/27/25 08:34 04/27/25 08:34 04/27/25 07:30 04/27/25 08:34
Intake and Output
04/26/25 04/27/25 04/28/25
06:59 06:59 06:59
Intake Total 3600 / 3600 1890 / 1890
Output Total 5300 / 5300 1200 / 1200
Balance -1700 / -1700 690 / 690
Intake:
Oral fluids 0 / 0
IV fluids (Total) 600 / 600 800 / 800
Tube feeding 765 / 765
Feeding tube flush amount 325 / 325
Costa intermittent irrigation 3000 / 3000
Output:
Urine, Costa 3300 / 3300
True Urine Output from CBI 2000 / 2000 1200 / 1200
Laboratory Results
04/27/25 07:55
04/27/25 07:55
Physical Exam
-
General - well developed, well nourished, no acute distress
Chest - on supp O2
Abdomen - soft, non-tender
Costa in place, clear urine on slow CBI
--- NOTE | 2025-04-27 13:11 | W.PN.HOSP.TC ---
Today's Communication/Plan
-
Blood culture in 1 bottle growing Proteus. Repeat blood cultures; ID consulted
Assessment / Plan
Assessment / Plan
Impression
Gross hematuria secondary to possible Chavez trauma, bladder stones and anticoagulation with Eliquis
Fever upon presentation with concern for complicated UTI
Hyponatremia
Conditions prior to admission
Paroxysmal A-fib diagnosed at the time of acute CVA
Echo 10/26/2022: EF 55 to 60%, posterior MAC, trace MR, trace AR, trace TR, estimated PAP 31 mmHg no evidence of vegetation
Anticoagulation with Eliquis
Acute CVA 12/07.
� Neurologic sequela with residual aphasia, dysphagia, chronic PEG tube, neurogenic bladder with chronic Chavez catheter
Essential hypertension
Dyslipidemia
Recurrent UTI
Chronic hypoxemic respiratory failure on home O2 at 2 L
COPD
Glaucoma
Plan
Gross Hematuria
Acute blood loss anemia
Catheter associated UTI
Gram-negative/Proteus bacteremia without sepsis
CT done in the ED shows bladder inflammation with dependent stones again seen.
- Chavez exchanged in the ED. urology following and initiated on CBI
- Hold Eliquis.
- Continue meropenem following final cultures and sensitivities
- Underwent cystolitholapaxy June 2024 for similar presentation.
Hyponatremia
- Mild / acute on chronic.
- Improving with IV fluid bolus
Paroxysmal Atrial Fibrillation
History of CVA
Expressive Aphasia
Bed-Bound
PEG / Chavez Dependent
- Stable. Holding Eliquis acutely as noted above given urethral trauma / bleeding.
- Resume as soon as reasonable to do so for stroke risk reduction.
- Continue amiodarone.
- Continue supportive care, PEG care, repositioning, etc.
- Resume tube feeding. Nutrition consult
COPD
Chronic Hypoxemia on Home O2
- Stable. No noted dyspnea or increased hypoxemia.
- Continue inhaled medications.
- Continue OO2 support.
Depression
- Stable. Continue outpatient med regimen.
Glaucoma
- Stable. Continue outpatient eye gtt regimen.
DVT Prophylaxis: SCDs
Code Status: DNR
Update 118�hemoglobin trending down, continue hold Eliquis. Mild wheezing- suspect upper airway. X-ray unremarkable. Blood culture in 1 bottle growing Proteus. Repeat blood cultures; ID consulted
Anticipated Discharge: > 48 hours
Subjective/Interval History
-
Date of Service: April 27, 2025
No acute events overnight
Objective Data
-
Labs:
Laboratory Results
04/27/25
07:55
WBC 7.3
Hgb 10.0 L
Hct 29.4 L
Plt Count 133
Sodium 135
Potassium 4.1
Chloride 103
Carbon Dioxide 27
BUN 16
Creatinine 0.7
Glucose 119 H
Calcium 8.6
Vital Signs:
Vital Signs
Temp Pulse Resp BP Pulse Ox
98.2 F 75 20 145/71 96
04/27/25 07:30 04/27/25 08:34 04/27/25 08:34 04/27/25 07:30 04/27/25 08:34
I&O
04/26/25 04/27/25 04/28/25
06:59 06:59 06:59
Intake Total 3600 / 3600 1890 / 1890
Output Total 5300 / 5300 1200 / 1200 1000 / 1000
Balance -1700 / -1700 690 / 690 -1000 / -1000
Review of Systems
-
Unable to obtain full review of systems at this time due to: Acuity
Physical Exam
-
General: Well Developed and No Apparent Distress
HEENT: Normocephalic, Atraumatic and Moist Mucous Membranes
Respiratory: Clear to Auscultation
Cardiac: Regular Rhythm and S1/S2; Negative Murmur, Rub or Gallop
GI: Soft, Nontender, Nondistended, Normal Bowel Sounds and Peg Tube; Negative Organomegaly
Rectal: Deferred by Provider
Genito-urinary: Other (Chavez catheter in place with hemorrhagic urine)
Musculoskeletal: No Clubbing, No Cyanosis and No Edema
Skin: Negative Rash
Neuro: Awake, Alert and Other (Noncommunicative. Left hemiparesis.)
--- NOTE | 2025-04-27 15:07 | CON.ID ---
Consultation
-
Date/Time Consultation Requested: April 27, 2025 1315
Date/Time Consultation Performed: April 27, 2025 1510
Requesting Provider: Dr. Yash Flaherty
Performing Provider: Dr. Cyndy Reeves
Reason for Consultation: Proteus bacteremia
Chief Complaint / Past History
Chief Complaint
Bloody urine
History of Present Illness
History obtained from review of medical records since patient has aphasia and unable to provide a full meaningful history. He is an 84-year-old male with COPD on chronic O2, atrial fibrillation on Eliquis, CVA, urinary retention with chronic Chavez
who presented to the hospital April 25 due to gross hematuria. Patient had Chavez change that day. Soon after he started with bloody urine with clots. He therefore came to the ER. In the ER temperature 101.1, white count of 14.7. CAT scan of
the abdomen pelvis shows bladder stones and bladder wall thickening. Three-way Chavez placed for CBI. Blood culture is now positive for Proteus. Of note patient with history of Proteus in the urine. He is currently on meropenem. Patient nods
that he is feeling better. No chills. No pain.
Past History
Additional Past Medical History:
COPD
Chronic hypoxemic respiratory failure on home O2
Hypertension
Paroxysmal atrial fibrillation
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
Bladder cancer s/p TURBT
Allergy History:
Cephalosporins Allergy (Verified 07/28/23 10:02)
Swelling/tolerates meropenem
Penicillins Allergy (Verified 07/28/23 10:02)
Swelling/tolerates meropenem
vancomycin Allergy (Verified 07/28/23 10:02)
Rash
Medications Reviewed: Yes
Current Antibiotics:
Meropenem
Social History
Tobacco: Former Smoker
Alcohol: None
Drug: None
Personal:
Living: With Family
Family History
Family History: Not Pertinent
Review of Systems
Vital Signs
Temp Pulse Resp BP Pulse Ox
98.2 F 75 20 145/71 96
04/27/25 07:30 04/27/25 08:34 04/27/25 08:34 04/27/25 07:30 04/27/25 08:34
Selected Entries
04/25/25
02:24
Temp 101.1 F H
Physical Exam
Lab / Diagnostic Study Results
04/27/25 07:55
04/27/25 07:55
Abs Immat Gran (auto) 0.0 10^3/uL (0-0.05) 04/27/25 07:55
Absolute Neuts (auto) 4.6 10^3/uL (1.4-6.5) 04/27/25 07:55
Absolute Lymphs (auto) 1.3 10^3/uL (1.2-3.4) 04/27/25 07:55
Absolute Monos (auto) 0.9 10^3/uL (0.1-0.6) H 04/27/25 07:55
Absolute Basos (auto) 0.1 10^3/uL (0-0.2) 04/27/25 07:55
Immature Gran % 0.4 % (0-0.5) 04/27/25 07:55
Neutrophils % 63.0 % (42.2-75.2) 04/27/25 07:55
Lymphocytes % 18.5 % (20.5-51.1) L 04/27/25 07:55
Monocytes % 12.7 % (1.7-9.3) H 04/27/25 07:55
Eosinophils % 4.7 % (0-6) 04/27/25 07:55
Basophils % 0.7 % (0-2) 04/27/25 07:55
PT 16.0 Sec (11.4-14.6) H 04/26/25 07:10
INR 1.23 04/26/25 07:10
Lactic Acid Cancelled 04/25/25 02:45
Ur Squamous Epith Cells /LPF (Few) 04/25/25 03:27
Microbiology Results
Micro:
04/27/25 13:56 Blood Culture - Pending
Blood/Venous
04/25/25 02:40 Blood Culture - Preliminary
Blood/Venous Proteus species
Gram Stain - Final
04/26/25 00:06 MRSA Screen - Final
Nose No Methicillin Resistant Staphylococcus aureus isolated.
04/25/25 03:27 Blood Culture - Preliminary
Blood/Venous No Growth in 48 hours- Final report to follow
04/25/25 03:27 Urine Culture - Final
Urine No Significant Growth
04/25/25 09:41 Influenza Types A & B (PRESTON) - Final
Nasal Swab Negative for Influenza A & B, NAAT
Negative results must be combined with clinical observations
and patient history.
Nucleic Acid Amplification test (NAAT)performed on the
[employer] NOW platform.
04/25/25 03:53 Influenza Types A & B (PRESTON) - Final
Nasal Swab Test repeatedly invalid.
Nucleic Acid Amplification test (NAAT)performed on the
English ID NOW platform.
04/25/25 CT A/P: bladder calculi and diffuse urinary bladder wall thickening may reflect cystiti
Assessment / Plan
#Complicated UTI
#Proteus bacteremia, source
#Fever and leukocytosis resolving
#Gross hematuria
#Chronic Chavez
# Severe allergy to penicillin, cephalosporins, vancomycin
#Atrial fibrillation on Eliquis
#CVA with residual aphasia/dysphagia with PEG tube
-Repeat blood culture pending
- Await Proteus sensitivity
-Continue meropenem for now
-Anticipate need for home IV antibiotic due to multiple antibiotic allergies
Conditions present on admission:
COPD
Chronic hypoxemic respiratory failure on home O2
Hypertension
Paroxysmal atrial fibrillation
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
Bladder cancer s/p TURBT
[2025-04-27 15:50] VITALS: BP 146/66
[2025-04-27] MEDS: DESYREL 25 MG TUBE (21:27)
[2025-04-27] MEDS: XALATAN OPHTHALMIC SOLUTION 1 DROP BOTH EYES (21:28)
[2025-04-27 23:00] VITALS: BP 148/72
[2025-04-28] MEDS: STERILE WATER FOR INJECTION 10 ML IV ×4 (05:18→23:50)
[2025-04-28] MEDS: MERREM 500 MG IV ×4 (05:18→23:50)
[2025-04-28 06:05] LABS: Hematocrit 30.1 % (39.0-52.0); Hemoglobin 10.3 g/dL (13.0-18.0); Mean Corp Hgb Conc. 34.2 g/dL (33.0-37.0); Mean Corpuscular Volume 97.4 fL (80.0-94.0); Platelet Count 142 10^3/uL (130-400); Red Cell Dist. Width 14.0 % (11.5-14.5)
[2025-04-28 06:31] LABS: ALT (SGPT) 13 U/L (0-50); AST (SGOT) 17 U/L (17-59); Albumin 2.8 g/dl (3.5-5.0); Alkaline Phosphatase 55 U/L (38-126); Blood Urea Nitrogen 14 mg/dl (9-20); Calcium 9.0 mg/dl (8.4-10.2); Carbon Dioxide 29 mmol/L (22-30); Chloride 102 mmol/L (98-107); Estimated Creatinine Clearance 89 ml/min; Glucose 117 mg/dl (70-99); Potassium 4.1 mmol/L (3.5-5.1); Sodium 133 mmol/L (135-145); Total Protein 5.9 g/dl (6.3-8.2); eGFR > 60.00
[2025-04-28 07:00] VITALS: BP 179/89
[2025-04-28] MEDS: PACERONE 200 MG TUBE (07:35)
[2025-04-28] MEDS: LIORESAL 5 MG TUBE ×2 (07:35→20:40)
[2025-04-28] MEDS: TRUSOPT 2% OPHTHALMIC SOLUTION 1 DROP BOTH EYES ×2 (07:36→20:41)
[2025-04-28] MEDS: ALPHAGAN 0.2% EYE DROPS 1 DROP BOTH EYES ×2 (07:36→20:42)
[2025-04-28] MEDS: TIMOPTIC 0.5% OPHTHALMIC SOLUTION 1 DROP BOTH EYES ×2 (07:36→20:41)
[2025-04-28] MEDS: DESENEX/MITRAZOL/ZEASORB 1 APPLIC TOPICAL ×2 (07:37→20:41)
[2025-04-28] MEDS: DUONEB 3 ML INH ×3 (08:17→19:10)
[2025-04-28] MEDS: PULMICORT 0.25 MG INH ×2 (08:17→19:10)
--- NOTE | 2025-04-28 10:15 | W.PN.ID1 ---
Date of Service
Date of Service: April 28, 2025
Today's Communication
-Continue meropenem d4
-At time of dc, transition to Bactrim DS 1 tab po bid through 05/02/25.
Assessment / Plan
#Complicated UTI
#Proteus bacteremia, source
#Fever and leukocytosis resolved
#Gross hematuria - improving
#Chronic Chavez
# Severe allergy to penicillin, cephalosporins, vancomycin
#Atrial fibrillation on Eliquis
#CVA with residual aphasia/dysphagia with PEG tube
-Repeat blood culture pending
-Continue meropenem d4
-At time of dc, transition to Bactrim DS 1 tab po bid through 05/02/25.
Conditions present on admission:
COPD
Chronic hypoxemic respiratory failure on home O2
Hypertension
Paroxysmal atrial fibrillation
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
Bladder cancer s/p TURBT
Chief Complaint
-: UTI and Bacteremia
Subjective / Review of Systems
Comfortable
Vital Signs / Physical Exam
Vital Signs
Vital Signs
Temp Pulse Resp BP Pulse Ox
98.1 F 64 18 179/89 93
04/28/25 07:00 04/28/25 08:19 04/28/25 08:19 04/28/25 07:00 04/28/25 08:19
Physical Exam
Constitutional: No Acute Distress, Comfortable and Chronically Ill
Eyes: Sclera Anicteric
Cardiovascular: Regular Rate and S1/S2
Pulmonary: Clear
Gastrointestinal: Soft, Non Tender and Non Distended
Genito-Urinary: Chavez
Extremities: Negative Edema
Objective Data
Lab Data
Lab Results
04/28/25 05:33
04/28/25 05:33
PT 16.0 Sec (11.4-14.6) H 04/26/25 07:10
INR 1.23 04/26/25 07:10
APTT 35.8 Sec (23.4-35.0) H 04/26/25 07:10
Estimated Creat Clear 89 ml/min 04/28/25 05:33
Lactic Acid Cancelled 04/25/25 02:45
Total Bilirubin 0.3 mg/dl (0.2-1.3) 04/28/25 05:33
AST 17 U/L (17-59) 04/28/25 05:33
ALT 13 U/L (0-50) 04/28/25 05:33
Alkaline Phosphatase 55 U/L (38-126) 04/28/25 05:33
Most recent labs reviewed.
Micro Results:
04/25/25 02:40 Blood Culture - Final
Blood/Venous Proteus mirabilis
Gram Stain - Final
04/25/25 03:27 Blood Culture - Preliminary
Blood/Venous No Growth in 72 hours- Final report to follow
04/27/25 13:56 Blood Culture - Pending
Blood/Venous
04/26/25 00:06 MRSA Screen - Final
Nose No Methicillin Resistant Staphylococcus aureus isolated.
04/25/25 03:27 Urine Culture - Final
Urine No Significant Growth
04/25/25 09:41 Influenza Types A & B (PRESTON) - Final
Nasal Swab Negative for Influenza A & B, NAAT
Negative results must be combined with clinical observations
and patient history.
Nucleic Acid Amplification test (NAAT)performed on the
[employer] ID NOW platform.
04/25/25 03:53 Influenza Types A & B (PRESTON) - Final
Nasal Swab Test repeatedly invalid.
Nucleic Acid Amplification test (NAAT)performed on the
English ID NOW platform.
Procedure Result Verified
Blood Culture Final 04/28/25-0830
Proteus mirabilis
Positive for Proteus species.
Performed by BIOFIRE methodology.
Organism 1 Proteus mirabilis
1. Proteus mirabilis
M.I.C. RX
--------- ---
Amoxicillin/Potas. Clavulanate <=8/4 S
Ampicillin <=8 S
Ampicillin/Sulbactam <=4/2 S
Aztreonam <=4 S
Cefazolin 4 I
Cefepime <=2 S
Ceftazidime <=1 S
Ceftriaxone <=1 S
Ertapenem <=0.5 S
Ciprofloxacin >2 R
Gentamicin <=2 S
Meropenem <=1 S
Piperacillin/Tazobactam <=8 S
Tetracycline >8 R
Tobramycin <=2 S
Trimethoprim/Sulfamethoxazole <=2/38 S
04/25/25 CT A/P: bladder calculi and diffuse urinary bladder wall thickening may reflect cystitis
--- NOTE | 2025-04-28 13:27 | W.PN.HOSP.TC ---
Today's Communication/Plan
-
F/u repeat blood cultures
Monitor Na
Assessment / Plan
Assessment / Plan
Impression
Gross hematuria secondary to possible Chavez trauma, bladder stones and anticoagulation with Eliquis
Fever upon presentation with concern for complicated UTI
Hyponatremia
Conditions prior to admission
Paroxysmal A-fib diagnosed at the time of acute CVA
Echo 10/26/2022: EF 55 to 60%, posterior MAC, trace MR, trace AR, trace TR, estimated PAP 31 mmHg no evidence of vegetation
Anticoagulation with Eliquis
Acute CVA 12/07.
� Neurologic sequela with residual aphasia, dysphagia, chronic PEG tube, neurogenic bladder with chronic Chavez catheter
Essential hypertension
Dyslipidemia
Recurrent UTI
Chronic hypoxemic respiratory failure on home O2 at 2 L
COPD
Glaucoma
Plan
Gross Hematuria
Acute blood loss anemia
Catheter associated UTI
Gram-negative/Proteus bacteremia without sepsis
CT done in the ED shows bladder inflammation with dependent stones again seen.
- Chavez exchanged in the ED. urology following and initiated on CBI
- Hold Eliquis.
- Continue meropenem following final cultures and sensitivities
- Underwent cystolitholapaxy June 2024 for similar presentation.
Hyponatremia
- Mild / acute on chronic.
- Was improving, although dropped today again
Paroxysmal Atrial Fibrillation
History of CVA
Expressive Aphasia
Bed-Bound
PEG / Chavez Dependent
- Stable. Holding Eliquis acutely as noted above given urethral trauma / bleeding.
- Resume as soon as reasonable to do so for stroke risk reduction.
- Continue amiodarone.
- Continue supportive care, PEG care, repositioning, etc.
- Resume tube feeding. Nutrition consult
COPD
Chronic Hypoxemia on Home O2
- Stable. No noted dyspnea or increased hypoxemia.
- Continue inhaled medications.
- Continue OO2 support.
Depression
- Stable. Continue outpatient med regimen.
Glaucoma
- Stable. Continue outpatient eye gtt regimen.
DVT Prophylaxis: SCDs
Code Status: DNR
Update 8�hemoglobin trending down, continue hold Eliquis. Mild wheezing- suspect upper airway. X-ray unremarkable. Blood culture in 1 bottle growing Proteus. Requested full sensitivities. Repeat blood cultures; ID consulted
Update 04/28�follow-up repeat blood cultures. Upon discharge, can discharge on Bactrim. Monitor sodium levels; anticipate discharge tomorrow
Anticipated Discharge: Within 24 hours
Subjective/Interval History
-
Date of Service: April 28, 2025
No acute events overnight
Objective Data
-
Labs:
Laboratory Results
04/28/25
05:33
WBC 6.9
Hgb 10.3 L
Hct 30.1 L
Plt Count 142
Sodium 133 L
Potassium 4.1
Chloride 102
Carbon Dioxide 29
BUN 14
Creatinine 0.7
Glucose 117 H
Calcium 9.0
Total Bilirubin 0.3
AST 17
ALT 13
Alkaline Phosphatase 55
Vital Signs:
Vital Signs
Temp Pulse Resp BP Pulse Ox
98.1 F 64 18 179/89 93
04/28/25 07:00 04/28/25 08:19 04/28/25 08:19 04/28/25 07:00 04/28/25 08:19
I&O
04/27/25 04/28/25 04/29/25
06:59 06:59 06:59
Intake Total 1890 / 1890 1840 / 1840 1080 / 1080
Output Total 1200 / 1200 2350 / 2350 600 / 600
Balance 690 / 690 -510 / -510 480 / 480
Review of Systems
-
Unable to obtain full review of systems at this time due to: Acuity
Data Reviewed
-
Labs: Labs Reviewed by me and Discussed with Physician
Old Records: Reviewed
--- NOTE | 2025-04-28 13:41 | W.PN.URO.CBU ---
Today's Communication / Plan
-
- Hematuria resolved off CBI x24hrs
- Abx course for proteus bacteremia
- Discharge with chronic costa catheter in place
Urology will sign off - please call with any questions
Assessment / Plan
-
84M with recurrent bladder stones
Complex UTI with gross hematuria managed on CBI
Proteus bacteremia
- Hematuria resolved off CBI x24hrs
- Abx course for proteus bacteremia
- Discharge with chronic costa catheter in place
Urology will sign off - please call with any questions
Diagnosis
-
Date of Service: April 28, 2025
-
Patient Diagnosis:
hematuria in pt with with neurogenic bladder complex uti
recurrent bladder stones
Post Op Day:
Subjective
-
n/a
Objective
-
Vital Signs
Temp Pulse Resp BP Pulse Ox
98.1 F 64 18 179/89 93
04/28/25 07:00 04/28/25 08:19 04/28/25 08:19 04/28/25 07:00 04/28/25 08:19
Intake and Output
04/27/25 04/28/25 04/29/25
06:59 06:59 06:59
Intake Total 1890 / 1890 1840 / 1840 1080 / 1080
Output Total 1200 / 1200 2350 / 2350 600 / 600
Balance 690 / 690 -510 / -510 480 / 480
Intake:
Oral fluids 0 / 0
IV fluids (Total) 800 / 800
Tube feeding 765 / 765 1265 / 1265 660 / 660
Feeding tube flush amount 325 / 325 575 / 575 420 / 420
Output:
Urine, Costa 1350 / 1350 600 / 600
True Urine Output from CBI 1200 / 1200 1000 / 1000
Laboratory Results
04/28/25 05:33
04/28/25 05:33
Physical Exam
-
Costa with yellow urine, some debris
[2025-04-28 15:00] VITALS: BP 191/93
[2025-04-28 15:45] VITALS: BP 156/76
[2025-04-28] MEDS: DESYREL 25 MG TUBE (20:40)
[2025-04-28] MEDS: XALATAN OPHTHALMIC SOLUTION 1 DROP BOTH EYES (20:42)
[2025-04-28 23:42] VITALS: BP 141/72
[2025-04-29] MEDS: MERREM 500 MG IV ×4 (04:46→23:00)
[2025-04-29] MEDS: STERILE WATER FOR INJECTION 10 ML IV ×4 (04:46→23:00)
[2025-04-29 07:00] VITALS: BP 161/84
[2025-04-29 07:48] LABS: Hematocrit 31.8 % (39.0-52.0); Hemoglobin 10.5 g/dL (13.0-18.0); Mean Corp Hgb Conc. 33.0 g/dL (33.0-37.0); Mean Corpuscular Volume 101.0 fL (80.0-94.0); Platelet Count 140 10^3/uL (130-400); Red Cell Dist. Width 13.8 % (11.5-14.5)
[2025-04-29] MEDS: PACERONE 200 MG TUBE (07:57)
[2025-04-29] MEDS: LIORESAL 5 MG TUBE ×2 (07:57→20:30)
[2025-04-29] MEDS: ALPHAGAN 0.2% EYE DROPS 1 DROP BOTH EYES ×2 (08:08→20:29)
[2025-04-29] MEDS: TIMOPTIC 0.5% OPHTHALMIC SOLUTION 1 DROP BOTH EYES ×2 (08:08→20:30)
[2025-04-29] MEDS: TRUSOPT 2% OPHTHALMIC SOLUTION 1 DROP BOTH EYES ×2 (08:08→20:29)
[2025-04-29] MEDS: DESENEX/MITRAZOL/ZEASORB 1 APPLIC TOPICAL ×2 (08:09→20:30)
[2025-04-29] MEDS: DUONEB 3 ML INH (08:17)
[2025-04-29] MEDS: PULMICORT 0.25 MG INH ×2 (08:17→19:31)
[2025-04-29 08:19] LABS: ALT (SGPT) 14 U/L (0-50); AST (SGOT) 16 U/L (17-59); Albumin 2.8 g/dl (3.5-5.0); Alkaline Phosphatase 57 U/L (38-126); Blood Urea Nitrogen 14 mg/dl (9-20); Calcium 8.9 mg/dl (8.4-10.2); Carbon Dioxide 28 mmol/L (22-30); Chloride 101 mmol/L (98-107); Estimated Creatinine Clearance 104 ml/min; Glucose 135 mg/dl (70-99); Potassium 4.1 mmol/L (3.5-5.1); Sodium 132 mmol/L (135-145); Total Protein 6.0 g/dl (6.3-8.2); eGFR > 60.00
--- NOTE | 2025-04-29 10:31 | W.PN.ID1 ---
Date of Service
Date of Service: April 29, 2025
Today's Communication
-Continue meropenem d5
-At time of dc, transition to Bactrim DS 1 tab po bid through 05/02/25.
Assessment / Plan
#Complicated UTI
#Proteus bacteremia, source
#Fever and leukocytosis resolved
#Gross hematuria
#Chronic Chavez
# Severe allergy to penicillin, cephalosporins, vancomycin
#Atrial fibrillation on Eliquis
#CVA with residual aphasia/dysphagia with PEG tube
-Repeat blood culture neg to date
-Continue meropenem d5
-At time of dc, transition to Bactrim DS 1 tab po bid through 05/02/25.
Conditions present on admission:
COPD
Chronic hypoxemic respiratory failure on home O2
Hypertension
Paroxysmal atrial fibrillation
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
Bladder cancer s/p TURBT
Chief Complaint
-: UTI and Bacteremia
Vital Signs / Physical Exam
Vital Signs
Vital Signs
Temp Pulse Resp BP Pulse Ox
98.6 F 67 22 161/84 94
04/29/25 07:00 04/29/25 08:19 04/29/25 08:19 04/29/25 07:00 04/29/25 08:19
Physical Exam
Constitutional: No Acute Distress, Comfortable and Chronically Ill
Eyes: Sclera Anicteric
Cardiovascular: Regular Rate and S1/S2
Pulmonary: Clear
Gastrointestinal: Soft, Non Tender and Non Distended
Genito-Urinary: Chavez and Clear Urine
Extremities: Negative Edema
Objective Data
Lab Data
Lab Results
04/29/25 07:24
04/29/25 07:24
PT 16.0 Sec (11.4-14.6) H 04/26/25 07:10
INR 1.23 04/26/25 07:10
APTT 35.8 Sec (23.4-35.0) H 04/26/25 07:10
Estimated Creat Clear 104 ml/min 04/29/25 07:24
Lactic Acid Cancelled 04/25/25 02:45
Total Bilirubin 0.3 mg/dl (0.2-1.3) 04/29/25 07:24
AST 16 U/L (17-59) L 04/29/25 07:24
ALT 14 U/L (0-50) 04/29/25 07:24
Alkaline Phosphatase 57 U/L (38-126) 04/29/25 07:24
Most recent labs reviewed.
Micro Results:
04/25/25 03:27 Blood Culture - Preliminary
Blood/Venous No Growth in 4 days- Final report to follow
04/27/25 13:56 Blood Culture - Preliminary
Blood/Venous No Growth in 24 hours- Final report to follow
04/25/25 02:40 Blood Culture - Final
Blood/Venous Proteus mirabilis
Gram Stain - Final
04/26/25 00:06 MRSA Screen - Final
Nose No Methicillin Resistant Staphylococcus aureus isolated.
04/25/25 03:27 Urine Culture - Final
Urine No Significant Growth
04/25/25 09:41 Influenza Types A & B (PRESTON) - Final
Nasal Swab Negative for Influenza A & B, NAAT
Negative results must be combined with clinical observations
and patient history.
Nucleic Acid Amplification test (NAAT)performed on the
[employer] ID NOW platform.
04/25/25 03:53 Influenza Types A & B (PRESTON) - Final
Nasal Swab Test repeatedly invalid.
Nucleic Acid Amplification test (NAAT)performed on the
English ID NOW platform.
Procedure Result Verified
Blood Culture Final 04/28/25
Proteus mirabilis
Positive for Proteus species.
Performed by BIOFIRE methodology.
Organism 1 Proteus mirabilis
1. Proteus mirabilis
M.I.C. RX
--------- ---
Amoxicillin/Potas. Clavulanate <=8/4 S
Ampicillin <=8 S
Ampicillin/Sulbactam <=4/2 S
Aztreonam <=4 S
Cefazolin 4 I
Cefepime <=2 S
Ceftazidime <=1 S
Ceftriaxone <=1 S
Ertapenem <=0.5 S
Ciprofloxacin >2 R
Gentamicin <=2 S
Meropenem <=1 S
Piperacillin/Tazobactam <=8 S
Tetracycline >8 R
Tobramycin <=2 S
Trimethoprim/Sulfamethoxazole <=2/38 S
04/25/25 CT A/P: bladder calculi and diffuse urinary bladder wall thickening may reflect cystitis
[2025-04-29] MEDS: VENTOLIN NEBULES 2.5 MG INH ×2 (13:39→19:31)
--- NOTE | 2025-04-29 14:07 | CM ---
Addendum entered by Isamar Green 04/29/25 18:35:
Pt to be dc'd in the morning. will have caregiver in place. [facility] aware of discharge
Addendum entered by Isamar Green 04/29/25 14:10:
Weaned of O2.
Original Note:
Continues on IV ABX.
Plan: DC to home with [facility] and family caregiver when medically stable
--- NOTE | 2025-04-29 14:43 | W.PN.HOSP.TC ---
Today's Communication/Plan
-
Resume Eliquis
DC plan
Assessment / Plan
Assessment / Plan
Impression
Gross hematuria secondary to possible Chavez trauma, bladder stones and anticoagulation with Eliquis
Fever upon presentation with concern for complicated UTI
Hyponatremia
Conditions prior to admission
Paroxysmal A-fib diagnosed at the time of acute CVA
Echo 10/26/2022: EF 55 to 60%, posterior MAC, trace MR, trace AR, trace TR, estimated PAP 31 mmHg no evidence of vegetation
Anticoagulation with Eliquis
Acute CVA 12/07.
� Neurologic sequela with residual aphasia, dysphagia, chronic PEG tube, neurogenic bladder with chronic Chavez catheter
Essential hypertension
Dyslipidemia
Recurrent UTI
Chronic hypoxemic respiratory failure on home O2 at 2 L
COPD
Glaucoma
Plan
Gross Hematuria
Acute blood loss anemia
Catheter associated UTI
Gram-negative/Proteus bacteremia without sepsis
CT done in the ED shows bladder inflammation with dependent stones again seen.
- Chavez exchanged in the ED. urology following and initiated on CBI. Off of CBI now. Clear urine.
- Resume Eliquis.
- Continue meropenem per ID-change to Bactrim on discharge
- Underwent cystolitholapaxy June 2024 for similar presentation.
Hyponatremia
- Mild / acute on chronic.
- Was improving, although dropped today again
Paroxysmal Atrial Fibrillation
History of CVA
Expressive Aphasia
Bed-Bound
PEG / Chavez Dependent
- Stable. Resume Eliquis
- Resume as soon as reasonable to do so for stroke risk reduction.
- Continue amiodarone.
- Continue supportive care, PEG care, repositioning, etc.
- Resume tube feeding. Nutrition consult
COPD
Chronic Hypoxemia on Home O2
- Stable. No noted dyspnea or increased hypoxemia.
- Continue inhaled medications.
- Continue OO2 support.
Depression
- Stable. Continue outpatient med regimen.
Glaucoma
- Stable. Continue outpatient eye gtt regimen.
DVT Prophylaxis: SCDs
Code Status: DNR
Anticipated Discharge: Within 24 hours
Subjective/Interval History
-
Date of Service: April 29, 2025
Hx not obtainable due to speech impairment
No overnight events
Objective Data
-
Labs:
Laboratory Results
04/29/25
07:24
WBC 7.0
Hgb 10.5 L
Hct 31.8 L
Plt Count 140
Sodium 132 L
Potassium 4.1
Chloride 101
Carbon Dioxide 28
BUN 14
Creatinine 0.6 L
Glucose 135 H
Calcium 8.9
Total Bilirubin 0.3
AST 16 L
ALT 14
Alkaline Phosphatase 57
Vital Signs:
Vital Signs
Temp Pulse Resp BP Pulse Ox
98.6 F 65 20 161/84 94
04/29/25 07:00 04/29/25 13:40 04/29/25 13:40 04/29/25 07:00 04/29/25 13:40
I&O
04/28/25 04/29/25 04/30/25
06:59 06:59 06:59
Intake Total 1840 / 1840 1959 / 1959
Output Total 2350 / 2350 2150 / 2150 750 / 750
Balance -510 / -510 -190 / -190 -750 / -750
Physical Exam
-
General: No Apparent Distress
Respiratory: Non Labored Respirations; Negative Accessory Resp Muscle Use
Cardiac: Regular Rhythm and S1/S2; Negative Tachycardic
GI: Soft and Peg Tube
Genito-urinary: Clear Urine and Chavez
Neuro: Awake and Alert
Data Reviewed
-
Labs: Labs Reviewed by
[2025-04-29 15:00] VITALS: BP 157/83
[2025-04-29] MEDS: DESYREL 25 MG TUBE (20:29)
[2025-04-29] MEDS: ELIQUIS 5 MG TUBE (20:29)
[2025-04-29] MEDS: XALATAN OPHTHALMIC SOLUTION 1 DROP BOTH EYES (20:30)
[2025-04-29 23:15] VITALS: BP 141/71
[2025-04-30] MEDS: MERREM 500 MG IV ×2 (05:25→12:05)
[2025-04-30] MEDS: STERILE WATER FOR INJECTION 10 ML IV ×2 (05:25→12:05)
[2025-04-30 07:35] VITALS: BP 175/84
[2025-04-30] MEDS: VENTOLIN NEBULES 2.5 MG INH (07:50)
[2025-04-30] MEDS: PULMICORT 0.25 MG INH (07:50)
[2025-04-30] MEDS: ELIQUIS 5 MG TUBE (09:07)
[2025-04-30] MEDS: PACERONE 200 MG TUBE (09:07)
[2025-04-30] MEDS: DESENEX/MITRAZOL/ZEASORB 1 APPLIC TOPICAL (09:08)
[2025-04-30] MEDS: LIORESAL 5 MG TUBE (09:08)
[2025-04-30] MEDS: ALPHAGAN 0.2% EYE DROPS 1 DROP BOTH EYES (09:09)
[2025-04-30] MEDS: TRUSOPT 2% OPHTHALMIC SOLUTION 1 DROP BOTH EYES (09:09)
[2025-04-30] MEDS: TIMOPTIC 0.5% OPHTHALMIC SOLUTION 1 DROP BOTH EYES (09:09)
[2025-04-30 10:27] VITALS: BMI 24.4
--- NOTE | 2025-04-30 11:29 | CM ---
Pt is discharged home today via ambulance with [facility]. IMM reviewed verbally over the phone with the . states she has the caregiver in place and is ready to receive the patient.
[2025-04-30] MEDS: APRESOLINE 25 MG TUBE (12:03)
[2025-04-30] MEDS: FLUSH (NSS) 1 FLUSH IV (12:06)
[2025-04-30 12:51] VITALS: BP 135/70
--- NOTE | 2025-04-30 16:05 | W.DCSUMMARY ---
Discharge Summary
Discharge Data
Date of Admission: 04/25/25
Date of Discharge: 04/30/25
-
Pending Results: No
Hospital Course
Primary diagnosis:
Gross hematuria
Catheter associated urinary tract infection
Proteus bacteremia
Acute blood loss anemia
Chronic Chavez catheter in place
Bladder calculi
Secondary diagnosis:
Paroxysmal atrial fibrillation
History of stroke
Expressive aphasia
Bedbound
PEG in place
Chronic obstructive pulmonary disease
Chronic hypoxic respiratory insufficiency on home O2
Depression
Hospital course:
Patient with history of stroke and living at home getting care presented with gross hematuria in his chronic Chavez catheter and was discovered to have chronic UTI with Proteus. It was felt the hematuria may be combination of infection, Chavez
catheter being in place and also bladder calculi. He needed CBI treatment and antibiotics with resolution of hematuria. His white count normalized. Creatinine normal. Hemoglobin remained stable around tens .was seen by urologist and ID.
Antibiotics were switched to Bactrim DS on discharge and tomorrow will be the last day.
Seen today. Patient aphasic as before. No overnight events. No acute respiratory distress evident. He is on room air. Afebrile. Pulse 83 blood pressure 135/70 saturations 94% on room air.
Abdomen soft.
Deemed medically stable for discharge back home with services. Discussed the discharge plan with the on the phone.
Consultants on board:
Infectious disease-Cyndy Heck
Urology-Sundeep Jurado
Portions of this chart may have been created with voice recognition software. Occasional wrong word or 'sound alike' substitutions may have occurred due to the inherent limitations of voice recognition software.
Discharge Plan
-
Patient Disposition: Home with Home Care
Discharge Diagnosis/Procedures: Catheter associated UTI, Proteus bacteremia, gross hematuria, acute blood loss anemia, hyponatremia, paroxysmal atrial fibrillation on Eliquis, history of CVA, expressive aphasia, bedbound, COPD, chronic hypoxic
respiratory insufficiency on home O2, dysphagia on tube feeds
Diet: Tube feeding
Activity: As tolerated
Driving Restrictions: No driving
Bathing Restrictions: None
Other Services: VN
Activity Restrictions/Additional Instructions:
Wound Care Instructions
Sacral/buttocks-clean with saline, silicone border foam, change q 3 days and prn loosened dressing.
Miconazole powder to abdominal/groin folds bid.
Protective foam to heels as needed, change q 3 days; quilted heel pads.
Air mattress
Turning schedule
elevate heels off bed with pillow/s; quilted heel pads.
Pressure redistributing chair cushion (i.e. Roho).
Follow up at wound care center if needed, call for an appointment.
Referrals:
Jenn Dominguez PA-C [Family Provider, Family Practice] - in less than 1 week
Prescriptions:
New
sulfamethoxazole-trimethoprim [Bactrim DS] 800-160 mg tablet
1 tab PO BID Qty: 6 0RF
Rx Instructions:
till 05/02
Continued
baclofen 5 MG tablet
7.5 mg feeding tube BID
gabapentin 600 mg Tablet
300 mg feeding tube BID
trazodone 50 mg Tablet
25 mg feeding tube HS
guaifenesin 400 mg Tablet
400 mg PO TID Qty: 0
chlorhexidine gluconate 0.12 % Mouthwash
1 ml MUCOUS MEMBRANE QID
Lumigan 0.01 % Drops
1 drp BOTH EYES HS
Eliquis 5 MG tablet
5 mg feeding tube BID Qty: 30 0RF
fluoxetine 20 mg Tablet
40 mg feeding tube DAILY
dorzolamide-timolol 22.3-6.8 mg/mL Drops
1 drp BOTH EYES BID
atorvastatin 40 MG tablet
40 mg feeding tube HS
fluticasone propionate 50 mcg/actuation spray,suspension
1 spray intranasal HSPRN PRN (Reason: dry nares)
brimonidine 0.2 % Drops
1 drp BOTH EYES BID
acetaminophen-codeine 300-30 mg Tablet
1 tab feeding tube TIDPRN PRN (Reason: moderate pain)
lansoprazole 30 mg Tablet,Disintegrat, Delay Rel
30 mg feeding tube DAILY
hydralazine 25 mg Tablet
25 mg feeding tube TIDPRN PRN (Reason: systolic bp greater than 150)
nystatin 100,000 unit/mL Suspension
5 ml mucous membrane QID
polyethylene glycol 3350 [Miralax] 17 gram powder in packet
17 g feeding tube HS PRN (Reason: constipation)
sennosides [senna] 8.6 mg Tablet
17.2 mg feeding tube HS
albuterol sulfate 2.5 mg /3 mL (0.083 %) Solution For Nebulization
2.5 mg INHALATION R Q4HPRN PRN (Reason: sob)
budesonide 0.5 mg/2 mL Suspension For Nebulization
0.5 mg INHALATION R BID
amiodarone 100 mg Tablet
50 mg feeding tube DAILY
Discharge Orders:
Discharge Patient (As Directed); Ordered 04/30/25
Ordered By: Isiah Nieto
Discharge Date and Time
Discharge Date/Time: 04/30/25 14:33
Print Language: TRINIDADIAN
== END 2025-04-30 14:33 | disposition home health service (06) | DRG 699 ==
LOC: 4 EAST ACU 06:06
PROVIDERS: Internal Medicine; ADMITTING PHYSICIAN Hospitalist; ATTENDING PHYSICIAN Internal Medicine; CONSULT PHYSICIAN Internal Medicine Infectious Disease; CONSULT PHYSICIAN Student in an Organized Health Care Education/Training Program; EMERGENCY PHYSICIAN Emergency Medicine; FAMILY PHYSICIAN Physician Assistant Medical
DX: T83.518A Infection and inflammatory reaction due to other urinary catheter, initial encounter (principal); D62 Acute posthemorrhagic anemia; N39.0 Urinary tract infection, site not specified; R78.81 Bacteremia; J96.11 Chronic respiratory failure with hypoxia; F03.93 Unspecified dementia, unspecified severity, with mood disturbance; E87.1 Hypo-osmolality and hyponatremia; D68.32 Hemorrhagic disorder due to extrinsic circulating anticoagulants; Y84.6 Urinary catheterization as the cause of abnormal reaction of the patient, or of later complication, without mention of misadventure at the time of the procedure; R31.0 Gross hematuria; B96.4 Proteus (mirabilis) (morganii) as the cause of diseases classified elsewhere; N21.0 Calculus in bladder; I48.0 Paroxysmal atrial fibrillation; I69.320 Aphasia following cerebral infarction; Z74.01 Bed confinement status; Z93.1 Gastrostomy status; J44.9 Chronic obstructive pulmonary disease, unspecified; F32.A Depression, unspecified; Z99.81 Dependence on supplemental oxygen; R13.10 Dysphagia, unspecified; Z79.01 Long term (current) use of anticoagulants; Z85.51 Personal history of malignant neoplasm of bladder; N32.0 Bladder-neck obstruction; I10 Essential (primary) hypertension; K21.9 Gastro-esophageal reflux disease without esophagitis; Z87.891 Personal history of nicotine dependence; Z88.1 Allergy status to other antibiotic agents; Z88.0 Allergy status to penicillin; Z79.899 Other long term (current) drug therapy; Z79.51 Long term (current) use of inhaled steroids; N31.9 Neuromuscular dysfunction of bladder, unspecified; Z66 Do not resuscitate; E78.00 Pure hypercholesterolemia, unspecified; T83.83XA Hemorrhage due to genitourinary prosthetic devices, implants and grafts, initial encounter; T45.515A Adverse effect of anticoagulants, initial encounter; Z11.52 Encounter for screening for COVID-19; L89.312 Pressure ulcer of right buttock, stage 2
CPT/HCPCS: 51702; 51798; 71045; 74177; 80048; 80053; 81003; 81015; 83605; 85025; 85027; 85610; 85730; 87040; 87070; 87077; 87086; 87154; 87186; 87205; 87502; 87811; 94640; 94667; 94668; 96361; 96374; 99285; Q9967

== ENCOUNTER 2025-06-09 22:09 | Emergency (ER) | payer MEDICARE, OTHER, SELFPAY ==
[2025-06-09 22:11] VITALS: BP 165/83
[2025-06-09 22:13] VITALS: BP 165/83
[2025-06-09 22:19] VITALS: BMI 24.8
[2025-06-09 23:00] VITALS: BP 149/80
[2025-06-10] VITALS: BP 158/78
[2025-06-10 02:36] VITALS: BP 149/71
--- NOTE | 2025-06-10 02:53 | ED.GENMED ---
History of Present Illness
General
Chief Complaint: Catheter/Tube Problem
Source: patient and spouse
Exam Limitations: none
Time Seen by Provider: 06/10/25 00:29
Nursing documentation reviewed up to this point in time: agreed with
History of Present Illness
History of Present Illness:
Note:
CHIEF COMPLAINT(S)
Gastrostomy tube dislodgement.
HISTORY OF PRESENT ILLNESS
The patient is an 84-year-old male who presented with the dislodgement of his gastrostomy tube. The tube has been in place for approximately five years, and it was previously changed several months ago. The patient reported that the tube 'came out'
and attempted to reinsert it. The patients past experience with the gastrostomy tube has included changes at intervals longer than every several months.
PAST MEDICAL AND SURGICAL HISTORY
The patient has had a gastrostomy tube in place for the past five years.
PHYSICAL EXAM
General: Alert, no acute distress.
REVIEW OF SYSTEMS
Gastrointestinal: Gastrostomy tube dislodgement reported.
PROBLEM LIST
Acute: Gastrostomy tube dislodgement.
PLAN
The immediate plan involves reinsertion of the gastrostomy tube and evaluating its functional position.
DIFFERENTIAL DIAGNOSIS
The Differential Diagnosis includes, in no particular order and is not limited to:
1. Gastrostomy tube dislodgement
2. Incomplete or malpositioned re-insertion
3. Tammy-tube infection
4. Gastrostomy tube malfunction
5. Granulation tissue irritation
6. Peritonitis
7. Abdominal wall trauma
8. Gastroesophageal reflux
9. Feeding intolerance
10. Skin infection at gastrostomy site
Disposition:
SUMMARY OF ENCOUNTER
The patient, an 84-year-old male, presented to the emergency department with a dislodged gastrostomy (G-tube). The dislodgement required immediate attention due to the patients reliance on the tube for feeding and medication administration. The tube
was successfully replaced during the visit. A subsequent tube check, interpreted by radiology, confirmed proper positioning and functionality of the tube. The patients condition was stable, and there were no complications observed post-procedure.
DISPOSITION
Discharge.
PLAN
The patient will be discharged home with instructions for care of the newly replaced gastrostomy tube. Educate the patient and caregiver about signs of complications and when to seek further medical assistance.
MEDICATION RECONCILIATION
No new medications were prescribed during this visit as the problem was primarily procedural.
MEDICAL DECISION MAKING
- Number and Complexity of Problems Addressed: Chronic conditions affecting care include the dislodged gastrostomy tube. Differential diagnosis considered includes gastrostomy tube dislodgement, incomplete or malpositioned re-insertion, and
gastrostomy tube malfunction.
- Data:
Category 1: Tube check was performed and reviewed, confirming proper placement by radiology.
DIAGNOSIS
Gastrostomy tube dislodgement (ICD-10: K94.23).
Past History
Past History
ED Past Medical History: Arrthythmia (Atrial fibrillation), Cancer (Bladder CA), CVA (Multiple embolic CVAs. Bedbound, expressive aphasia), HTN, Hypercholesterolemia and Other (Expressive Aphasia, neurogenic bladder-chronic indwelling Chavez
catheter, bladder stones)
ED Past Surgical History: Other (PEG tube)
Social History
Tobacco: Former smoker
Alcohol: None
Drug: None
Personal:
Living: with family
Employment: Disabled
Family History
Family History: Other (reviewed and noncontributory)
Phy Exam
Physical Exam
Physical Exam:
.
Course
Orders/Labs/Results
Orders:
Orders
06/10/25 00:47
Tube Check [CR Cont Inj Eval Tube(by Rad)] Urgent
Comment:
Reason For Exam: g tube replacement
Vital Signs
Initial and Last Documented VS:
Initial Vital Signs
Temp Pulse BP Pulse Ox
98.6 F 61 165/83 97
06/09/25 22:11 06/09/25 22:11 06/09/25 22:11 06/09/25 22:11
Last Documented Vital Signs
Temp Pulse BP Pulse Ox
98.6 F 61 138/67 100
06/09/25 22:11 06/09/25 22:11 06/10/25 03:00 06/10/25 03:44
*Radiology
Radiology exam reviewed: preliminary read by ED provider (Tube appears to be in place) and radiology read reviewed
*Pulse Oximetry
SaO2: 99
Nasal Cannula flow liters per minute: 2
Oxygen Mode of Delivery: Room air
Patient hypoxic: no
*Critical Care Note
Total Time (30-74mins, 75-104mins- exclusive of procedures): Not Applicable
ED Attending Note
-
Portions of this chart may have been created with voice recognition software.� Occasional wrong word or��sound alike� substitutions may have occurred due to the inherent limitations of voice recognition software.
Discharge Plan
Departure
Patient Disposition: Home (Routine Discharge)
Date of Disposition: 06/10/25
Time of Disposition: 02:49
Patient with high blood pressure during this ER visit?: Yes
Discharge Problem:
Gastrojejunostomy tube dislodgement
Instructions: How to Care for Your Gastrostomy Tube, BLOOD PRESSURE
Prescriptions:
No Action
baclofen 5 MG tablet
7.5 mg feeding tube BID
gabapentin 600 mg Tablet
300 mg feeding tube BID
trazodone 50 mg Tablet
25 mg feeding tube HS
guaifenesin 400 mg Tablet
400 mg PO TID Qty: 0
chlorhexidine gluconate 0.12 % Mouthwash
1 ml MUCOUS MEMBRANE QID
Lumigan 0.01 % Drops
1 drp BOTH EYES HS
Eliquis 5 MG tablet
5 mg feeding tube BID Qty: 30 0RF
fluoxetine 20 mg Tablet
40 mg feeding tube DAILY
dorzolamide-timolol 22.3-6.8 mg/mL Drops
1 drp BOTH EYES BID
atorvastatin 40 MG tablet
40 mg feeding tube HS
fluticasone propionate 50 mcg/actuation spray,suspension
1 spray intranasal HSPRN PRN (Reason: dry nares)
brimonidine 0.2 % Drops
1 drp BOTH EYES BID
acetaminophen-codeine 300-30 mg Tablet
1 tab feeding tube TIDPRN PRN (Reason: moderate pain)
lansoprazole 30 mg Tablet,Disintegrat, Delay Rel
30 mg feeding tube DAILY
hydralazine 25 mg Tablet
25 mg feeding tube TIDPRN PRN (Reason: systolic bp greater than 150)
nystatin 100,000 unit/mL Suspension
5 ml mucous membrane QID
polyethylene glycol 3350 [Miralax] 17 gram powder in packet
17 g feeding tube HS PRN (Reason: constipation)
sennosides [senna] 8.6 mg Tablet
17.2 mg feeding tube HS
albuterol sulfate 2.5 mg /3 mL (0.083 %) Solution For Nebulization
2.5 mg INHALATION R Q4HPRN PRN (Reason: sob)
budesonide 0.5 mg/2 mL Suspension For Nebulization
0.5 mg INHALATION R BID
amiodarone 100 mg Tablet
50 mg feeding tube DAILY
sulfamethoxazole-trimethoprim [Bactrim DS] 800-160 mg tablet
1 tab PO BID Qty: 6 0RF
Rx Instructions:
till 05/02
Referrals:
Jenn Dominguez CRNP [Family Provider, General]
Interventions
Interventions:
*General Assessment Last Done: 06/09/25 22:20
*Neglect/Abuse Screening Last Done: 06/09/25 22:20
*ED COVID-19 Vaccine History Last Done: 06/09/25 22:20
*ED Influenza Vaccine History Last Done: 06/09/25 22:20
[facility] Risk Assessment Tool Last Done: 06/09/25 22:20
*Risk Screen - Suicide (C-SSRS) Last Done: 06/10/25 03:44
*Nursing Disposition Last Done: 06/10/25 03:44
HH-Gqarfc-Dngzfglxeb Assessment Last Done: 06/09/25 22:20
ED-Male Genitourinary Assessment Last Done: 06/09/25 22:20
Discharge Date and Time
Discharge Date/Time: 06/10/25 03:47
Print Language: ARMENIAN
[2025-06-10 03:00] VITALS: BP 138/67
== END 2025-06-10 03:47 | disposition home or self-care (01) ==
LOC: EMR 22:09
PROVIDERS: EMERGENCY PHYSICIAN Student in an Organized Health Care Education/Training Program; FAMILY PHYSICIAN Nurse Practitioner Adult Health
DX: Z43.1 Encounter for attention to gastrostomy (principal); E78.00 Pure hypercholesterolemia, unspecified; I10 Essential (primary) hypertension; I48.91 Unspecified atrial fibrillation; Z86.73 Personal history of transient ischemic attack (TIA), and cerebral infarction without residual deficits; Z87.891 Personal history of nicotine dependence; Z85.51 Personal history of malignant neoplasm of bladder
CPT/HCPCS: 43762; 99283; 49465